=== PATIENT | male | born 1950 | race Hispanic/Latino ===

== ENCOUNTER → 2017-09-06 | Day surgery (SDC) | payer OTHER, MEDICARE ==
[~2017-09-06] VITALS: Ht 165.1 cm; Wt 73.5 kg
--- NOTE | 2017-09-06 09:58 | Operative Report ---
Operative/Inv Procedure Report Surgery Date: 09/06/17 Name of Procedure: Complex cataract extraction with intraocular lens implantation left eye Pre-Operative Diagnosis: Age-related cataract and abnormal pupil left eye Post-Operative Diagnosis: Same Estimated Blood Loss: none Surgeon/Charge Accounts Audit Clerk: Nemesio ISSA,Alfred Gomes Anesthesia: local monitored anesthesi Complications: None Operative/Procedure Note Note: Preoperatively the patient was noted to have hand motion vision in the left eye . The risks, benefits, and alternatives to surgery were discussed at length with the patient. Informed consent was obtained. The patient was brought to the operating room where the left eye was prepped and draped in the normal sterile fashion. A speculum was placed on the left eye with good exposure. A stab incision was made using a paracentesis blade. Intracameral lidocaine was placed. Viscoelastic was used to form the anterior chamber. A Malyugin ring was placed on the iris with good exposure. A clear corneal incision was made using keratome blade. A continuous curvilinear capsulorrhexis was made using a cystotome needle followed by Utrata forceps. There was no extension of the rhexis. Hydrodissection was performed using balanced salt solution. The cataract was removed using a stop and chop technique. Residual cortex was removed using coaxial irrigation and aspiration. The capsule was polished using irrigation and aspiration and the posterior capsule was cleaned using a balanced salt solution jet. There was no residual lens material inside the eye. The capsular bag was reformed using viscoelastic. An intraocular lens PCBOO of power 24.5 was verified and confirmed. It was loaded into an injector and injected into the eye. The lens was placed entirely within the capsular bag. Viscoelastic was evacuated using irrigation and aspiration. The wounds were stromally hydrated and the eye filled to physiologic pressure using balanced salt solution. Intracameral cefuroxime was placed. Speculum was removed and a shield was placed on the eye. The patient was brought to the recovery area without incident. Instructions were given to follow-up the next day for routine postoperative care.
== END ==
LOC: STS 01:54
DX: H25.89 Other age-related cataract (principal); H21.562 Pupillary abnormality, left eye; E11.22 Type 2 diabetes mellitus with diabetic chronic kidney disease; I12.0 Hypertensive chronic kidney disease with stage 5 chronic kidney disease or end stage renal disease; N18.6 End stage renal disease; Z99.2 Dependence on renal dialysis
CPT/HCPCS: 36415; J2250; V2632

== ENCOUNTER 2017-09-28 17:02 | Inpatient (IN) | payer OTHER, MEDICARE ==
[~2017-09-28] VITALS: Ht 165.1 cm; Wt 71.0 kg
[2017-09-28 17:47] LABS: ABSOLUTE BASOPHIL COUNT 0.1 /CUMM (0.0-0.2); ABSOLUTE EOSINOPHIL COUNT 0.1 /CUMM (0.0-0.7); ABSOLUTE GRANULOCYTE CT 7.3 /CUMM (1.4-6.5); ABSOLUTE LYMPH COUNT 1.1 /CUMM (1.2-3.4); ABSOLUTE MONOCYTE COUNT 0.7 /CUMM (0.10-0.60); BASOPHIL % 0.7 % (0.0-2.0); EOSINOPHIL % 0.7 % (0-5); GRANULOCYTE % 79.6 % (42.2-75.2); HEMATOCRIT 29.9 % (42-52); MEAN CORPUSCULAR HGB 30.9 PG (27.0-31.0); MEAN CORPUSCULAR HGB CONC 33.4 G/DL (33.0-37.0); MEAN CORPUSCULAR VOLUME 92.5 FL (80.0-94.0); MEAN PLATELET VOLUME 7.5 FL (7.4-10.4); PLATELET COUNT 269 /CUMM (130-400); RBC DISTRIBUTION WIDTH 14.4 % (11.5-14.5); RED BLOOD CELL CT 3.23 /CUMM (4.70-6.10); WHITE BLOOD CELL COUNT 9.2 /CUMM (4.8-10.8)
--- NOTE | 2017-09-28 18:29 | ED GI/GU/ABDOMINAL COMPLAINT ---
See Addendum History of Present Illness General Chief Complaint: Male Genitourinary Problems Stated Complaint: INFECTION IN URINE, CHILLS Source: patient, family Exam Limitations: language barrier Vital Signs & Intake/Output Vital Signs & Intake/Output Vital Signs Date Time Temp Pulse Resp B/P B/P Pulse O2 O2 Flow FiO2 Mean Ox Delivery Rate 09/29 0027 98.9 72 18 170/60 09/28 2150 98.4 80 18 150/62 95 Nasal 2.0L Cannula 09/28 2140 95 Nasal 2.5L Cannula 09/28 2128 98.8 81 18 187/73 97 Nasal 3.0L Cannula 09/28 2009 98.7 86 20 175/75 95 Nasal 2.0L Cannula 09/28 1812 95 Nasal 2.0L Cannula 09/28 1752 98.9 89 20 178/76 95 Nasal 2.0L Cannula 09/28 1715 99.3 85 20 164/64 89 Room Air Room Air ED Intake and Output 09/29 0000 09/28 1200 Intake Total 20 Output Total Balance 20 Intake, IV 20 Patient 170 lb Weight Weight Bed scale Measurement Method Allergies Coded Allergies: No Known Allergies (09/28/17) Reconcile Medications Acetaminophen 500 MG TABLET 1 TAB PO DAILY PRN PAIN (Reported) Amlodipine Besylate 10 MG TABLET 1 TAB PO DAILY HTN (Reported) Aspirin (Aspirin*) 81 MG TAB.CHEW 1 TAB PO DAILY CAD (Reported) B Complex & C No.20/Folic Acid (Renal Caps Softgel) 1 MG CAPSULE 1 TAB PO DAILY ESRD (Reported) Clonidine HCl 0.2 MG TABLET 1 TAB PO BID HTN (Reported) Darbepoetin Pardeep in Polysorbat (Aranesp) 10 MCG/0.4 ML SYRINGE 1 SYR IM QMON ANEMIA (Reported) Etelcalcetide Hydrochloride (Parsabiv) 5 MG/ML VIAL 5 MG IV Sunday ESRD (Reported) Fluticasone Propionate (Flonase Allergy Relief) 50 MCG/ACTUATION SPRAY.SUSP 1 SPRAY INH BID ALLERGY (Reported) Furosemide 80 MG TABLET 1 TAB PO DAILY CHF (Reported) Hydralazine HCl 50 MG TABLET 1 TAB PO TID HTN (Reported) Insulin Glargine,Hum.rec.anlog (Lantus Solostar) 100 UNIT/ML (3 ML) INSULN.PEN 10 UNIT SC QPM DAILY (Reported) Insulin Regular (Novolin R Inj) 1,000 UNITS/10 ML CAROL 0 UNITS SC SEE ADMIN CRITERIA DIABETES (Reported) Iron Sucrose (Venofer) 100 MG IRON/5 ML VIAL 1 VIAL IV WITH DIALYSI ESRD / ANEMIA (Reported) Lactulose (Kristalose) 20 GRAM PACKET 1 PACKET PO DAILY CONSTIPATION ( Reported) Levothyroxine Sodium 150 MCG TABLET 1 TAB PO DAILY HYPOTHYROIDISM (Reported) Metoprolol Tartrate 25 MG TABLET 0.5 TAB PO BID CAD / HTN (Reported) Minoxidil 10 MG TABLET 2.5 MG PO DAILY ESRD (Reported) Nitroglycerin 0.4 MG TAB.SUBL 1 TAB SL AD CHEST PAIN (Reported) 1st sign of attack; may repeat every 5 minutes until relief; if pain persists after 3 tablets in 15 minutes, prompt medical att Olmesartan Medoxomil (Benicar) 40 MG TABLET 1 TAB PO DAILY HTN (Reported) Ondansetron HCl 4 MG TABLET 1 TAB PO Q4P PRN NAUSEA (Reported) Pravastatin Sodium 40 MG TABLET 1 TAB PO DAILY HLD (Reported) Tamsulosin HCl (Flomax) 0.4 MG CAP.ER.24H 1 CAP PO DAILY BPH (Reported) Triage Note: PT TO ED FOR C/C OF R FLANK PAIN THAT STARTED 5 DAYS AGO. TOLD BY BEAUTY SALES ADVISOR THAT HE HAS UTI BUT TOLD TO COME TO ED FOR ANTIBIOTICS. BILATERAL LOWER LEG SWELLING WITH SOB. PT DIAPHORETIC IN TRIAGE, 99.3 TEMP. DIALYSIS PATIENT. ALSO REPORTS PINK URINE. Triage Nurses Notes Reviewed? yes Onset: Gradual Duration: day(s): Timing: recent history Quality/Severity: moderate HPI: 67yo male with hx of CHF, CKD on dialysis 3x/week presents emergency department complaining of right-sided flank pain beginning 5 days ago. Patient also reporting dysuria, pyuria, hematuria beginning at the same time. 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 Patient also reporting a dry cough and dyspnea for the past 2 days. Patient also with lower extremity swelling for about one week. Patient reports feeling sweats and chills for 2 days. Patient denies chest pain, abdominal pain, vomiting, diarrhea. (Bridget RYAN,Janee Hall) Past History Travel History Traveled to [place] past 21 day No Medical History Any Pertinent Medical History? 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 No (Janee Ramon) Review of Systems Review of Systems Constitutional: Reports: see HPI. EENTM: Reports: no symptoms. Respiratory: Reports: see HPI. Cardiovascular: Reports: see HPI. GI: Reports: see HPI. Genitourinary: Reports: see HPI. Musculoskeletal: Reports: no symptoms. Skin: Reports: no symptoms. Neurological/Psychological: Reports: no symptoms. Hematologic/Endocrine: Reports: no symptoms. Immunologic/Allergic: Reports: no symptoms. All Other Systems: Reviewed and Negative (Janee Ramon) Physical Exam Physical Exam General Appearance: well developed/nourished, alert, awake Head: atraumatic, normal appearance Eyes: Bilateral: normal appearance. Ears, Nose, Throat, Mouth: hearing grossly normal Neck: normal inspection, supple, full range of motion Respiratory: no respiratory distress, mildly diminished breath sounds bilaterally Cardiovascular: regular rate/rhythm Gastrointestinal: normal bowel sounds, soft, non-tender, no organomegaly Back: CVA tenderness bilaterally Extremities: normal range of motion, nonpitting edema bilaterally Neurologic/Psych: awake, alert, oriented x 3 Skin: intact, normal color, warm/dry Core Measures ACS in differential dx? Yes Sepsis Present: No Sepsis Focused Exam Completed? No (Janee Ramon) Progress Differential Diagnosis: AAA, bowel obstruction, cholecystitis, diverticulitis, hernia, PUD/GERD, pyelonephritis, urinary retention, urethritis, UTI/pyelo, ACS, CHF Plan of Care: Orders Procedure Date/time Status Nothing by Mouth 09/29 B Active ECHOCARDIOGRAM 09/29 2102 Active TROPONIN LEVEL 09/29 0800 Active EKG 09/29 0800 Active TROPONIN LEVEL 09/29 0200 Active EKG 09/29 0200 Active Renal Dialysis Diet 09/28 D Complete Weight 09/28 2146 Active Vital Signs 09/28 214 Active Teach/Educate 09/28 2145 Active Pain Treatment and Response 09/28 2145 Active Nutritional Intake, Monitor 09/28 2145 Active Isolation 09/28 2145 Active Intake & Output 09/28 2145 Active Patient Care Conference 09/28 2145 Active Activity/Ambulation 09/28 2145 Active TRC EVALUATION (GEN) 09/28 2101 Active OXYGEN SETUP (GEN) 09/28 2101 Complete Pathway - chart 09/28 2101 Active House Staff 09/28 2101 Active Intake & Output 09/28 1956 Active Patient Data 09/29 1951 Active Admit to inpatient 09/28 1936 Active Vital Signs 09/28 193 Active Code Status 09/28 1936 Active Add-on Test (ER Only) 09/28 192 Active Add-on Test (ER Only) 09/28 1822 Active TROPONIN LEVEL 09/28 1740 Complete B-TYPE NATRIURETIC PEP (BNP) 09/28 1740 Complete BLOOD CULTURE 09/28 1729 Active EKG 09/28 1726 Active LACTIC ACID 09/28 1713 Complete COMPREHENSIVE METABOLIC PANEL 09/28 1713 Complete CBC WITHOUT DIFFERENTIAL 09/28 1713 Complete CULTURE,URINE 09/28 1706 Active URINALYSIS 09/28 1706 Complete Weight 09/28 UNK Active VTE Mechanical Prophylaxis 09/28 UNK Active FingerStick- Glucose 09/28 UNK Active Current Medications Sig/Hernandez Start time Last Medication Dose Stop Time Status Admin Ceftriaxone Sodium 1,000 MG DAILY@09/29 AC (Rocephin) Pravastatin Sodium 10 MG 1700 09/29 1700 AC (Pravachol) Amlodipine Besylate 10 MG DAILY 09/29 09 AC (Norvasc) Aspirin 81 MG DAILY 09/29 09 AC (Aspirin) Clonidine 0.2 MG BID 09/29 899 AC (Catapres) Furosemide 80 MG DAILY 09/29 899 AC (Lasix) Losartan Potassium 50 MG DAILY 09/29 09 AC (Cozaar) Minoxidil 2.5 MG DAILY 09/29 09 AC (Minoxidil 2.5 MG Tab) Tamsulosin HCl 0.4 MG DAILY 09/29 09 AC (Flomax) Levothyroxine Sodium 0.15 MG DAILY AC 09/29 0700 AC (Synthroid) Morphine Sulfate 2 MG Q4P PRN 09/29 0045 AC 09/29 (MORPHINE SULFATE) 0053 Insulin Human Regular 0 Q6 09/28 2359 AC 09/29 (NovoLIN R) 0033 Hydralazine HCl 50 MG TID 09/28 2330 AC 09/29 (Apresoline) 0026 Metoprolol Tartrate 12.5 MG BID 09/28 2330 AC 09/29 (Lopressor) 0027 Lactulose 20 GM DAILY PRN 09/28 2300 AC (Enulose 20GM/30ML) Heparin Sodium 5,000 UNIT Q8 09/28 2200 AC 09/28 (Porcine) 2218 Acetaminophen 650 MG Q6P PRN 09/28 2100 AC (Tylenol) Laboratory Tests 09/28/172012: Lactic Acid Cancelled 09/28/171923: Urine Color ORANG H, Urine Clarity CLDY H, Urine pH 7.5, Ur Specific [place] 1.025, Urine Protein >=300 H, Urine Ketones NEG, Urine Nitrite POS H, Urine Bilirubin NEG@ICTO, Urine Urobilinogen 0.2, Ur Leukocyte Esterase LARGE H, Ur Microscopic SEDIMENT EXAMINED, Urine RBC PACKD H, Urine WBC PACKD H, Ur Epithelial Cells FEW, Urine Bacteria MANY H, Urine Hemoglobin LARGE H, Urine Glucose NEG 09/28/17 1740: Anion Gap 16, Estimated GFR 14 L, BUN/Creatinine Ratio 7.7, Glucose 242 H, Lactic Acid 0.7, Calcium 8.3 L, Total Bilirubin 0.6, AST 26, ALT 30, Alkaline Phosphatase 106, Troponin I 0.02, Kww-X-Gpzrsqybejf Pept 13775 H, Total Protein 7.1, Albumin 4.2, Globulin 2.9, Albumin/Globulin Ratio 1.4, CBC w Diff NO MAN DIFF REQ, RBC 3.23 L, MCV 92.5, MCH 30.9, MCHC 33.4, RDW 14.4, MPV 7.5, Gran % 79.6 H, Lymphocytes % 11.9 L, Monocytes % 7.1, Eosinophils % 0.7, Basophils % 0.7, Absolute Granulocytes 7.3 H, Absolute Lymphocytes 1.1 L, Absolute Monocytes 0.7 H, Absolute Eosinophils 0.1, Absolute Basophils 0.1 Microbiology 09/29 1923 URINE ROUT: Urine Culture - RECD 09/28 1820 BLOOD: Blood Culture - RECD 09/28 1740 BLOOD: Blood Culture - RECD Diagnostic Imaging: Viewed by Me: Radiology Read, CT Scan. Discussed w/RAD: Radiology Read, CT Scan. Radiology Impression: PATIENT: HORTENSIA DIXON I PRESENT AGE: 67 PATIENT ACCOUNT NO: [id number] : 50 LOCATION: [facility] ORDERING PHYSICIAN: Janee RYAN SERVICE DATE: 09/28/17 EXAM TYPE: CAT - CT ABD & PELVIS W/O IV CONTRAS EXAMINATION: CT ABDOMEN AND PELVIS WITHOUT CONTRAST CLINICAL INFORMATION: Back pain. Dysuria.CKD COMPARISON: None TECHNIQUE: Multidetector volumetric imaging was performed from the superior aspect of the liver through the pubic symphysis. Sagittal and coronal reformatted images were obtained on the technologist's workstation. DLP: 349.12 mGy-cm FINDINGS: LUNG BASES: There is large volume dependent bilateral pleural effusions. There is basilar compression atelectasis at both lung bases. LIVER, GALLBLADDER, AND BILIARY TREE: The liver is normal in size, shape, and attenuation. No focal hepatic lesion or biliary ductal dilatation is present. There are couple punctate calcified granuloma in the liver. The gallbladder is not seen. The extra hepatic CBD measures 1 cm. No calcified stone seen in the bile duct. PANCREAS: Unremarkable. SPLEEN: Unremarkable. ADRENAL GLANDS: Unremarkable. KIDNEYS AND URETERS: There is hydronephrosis of right kidney with distention renal pelvis and calyces. There is a linear 5 mm stone in the renal pelvis. There is a second stone at the right ureterovesical junction that is also linear measuring about 4 mm. The right ureter is dilated to the ureterovesical junction but no additional stone in the right ureter or kidney. The left kidney and ureter are normal. BLADDER: The bladder is partially filled. GASTROINTESTINAL TRACT: There is no acute change of the bowel. No bowel obstruction. No bowel wall thickening or edema. The appendix is normal. The small bowel loops are unremarkable. ABDOMINAL WALL: No significant hernia is appreciated. LYMPH NODES: Normal. VASCULAR: Atherosclerotic vascular wall calcification of aorta and iliac vessels without aneurysm. PELVIC VISCERA: Prostate is enlarged measuring 5.3 cm transverse. There are small calcifications within the prostate. OSSEOUS STRUCTURES: There is multilevel small endplate degenerative spurring of the lumbar spine with bridging osteophytes at the lower thoracic spine. Mild facet joint degenerative change at the lower lumbar spine. IMPRESSION: 1. Large bilateral pleural effusions with compressive atelectasis at lung bases. 2. Hydronephrosis of right kidney due to an obstructing stone at the right ureteropelvic junction. This is a linear stone measuring about 4 mm. There is a 5 mm stone in the right renal pelvis. DICTATED BY: Iván Smith MD DATE/ TIME DICTATED:09/28/172021 WAREHOUSE ORDER FILLER:RYAN DATE/TIME TRANSCRIBED: 09/28/172021 CONFIDENTIAL, DO NOT COPY WITHOUT APPROPRIATE AUTHORIZATION. < Electronically signed in Other Vendor System> SIGNED BY: Iván Smith MD 2113 CXR Impression: PATIENT: HORTENSIA DIXON I PRESENT AGE: 67 PATIENT ACCOUNT NO: [id number] : 50 LOCATION: [facility] ORDERING PHYSICIAN: Janee RYAN SERVICE DATE: 09/28/17 EXAM TYPE: RAD - XRY-CHEST XRAY, TWO VIEWS EXAMINATION: XR CHEST CLINICAL INFORMATION: Shortness of breath. Fever. COMPARISON: Chest x-ray 06/02/2016 TECHNIQUE: 2 views of the chest were obtained. FINDINGS: There is moderate central pulmonary vascular congestion with increased interstitial lung markings, interstitial edema, and bilateral pleural effusions. No focal dense consolidation. IMPRESSION: Congestive heart failure. Bilateral pleural effusions. DICTATED BY: Iván Smith MD DATE/TIME DICTATED:09/28/171835 WAREHOUSE ORDER FILLER:RYAN DATE/TIME TRANSCRIBED:09/28/171835 CONFIDENTIAL, DO NOT COPY WITHOUT APPROPRIATE AUTHORIZATION. <Electronically signed in Other Vendor System> SIGNED BY: Iván Smith MD 09/28/17 1841 Initial ED EKG: sinus rhythm @84bpm, first degree AV block, ST segment elevations V1-V3 Prior EKG: changed (01/01/11) (Bridget RYAN,Janee Hall) Departure Departure Disposition: STILL A PATIENT Condition: Stable Clinical Impression Primary Impression: EKG abnormalities Secondary Impressions: CHF (congestive heart failure), Kidney stone Referrals: Kevin Brown MD (PCP/Family) Departure Forms: Customer Survey General Discharge Information Admission Note Documentation of Exam: CHF requiring cardiology consult, possible diuresis, UTI requiring IV antibiotics, repeat labs, urology consult, follow up with blood cultures, premature discharge medically unsafe (Bridget RYAN,Janee Hall) Admission Note Spoke With: Valente Petersen MD Documentation of Exam: Documentation of any treatments & extenuating circumstances including Concerns Regarding Discharge (functional status, medication knowledge or non-compliance, living conditions, etc.) that warrant an admission rather than observation: [The patient needs admission for serial troponins and telemetry monitoring.] (Nikolay Kumar DO)
--- NOTE | 2017-09-28 18:41 | RADIOLOGY REPORT ---
EXAMINATION: XR CHEST CLINICAL INFORMATION: Shortness of breath. Fever. COMPARISON: Chest x-ray 06/02/2016 TECHNIQUE: 2 views of the chest were obtained. FINDINGS: There is moderate central pulmonary vascular congestion with increased interstitial lung markings, interstitial edema, and bilateral pleural effusions. No focal dense consolidation. IMPRESSION: Congestive heart failure. Bilateral pleural effusions.
--- NOTE | 2017-09-28 19:54 | History & Physical ---
Brendon Taylor MD 09/28/171953: General Information and HPI History of Present Illness: 67-year-old man with past medical history of congestive heart failure, hypertension, hyperlipidemia, aortic stenosis, bradycardia, pancreatitis, BPH, insulin-dependent diabetes mellitus, ESRD on hemodialysis, and hypothyroidism sent in from dialysis for treatment of a "urinary tract infection". Patient reports that he attended his hemodialysis session today as scheduled when he reported urinary symptoms for which a urinalysis was obtained that reportedly showed "an infection" for which they were referred to the [place] [facility]. Patient reports fever, chills, back pain, pain with burning on urination, and urinary incontinence over the past 5 days. He also reports development of shortness of breath with lower extremity swelling over the past 3-4 days. Patient was reportedly seen by his balance sheet analyst Dr. Trevino whom made some "medicine changes". Presently patient reports severe mid/right sided back pain with persistence of his fever, chills, shortness of breath, abdominal pain, and urinary symptoms. Review of systems Otherwise he denies any headache, lightheadedness, dizziness, chest pain, palpitations, heartburn, cough, vomiting, diarrhea. Past medical history-as above Allergies-no known drug allergies Medications-reconciled in electronic medical record Allergies/Medications Allergies: Coded Allergies: No Known Allergies (09/28/17) Home Med list Acetaminophen 500 MG TABLET 1 TAB PO DAILY PRN PAIN (Reported) Amlodipine Besylate 10 MG TABLET 1 TAB PO DAILY HTN (Reported) Aspirin (Aspirin*) 81 MG TAB.CHEW 1 TAB PO DAILY CAD (Reported) B Complex & C No.20/Folic Acid (Renal Caps Softgel) 1 MG CAPSULE 1 TAB PO DAILY ESRD (Reported) Clonidine HCl 0.2 MG TABLET 1 TAB PO BID HTN (Reported) Darbepoetin Pardeep in Polysorbat (Aranesp) 10 MCG/0.4 ML SYRINGE 1 SYR IM QMON ANEMIA (Reported) Etelcalcetide Hydrochloride (Parsabiv) 5 MG/ML VIAL 5 MG IV Sunday ESRD (Reported) Fluticasone Propionate (Flonase Allergy Relief) 50 MCG/ACTUATION SPRAY.SUSP 1 SPRAY INH BID ALLERGY (Reported) Furosemide 80 MG TABLET 1 TAB PO DAILY CHF (Reported) Hydralazine HCl 50 MG TABLET 1 TAB PO TID HTN (Reported) Insulin Glargine,Hum.rec.anlog (Lantus Solostar) 100 UNIT/ML (3 ML) INSULN.PEN 10 UNIT SC QPM DAILY (Reported) Insulin Regular (Novolin R Inj) 1,000 UNITS/10 ML CAROL 0 UNITS SC SEE ADMIN CRITERIA DIABETES (Reported) Iron Sucrose (Venofer) 100 MG IRON/5 ML VIAL 1 VIAL IV WITH DIALYSI ESRD / ANEMIA (Reported) Lactulose (Kristalose) 20 GRAM PACKET 1 PACKET PO DAILY CONSTIPATION ( Reported) Levothyroxine Sodium 150 MCG TABLET 1 TAB PO DAILY HYPOTHYROIDISM (Reported) Metoprolol Tartrate 25 MG TABLET 0.5 TAB PO BID CAD / HTN (Reported) Minoxidil 10 MG TABLET 2.5 MG PO DAILY ESRD (Reported) Nitroglycerin 0.4 MG TAB.SUBL 1 TAB SL AD CHEST PAIN (Reported) 1st sign of attack; may repeat every 5 minutes until relief; if pain persists after 3 tablets in 15 minutes, prompt medical att Olmesartan Medoxomil (Benicar) 40 MG TABLET 1 TAB PO DAILY HTN (Reported) Ondansetron HCl 4 MG TABLET 1 TAB PO Q4P PRN NAUSEA (Reported) Pravastatin Sodium 40 MG TABLET 1 TAB PO DAILY HLD (Reported) Tamsulosin HCl (Flomax) 0.4 MG CAP.ER.24H 1 CAP PO DAILY BPH (Reported) Past History Travel History Traveled to [place] past 21 day No Medical History Neurological: NONE EENT: NONE Cardiovascular: CHF, hypertension, hyperlipidemia, AORTIC STENOSIS FLUID OVERLOAD BRADYCARDIA Gastrointestinal: colitis, PANCREATITIS Renal: benign prost hyperplasia, ESRD ON DIALYSIS CYST ON KIDNEY Musculoskeletal: FROZEN SHOULDER Endocrine: TYPE II DM HYPOTHYROIDISM Blood Disorders: NONE Cancer(s): NONE RESEARCH QUALITY ASSURANCE ANALYST/Reproductive: NONE Surgical History Surgical History: unobtainable Past Family/Social History Psychosocial History Where do you live? Home Services at Home: None ETOH Use: denies use Illicit Drug Use: denies illicit drug use Review of Systems Review of Systems Constitutional: Reports: see HPI. Exam & Diagnostic Data Last 24 Hrs of Vital Signs/I&O Vital Signs Date Time Temp Pulse Resp B/P B/P Pulse O2 O2 Flow FiO2 Mean Ox Delivery Rate 09/28 2150 98.4 80 18 150/62 95 Nasal 2.0L Cannula 09/28 2140 95 Nasal 2.5L Cannula 09/28 2128 98.8 81 18 187/73 97 Nasal 3.0L Cannula 09/28 2009 98.7 86 20 175/75 95 Nasal 2.0L Cannula 09/28 1812 95 Nasal 2.0L Cannula 09/28 1753 98.9 89 20 178/76 95 Nasal 2.0L Cannula 09/28 1715 99.3 85 20 164/64 89 Room Air Room Air Assessment/Plan Assessment: 67-year-old man with multiple medical problems significant for congestive heart failure, aortic stenosis, and end-stage renal disease on hemodialysis seen for evaluation of a urinary tract infection. ED course -Vitals: Temp 98.9-99.3, HR 85-89, RR 20, SPEP was 54-178, O2 89-95% on room air -CBC: WBC 9.2, hemoglobin 10.0, hematocrit 29.9, platelet 269 -BMP: sodium 138, potassium 5.0, chloride 93, CO2 29, urea 33, creatinine 4.3, anion gap 16, glucose 242 -LFT: Within normal limits -Miscellaneous: Lactic acid 0.7, troponin I 0.02, BNP 73293 -EKG 01/01// 1502: Normal sinus rhythm with T-wave inversions in V5-6, I, aVL with first-degree heart block and [address] segment elevation in V1-V2 -EKG 09/28/17 1729: Unchanged from previous -CXR: Digestive heart failure with bilateral pleural effusions -CT abdomen/pelvis without IV contrast: 1. Large bilateral pleural effusions with compressive atelectasis at lung bases. 2. Hydronephrosis of right kidney due to an obstructing stone at the right ureteropelvic junction. This is a linear stone measuring about 4 mm. There is a 5 mm stone in the right renal pelvis. Patient's urinalysis was repeated in the ED which did in fact demonstrate an active urinary tract infection for which urine/blood cultures were obtained and patient was given a dose of intravenous Rocephin. Patient remains afebrile without leukocytosis or tachycardia and does not appear septic however on exam has severe right sided CVA tenderness with moderate suprapubic pain. Chest x-ray demonstrates pulmonary vascular congestion with bilateral pleural effusions with an elevated BMP to 36,000 concerning for acute decompensated heart failure exacerbation. Patient is to be monitored on telemetry, transthoracic echocardiogram is to be obtained, and serial troponin/EKG is with a cardiology consult in the morning. CT abdomen/pelvis without IV contrast demonstrated obstructive 4 mm stone at the right UPJ for which he is kept nothing by mouth in anticipation for possible cystoscopy in the morning. Problem list -Urinary tract infection -Nephrolithiasis, 4 mm obstructive right UPJ renal stone -Acute hypoxic respiratory failure -Acute decompenstated heart failure -Bilateral pleural effusions -Reported history of congestive heart failure, no recent echocardiogram -History of aortic stenosis -BPH -End-stage renal disease on hemodialysis -Insulin-dependent diabetes mellitus -Hypothyroidism -Hypertension -Hyperlipidemia Plan -Admit to telemetry -Telemetry monitoring -Monitor in's and outs, daily weights -TRC with nebs when necessary -Supplemental oxygen, goal >92%, taper as tolerated -Hemodialysis per nephrology -Accu-Cheks every 6 hours with Novolin insulin -Hold IV fluids -Lasix 40 mg IV Daily -Ceftriaxone 1 g IV daily -Continue home meds: amlodipine, aspirin, vitamins, clonidine,furosemide, hydralazine -Cardiology consult for heart failure -Nephrology consult for dialysis -Urology consult for obstructive renal stone -Echocardiogram -Trend troponin/EKG until peak or 3 negative sets -Pain control with acetaminophen -Nothing by mouth for possible cystoscopy/stent placement in a.m. -DVT prophylaxis with subcutaneous heparin -Full code As Ranked By This Provider Problem List: 1. CHF (congestive heart failure) Core Measures/Misc (03/04) Acute Coronary Syndrome ACS Diagnosis: No Congestive Heart Failure Congestive Heart Failure Diagnosis Yes Last Known EF % 60 Cerebrovascular Accident CVA/TIA Diagnosis: No VTE (View Protocol) VTE Risk Factors Age>40 No Mechanical VTE Prophylaxis d/t N/A MechProphylax Ordered No VTE Pharm Prophylaxis d/t NA PharmProphylax ordered Sepsis (View protocol) Sepsis Present: No Valente Petersen 09/29/17 0644: Attending MD Review Statement Attending Statement Attending MD Statement: examined this patient, discuss w/resident/PA/CLINICAL DATA ASSISTANT, agreed w/resident/PA/CLINICAL DATA ASSISTANT, reviewed EMR data (avail), reviewed images, amended to note Attending Assessment/Plan: CC: Sent from dialysis center for urine infection PMH: DM, HTN, hypothyroidism, heart failure, aortic stenosis, ESRD on hemodialysis, history of pancreatitis Patient was sent from hemodialysis center for urinary tract infection. History is obtained from patient's daughter as there is a language barrier. According to daughter patient was getting noticeably short of breath and increased leg swelling since last 4 days. They followed up with balance sheet analyst, some medication changes were done. Today he went for the dialysis went urine sample was obtained and it showed signs of UTI, at that time after probing questions patient endorsed burning with urination, painful urination, feverish feeling and chills at home, back pain since last 5 days. Patient usually is not a complainer and prefers not to go to hospital. He has been hospitalized 3 times since May at [facility]. Currently patient denies any chest pain or chest tightness, palpitations but he has dizziness, shortness of breath. No nausea, vomiting, diarrhea, passing out or falls. Vitals T max 99.3, pulse 85, RR 20, blood pressure 164/64, saturating 89% on room air then 95% on 3 L nasal cannula On exam: A O 3, cooperative, mild respiratory distress, neck supple, JVD elevated, no lymphadenopathy, mucosa moist, no focal neurological deficit, bilateral lower extremity +2 edema, no obvious skin rashes or inflammation CVS: S1-S2, RRR. RS: Bibasilar crackles. Abdomen: Soft, NT, ND, bowel sounds present, bilateral CVA tenderness left more than right. CXR: Congestive heart failure. Bilateral pleural effusions. CT abdomen pelvis without contrast: 1. Large bilateral pleural effusions with compressive atelectasis at lung bases. 2. Hydronephrosis of right kidney due to an obstructing stone at the right ureteropelvic junction. This is a linear stone measuring about 4 mm. There is a 5 mm stone in the right renal pelvis. Assessment and plan 67-year-old male with multiple comorbidities presented in ER for shortness of breath, increasing leg swelling over 4 days duration and urinary burning, low back pain, fever and chills of 5 day duration. He has elevated JVD, crackles on auscultation, bilateral lower extremity edema, CVA tenderness bilaterally. He has chronic anemia, no significant leukocytosis but there is left shift, his hyperglycemia. UA positive for nitrites and leukocyte esterase, CT abdomen shows right hydronephrosis with obstructing stone. Chest x-ray confirms the findings of congestive heart failure + Acute congestive heart failure with unknown ejection fraction + UTI with suspected pyelonephritis obstructive stone and hydronephrosis + History of DM, HTN, hypothyroidism, heart failure, aortic stenosis, ESRD on hemodialysis, history of pancreatitis - Admit to telemetry - Continuous telemetry monitoring - Continue O2 by nasal cannula - IV Lasix 40 mg once now - Reevaluate for volume status to address further Lasix dose - Strict I's and O's - Daily weights - Serial troponin and EKGs - 2-D echo in a.m. - Cardiology consult in a.m. - Nephrology consult - IV ceftriaxone - Urine culture - Urology consult - Continue his home medications except Lasix, patient may require IV Lasix - DVT prophylaxis
--- NOTE | 2017-09-28 21:14 | CT SCAN REPORT ---
EXAMINATION: CT ABDOMEN AND PELVIS WITHOUT CONTRAST CLINICAL INFORMATION: Back pain. Dysuria.CKD COMPARISON: None TECHNIQUE: Multidetector volumetric imaging was performed from the superior aspect of the liver through the pubic symphysis. Sagittal and coronal reformatted images were obtained on the technologist's workstation. DLP: 349.12 mGy-cm FINDINGS: LUNG BASES: There is large volume dependent bilateral pleural effusions. There is basilar compression atelectasis at both lung bases. LIVER, GALLBLADDER, AND BILIARY TREE: The liver is normal in size, shape, and attenuation. No focal hepatic lesion or biliary ductal dilatation is present. There are couple punctate calcified granuloma in the liver. The gallbladder is not seen. The extra hepatic CBD measures 1 cm. No calcified stone seen in the bile duct. PANCREAS: Unremarkable. SPLEEN: Unremarkable. ADRENAL GLANDS: Unremarkable. KIDNEYS AND URETERS: There is hydronephrosis of right kidney with distention renal pelvis and calyces. There is a linear 5 mm stone in the renal pelvis. There is a second stone at the right ureterovesical junction that is also linear measuring about 4 mm. The right ureter is dilated to the ureterovesical junction but no additional stone in the right ureter or kidney. The left kidney and ureter are normal. BLADDER: The bladder is partially filled. GASTROINTESTINAL TRACT: There is no acute change of the bowel. No bowel obstruction. No bowel wall thickening or edema. The appendix is normal. The small bowel loops are unremarkable. ABDOMINAL WALL: No significant hernia is appreciated. LYMPH NODES: Normal. VASCULAR: Atherosclerotic vascular wall calcification of aorta and iliac vessels without aneurysm. PELVIC VISCERA: Prostate is enlarged measuring 5.3 cm transverse. There are small calcifications within the prostate. OSSEOUS STRUCTURES: There is multilevel small endplate degenerative spurring of the lumbar spine with bridging osteophytes at the lower thoracic spine. Mild facet joint degenerative change at the lower lumbar spine. IMPRESSION: 1. Large bilateral pleural effusions with compressive atelectasis at lung bases. 2. Hydronephrosis of right kidney due to an obstructing stone at the right ureteropelvic junction. This is a linear stone measuring about 4 mm. There is a 5 mm stone in the right renal pelvis.
[2017-09-28 21:51] VITALS: BP 150/62
[2017-09-28] MEDS ORDERED: FLOMAX0.4 M1 PO (22:30)
[2017-09-28] MEDS ORDERED: VENOFER100 MG/5 M IV (22:30)
[2017-09-28] MEDS ORDERED: ACETAMINOPHEN500 M4 PO (22:31)
[2017-09-28] MEDS ORDERED: AMLODIPINE BESY10 M1 PO (22:31)
[2017-09-28] MEDS ORDERED: ARANESP10 MCG/0.4 IM (22:32)
[2017-09-28] MEDS ORDERED: ASPIRIN81 M4 PO (22:32)
[2017-09-28] MEDS ORDERED: CLONIDINE HCL0.2 M1 PO (22:33)
[2017-09-28] MEDS ORDERED: RENAL CAPS SOFTG1 MG PO (22:33)
[2017-09-28] MEDS ORDERED: FUROSEMIDE80 M1 PO (22:34)
[2017-09-28] MEDS ORDERED: FLONASE ALLERG9.9 ML INH (22:34)
[2017-09-28] MEDS ORDERED: HYDRALAZINE HCL50 M1 PO (22:35)
[2017-09-28] MEDS ORDERED: LANTUS SOL100 UNIT/1 SC (22:36)
[2017-09-28] MEDS ORDERED: LEVOTHYROXINE150 MCG PO (22:36)
[2017-09-28] MEDS ORDERED: NOVOLIN R100 UNIT/1 SC (22:36)
[2017-09-28] MEDS ORDERED: NITROGLYCERIN0.4 M1 SL (22:37)
[2017-09-28] MEDS ORDERED: MINOXIDIL10 M1 PO (22:37)
[2017-09-28] MEDS ORDERED: METOPROLOL TART25 M1 PO (22:37)
[2017-09-28] MEDS ORDERED: [UNRECOGNIZED DRUG - OTHER] IV (22:38)
[2017-09-28] MEDS ORDERED: BENICAR40 M1 PO (22:38)
[2017-09-28] MEDS ORDERED: ONDANSETRON HCL4 MG PO (22:38)
[2017-09-28] MEDS ORDERED: PRAVASTATIN SOD40 M2 PO (22:39)
[2017-09-28] MEDS ORDERED: KRISTALOSE20 GM PO (22:40)
--- NOTE | 2017-09-29 06:46 | Admission Certification ---
Admission Certification Certification Statement - As attending physician, I certify that at the time of - admission, based on clinical presentation, severity of - symptoms, need for further diagnostic testing and - therapeutic interventions, and risk of adverse outcomes - without in-hospital treatment, in my clinical assessment, - this patient requires an acute hospital stay for a minimum - of two nights or longer. I have also considered psychsocial - factors such as support system, advanced age, financial - issues, cognitive issues, and failed out-patient treatments, - past re-admission history, safety of patient, and lack of - compliance as applicable. Specific rationale supporting this admission is: hydronephrosis with obstructing stone and UTI. Heart failure
[2017-09-29 06:55] VITALS: BP 160/70
[2017-09-29 09:00] VITALS: BP 180/64
--- NOTE | 2017-09-29 09:18 | Cons- Urology ---
General Information and HPI Consulting Request Date of Consult: 09/29/17 Requested By: Valente Petersen MD Reason for Consult: R renal stone and UTI Source of Information: family, old records Exam Limitations: no limitations History of Present Illness: This patient has multiple medical problems including ESRD on dialysis. He developed lower urinary sx's and at dialysis a U/A was ordered which was c/w UTI. He was sent to the [place] [facility]. He is also having severe R flank pain. A CTof the abd and pelvis showed a 2 stones in the R kidney. Both are 4 mm in size. One is in the renal pelvis and the other is at the UPJ. No ureteral stones are seen. There is mild hydronephrosis and the ureter is mildly dilated down to the leve of the bladder According to his daughter there is no hx of urinary stones in the past. Allergies/Medications Allergies: Coded Allergies: No Known Allergies (09/28/17) Home Med List: Acetaminophen 500 MG TABLET 1 TAB PO DAILY PRN PAIN (Reported) Amlodipine Besylate 10 MG TABLET 1 TAB PO DAILY HTN (Reported) Aspirin (Aspirin*) 81 MG TAB.CHEW 1 TAB PO DAILY CAD (Reported) B Complex & C No.20/Folic Acid (Renal Caps Softgel) 1 MG CAPSULE 1 TAB PO DAILY ESRD (Reported) Clonidine HCl 0.2 MG TABLET 1 TAB PO BID HTN (Reported) Darbepoetin Pardeep in Polysorbat (Aranesp) 10 MCG/0.4 ML SYRINGE 1 SYR IM QMON ANEMIA (Reported) Etelcalcetide Hydrochloride (Parsabiv) 5 MG/ML VIAL 5 MG IV Sunday ESRD (Reported) Fluticasone Propionate (Flonase Allergy Relief) 50 MCG/ACTUATION SPRAY.SUSP 1 SPRAY INH BID ALLERGY (Reported) Furosemide 80 MG TABLET 1 TAB PO DAILY CHF (Reported) Hydralazine HCl 50 MG TABLET 1 TAB PO TID HTN (Reported) Insulin Glargine,Hum.rec.anlog (Lantus Solostar) 100 UNIT/ML (3 ML) INSULN.PEN 10 UNIT SC QPM DAILY (Reported) Insulin Regular (Novolin R Inj) 1,000 UNITS/10 ML CAROL 0 UNITS SC SEE ADMIN CRITERIA DIABETES (Reported) Iron Sucrose (Venofer) 100 MG IRON/5 ML VIAL 1 VIAL IV WITH DIALYSI ESRD / ANEMIA (Reported) Lactulose (Kristalose) 20 GRAM PACKET 1 PACKET PO DAILY CONSTIPATION ( Reported) Levothyroxine Sodium 150 MCG TABLET 1 TAB PO DAILY HYPOTHYROIDISM (Reported) Metoprolol Tartrate 25 MG TABLET 0.5 TAB PO BID CAD / HTN (Reported) Minoxidil 10 MG TABLET 2.5 MG PO DAILY ESRD (Reported) Nitroglycerin 0.4 MG TAB.SUBL 1 TAB SL AD CHEST PAIN (Reported) 1st sign of attack; may repeat every 5 minutes until relief; if pain persists after 3 tablets in 15 minutes, prompt medical att Olmesartan Medoxomil (Benicar) 40 MG TABLET 1 TAB PO DAILY HTN (Reported) Ondansetron HCl 4 MG TABLET 1 TAB PO Q4P PRN NAUSEA (Reported) Pravastatin Sodium 40 MG TABLET 1 TAB PO DAILY HLD (Reported) Tamsulosin HCl (Flomax) 0.4 MG CAP.ER.24H 1 CAP PO DAILY BPH (Reported) Current Medications: Current Medications Sig/Hernandez Start time Last Medication Dose Route Stop Time Status Admin Acetaminophen 650 MG Q6P PRN 09/28 2100 AC PO Acetaminophen 0 .STK-MED ONE 09/28 2005 DC IV Acetaminophen 1,000 MG ONCE ONE 09/29 1999 DC 09/28 N/A 1 UNIT IV 09/28 Amlodipine Besylate 10 MG DAILY 09/29 0900 AC PO Aspirin 81 MG DAILY 09/29 0900 AC PO Ceftriaxone Sodium 1,000 MG DAILY@09/29 AC IV Ceftriaxone Sodium 0 .STK-MED ONE 09/28 2005 DC .ROUTE Ceftriaxone Sodium 1,000 MG ONCE ONE 09/28 193 DC 09/28 IV 09/28 Clonidine 0.2 MG BID 09/29 0900 AC PO Furosemide 80 MG DAILY 09/29 0900 AC PO Furosemide 40 MG .STK-MED ONE 09/29 0008 DC IV 09/29 0009 Furosemide 40 MG ONCE ONE 09/28 2230 DC 09/29 IV 09/28 223 0016 Heparin Sodium 5,000 UNIT Q8 09/28 2200 AC 09/29 (Porcine) SC 0648 Hydralazine HCl 50 MG TID 09/28 2330 AC 09/29 PO 0026 Insulin Human Regular 0 Q6 09/28 2359 AC 09/29 SC 0651 Lactulose 20 GM DAILY PRN 09/28 2300 AC PO Levothyroxine Sodium 0.15 MG DAILY AC 09/29 0700 AC 09/29 PO 0640 Losartan Potassium 50 MG DAILY 09/29 0900 AC PO Metoprolol Tartrate 12.5 MG BID 09/28 2330 AC 09/29 PO 0027 Minoxidil 2.5 MG DAILY 09/29 0900 AC PO Morphine Sulfate 2 MG ONCE ONE 09/29 0645 DC 09/29 IV 09/29 0646 0639 Morphine Sulfate 2 MG Q4P PRN 09/29 0045 AC 09/29 IV 0911 Morphine Sulfate 2 MG ONCE ONE 09/29 0015 DC 09/29 IV 09/29 0016 0019 Pravastatin Sodium 10 MG 1700 09/29 1700 AC PO Sodium Chloride 1,000 ML ONCE ONE 09/28 1845 DC IV 09/29 0124 Tamsulosin HCl 0.4 MG DAILY 09/29 0900 AC PO Past History Medical History Blood Transfusion Hx: No Neurological: NONE EENT: NONE Cardiovascular: CHF, hypertension, hyperlipidemia, AORTIC STENOSIS FLUID OVERLOAD BRADYCARDIA Respiratory: NONE Gastrointestinal: colitis, PANCREATITIS Hepatic: NONE Renal: benign prost hyperplasia, ESRD ON DIALYSIS CYST ON KIDNEY Musculoskeletal: FROZEN SHOULDER Psychiatric: NONE Endocrine: TYPE II DM HYPOTHYROIDISM Blood Disorders: NONE Cancer(s): NONE STONE OPERATOR/Reproductive: NONE Surgical History Pertinent Surgical History: unobtainable Psychosocial History Where Do You Live? Home Services at Home: None Smoking Status: Former Smoker ETOH Use: denies use Illicit Drug Use: denies illicit drug use Exam & Diagnostic Data Vital Signs and I&O Vital Signs Date Time Temp Pulse Resp B/P B/P Pulse O2 O2 Flow FiO2 Mean Ox Delivery Rate 09/29 0655 98.8 64 20 160/70 91 09/29 0027 98.9 72 18 170/60 09/29 0000 Nasal 2.0L Cannula 09/28 2150 98.4 80 18 150/62 95 Nasal 2.0L Cannula 09/28 2140 95 Nasal 2.5L Cannula 09/28 2128 98.8 81 18 187/73 97 Nasal 3.0L Cannula 09/28 2009 98.7 86 20 175/75 95 Nasal 2.0L Cannula 09/29 1811 95 Nasal 2.0L Cannula 09/28 1752 98.9 89 20 178/76 95 Nasal 2.0L Cannula 09/28 171 99.3 85 20 164/64 89 Room Air Room Air Intake & Output 09/29 0809/29 0000 09/28 0000 Intake Total 0 20 Output Total 10 Balance -10 20 Intake, IV 20 Intake, Oral 0 Number 2 Bowel Movements Output, Urine 10 Patient 170 lb Weight Weight Bed scale Measurement Method Very uncomfortable. Complaining of R flank pain Back: R CVA tenderness Abd: soft. RUQ tenderness. No peritoneal signs Laboratory Tests 09/29 09/29 09/28 09199 Chemistry Lactic Acid Cancelled Troponin I (<0.11 ng/ml) Pending 0.03 09/28 09/28 192 1740 Chemistry Sodium (137 - 145 mmol/L) 138 Potassium (3.5 - 5.1 mmol/L) 5.0 Chloride (98 - 107 mmol/L) 93 L Carbon Dioxide (22 - 30 mmol/L) 29 Anion Gap (5 - 16) 16 BUN (9 - 20 mg/dL) 33 H Creatinine (0.7 - 1.2 mg/dL) 4.3 H Estimated GFR (>60 ml/min) 14 L BUN/Creatinine Ratio (7 - 25 %) 7.7 Glucose (65 - 99 mg/dL) 242 H Lactic Acid (0.7 - 2.1 mmol/L) 0.7 Calcium (8.4 - 10.2 mg/dL) 8.3 L Total Bilirubin (0.2 - 1.3 mg/dL) 0.6 AST (17 - 59 U/L) 26 ALT (21 - 72 U/L) 30 Alkaline Phosphatase (< 127 U/L) 106 Troponin I (<0.11 ng/ml) 0.02 Tux-T-Xjoilxodhbt Pept (<125 pg/mL) 08713 H Total Protein (6.3 - 8.2 g/dL) 7.1 Albumin (3.5 - 5.0 g/dL) 4.2 Globulin (1.9 - 4.2 gm/dL) 2.9 Albumin/Globulin Ratio (1.1 - 2.2 %) 1.4 Hematology CBC w Diff NO MAN DIFF REQ WBC (4.8 - 10.8 /CUMM) 9.2 RBC (4.70 - 6.10 /CUMM) 3.23 L Hgb (14.0 - 18.0 G/DL) 10.0 L Hct (42 - 52 %) 29.9 L MCV (80.0 - 94.0 FL) 92.5 MCH (27.0 - 31.0 PG) 30.9 MCHC (33.0 - 37.0 G/DL) 33.4 RDW (11.5 - 14.5 %) 14.4 Plt Count (130 - 400 /CUMM) 269 MPV (7.4 - 10.4 FL) 7.5 Gran % (42.2 - 75.2 %) 79.6 H Lymphocytes % (20.5 - 51.1 %) 11.9 L Monocytes % (1.7 - 9.3 %) 7.1 Eosinophils % (0 - 5 %) 0.7 Basophils % (0.0 - 2.0 %) 0.7 Absolute Granulocytes (1.4 - 6.5 /CUMM) 7.3 H Absolute Lymphocytes (1.2 - 3.4 /CUMM) 1.1 L Absolute Monocytes (0.10 - 0.60 /CUMM) 0.7 H Absolute Eosinophils (0.0 - 0.7 /CUMM) 0.1 Absolute Basophils (0.0 - 0.2 /CUMM) 0.1 Urines Urine Color (YEL,AMB,STR) ORANG H Urine Clarity (CLEAR) CLDY H Urine pH (5.0 - 8.0) 7.5 Ur Specific Webster (1.001 - 1.035) 1.025 Urine Protein (NEG,<30 MG/DL) >=300 H Urine Ketones (NEG) NEG Urine Nitrite (NEG) POS H Urine Bilirubin (NEG) NEG@ICTO Urine Urobilinogen (0.1 - 1.0 EU/dl) 0.2 Ur Leukocyte Esterase (NEG) LARGE H Ur Microscopic SEDIMENT EXAMINED Urine RBC (0 - 5 /HPF) PACKD H Urine WBC (0 - 2 /HPF) PACKD H Ur Epithelial Cells (NONE,FEW) FEW Urine Bacteria (NEG/NONE) MANY H Urine Hemoglobin (NEG) LARGE H Urine Glucose (N MG/DL) NEG Assessment/Plan Assessment/Plan Imp: 1. R renal calculi with severe R flank pain and UTI 2. Multiple medical problems including ESRD, CHF, DM, hypothyroidism Plan: 1. Patient should have R ureteral stent place mostly for pain control purposes. He has been npo since last night. Will discuss with house staff 2. Keep npo except po meds with sip Consult Acknowledgment - Thank you for your consult request.
--- NOTE | 2017-09-29 10:13 | PN- Housestaff ---
[facility]: Subjective Follow-up For: UTI Right hydronephrosis and ureteric stone Acute on chronic CHF Subjective: Patient remained afebrile overnight. Seen and examined this morning. He denied any chest pain, short of breath, vomiting, lightheadedness and dysuria. Patient reported having right flank pain 10/10 and he was feeling nauseous. Review of Systems Constitutional: Denies: chills, fever. EENTM: Reports: no symptoms. Cardiovascular: Denies: chest pain, palpitations. Respiratory: Denies: cough, short of breath, sputum production. Gastrointestinal: Reports: nausea. Denies: abdominal pain, constipation. Genitourinary: Reports: see HPI. Musculoskeletal: Reports: no symptoms. Neurological/Psychological: Reports: no symptoms. Objective Last 24 Hrs of Vital Signs/I&O Vital Signs Date Time Temp Pulse Resp B/P B/P Pulse O2 O2 Flow FiO2 Mean Ox Delivery Rate 09/29 1008 87 180/64 09/29 0900 87 180/64 94 Nasal 2.0L Cannula 09/29 0655 98.8 64 20 160/70 91 09/29 0027 98.9 72 18 170/60 09/29 0000 Nasal 2.0L Cannula 09/28 2151 98.4 80 18 150/62 95 Nasal 2.0L Cannula 09/28 2141 95 Nasal 2.5L Cannula 09/289 98.8 81 18 187/73 97 Nasal 3.0L Cannula 09/28 2010 98.7 86 20 175/75 95 Nasal 2.0L Cannula 09/28 1812 95 Nasal 2.0L Cannula 09/28 1753 98.9 89 20 178/76 95 Nasal 2.0L Cannula 09/28 1715 99.3 85 20 164/64 89 Room Air Room Air Intake & Output 09/29 1600 09/29 0800 09/29 0000 Intake Total 0 20 Output Total 10 Balance -10 20 Intake, IV 20 Intake, Oral 0 Number 2 Bowel Movements Output, Urine 10 Patient 170 lb Weight Weight Bed scale Measurement Method Physical Exam General Appearance: Alert, Oriented X3, Cooperative Skin: No Rashes Skin Temp/Moisture Exam: Warm/Dry Sepsis Skin Exam (color): Normal for Ethnicity HEENT: Atraumatic, PERRLA, EOMI Neck: Supple Cardiovascular: Normal S1, Normal S2 Lungs: Clear to Auscultation Abdomen: Soft, No Tenderness, right CVA tenderness Neurological: Normal Speech, Strength at 5/5 X4 Ext, Normal Tone Extremities: No Edema Assessment/Plan Assessment: 67 YO M with PMH of DM, HTN, HLD, hypothyroidism, bradycardia, CHF, aortic stenosis, ESRD on hemodialysis, pancreatitis and BPH sent in from dialysis for treatment of a urinary tract infection. We are following the patient on telemetry floor for following problems: Acute on chronic congestive heart failure: -In 2007 his ejection fraction was more than 60%. Not sure if it's systolic or diastolic this time. We will get new echocardiogram. -Oxygen supplementation as needed to keep saturation above 92% -Trop and EKG are negative -IV Lasix -Daily weight -Input and output -Cardiology consult -Echocardiogram UTI: -Continue IV ceftriaxone -Urine cultures positive with gram-negative rods. Ureteric stone with hydronephrosis: -Possible pyelonephritis as patient having right CVA tenderness although his WBC count is normal and he is afebrile. Possibly tenderness is due to hydronephrosis. -Pain medication -IV antiemetic to control nausea -Urology consult -Nothing by mouth for possible stent placement H/O ESRD on dialysis: -Continue dialysis History of hypothyroidism: -Continue levothyroxine History of hypertension and hyperlipidemia: -Continue losartan, hydralazine, amlodipine and clonidine -Continue Lipitor DVT prophylaxis: Mechanical and subcutaneous heparin CODE STATUS: Full code Problem List: 1. CHF (congestive heart failure) 2. Kidney stone 3. EKG abnormalities Pain Ratin Pain Location: right flank Pain Goal: Pain 4 or less Pain Plan: pain pathway Tomorrow's Labs & Rationales: cbc/bep Johanne Alarcon MD 09/29/17 1738: Attending MD Review Statement Attending Statement Attending MD Statement: examined this patient, discuss w/resident/PA/TAX MANAGER, agreed w/resident/PA/TAX MANAGER, reviewed EMR data (avail) Attending Assessment/Plan: 67M PMH ESRD on HD admitted with UTI, nephrolithiasis with obstrutive uropathy, and hypervolemia in the setting of acute on chronic systolic CHF. Pain is controlled today, still has edema, last dialyzed 09/28. Plan - Continue on telemetry - Lasix 40mg IV - I/O, daily weights - Follow urology, cardiology, nephrology recommendations - COntinue Ceftriaxone - Follow cultures - Continue home medications - Echocardiogram - DVTPPx
--- NOTE | 2017-09-29 12:00 | Cons- Nephrology ---
General Information and HPI Consulting Request Date of Consult: 09/29/17 Requested By: Valente Petersen MD History of Present Illness: Mr. Hernandez is a pleasan 67 yo gentleman on dialysis MWF out of the [facility]. He was last dialyzed yesterday and tells me he usually has about 2.5L fluid removed with HD. He has a history of CHF and stones and came in with flank pain and SOB. CT showed hydro and he was seen by Dr. Chinchilla with plans for OR today if cleared by cardiology. He is chronically fluid overloaded. Allergies/Medications Allergies: Coded Allergies: No Known Allergies (09/28/17) Home Med List: Acetaminophen 500 MG TABLET 1 TAB PO DAILY PRN PAIN (Reported) Amlodipine Besylate 10 MG TABLET 1 TAB PO DAILY HTN (Reported) Aspirin (Aspirin*) 81 MG TAB.CHEW 1 TAB PO DAILY CAD (Reported) B Complex & C No.20/Folic Acid (Renal Caps Softgel) 1 MG CAPSULE 1 TAB PO DAILY ESRD (Reported) Clonidine HCl 0.2 MG TABLET 1 TAB PO BID HTN (Reported) Darbepoetin Pardeep in Polysorbat (Aranesp) 10 MCG/0.4 ML SYRINGE 1 SYR IM QMON ANEMIA (Reported) Etelcalcetide Hydrochloride (Parsabiv) 5 MG/ML VIAL 5 MG IV Sunday ESRD (Reported) Fluticasone Propionate (Flonase Allergy Relief) 50 MCG/ACTUATION SPRAY.SUSP 1 SPRAY INH BID ALLERGY (Reported) Furosemide 80 MG TABLET 1 TAB PO DAILY CHF (Reported) Hydralazine HCl 50 MG TABLET 1 TAB PO TID HTN (Reported) Insulin Glargine,Hum.rec.anlog (Lantus Solostar) 100 UNIT/ML (3 ML) INSULN.PEN 10 UNIT SC QPM DAILY (Reported) Insulin Regular (Novolin R Inj) 1,000 UNITS/10 ML CAROL 0 UNITS SC SEE ADMIN CRITERIA DIABETES (Reported) Iron Sucrose (Venofer) 100 MG IRON/5 ML VIAL 1 VIAL IV WITH DIALYSI ESRD / ANEMIA (Reported) Lactulose (Kristalose) 20 GRAM PACKET 1 PACKET PO DAILY CONSTIPATION ( Reported) Levothyroxine Sodium 150 MCG TABLET 1 TAB PO DAILY HYPOTHYROIDISM (Reported) Metoprolol Tartrate 25 MG TABLET 0.5 TAB PO BID CAD / HTN (Reported) Minoxidil 10 MG TABLET 2.5 MG PO DAILY ESRD (Reported) Nitroglycerin 0.4 MG TAB.SUBL 1 TAB SL AD CHEST PAIN (Reported) 1st sign of attack; may repeat every 5 minutes until relief; if pain persists after 3 tablets in 15 minutes, prompt medical att Olmesartan Medoxomil (Benicar) 40 MG TABLET 1 TAB PO DAILY HTN (Reported) Ondansetron HCl 4 MG TABLET 1 TAB PO Q4P PRN NAUSEA (Reported) Pravastatin Sodium 40 MG TABLET 1 TAB PO DAILY HLD (Reported) Tamsulosin HCl (Flomax) 0.4 MG CAP.ER.24H 1 CAP PO DAILY BPH (Reported) Review of Systems Review of Systems: As in HPI Flank Pain SOB otherwise negative. Past History Travel History Traveled to [place] past 21 day No Medical History Blood Transfusion Hx: No Neurological: NONE EENT: NONE Cardiovascular: CHF, hypertension, hyperlipidemia, AORTIC STENOSIS FLUID OVERLOAD BRADYCARDIA Respiratory: NONE Gastrointestinal: colitis, PANCREATITIS Hepatic: NONE Renal: benign prost hyperplasia, ESRD ON DIALYSIS CYST ON KIDNEY Musculoskeletal: FROZEN SHOULDER Psychiatric: NONE Endocrine: TYPE II DM HYPOTHYROIDISM Blood Disorders: NONE Cancer(s): NONE BASKET PERSON/Reproductive: NONE Surgical History Surgical History: unobtainable Psychosocial History Where Do You Live? Home Services at Home: None Smoking Status: Former Smoker ETOH Use: denies use Illicit Drug Use: denies illicit drug use Exam & Diagnostic Data Vital Signs and I&O BP 180/64 87 98.8 Skin neg rash Eyes anicteric ENT moist membranes Lungs Basilar rales Cor RRR Abd soft Ext 2+edema Results Pertinent Lab Results: CXR increased vasc markings Laboratory Tests 09/29 09/29 09/28 0905 0200 2012 Chemistry Lactic Acid Cancelled Troponin I (<0.11 ng/ml) 0.03 0.03 09/28 09/28 1924 1740 Chemistry Sodium (137 - 145 mmol/L) 138 Potassium (3.5 - 5.1 mmol/L) 5.0 Chloride (98 - 107 mmol/L) 93 L Carbon Dioxide (22 - 30 mmol/L) 29 Anion Gap (5 - 16) 16 BUN (9 - 20 mg/dL) 33 H Creatinine (0.7 - 1.2 mg/dL) 4.3 H Estimated GFR (>60 ml/min) 14 L BUN/Creatinine Ratio (7 - 25 %) 7.7 Glucose (65 - 99 mg/dL) 242 H Lactic Acid (0.7 - 2.1 mmol/L) 0.7 Calcium (8.4 - 10.2 mg/dL) 8.3 L Total Bilirubin (0.2 - 1.3 mg/dL) 0.6 AST (17 - 59 U/L) 26 ALT (21 - 72 U/L) 30 Alkaline Phosphatase (< 127 U/L) 106 Troponin I (<0.11 ng/ml) 0.02 Tgs-L-Ajdderqhusl Pept (<125 pg/mL) 67084 H Total Protein (6.3 - 8.2 g/dL) 7.1 Albumin (3.5 - 5.0 g/dL) 4.2 Globulin (1.9 - 4.2 gm/dL) 2.9 Albumin/Globulin Ratio (1.1 - 2.2 %) 1.4 Hematology CBC w Diff NO MAN DIFF REQ WBC (4.8 - 10.8 /CUMM) 9.2 RBC (4.70 - 6.10 /CUMM) 3.23 L Hgb (14.0 - 18.0 G/DL) 10.0 L Hct (42 - 52 %) 29.9 L MCV (80.0 - 94.0 FL) 92.5 MCH (27.0 - 31.0 PG) 30.9 MCHC (33.0 - 37.0 G/DL) 33.4 RDW (11.5 - 14.5 %) 14.4 Plt Count (130 - 400 /CUMM) 269 MPV (7.4 - 10.4 FL) 7.5 Gran % (42.2 - 75.2 %) 79.6 H Lymphocytes % (20.5 - 51.1 %) 11.9 L Monocytes % (1.7 - 9.3 %) 7.1 Eosinophils % (0 - 5 %) 0.7 Basophils % (0.0 - 2.0 %) 0.7 Absolute Granulocytes (1.4 - 6.5 /CUMM) 7.3 H Absolute Lymphocytes (1.2 - 3.4 /CUMM) 1.1 L Absolute Monocytes (0.10 - 0.60 /CUMM) 0.7 H Absolute Eosinophils (0.0 - 0.7 /CUMM) 0.1 Absolute Basophils (0.0 - 0.2 /CUMM) 0.1 Urines Urine Color (YEL,AMB,STR) ORANG H Urine Clarity (CLEAR) CLDY H Urine pH (5.0 - 8.0) 7.5 Ur Specific [place] (1.001 - 1.035) 1.025 Urine Protein (NEG,<30 MG/DL) >=300 H Urine Ketones (NEG) NEG Urine Nitrite (NEG) POS H Urine Bilirubin (NEG) NEG@ICTO Urine Urobilinogen (0.1 - 1.0 EU/dl) 0.2 Ur Leukocyte Esterase (NEG) LARGE H Ur Microscopic SEDIMENT EXAMINED Urine RBC (0 - 5 /HPF) PACKD H Urine WBC (0 - 2 /HPF) PACKD H Ur Epithelial Cells (NONE,FEW) FEW Urine Bacteria (NEG/NONE) MANY H Urine Hemoglobin (NEG) LARGE H Urine Glucose (N MG/DL) NEG Assessment/Plan Assessment/Recommendations Assessment: ESRD last dialyzed yesterday. labs okay but still clinically somewhat volume overloaded. He presents with flank pain and renal stones and I agree that optimally this should be removed today. He has mild fluid overload and if he is not going to the OR today I will arrange a short dialysis for fluid removal as tolerated. (I would prefer he go to the OR for stone stent as that will make him feel much better and I suspect he will tolerate that). Would minimize IVF ( he does not require maintenance IVF perioperatively other than what is needed by anaesthesia). I will arrange his regular dialysis for Sunday. Jacinto Rodríguez MD. Recommendations: .
--- NOTE | 2017-09-29 14:15 | Cons- Cardiology ---
General Information and HPI Consulting Request Date of Consult: 09/29/17 Requested By: Valente Petersen MD Reason for Consult: Preoperative cardiovascular evaluation. Source of Information: patient, family, old records Exam Limitations: language barrier History of Present Illness: Mr. Jagjit Hernandez is a 67-year-old male with a history of former tobacco use, hypothyroidism, hypertension, dyslipidemia, diabetes mellitus, end- stage renal disease on hemodialysis (Mondays, Wednesdays, and Fridays), chronic anemia, bradycardia, aortic stenosis, and previous heart failure who presented from hemodialysis with back discomfort, chills and urinary tract complaints ( dysuria, foul smelling urine, incontinence, etc.) who we are asked to evaluate to help assess his suitability for a urologic procedure (right ureteral stent) for pain control. According to the patient's daughter, who acted as an official court interpreter, her father has had no recent cardiac complaints of chest discomfort or palpitations, but did have some shortness of breath and lower extremity edema vitals reportedly evaluated by his attending sox analyst (Marty Trevino M.D.). She also states that he had a noninvasive evaluation that included a stress test not too long ago that revealed no major abnormal findings. Typically, Mr. Hernandez has no difficulty performing his activities of daily living. Allergies/Medications Allergies: Coded Allergies: No Known Allergies (09/28/17) Home Med List: Acetaminophen 500 MG TABLET 1 TAB PO DAILY PRN PAIN (Reported) Amlodipine Besylate 10 MG TABLET 1 TAB PO DAILY HTN (Reported) Aspirin (Aspirin*) 81 MG TAB.CHEW 1 TAB PO DAILY CAD (Reported) B Complex & C No.20/Folic Acid (Renal Caps Softgel) 1 MG CAPSULE 1 TAB PO DAILY ESRD (Reported) Clonidine HCl 0.2 MG TABLET 1 TAB PO BID HTN (Reported) Darbepoetin Pardeep in Polysorbat (Aranesp) 10 MCG/0.4 ML SYRINGE 1 SYR IM QMON ANEMIA (Reported) Etelcalcetide Hydrochloride (Parsabiv) 5 MG/ML VIAL 5 MG IV Sunday ESRD (Reported) Fluticasone Propionate (Flonase Allergy Relief) 50 MCG/ACTUATION SPRAY.SUSP 1 SPRAY INH BID ALLERGY (Reported) Furosemide 80 MG TABLET 1 TAB PO DAILY CHF (Reported) Hydralazine HCl 50 MG TABLET 1 TAB PO TID HTN (Reported) Insulin Glargine,Hum.rec.anlog (Lantus Solostar) 100 UNIT/ML (3 ML) INSULN.PEN 10 UNIT SC QPM DAILY (Reported) Insulin Regular (Novolin R Inj) 1,000 UNITS/10 ML CAROL 0 UNITS SC SEE ADMIN CRITERIA DIABETES (Reported) Iron Sucrose (Venofer) 100 MG IRON/5 ML VIAL 1 VIAL IV WITH DIALYSI ESRD / ANEMIA (Reported) Lactulose (Kristalose) 20 GRAM PACKET 1 PACKET PO DAILY CONSTIPATION ( Reported) Levothyroxine Sodium 150 MCG TABLET 1 TAB PO DAILY HYPOTHYROIDISM (Reported) Metoprolol Tartrate 25 MG TABLET 0.5 TAB PO BID CAD / HTN (Reported) Minoxidil 10 MG TABLET 2.5 MG PO DAILY ESRD (Reported) Nitroglycerin 0.4 MG TAB.SUBL 1 TAB SL AD CHEST PAIN (Reported) 1st sign of attack; may repeat every 5 minutes until relief; if pain persists after 3 tablets in 15 minutes, prompt medical att Olmesartan Medoxomil (Benicar) 40 MG TABLET 1 TAB PO DAILY HTN (Reported) Ondansetron HCl 4 MG TABLET 1 TAB PO Q4P PRN NAUSEA (Reported) Pravastatin Sodium 40 MG TABLET 1 TAB PO DAILY HLD (Reported) Tamsulosin HCl (Flomax) 0.4 MG CAP.ER.24H 1 CAP PO DAILY BPH (Reported) Review of Systems Review of Systems: A 14 point system review was obtained and was noncontributory, other than as above. Past History Travel History Traveled to [place] past 21 day No Medical History Blood Transfusion Hx: No Neurological: NONE EENT: NONE Cardiovascular: CHF, hypertension, hyperlipidemia, AORTIC STENOSIS FLUID OVERLOAD BRADYCARDIA Respiratory: NONE Gastrointestinal: colitis, PANCREATITIS Hepatic: NONE Renal: benign prost hyperplasia, ESRD ON DIALYSIS CYST ON KIDNEY Musculoskeletal: FROZEN SHOULDER Psychiatric: NONE Endocrine: TYPE II DM HYPOTHYROIDISM Blood Disorders: NONE Cancer(s): NONE OLERICULTURE PROFESSOR/Reproductive: NONE Surgical History Surgical History: unobtainable Psychosocial History Where Do You Live? Home Services at Home: None Smoking Status: Former Smoker ETOH Use: denies use Illicit Drug Use: denies illicit drug use Exam & Diagnostic Data Vital Signs and I&O Vital Signs Date Time Temp Pulse Resp B/P B/P Pulse O2 O2 Flow FiO2 Mean Ox Delivery Rate 09/29 1125 Nasal 3.0L Cannula 09/29 1008 87 180/64 09/29 0900 87 180/64 94 Nasal 2.0L Cannula 09/29 0655 98.8 64 20 160/70 91 09/29 0027 98.9 72 18 170/60 09/29 0000 Nasal 2.0L Cannula 09/28 2151 98.4 80 18 150/62 95 Nasal 2.0L Cannula 09/28 2141 95 Nasal 2.5L Cannula 09/289 98.8 81 18 187/73 97 Nasal 3.0L Cannula 09/28 2009 98.7 86 20 175/75 95 Nasal 2.0L Cannula 09/28 1812 95 Nasal 2.0L Cannula 09/28 175 98.9 89 20 178/76 95 Nasal 2.0L Cannula 09/28 1715 99.3 85 20 164/64 89 Room Air Room Air Intake & Output 09/29 1600 09/29 0800 09/29 0000 09/28 1600 09/28 0800 09/28 0000 Intake Total 0 20 Output Total 10 Balance -10 20 Intake, IV 20 Intake, Oral 0 Number 2 Bowel Movements Output, Urine 10 Patient 170 lb Weight Weight Bed scale Measurement Method Physical Exam: Well-developed, overweight male in mild distress with nasal oxygen in place. Vital signs: See above. HEENT: Normocephalic, atraumatic, EOMI, moist mucous membranes. Neck: No JVD, no bruits. Lungs: Decreased breath sounds and crackles at the bases bilaterally. Heart: S1, S2 with grade 2/6 systolic ejection type murmur. No gallop or rub appreciated. Abdomen: Soft, with tenderness to palpation, positive bowel sounds. Extremities: 1+ bilateral lower extremity edema. Labs/[place] Results: Laboratory Tests 09/29 09/29 09/28 0905 0200 2012 Chemistry Lactic Acid Cancelled Troponin I (<0.11 ng/ml) 0.03 0.03 09/28 09/28 1924 1740 Chemistry Sodium (137 - 145 mmol/L) 138 Potassium (3.5 - 5.1 mmol/L) 5.0 Chloride (98 - 107 mmol/L) 93 L Carbon Dioxide (22 - 30 mmol/L) 29 Anion Gap (5 - 16) 16 BUN (9 - 20 mg/dL) 33 H Creatinine (0.7 - 1.2 mg/dL) 4.3 H Estimated GFR (>60 ml/min) 14 L BUN/Creatinine Ratio (7 - 25 %) 7.7 Glucose (65 - 99 mg/dL) 242 H Lactic Acid (0.7 - 2.1 mmol/L) 0.7 Calcium (8.4 - 10.2 mg/dL) 8.3 L Total Bilirubin (0.2 - 1.3 mg/dL) 0.6 AST (17 - 59 U/L) 26 ALT (21 - 72 U/L) 30 Alkaline Phosphatase (< 127 U/L) 106 Troponin I (<0.11 ng/ml) 0.02 Ccn-D-Ikozqtdbbrn Pept (<125 pg/mL) 60005 H Total Protein (6.3 - 8.2 g/dL) 7.1 Albumin (3.5 - 5.0 g/dL) 4.2 Globulin (1.9 - 4.2 gm/dL) 2.9 Albumin/Globulin Ratio (1.1 - 2.2 %) 1.4 Hematology CBC w Diff NO MAN DIFF REQ WBC (4.8 - 10.8 /CUMM) 9.2 RBC (4.70 - 6.10 /CUMM) 3.23 L Hgb (14.0 - 18.0 G/DL) 10.0 L Hct (42 - 52 %) 29.9 L MCV (80.0 - 94.0 FL) 92.5 MCH (27.0 - 31.0 PG) 30.9 MCHC (33.0 - 37.0 G/DL) 33.4 RDW (11.5 - 14.5 %) 14.4 Plt Count (130 - 400 /CUMM) 269 MPV (7.4 - 10.4 FL) 7.5 Gran % (42.2 - 75.2 %) 79.6 H Lymphocytes % (20.5 - 51.1 %) 11.9 L Monocytes % (1.7 - 9.3 %) 7.1 Eosinophils % (0 - 5 %) 0.7 Basophils % (0.0 - 2.0 %) 0.7 Absolute Granulocytes (1.4 - 6.5 /CUMM) 7.3 H Absolute Lymphocytes (1.2 - 3.4 /CUMM) 1.1 L Absolute Monocytes (0.10 - 0.60 /CUMM) 0.7 H Absolute Eosinophils (0.0 - 0.7 /CUMM) 0.1 Absolute Basophils (0.0 - 0.2 /CUMM) 0.1 Urines Urine Color (YEL,AMB,STR) ORANG H Urine Clarity (CLEAR) CLDY H Urine pH (5.0 - 8.0) 7.5 Ur Specific [place] (1.001 - 1.035) 1.025 Urine Protein (NEG,<30 MG/DL) >=300 H Urine Ketones (NEG) NEG Urine Nitrite (NEG) POS H Urine Bilirubin (NEG) NEG@ICTO Urine Urobilinogen (0.1 - 1.0 EU/dl) 0.2 Ur Leukocyte Esterase (NEG) LARGE H Ur Microscopic SEDIMENT EXAMINED Urine RBC (0 - 5 /HPF) PACKD H Urine WBC (0 - 2 /HPF) PACKD H Ur Epithelial Cells (NONE,FEW) FEW Urine Bacteria (NEG/NONE) MANY H Urine Hemoglobin (NEG) LARGE H Urine Glucose (N MG/DL) NEG Diagnostic Data EKG Results 09/29/2017: Sinus rhythm, first-degree AV block, left ventricular hypertrophy with repolarization abnormalities. CXR Results 09/28/2017: Congestive heart failure. Bilateral pleural effusions. Other Results CT abdomen/pelvis is 09/28/2017: 1. Large bilateral pleural effusions with compressive atelectasis at lung bases. 2. Hydronephrosis of right kidney due to an obstructing stone at the right ureteropelvic junction. This is a linear stone measuring about 4 mm. There is a 5 mm stone in the right renal pelvis. Assessment/Plan Assessment/Plan [id number]-h-m w/ hx of former tobacco use, hypothyroidism, HTN, HLD, DM, ESRD on HD (M-W-F), chronic anemia, bradycardia, , and previous HF who presented HD w/ urologic symptoms and CT evidence of hydronephrosis 2/2 nephrolithiasis who is in need of a right ureteral stent, but who also has evidence of heart failure. His electrocardiogram is essentially unchanged from his previous tracings and there has been no evidence of myocardial necrosis based on his serial troponins. Would diurese and proceed with ureteral stent placement. Recommendations: * Continue on telemetry with strict inputs/outputs, and daily weights. * He is typically on furosemide 80 mg daily and received IV furosemide 40 mg at midnight. Would give IV furosemide 40 mg now. * Perform an echocardiogram to assess his left ventricular function, degree of left ventricular hypertrophy, degree of aortic stenosis, etc. * Continue his other cardiac medications perioperatively. * Check magnesium, free T4, TSH, glycosylated hemoglobin A1c, etc. * DVT prophylaxis. Consult Acknowledgment - Thank you for your consult request.
[2017-09-29 14:43] VITALS: BP 170/70
[2017-09-29 17:01] LABS: ABSOLUTE BASOPHIL COUNT 0 /CUMM (0.0-0.2); ABSOLUTE EOSINOPHIL COUNT 0 /CUMM (0.0-0.7); ABSOLUTE GRANULOCYTE CT 11.5 /CUMM (1.4-6.5); ABSOLUTE LYMPH COUNT 0.9 /CUMM (1.2-3.4); ABSOLUTE MONOCYTE COUNT 0.8 /CUMM (0.10-0.60); BASOPHIL % 0.1 % (0.0-2.0); EOSINOPHIL % 0 % (0-5); GRANULOCYTE % 86.7 % (42.2-75.2); HEMATOCRIT 29.6 % (42-52); MEAN CORPUSCULAR HGB 30.7 PG (27.0-31.0); MEAN CORPUSCULAR HGB CONC 33.3 G/DL (33.0-37.0); MEAN CORPUSCULAR VOLUME 92.3 FL (80.0-94.0); MEAN PLATELET VOLUME 8.7 FL (7.4-10.4); PLATELET COUNT 273 /CUMM (130-400); RED BLOOD CELL CT 3.21 /CUMM (4.70-6.10); WHITE BLOOD CELL COUNT 13.3 /CUMM (4.8-10.8)
--- NOTE | 2017-09-29 17:53 | Operative Report ---
Operative/Inv Procedure Report Surgery Date: 09/29/17 Name of Procedure: Cystoscopy, right retrograde pyelogram, insertion of right double-J ureteral stent Pre-Operative Diagnosis: Right renal colic due to right UPJ stone Post-Operative Diagnosis: Same Estimated Blood Loss: tess Surgeon/Regional [employer]modal Truck Driver: Dangelo Chinchilla MD Anesthesia: local monitored anesthesi Drains: 22 cm 6 B[place] right double-J ureteral stent with short suture and 16 B[place] Frederick catheter Specimens: Right kidney urine for culture Complications: None Condition: Fair Operative Indication: Severe right flank pain secondary to kidney stone at the right UPJ Operative/Procedure Note Note: The patient was taken to the operating room and identified. He is placed in supine position on the operating table. A timeout was executed appropriately with the patient awake. Intravenous sedation was given by anesthesia. The patient was placed in the dorsolithotomy position and prepped and draped in usual fashion for cystoscopy. Surgical pause was executed appropriately. Fluoroscopy images taken with a marker on the right side of the abdomen to confirm the correct side of the surgery as well as a correct orientation of the fluoroscopy image. Lidocaine jelly was placed in the urethra for local anesthesia. The 22 [place]ud[place] cystoscope sheath was placed into the bladder under direct vision using the 30 lens. Anterior urethra was normal. The prostatic urethra showed significant trilobar prostatic hypertrophy. There was especially enlarged middle lobe of the prostate. There was a fair amount of debris in the bladder and this was allowed to drain. The bladder appeared inflamed. The right ureteral orifice was identified. A guidewire was placed through the cystoscope and into the right ureter and advanced up the level of the right kidney. An open-ended catheter was placed over the wire which was removed. A hydronephrotic drip was noted. Urine from the right kidney was collected and sent for culture. Guidewire was placed back through the open-ended stent and the stent removed. The visual and fluoroscopic control a 22 cm 6 B[place] right double-J ureteral stent was placed. Fluoroscopy confirmed the proximal end of the stent coiled in the kidney and the distal end coiled in the bladder. A short suture was left attached the distal end of the stent. The bladder was left full and the cystoscope removed. A 16 [place] Frederick catheter was in place. Patient tolerated the procedure well and at its completion was taken to the recovery room in fair condition. Findings: Inflammation of the bladder mucosa and debris within the bladder consistent with his UTI. Right hydronephrosis Discharge Disposition: PACU
--- NOTE | 2017-09-29 19:56 | RADIOLOGY REPORT ---
EXAMINATION: Ureteroscopy with C-arm imaging abdomen CLINICAL INDICATION: Hydronephrosis due to renal calculi the right kidney COMPARISON: CT abdomen pelvis 09/28/2017 TECHNIQUE: C-arm imaging abdomen. Fluoroscopy time: 16 seconds Images: 12 FINDINGS: Spot images show placement of a guidewire in the right collecting system up to the right renal pelvis. Over the guidewire a double-J stent was successfully placed extending from the right renal pelvis to the bladder. IMPRESSION: Placement of double-J stent in right collecting system.
[2017-09-29 22:33] VITALS: BP 140/60
[2017-09-30 06:00] VITALS: BP 120/62
[2017-09-30 08:13] LABS: ABSOLUTE BASOPHIL COUNT 0.1 /CUMM (0.0-0.2); ABSOLUTE EOSINOPHIL COUNT 0 /CUMM (0.0-0.7); ABSOLUTE GRANULOCYTE CT 7.8 /CUMM (1.4-6.5); ABSOLUTE LYMPH COUNT 1.3 /CUMM (1.2-3.4); ABSOLUTE MONOCYTE COUNT 0.7 /CUMM (0.10-0.60); BASOPHIL % 0.5 % (0.0-2.0); EOSINOPHIL % 0.2 % (0-5); GRANULOCYTE % 78.3 % (42.2-75.2); HEMATOCRIT 27.4 % (42-52); MEAN CORPUSCULAR HGB 31.2 PG (27.0-31.0); MEAN CORPUSCULAR HGB CONC 33.3 G/DL (33.0-37.0); MEAN CORPUSCULAR VOLUME 93.5 FL (80.0-94.0); MEAN PLATELET VOLUME 8.4 FL (7.4-10.4); PLATELET COUNT 244 /CUMM (130-400); RBC DISTRIBUTION WIDTH 14.8 % (11.5-14.5); RED BLOOD CELL CT 2.93 /CUMM (4.70-6.10)
--- NOTE | 2017-09-30 08:29 | PN- Housestaff ---
Santiago ISSA,Cesar 09/30/17 0829: Subjective Follow-up For: UTI Right hydronephrosis and ureteric stone, s/p cystoscopy and stent placement POD #1 Acute on chronic CHF Tele-Events Since Last Visit: Sinus rhythm HR 60s-80s Subjective: Patient was seen and examined at bedside, patient's daughter was also sitting at bedside. He had no acute events overnight. He is resting comfortably. He reports that he is feeling much better today than yesterday. He has had no significant pain. She reportedly gets mildly short of breath with exertion. Review of Systems Constitutional: Denies: chills, fever. EENTM: Reports: no symptoms. Cardiovascular: Reports: no symptoms. Respiratory: Reports: short of breath (on exertion). Gastrointestinal: Reports: no symptoms. Genitourinary: Reports: hematuria. Musculoskeletal: Reports: no symptoms. Skin: Reports: no symptoms. Objective Last 24 Hrs of Vital Signs/I&O Vital Signs Date Time Temp Pulse Resp B/P B/P Pulse O2 O2 Flow FiO2 Mean Ox Delivery Rate 09/30 0600 99.2 73 18 120/62 95 09/30 0000 Nasal 3.0L Cannula 09/29 2233 99.4 83 17 140/60 95 Nasal 3.0L Cannula 09/29 2223 83 140/60 09/29 2223 83 140/60 09/29 1921 98.9 72 20 170/70 09/29 1750 94 Nasal 3.0L Cannula 09/29 1443 98.9 72 20 170/70 93 Nasal 3.0L Cannula 09/29 1125 Nasal 3.0L Cannula 09/29 1008 87 180/64 09/29 0900 87 180/64 94 Nasal 2.0L Cannula Intake & Output 09/30 1600 09/30 0800 09/30 0000 Intake Total 120 340 Output Total 150 Balance -30 340 Intake, Oral 120 340 Output, Urine 150 Patient 170 lb Weight Weight Bed scale Measurement Method Physical Exam General Appearance: Alert, Oriented X3, Cooperative, No Acute Distress Skin Temp/Moisture Exam: Warm/Dry Cardiovascular: Regular Rate, Normal S1, Normal S2 Lungs: diminished breaths sounds at the bases Abdomen: Soft, No Tenderness, No CVA tenderness Neurological: Normal Speech, Normal Tone, Sensation Intact Extremities: No Clubbing, No Cyanosis, No Edema Current Medications: Current Medications Sig/Hernandez Start time Last Medication Dose Route Stop Time Status Admin Acetaminophen 650 MG Q6P PRN 09/28 2100 AC PO Albuterol Sulfate 3 ML Q4P PRN 09/29 1100 AC 09/29 INH 1051 Amlodipine Besylate 10 MG DAILY 09/29 0900 AC 09/29 PO 1009 Aspirin 81 MG DAILY 09/29 0900 AC PO Ceftriaxone Sodium 1,000 MG DAILY@09/29 2000 AC 09/29 IV 1915 Clonidine 0.2 MG BID 09/29 0900 AC 09/29 PO 2223 Fentanyl Citrate 100 MCG .STK-MED ONE 09/29 1546 DC IM 09/29 1547 Furosemide 40 MG DAILY 09/30 0900 CAN IV Furosemide 40 MG ONCE ONE 09/29 1445 DC 09/29 IV 09/29 1446 1441 Furosemide 80 MG DAILY 09/29 0900 AC 09/29 PO 1009 Heparin Sodium 5,000 UNIT Q8 09/28 2200 AC 09/30 (Porcine) SC 0705 Hydralazine HCl 50 MG TID 09/28 2330 AC 09/29 PO 1921 Hydromorphone HCl 2 MG ONCE ONE 09/29 1915 DC 09/29 PO 09/29 1916 1924 Hydromorphone HCl 2 MG ONCE ONE 09/29 1030 DC 09/29 PO 09/29 1031 1125 Insulin Aspart 0 TIDAC 09/30 0800 AC SC Insulin Human Regular 0 Q6 09/28 2359 DC 09/29 SC 1911 Lactulose 20 GM DAILY PRN 09/28 2300 AC PO Levothyroxine Sodium 0.15 MG DAILY AC 09/29 0700 AC 09/30 PO 0706 Losartan Potassium 50 MG DAILY 09/29 0900 AC 09/29 PO 1009 Metoprolol Tartrate 12.5 MG BID 09/28 2330 AC 09/29 PO 2223 Minoxidil 2.5 MG DAILY 09/29 0900 AC 09/29 PO 1009 Morphine Sulfate 2 MG Q4P PRN 09/29 0045 AC 09/30 IV 0151 Ondansetron HCl 4 MG ONCE ONE 09/29 1030 DC 09/29 IV 09/29 1031 1035 Pravastatin Sodium 10 MG 1700 09/29 1700 AC 09/29 PO 1913 Tamsulosin HCl 0.4 MG DAILY 09/29 0900 AC 09/29 PO 1009 Last 24 Hrs of Lab/S[place]rick Results Last 24 Hrs of Labs/Mics: Laboratory Tests 09/30/17 0600: Anion Gap 13, Estimated GFR 9 L, BUN/Creatinine Ratio 6.8 L, Hemoglobin A1c Pending, TSH Pending, Free T4 Pending, CBC w Diff NO MAN DIFF REQ, RBC 2.93 L, MCV 93.5, MCH 31.2 H, MCHC 33.3, RDW 14.8 H, MPV 8.4, Gran % 78.3 H, Lymphocytes % 13.5 L, Monocytes % 7.5, Eosinophils % 0.2, Basophils % 0.5, Absolute Granulocytes 7.8 H, Absolute Lymphocytes 1.3, Absolute Monocytes 0.7 H, Absolute Eosinophils 0, Absolute Basophils 0.1 09/29/17 1520: Anion Gap 18 H, Estimated GFR 9 L, BUN/Creatinine Ratio 7.0, Calcium 8.5, CBC w Diff NO MAN DIFF REQ, RBC 3.21 L, MCV 92.3, MCH 30.7, MCHC 33.3, RDW 14.0, MPV 8.7, Gran % 86.7 H, Lymphocytes % 6.8 L, Monocytes % 6.4, Eosinophils % 0, Basophils % 0.1, Absolute Granulocytes 11.5 H, Absolute Lymphocytes 0.9 L, Absolute Monocytes 0.8 H, Absolute Eosinophils 0, Absolute Basophils 0 09/29/17 0905: Troponin I 0.03 Microbiology 09/29 1712 URINE ROUT: Urine Culture - RECD Assessment/Plan Assessment: 67 YO M with PMH of DM, HTN, HLD, hypothyroidism, bradycardia, CHF, aortic stenosis, ESRD on hemodialysis, pancreatitis and BPH sent in from dialysis for treatment of a urinary tract infection. We are following the patient on telemetry floor for following problems: Acute on chronic congestive heart failure: -In 2007 his ejection fraction was more than 60%. Not sure if it's systolic or diastolic this time. We will get new echocardiogram. -Oxygen supplementation as needed to keep saturation above 92% -Trop and EKG are negative -IV Lasix -Daily weight -Input and output -Cardiology recommendations appreciated -Follow-up Echocardiogram UTI: -Continue IV ceftriaxone -Urine cultures positive with gram-negative rods. Ureteric stone with hydronephrosis: Pain significantly improved with stent placement -Pain medication -IV antiemetic to control nausea -Urology recommendations appreciated -Will require repeat CT in 612 weeks -Continue Flomax H/O ESRD on dialysis: -Dialyzed yesterday, continue on regular dialysis schedule History of hypothyroidism: -Continue levothyroxine History of hypertension and hyperlipidemia: -Continue losartan, hydralazine, amlodipine and clonidine -Continue Lipitor DVT prophylaxis: Mechanical and subcutaneous heparin CODE STATUS: Full code Problem List: 1. Kidney stone 2. CHF (congestive heart failure) Pain Ratin Pain Location: none Pain Goal: Remain pain free Pain Plan: pain pathway Tomorrow's Labs & Rationales: BEP, CBC Johanne Alarcon MD 09/30/17 1430: Attending MD Review Statement Attending Statement Attending MD Statement: examined this patient, discuss w/resident/PA/CATH LAB TECHNOLOGIST, agreed w/resident/PA/CATH LAB TECHNOLOGIST, reviewed EMR data (avail) Attending Assessment/Plan: 67M PMH DM, HTN, hypothyroidism, heart failure, aortic stenosis, ESRD on hemodialysis admitted with UTI, nephrolithiasis with obstrutive uropathy, and hypervolemia in the setting of acute on chronic systolic CHF. Underwent right ureteral stent placement on 09/29 without complication. Still having right flank pain. Has intermittent penile pain. Frederick bag has gross hematuria. Likely passing stones. Tmax 99.2, stable vitals. Urine culture growing Klebsiella. Plan - Continue on telemetry - Lasix 40mg IV daily - Increase Morphine to 4mg q4h PRN - I/O, daily weights - Follow urology, cardiology, nephrology recommendations - Continue Ceftriaxone, will complete 14 day course and switch to PO on discharge - Follow cultures - Continue home medications - Echocardiogram - DVTPPx
--- NOTE | 2017-09-30 09:49 | PN- Urology ---
Subjective Subjective: R flank pain significantly improve after R ureteral stent insertion Objective Vital Signs and I&Os Vital Signs Date Time Temp Pulse Resp B/P B/P Pulse O2 O2 Flow FiO2 Mean Ox Delivery Rate 09/30 0800 Nasal 3.0L Cannula 09/30 0600 99.2 73 18 120/62 95 09/30 0000 Nasal 3.0L Cannula 09/29 2233 99.4 83 17 140/60 95 Nasal 3.0L Cannula 09/29 2223 83 140/60 09/29 2223 83 140/60 09/29 1921 98.9 72 20 170/70 09/29 1750 94 Nasal 3.0L Cannula 09/29 1443 98.9 72 20 170/70 93 Nasal 3.0L Cannula 09/29 1125 Nasal 3.0L Cannula 09/29 1008 87 180/64 Intake & Output 09/30 1600 09/30 0800 09/30 0000 09/29 1600 09/29 0800 09/29 0000 Intake Total 120 340 60 0 20 Output Total 150 75 10 Balance -30 340 -15 -10 20 Intake, IV 20 Intake, Oral 120 340 60 0 Number 1 2 Bowel Movements Output, Urine 150 75 10 Patient 170 lb 152 lb 170 lb Weight Weight Bed scale Bed scale Bed scale Measurement Method Back: No significant R CVA tenderness Abd: soft and non tender. Genitalia: nicholas in place draining bloody urine Laboratory Tests 09/30 09/29 0600 1520 Chemistry Sodium (137 - 145 mmol/L) 138 139 Potassium (3.5 - 5.1 mmol/L) 5.6 H 5.3 H Chloride (98 - 107 mmol/L) 97 L 94 L Carbon Dioxide (22 - 30 mmol/L) 28 26 Anion Gap (5 - 16) 13 18 H BUN (9 - 20 mg/dL) 42 H 45 H Creatinine (0.7 - 1.2 mg/dL) 6.2 *H 6.4 *H Estimated GFR (>60 ml/min) 9 L 9 L BUN/Creatinine Ratio (7 - 25 %) 6.8 L 7.0 Hemoglobin A1c (4.2 - 5.8 %) Pending Calcium (8.4 - 10.2 mg/dL) 8.5 TSH (0.270 - 4.200 uIU/mL) 9.090 H Free T4 (0.78 - 2.44 ng/dL) 1.32 Hematology CBC w Diff NO MAN DIFF REQ NO MAN DIFF REQ WBC (4.8 - 10.8 /CUMM) 10.0 13.3 H RBC (4.70 - 6.10 /CUMM) 2.93 L 3.21 L Hgb (14.0 - 18.0 G/DL) 9.1 L 9.9 L Hct (42 - 52 %) 27.4 L 29.6 L MCV (80.0 - 94.0 FL) 93.5 92.3 MCH (27.0 - 31.0 PG) 31.2 H 30.7 MCHC (33.0 - 37.0 G/DL) 33.3 33.3 RDW (11.5 - 14.5 %) 14.8 H 14.0 Plt Count (130 - 400 /CUMM) 244 273 MPV (7.4 - 10.4 FL) 8.4 8.7 Gran % (42.2 - 75.2 %) 78.3 H 86.7 H Lymphocytes % (20.5 - 51.1 %) 13.5 L 6.8 L Monocytes % (1.7 - 9.3 %) 7.5 6.4 Eosinophils % (0 - 5 %) 0.2 0 Basophils % (0.0 - 2.0 %) 0.5 0.1 Absolute Granulocytes (1.4 - 6.5 /CUMM) 7.8 H 11.5 H Absolute Lymphocytes (1.2 - 3.4 /CUMM) 1.3 0.9 L Absolute Monocytes (0.10 - 0.60 /CUMM) 0.7 H 0.8 H Absolute Eosinophils (0.0 - 0.7 /CUMM) 0 0 Absolute Basophils (0.0 - 0.2 /CUMM) 0.1 0 Assessment/Plan Assessment/Plan Imp: 1. R renal calculi 2. R flank pain significantly improve following R ureteral stent placement 3. Hematuria following R stent placement 4. UTI 5. Significant BPH Plan: 1. Continue abx 2. Would have nurses irrigate nicholas q shift 3. Will leave nicholas until urine clears 4. Continue flomax 5. Since patient is high risk for general anesthesia will not plan any definitive surgery for his R renal stones at this time. Will repeat CT in about 6-12 weeks in the hopes that the R ureteral stent facilitates passage of his R UPJ stone
[2017-09-30 14:00] VITALS: BP 120/68
--- NOTE | 2017-09-30 19:45 | PN- Cardiology ---
Subjective Subjective: Still having right flank discomfort, but this has improved s/p cystoscopy, right retrograde pyelogram, & insertion of right double-J ureteral stent for his right renal colic secondary to a right UPJ stone. Objective Vital Signs and I&Os Vital Signs Date Time Temp Pulse Resp B/P B/P Pulse O2 O2 Flow FiO2 Mean Ox Delivery Rate 09/30 1600 94 Nasal 3.0L Cannula 09/30 1405 94 Nasal 3.0L Cannula 09/30 1400 98.2 68 20 120/68 96 Nasal 3.0L Cannula 09/30 0800 Nasal 3.0L Cannula 09/30 0600 99.2 73 18 120/62 95 09/30 0000 Nasal 3.0L Cannula 09/29 2233 99.4 83 17 140/60 95 Nasal 3.0L Cannula 09/29 2223 83 140/60 09/29 2223 83 140/60 Intake & Output 09/30 1600 09/30 0800 09/30 0000 09/29 1600 09/29 0800 09/29 0000 Intake Total 685 120 340 60 0 20 Output Total 60 150 75 10 Balance 625 -30 340 -15 -10 20 Intake, IV 25 20 Intake, Oral 660 120 340 60 0 Number 0 1 2 Bowel Movements Output, Urine 60 150 75 10 Patient 170 lb 152 lb 170 lb Weight Weight Bed scale Bed scale Bed scale Measurement Method Physical Exam: Well-developed, overweight male in mild distress with nasal oxygen in place. Vital signs: See above. HEENT: Normocephalic, atraumatic, EOMI, moist mucous membranes. Neck: No JVD, no bruits. Lungs: Decreased breath sounds and bibasilar crackles at the bases. Heart: S1, S2 with grade 2/6 systolic ejection type murmur. No gallop or rub appreciated. Abdomen: Soft, with tenderness to palpation, positive bowel sounds. Extremities: 1+ bilateral lower extremity edema. Current Medications: Current Medications Sig/Hernandez Start time Last Medication Dose Route Stop Time Status Admin Acetaminophen 650 MG Q6P PRN 09/28 2100 AC PO Albuterol Sulfate 3 ML Q4P PRN 09/29 1100 AC 09/29 INH 1051 Amlodipine Besylate 10 MG DAILY 09/29 09 AC 09/30 PO 0825 Aspirin 81 MG DAILY 09/29 09 AC 09/30 PO 0832 Ceftriaxone Sodium 1,000 MG DAILY@09/29 AC 09/29 IV 1915 Clonidine 0.2 MG BID 09/29 0900 AC 09/30 PO 0824 Furosemide 80 MG DAILY 09/29 0900 AC 09/30 PO 0825 Heparin Sodium 5,000 UNIT Q8 09/28 2200 AC 09/30 (Porcine) SC 1356 Hydralazine HCl 50 MG TID 09/28 2330 AC 09/30 PO 1356 Insulin Aspart 0 TIDAC 09/30 0800 AC 09/30 SC 1627 Insulin Human Regular 0 Q6 09/28 2359 DC 09/29 SC 1911 Lactulose 20 GM DAILY PRN 09/28 2300 AC PO Levothyroxine Sodium 0.15 MG DAILY AC 09/29 0700 AC 09/30 PO 0706 Losartan Potassium 50 MG DAILY 09/29 0900 AC 09/30 PO 0824 Metoprolol Tartrate 12.5 MG BID 09/28 2330 AC 09/30 PO 0824 Minoxidil 2.5 MG DAILY 09/29 0900 AC 09/30 PO 0826 Morphine Sulfate 4 MG Q4P PRN 09/30 1815 AC IV Morphine Sulfate 2 MG Q4P PRN 09/29 0045 DC 09/30 IV 1628 Pravastatin Sodium 10 MG 1700 09/29 1700 AC 09/30 PO 1628 Tamsulosin HCl 0.4 MG DAILY 09/29 09 AC 09/30 PO 0824 Results Last 48 Hrs of Labs/Mics: Laboratory Tests 09/30/17 0600: Anion Gap 13, Estimated GFR 9 L, BUN/Creatinine Ratio 6.8 L, Hemoglobin A1c Pending, TSH 9.090 H, Free T4 1.32, CBC w Diff NO MAN DIFF REQ, RBC 2.93 L, MCV 93.5, MCH 31.2 H, MCHC 33.3, RDW 14.8 H, MPV 8.4, Gran % 78.3 H, Lymphocytes % 13.5 L, Monocytes % 7.5, Eosinophils % 0.2, Basophils % 0.5, Absolute Granulocytes 7.8 H, Absolute Lymphocytes 1.3, Absolute Monocytes 0.7 H, Absolute Eosinophils 0, Absolute Basophils 0.1 09/29/17 1520: Anion Gap 18 H, Estimated GFR 9 L, BUN/Creatinine Ratio 7.0, Calcium 8.5, CBC w Diff NO MAN DIFF REQ, RBC 3.21 L, MCV 92.3, MCH 30.7, MCHC 33.3, RDW 14.0, MPV 8.7, Gran % 86.7 H, Lymphocytes % 6.8 L, Monocytes % 6.4, Eosinophils % 0, Basophils % 0.1, Absolute Granulocytes 11.5 H, Absolute Lymphocytes 0.9 L, Absolute Monocytes 0.8 H, Absolute Eosinophils 0, Absolute Basophils 0 09/29/17 0905: Troponin I 0.03 09/29/17 0200: Troponin I 0.03 09/28/172012: Lactic Acid Cancelled Recent Imaging Studies: Abdominal x-ray 09/29/2017: Placement of double-J stent in right collecting system. Assessment/Plan Assessment/Plan [id number] w/ hx of former tobacco use, hypothyroidism, HTN, HLD, DM, ESRD on HD (M-W-F), chronic anemia, bradycardia, , and previous HF who presented HD w/ urologic symptoms and CT evidence of hydronephrosis with right flank pain 2/2 nephrolithiasis who is feeling improved s/p right ureteral stent. HD planned for a.m. for his HF. His electrocardiogram is essentially unchanged from his previous tracings and there has been no evidence of myocardial necrosis based on his serial troponins. Recommendations: * HD tomorrow. * Continue present management. * Check magnesium. * Continue DVT prophylaxis. Continue telemetry? Yes
[2017-09-30 23:17] VITALS: BP 122/50
--- NOTE | 2017-10-01 07:34 | PN- Housestaff ---
[facility] Subjective Follow-up For: UTI Right hydronephrosis and UPJ stone s/p cystoscopy and stent placement POD #2 Acute on chronic diastolic CHF Tele-Events Since Last Visit: Sinus rhythm with heart rate 6581 Subjective: No overnight events. Patient remained afebrile but appears seen and examined this morning. He denied any chest pain, short of breath, abdominal pain, lightheadedness and palpitation. Patient reported having nausea and pain at the tip of the penis /. He has hematuria after the procedure and he will call for dialysis today. He is using 3 L of oxygen maintaining saturation 96% Review of Systems Constitutional: Denies: chills, fever. EENTM: Reports: no symptoms. Cardiovascular: Denies: chest pain, palpitations. Respiratory: Denies: cough, short of breath, sputum production. Gastrointestinal: Reports: nausea. Denies: abdominal pain, constipation, diarrhea. Genitourinary: Reports: see HPI. Neurological/Psychological: Reports: no symptoms. Objective Last 24 Hrs of Vital Signs/I&O Vital Signs Date Time Temp Pulse Resp B/P B/P Pulse O2 O2 Flow FiO2 Mean Ox Delivery Rate 10/01 0800 98.1 65 22 124/58 96 Nasal 3.0L Cannula 10/01 0000 Nasal 3.0L Cannula 09/30 2317 98.8 68 22 122/50 93 Nasal 3.0L Cannula 09/30 2041 122/58 09/30 2041 122/58 09/30 2041 122/58 09/30 1600 94 Nasal 3.0L Cannula 09/30 1405 94 Nasal 3.0L Cannula 09/30 1400 98.2 68 20 120/68 96 Nasal 3.0L Cannula Intake & Output 10/01 1600 10/01 0800 10/01 0000 Intake Total 210 170 Output Total 150 200 Balance 60 -30 Intake, IV 10 30 Intake, Oral 200 140 Number 1 Bowel Movements Output, Urine 150 200 Patient 190 lb Weight Physical Exam General Appearance: Alert, Oriented X3, Cooperative Skin: No Rashes Skin Temp/Moisture Exam: Warm/Dry Sepsis Skin Exam (color): Normal for Ethnicity HEENT: Atraumatic, PERRLA, EOMI Neck: Supple Cardiovascular: Normal S1, Normal S2 Lungs: Decreased breath sounds at bases b/l Abdomen: Soft, No Tenderness Neurological: Normal Speech, Strength at 5/5 X4 Ext, Normal Tone Extremities: No Edema Assessment/Plan Assessment: 67 YO M with PMH of DM, HTN, HLD, hypothyroidism, bradycardia, CHF, aortic stenosis, ESRD on hemodialysis, pancreatitis and BPH sent in from dialysis for treatment of a urinary tract infection. We are following the patient on telemetry floor for following problems: Acute on chronic congestive heart failure: -Diastolic CHF -Oxygen supplementation as needed to keep saturation above 92% -Trop and EKG are negative -IV Lasix -Daily weight -Input and output -f/u with cardio recommendations. -Echocardiogram showed >55% EF with stage 2 diastolic heart failure. UTI: -Continue IV ceftriaxone day 3 -Urine cultures growing Klebsiella pneumoniae. Ureteric stone with hydronephrosis s/p cystoscopy and stent placement: -Pain medication -IV antiemetic to control nausea -Urology recommendations appreciated -Will require repeat CT in 612 weeks to look for stone. -Continue Flomax Hematuria: -Gross hematuria. -We'll keep the Frederick's catheter to irrigate the bladder every shift with normal saline until it becomes clear. -We will follow CBCs. H/O ESRD on dialysis: -He is getting dialysis on Sunday. History of hypothyroidism: -Continue levothyroxine History of hypertension and hyperlipidemia: -Continue losartan, hydralazine, amlodipine and clonidine -Continue Lipitor DVT prophylaxis: Mechanical and subcutaneous heparin CODE STATUS: Full code Problem List: 1. Kidney stone 2. CHF (congestive heart failure) 3. EKG abnormalities Pain Ratin Pain Location: Around his foleys Pain Goal: Pain 4 or less Pain Plan: pain pathway Tomorrow's Labs & Rationales: cbc/bep Johanne Alarcon MD 10/01/17 1129: Attending MD Review Statement Attending Statement Attending MD Statement: examined this patient, discuss w/resident/PA/RECYCLABLE MATERIALS SORTER, agreed w/resident/PA/RECYCLABLE MATERIALS SORTER, reviewed EMR data (avail) Attending Assessment/Plan: 67M PMH DM, HTN, hypothyroidism, heart failure, aortic stenosis, ESRD on hemodialysis admitted with UTI, nephrolithiasis with obstrutive uropathy, and hypervolemia in the setting of acute on chronic systolic CHF. Underwent right ureteral stent placement on 09/29 without complication. Still having right flank pain. Has intermittent penile pain. Frederick bag has gross hematuria. Likely passing stones. Tmax 98, stable vitals. Urine culture growing Klebsiella. Going for dialysis today. Plan - Continue on telemetry - Resume home Lasix dose - Increase Morphine to 4mg q3h PRN - I/O, daily weights - Follow urology, cardiology, nephrology recommendations - Continue Ceftriaxone, will complete 14 day course and switch to PO on discharge - Frederick irrigation by nursing - Continue home medications - DVT PPx - Anticipated discharge tomorrow or the next day when urine is clear on Augmentin to complete 14 day course. Continue to monitor CBC and BEP only with dialysis.
[2017-10-01 07:59] LABS: ABSOLUTE BASOPHIL COUNT 0.1 /CUMM (0.0-0.2); ABSOLUTE EOSINOPHIL COUNT 0.2 /CUMM (0.0-0.7); ABSOLUTE GRANULOCYTE CT 7.6 /CUMM (1.4-6.5); ABSOLUTE LYMPH COUNT 1.7 /CUMM (1.2-3.4); ABSOLUTE MONOCYTE COUNT 0.6 /CUMM (0.10-0.60); BASOPHIL % 0.7 % (0.0-2.0); EOSINOPHIL % 1.9 % (0-5); GRANULOCYTE % 74.2 % (42.2-75.2); HEMATOCRIT 27.7 % (42-52); MEAN CORPUSCULAR HGB 31.1 PG (27.0-31.0); MEAN CORPUSCULAR HGB CONC 33.3 G/DL (33.0-37.0); MEAN CORPUSCULAR VOLUME 93.3 FL (80.0-94.0); MEAN PLATELET VOLUME 8.3 FL (7.4-10.4); PLATELET COUNT 263 /CUMM (130-400); RBC DISTRIBUTION WIDTH 14.4 % (11.5-14.5); RED BLOOD CELL CT 2.97 /CUMM (4.70-6.10); WHITE BLOOD CELL COUNT 10.2 /CUMM (4.8-10.8)
[2017-10-01 08:00] VITALS: BP 124/58
--- NOTE | 2017-10-01 09:45 | ECHOCARDIOGRAM REPORT ---
HORTENSIA DIXON Age: 67 : 1950 Gender: M Exam Date: 09/29/2017 12:37 Exam Location: 1 [address] Ht (in): 65 Wt (lb): 171 BSA: 1.91 BP: 160 / 70 Ordering Physician: Brendon Taylor MD Referring Physician: Marty Trevino M.D. Technologist: Hiram Nova [facility] Room Number: 171-1 Indications: HEART FAILURE Rhythm: Technical Quality: Good FINDINGS Left Ventricle Left ventricular cavity size normal. Left ventricular wall thickness mildly increased. No obvious regional wall motion abnormalities. Left ventricular ejection fraction is estimated at > 55 %. "Pseudonormal" filling pattern of the left ventricle for age (stage 2 diastolic dysfunction). Right Ventricle Normal right ventricular size and function. Right Atrium Normal right atrial size. Left Atrium Mild left atrial dilatation. Mitral Valve Mild mitral annular calcification. No mitral stenosis. Mild mitral regurgitation. Aortic Valve Trileaflet aortic valve. Mild aortic stenosis. Trace aortic regurgitation. Tricuspid Valve Structurally normal tricuspid valve. Moderate tricuspid regurgitation. Moderate pulmonary hypertension. Pulmonic Valve Pulmonic valve not well visualized, grossly normal. Pericardium Minimal pericardial effusion. Left pleural effusion. Great Vessels Normal size aortic root. CONCLUSIONS Left ventricular cavity size normal. Left ventricular wall thickness mildly increased. No obvious regional wall motion abnormalities. Left ventricular ejection fraction is estimated at > 55 %. "Pseudonormal" filling pattern of the left ventricle for age (stage 2 diastolic dysfunction). Normal right ventricular size and function. Mild left atrial dilatation. Mild aortic stenosis. Minimal pericardial effusion. Left pleural effusion. Moderate tricuspid regurgitation. Moderate pulmonary hypertension. Marty Trevino M.D. (Electronically Signed) Final Date: 01 October 2017 09:44 MEASUREMENTS (Male / Female) Normal Values 2D ECHO LV Diastolic Diameter PLAX 4.8 cm 4.2 - 5.9 / 3.9 - 5.3 cm LV Systolic Diameter PLAX 3.3 cm 2.1 - 4.0 cm LV Fractional Shortening PLAX 31.3 % 25 - 46 % LV Ejection Fraction 2D Teich 59.0 % IVS Diastolic Thickness 1.1 cm LVPW Diastolic Thickness 1.2 cm LV Relative Wall Thickness 0.5 RV Internal Dim ED PLAX 4.2 cm 1.9 - 3.8 cm LVOT Diameter 2.0 cm Aortic Root Diameter 3.2 cm LA Systolic Diameter LX 5.4 cm 3.0 - 4.0 / 2.7 - 3.8 cm RVOT Diameter 2.7 cm 2.5 - 2.9 cm LA Volume 87.0 cm 18 - 58 / 22 - 52 cm RV Diastolic Area 5.7 cm 11 - 28 cm Ascending Aorta Diameter 3.3 cm DOPPLER AV Peak Velocity 271.0 cm/s AV Peak Gradient 29.4 mmHg AV Mean Velocity 220.0 cm/s AV Mean Gradient 20.0 mmHg AV Velocity Time Integral 68.9 cm LVOT Peak Velocity 122.0 cm/s LVOT Peak Gradient 6.0 mmHg LVOT Mean Velocity 94.8 cm/s LVOT Mean Gradient 4.0 mmHg LVOT Velocity Time Integral 31.1 cm LVOT Stroke Volume 97.7 cm AV Area Cont Eq vti 1.4 cm AV Area Cont Eq pk 1.4 cm MV Peak Velocity 185.0 cm/s MV Peak Gradient 13.7 mmHg MV Mean Velocity 103.0 cm/s MV Mean Gradient 5.0 mmHg Mitral E Point Velocity 175.0 cm/s Mitral A Point Velocity 77.7 cm/s Mitral E to A Ratio 2.3 MV PHT Velocity 182.0 cm/s MV Deceleration [place] 693.0 cm/s MV Pressure Half Time 78.8 ms MV Area PHT 2.8 cm MV Deceleration Time 194.0 ms TV Peak Velocity 378.0 cm/s TV Peak E Velocity 71.2 cm/s TV Peak A Velocity 74.4 cm/s TV E to A Ratio 1.0 Right Atrial Pressure 5.0 mmHg PV Peak Velocity 129.5 cm/s PV Peak Gradient 6.7 mmHg PV Mean Velocity 94.0 cm/s PV Mean Gradient 4.0 mmHg PV Velocity Time Integral 26.2 cm QpQs Shunt Ratio 1.3 PV Area Cont Eq vti 4.9 cm PV Area Cont Eq pk 4.8 cm LV E' Lateral Velocity 8.1 cm/s Mitral E to LV E' Lateral Ratio 21.6 LV E' Septal Velocity 6.1 cm/s Mitral E to LV E' Septal Ratio 28.5
--- NOTE | 2017-10-01 10:13 | PN- Nephrology ---
Assessment/Plan Nephrology Assessment: Stable on dialysis Bed weigth of 73 kg may not be accurate, EDW as outpatient of 75 kg. Suggestion: Will try UF 2.5 liters today, may need EDW re-established. Restart MIRA in form of EPO. Subjective Subjective: Patient undergoing dialysis. Still complaing of penile pain. Not SOB. Objective Vital Signs and I&Os Vital Signs Date Time Temp Pulse Resp B/P B/P Pulse O2 O2 Flow FiO2 Mean Ox Delivery Rate 10/01 0800 98.1 65 22 124/58 96 Nasal 3.0L Cannula 10/01 0000 Nasal 3.0L Cannula 09/30 2317 98.8 68 22 122/50 93 Nasal 3.0L Cannula 09/30 204 122/58 09/30 2041 122/58 09/30 204 122/58 09/30 1600 94 Nasal 3.0L Cannula 09/30 1405 94 Nasal 3.0L Cannula 09/30 1400 98.2 68 20 120/68 96 Nasal 3.0L Cannula Intake & Output 10/01 1600 10/01 0400 09/30 1600 09/30 0400 09/29 1600 09/29 0400 Intake Total 210 170 805 340 60 20 Output Total 150 200 210 85 Balance 60 -30 595 340 -25 20 Intake, IV 10 30 25 20 Intake, Oral 200 140 780 340 60 Number 1 0 3 Bowel Movements Output, Urine 150 200 210 85 Patient 190 lb 170 lb 152 lb 170 lb Weight Weight Bed scale Bed scale Bed scale Measurement Method Physical Exam: NAD VS as above Lungs: clear CV: no rub Abd: nontender Exts: no edema Neuro : no asterixis. Current Medications: Current Medications Sig/Hernandez Start time Last Medication Dose Route Stop Time Status Admin Acetaminophen 650 MG Q6P PRN 09/28 2100 AC PO Albuterol Sulfate 3 ML Q4P PRN 09/29 1100 AC 09/29 INH 1051 Amlodipine Besylate 10 MG DAILY 09/29 899 AC 09/30 PO 0825 Aspirin 81 MG DAILY 09/29 899 AC 09/30 PO 0832 Ceftriaxone Sodium 1,000 MG DAILY@09/29 AC 09/30 IV 2040 Clonidine 0.2 MG BID 09/29 899 AC 09/30 PO 204 Furosemide 80 MG DAILY 09/29 899 AC 09/30 PO 0825 Heparin Sodium 5,000 UNIT Q8 09/28 2199 AC 09/30 (Porcine) SC 2040 Hydralazine HCl 50 MG TID 09/28 2330 AC 09/30 PO 204 Insulin Aspart 0 TIDAC 09/30 0800 AC 10/01 SC 0854 Lactulose 20 GM DAILY PRN 09/28 2300 AC PO Levothyroxine Sodium 0.15 MG DAILY AC 09/29 0700 AC 10/01 PO 0606 Losartan Potassium 50 MG DAILY 09/29 0900 AC 09/30 PO 0824 Metoprolol Tartrate 12.5 MG BID 09/28 2330 AC 09/30 PO 2041 Minoxidil 2.5 MG DAILY 09/29 0900 AC 09/30 PO 0826 Morphine Sulfate 4 MG Q4P PRN 09/30 1815 AC 10/01 IV 0603 Morphine Sulfate 2 MG Q4P PRN 09/29 0045 DC 09/30 IV 1628 Pravastatin Sodium 10 MG 1700 09/29 1700 AC 09/30 PO 1628 Tamsulosin HCl 0.4 MG DAILY 09/29 0900 AC 09/30 PO 0824 Results Pertinent Lab Results: Laboratory Tests 10/01 09/30 0615 0600 Chemistry Sodium (137 - 145 mmol/L) 136 L 138 Potassium (3.5 - 5.1 mmol/L) 5.6 H 5.6 H Chloride (98 - 107 mmol/L) 94 L 97 L Carbon Dioxide (22 - 30 mmol/L) 27 28 Anion Gap (5 - 16) 15 13 BUN (9 - 20 mg/dL) 61 H 42 H Creatinine (0.7 - 1.2 mg/dL) 8.1 *H 6.2 *H Estimated GFR (>60 ml/min) 7 L 9 L BUN/Creatinine Ratio (7 - 25 %) 7.5 6.8 L Hemoglobin A1c (4.2 - 5.8 %) 6.4 H Magnesium (1.6 - 2.3 mg/dL) 2.3 2.1 TSH (0.270 - 4.200 uIU/mL) 9.090 H Free T4 (0.78 - 2.44 ng/dL) 1.32 Hematology CBC w Diff NO MAN DIFF REQ NO MAN DIFF REQ WBC (4.8 - 10.8 /CUMM) 10.2 10.0 RBC (4.70 - 6.10 /CUMM) 2.97 L 2.93 L Hgb (14.0 - 18.0 G/DL) 9.2 L 9.1 L Hct (42 - 52 %) 27.7 L 27.4 L MCV (80.0 - 94.0 FL) 93.3 93.5 MCH (27.0 - 31.0 PG) 31.1 H 31.2 H MCHC (33.0 - 37.0 G/DL) 33.3 33.3 RDW (11.5 - 14.5 %) 14.4 14.8 H Plt Count (130 - 400 /CUMM) 263 244 MPV (7.4 - 10.4 FL) 8.3 8.4 Gran % (42.2 - 75.2 %) 74.2 78.3 H Lymphocytes % (20.5 - 51.1 %) 17.0 L 13.5 L Monocytes % (1.7 - 9.3 %) 6.2 7.5 Eosinophils % (0 - 5 %) 1.9 0.2 Basophils % (0.0 - 2.0 %) 0.7 0.5 Absolute Granulocytes (1.4 - 6.5 /CUMM) 7.6 H 7.8 H Absolute Lymphocytes (1.2 - 3.4 /CUMM) 1.7 1.3 Absolute Monocytes (0.10 - 0.60 /CUMM) 0.6 0.7 H Absolute Eosinophils (0.0 - 0.7 /CUMM) 0.2 0 Absolute Basophils (0.0 - 0.2 /CUMM) 0.1 0.1 09/29 09/29 09/29 1520 0905 0200 Chemistry Sodium (137 - 145 mmol/L) 139 Potassium (3.5 - 5.1 mmol/L) 5.3 H Chloride (98 - 107 mmol/L) 94 L Carbon Dioxide (22 - 30 mmol/L) 26 Anion Gap (5 - 16) 18 H BUN (9 - 20 mg/dL) 45 H Creatinine (0.7 - 1.2 mg/dL) 6.4 *H Estimated GFR (>60 ml/min) 9 L BUN/Creatinine Ratio (7 - 25 %) 7.0 Calcium (8.4 - 10.2 mg/dL) 8.5 Troponin I (<0.11 ng/ml) 0.03 0.03 Hematology CBC w Diff NO MAN DIFF REQ WBC (4.8 - 10.8 /CUMM) 13.3 H RBC (4.70 - 6.10 /CUMM) 3.21 L Hgb (14.0 - 18.0 G/DL) 9.9 L Hct (42 - 52 %) 29.6 L MCV (80.0 - 94.0 FL) 92.3 MCH (27.0 - 31.0 PG) 30.7 MCHC (33.0 - 37.0 G/DL) 33.3 RDW (11.5 - 14.5 %) 14.0 Plt Count (130 - 400 /CUMM) 273 MPV (7.4 - 10.4 FL) 8.7 Gran % (42.2 - 75.2 %) 86.7 H Lymphocytes % (20.5 - 51.1 %) 6.8 L Monocytes % (1.7 - 9.3 %) 6.4 Eosinophils % (0 - 5 %) 0 Basophils % (0.0 - 2.0 %) 0.1 Absolute Granulocytes (1.4 - 6.5 /CUMM) 11.5 H Absolute Lymphocytes (1.2 - 3.4 /CUMM) 0.9 L Absolute Monocytes (0.10 - 0.60 /CUMM) 0.8 H Absolute Eosinophils (0.0 - 0.7 /CUMM) 0 Absolute Basophils (0.0 - 0.2 /CUMM) 0 09/28 Chemistry Lactic Acid Cancelled Urines Urine Color (YEL,AMB,STR) ORANG H Urine Clarity (CLEAR) CLDY H Urine pH (5.0 - 8.0) 7.5 Ur Specific [place] (1.001 - 1.035) 1.025 Urine Protein (NEG,<30 MG/DL) >=300 H Urine Ketones (NEG) NEG Urine Nitrite (NEG) POS H Urine Bilirubin (NEG) NEG@ICTO Urine Urobilinogen (0.1 - 1.0 EU/dl) 0.2 Ur Leukocyte Esterase (NEG) LARGE H Ur Microscopic SEDIMENT EXAMINED Urine RBC (0 - 5 /HPF) PACKD H Urine WBC (0 - 2 /HPF) PACKD H Ur Epithelial Cells (NONE,FEW) FEW Urine Bacteria (NEG/NONE) MANY H Urine Hemoglobin (NEG) LARGE H Urine Glucose (N MG/DL) NEG 09/28 1740 Chemistry Sodium (137 - 145 mmol/L) 138 Potassium (3.5 - 5.1 mmol/L) 5.0 Chloride (98 - 107 mmol/L) 93 L Carbon Dioxide (22 - 30 mmol/L) 29 Anion Gap (5 - 16) 16 BUN (9 - 20 mg/dL) 33 H Creatinine (0.7 - 1.2 mg/dL) 4.3 H Estimated GFR (>60 ml/min) 14 L BUN/Creatinine Ratio (7 - 25 %) 7.7 Glucose (65 - 99 mg/dL) 242 H Lactic Acid (0.7 - 2.1 mmol/L) 0.7 Calcium (8.4 - 10.2 mg/dL) 8.3 L Total Bilirubin (0.2 - 1.3 mg/dL) 0.6 AST (17 - 59 U/L) 26 ALT (21 - 72 U/L) 30 Alkaline Phosphatase (< 127 U/L) 106 Troponin I (<0.11 ng/ml) 0.02 Ebq-[id number] Pept (<125 pg/mL) 47494 H Total Protein (6.3 - 8.2 g/dL) 7.1 Albumin (3.5 - 5.0 g/dL) 4.2 Globulin (1.9 - 4.2 gm/dL) 2.9 Albumin/Globulin Ratio (1.1 - 2.2 %) 1.4 Hematology CBC w Diff NO MAN DIFF REQ WBC (4.8 - 10.8 /CUMM) 9.2 RBC (4.70 - 6.10 /CUMM) 3.23 L Hgb (14.0 - 18.0 G/DL) 10.0 L Hct (42 - 52 %) 29.9 L MCV (80.0 - 94.0 FL) 92.5 MCH (27.0 - 31.0 PG) 30.9 MCHC (33.0 - 37.0 G/DL) 33.4 RDW (11.5 - 14.5 %) 14.4 Plt Count (130 - 400 /CUMM) 269 MPV (7.4 - 10.4 FL) 7.5 Gran % (42.2 - 75.2 %) 79.6 H Lymphocytes % (20.5 - 51.1 %) 11.9 L Monocytes % (1.7 - 9.3 %) 7.1 Eosinophils % (0 - 5 %) 0.7 Basophils % (0.0 - 2.0 %) 0.7 Absolute Granulocytes (1.4 - 6.5 /CUMM) 7.3 H Absolute Lymphocytes (1.2 - 3.4 /CUMM) 1.1 L Absolute Monocytes (0.10 - 0.60 /CUMM) 0.7 H Absolute Eosinophils (0.0 - 0.7 /CUMM) 0.1 Absolute Basophils (0.0 - 0.2 /CUMM) 0.1
--- NOTE | 2017-10-01 10:29 | PN- Urology ---
Subjective Subjective: Patient at dialysis. Resting quietly. Complains of some R flank discomfort Objective Vital Signs and I&Os Vital Signs Date Time Temp Pulse Resp B/P B/P Pulse O2 O2 Flow FiO2 Mean Ox Delivery Rate 10/01 08 98.1 65 22 124/58 96 Nasal 3.0L Cannula 10/01 0000 Nasal 3.0L Cannula 09/30 2317 98.8 68 22 122/50 93 Nasal 3.0L Cannula 09/30 2041 122/58 09/30 204 122/58 09/30 2040 122/58 09/30 1600 94 Nasal 3.0L Cannula 09/30 1405 94 Nasal 3.0L Cannula 09/30 1400 98.2 68 20 120/68 96 Nasal 3.0L Cannula Intake & Output 10/01 0810/01 0000 09/30 0000 Intake Total 210 170 685 120 340 Output Total 150 200 60 150 Balance 60 -30 625 -30 340 Intake, IV 10 30 25 Intake, Oral 200 140 660 120 340 Number 1 0 Bowel Movements Output, Urine 150 200 60 150 Patient 190 lb 170 lb Weight Weight Bed scale Measurement Method Back: Mild R CVA tenderness Genitalia: nicholas in place. Urine still bloody Laboratory Tests 10/01 614 Chemistry Sodium (137 - 145 mmol/L) 136 L Potassium (3.5 - 5.1 mmol/L) 5.6 H Chloride (98 - 107 mmol/L) 94 L Carbon Dioxide (22 - 30 mmol/L) 27 Anion Gap (5 - 16) 15 BUN (9 - 20 mg/dL) 61 H Creatinine (0.7 - 1.2 mg/dL) 8.1 *H Estimated GFR (>60 ml/min) 7 L BUN/Creatinine Ratio (7 - 25 %) 7.5 Magnesium (1.6 - 2.3 mg/dL) 2.3 Hematology CBC w Diff NO MAN DIFF REQ WBC (4.8 - 10.8 /CUMM) 10.2 RBC (4.70 - 6.10 /CUMM) 2.97 L Hgb (14.0 - 18.0 G/DL) 9.2 L Hct (42 - 52 %) 27.7 L MCV (80.0 - 94.0 FL) 93.3 MCH (27.0 - 31.0 PG) 31.1 H MCHC (33.0 - 37.0 G/DL) 33.3 RDW (11.5 - 14.5 %) 14.4 Plt Count (130 - 400 /CUMM) 263 MPV (7.4 - 10.4 FL) 8.3 Gran % (42.2 - 75.2 %) 74.2 Lymphocytes % (20.5 - 51.1 %) 17.0 L Monocytes % (1.7 - 9.3 %) 6.2 Eosinophils % (0 - 5 %) 1.9 Basophils % (0.0 - 2.0 %) 0.7 Absolute Granulocytes (1.4 - 6.5 /CUMM) 7.6 H Absolute Lymphocytes (1.2 - 3.4 /CUMM) 1.7 Absolute Monocytes (0.10 - 0.60 /CUMM) 0.6 Absolute Eosinophils (0.0 - 0.7 /CUMM) 0.2 Absolute Basophils (0.0 - 0.2 /CUMM) 0.1 Assessment/Plan Assessment/Plan Imp: 1. S/p R ureteral stent placement for obstructing stone at R UPJ 2. Post instrumentation gross hematuria 3. Multiple medical issues Plan: 1. Nicholas to remain in place until urine is clear\ 2. Nurse to irrigate nicholas q shift 3. Consider change to po abx 4. Long range plan for stone/stent management is to repeat CT in 6-12 weeks to see if stone passed in hopes of avoiding any further instrumentation which would require general anesthesia
--- NOTE | 2017-10-01 12:38 | PN- Cardiology ---
Subjective Subjective: Patient seen during dialysis. He is resting comfortably but does report some shortness of breath with no associated chest pain or palpitations. Objective Vital Signs and I&Os Vital Signs Date Time Temp Pulse Resp B/P B/P Pulse O2 O2 Flow FiO2 Mean Ox Delivery Rate 10/01 0800 Nasal 3.0L Cannula 10/01 0800 98.1 65 22 124/58 96 Nasal 3.0L Cannula 10/01 0000 Nasal 3.0L Cannula 09/30 2317 98.8 68 22 122/50 93 Nasal 3.0L Cannula 09/30 2041 122/58 09/30 2041 122/58 09/30 2041 122/58 09/30 1600 94 Nasal 3.0L Cannula 09/30 1405 94 Nasal 3.0L Cannula 09/30 1400 98.2 68 20 120/68 96 Nasal 3.0L Cannula Intake & Output 10/01 1600 10/01 0800 10/01 0000 09/30 1600 09/30 0800 09/30 0000 Intake Total 210 170 685 120 340 Output Total 150 200 60 150 Balance 60 -30 625 -30 340 Intake, IV 10 30 25 Intake, Oral 200 140 660 120 340 Number 1 0 Bowel Movements Output, Urine 150 200 60 150 Patient 190 lb 170 lb Weight Weight Bed scale Measurement Method Physical Exam: General: no apparent distress. Alert. Eyes: No obvious scleral icterus. HEENT: No abnormal jugular venous pulsations. Cardiovascular: Normal intensity S1/S2. Regular Respiratory: Decreased air entry bilaterally Abdomen: no guarding or rebound tenderness. Musculoskeletal: No clubbing or cyanosis noted; no edema Skin: Warm Neurologic: No gross focal deficits noted. Current Medications: Current Medications Sig/Hernandez Start time Last Medication Dose Route Stop Time Status Admin Acetaminophen 650 MG Q6P PRN 09/28 2100 AC PO Albuterol Sulfate 3 ML Q4P PRN 09/29 1100 AC 09/29 INH 1051 Amlodipine Besylate 10 MG DAILY 09/29 899 AC 09/30 PO 0825 Aspirin 81 MG DAILY 09/29 899 AC 09/30 PO 0832 Ceftriaxone Sodium 1,000 MG DAILY@09/29 AC 09/30 IV 204 Clonidine 0.2 MG BID 09/29 899 AC 09/30 PO 204 Epoetin Pardeep 4,000 UNIT ONCE ONE 10/01 1030 DC IV 10/01 103 Furosemide 80 MG DAILY 09/29 899 AC 09/30 PO 0825 Heparin Sodium 5,000 UNIT Q8 09/28 2200 AC 09/30 (Porcine) SC 2039 Hydralazine HCl 50 MG TID 09/28 233 AC 09/30 PO 204 Insulin Aspart 0 TIDAC 09/30 0800 AC 10/01 SC 0854 Lactulose 20 GM DAILY PRN 09/28 2300 AC PO Levothyroxine Sodium 0.15 MG DAILY AC 09/29 0700 AC 10/01 PO 0606 Losartan Potassium 50 MG DAILY 09/29 09 AC 09/30 PO 0824 Metoprolol Tartrate 12.5 MG BID 09/28 2330 AC 09/30 PO 204 Minoxidil 2.5 MG DAILY 09/29 09 AC 09/30 PO 0826 Morphine Sulfate 4 MG Q4P PRN 09/30 1815 AC 10/01 IV 1010 Morphine Sulfate 2 MG Q4P PRN 09/29 0045 DC 09/30 IV 1628 Pravastatin Sodium 10 MG 1700 09/29 1700 AC 09/30 PO 1628 Tamsulosin HCl 0.4 MG DAILY 09/29 09 AC 09/30 PO 0824 Results Last 48 Hrs of Labs/Mics: Laboratory Tests 10/01/17 0615: Anion Gap 15, Estimated GFR 7 L, BUN/Creatinine Ratio 7.5, Magnesium 2.3, CBC w Diff NO MAN DIFF REQ, RBC 2.97 L, MCV 93.3, MCH 31.1 H, MCHC 33.3, RDW 14.4, MPV 8.3, Gran % 74.2, Lymphocytes % 17.0 L, Monocytes % 6.2, Eosinophils % 1.9, Basophils % 0.7, Absolute Granulocytes 7.6 H, Absolute Lymphocytes 1.7, Absolute Monocytes 0.6, Absolute Eosinophils 0.2, Absolute Basophils 0.1 09/30/17 0600: Anion Gap 13, Estimated GFR 9 L, BUN/Creatinine Ratio 6.8 L, Hemoglobin A1c 6.4 H, Magnesium 2.1, TSH 9.090 H, Free T4 1.32, CBC w Diff NO MAN DIFF REQ, RBC 2.93 L, MCV 93.5, MCH 31.2 H, MCHC 33.3, RDW 14.8 H, MPV 8.4, Gran % 78.3 H, Lymphocytes % 13.5 L, Monocytes % 7.5, Eosinophils % 0.2, Basophils % 0.5, Absolute Granulocytes 7.8 H, Absolute Lymphocytes 1.3, Absolute Monocytes 0.7 H, Absolute Eosinophils 0, Absolute Basophils 0.1 09/29/17 1520: Anion Gap 18 H, Estimated GFR 9 L, BUN/Creatinine Ratio 7.0, Calcium 8.5, CBC w Diff NO MAN DIFF REQ, RBC 3.21 L, MCV 92.3, MCH 30.7, MCHC 33.3, RDW 14.0, MPV 8.7, Gran % 86.7 H, Lymphocytes % 6.8 L, Monocytes % 6.4, Eosinophils % 0, Basophils % 0.1, Absolute Granulocytes 11.5 H, Absolute Lymphocytes 0.9 L, Absolute Monocytes 0.8 H, Absolute Eosinophils 0, Absolute Basophils 0 Microbiology 09/29 1712 URINE ROUT: Urine Culture - COMP Recent Imaging Studies: Telemetry tracings were personally reviewed and shows sinus rhythm Echo: Left ventricular cavity size normal. Left ventricular wall thickness mildly increased. No obvious regional wall motion abnormalities. Left ventricular ejection fraction is estimated at > 55 %. "Pseudonormal" filling pattern of the left ventricle for age (stage 2 diastolic dysfunction). Normal right ventricular size and function. Mild left atrial dilatation. Mild aortic stenosis. Minimal pericardial effusion. Left pleural effusion. Moderate tricuspid regurgitation. Moderate pulmonary hypertension. Marty Trevino M.D. (Electronically Signed) Final Date: 01 October 2017 09:44 Assessment/Plan Assessment/Plan 1. End-stage renal disease on dialysis 2. Acute on chronic diastolic CHF with pleural effusions 3. history of mild aortic stenosis 4. chronic sleep apnea on CPap 5. moderate pulmonary hypertension 6. history of hypertension 7. obstructive uropathy status post stent placement Echocardiogram as above. The patient does complain of some shortness of breath and has evidence of bilateral pleural effusions; fluid removal with dialysis per Nephrology but may be reasonable to consider therapeutic thoracocentesis as it may be difficult to decrease the size of the pleural effusions with dialysis only. Josué Trevino MD [facility] Continue telemetry? No
[2017-10-01] MEDS ORDERED: AUGMENTIN 500-1 EACH PO (13:22)
--- NOTE | 2017-10-01 13:32 | Patient Discharge Instructions ---
Discharge Instructions General Discharge Information You were seen/treated for: UTI Right PUJ stone with hydronephrosis s/p cystoscopy and stent placement. Acute on chronic diastolic CHF. Watch for these problems: Chest pain, shortness of breath, nausea, vomiting, flank pain, hematuria, dysuria, chills and fever. -If you experiences any of these symptoms please come to ED or call to your primary care physician. Special Instructions: -Follow up with your primary care physician in one week. -Follow-up with your radio sportscaster in 1 week -Follow-up with your urologist in 1 week and discuss about the CT scan abdomen/ pelvis (in 4-6 weeks) to see for right UPJ stone to see if its posterior not provide any further instrumentation. -Follow-up with your car installations supervisor in 1 week Diet Recommended Diet: Renal Dialysis Activity Activity Self Limited: Yes Acute Coronary Syndrome Inclusion Criteria At DC or during hospital stay patient has or had the following: ACS DIAGNOSIS No Discharge Core Measures Meds if any: Prescribed or Continued at Discharge Meds if any: NOT Prescribed or Continued at Discharge Congestive Heart Failure Inclusion Criteria At DC or during hospital stay patient has or had the following: CHF DIAGNOSIS Yes Discharge Core Measures Meds if any: Prescribed or Continued at Discharge Meds if any: NOT Prescribed or Continued at Discharge Cerebrovascular accident Inclusion Criteria At DC or during hospital stay patient has or had the following: CVA/TIA Diagnosis No Discharge Core Measures Meds if any: Prescribed or Continued at Discharge Meds if any: NOT Prescribed or Continued at Discharge Venous thromboembolism Inclusion Criteria VTE Diagnosis No VTE Type NONE VTE Confirmed by (Test) NONE Discharge Core Measures - Per Current guidelines, there needs to be overlap - treatment for the first 5 days of Warfarin therapy. - If discharged on Warfarin prior to 5 days of - overlap therapy, the patient will need to be - assessed for post discharge needs including - *Post discharge parental anticoagulation - *Warfarin and/or parental anticoagulation education - *Follow up date to check INR post discharge At least 5 days overlap therapy as Inpatient No Meds if any: Prescribed or Continued at Discharge Note: Overlap Therapy is Warfarin and Anticoagulant Meds if any: NOT Prescribed or Continued at Discharge
[2017-10-01 14:21] VITALS: BP 128/58
[2017-10-01 21:38] VITALS: BP 122/60
[2017-10-02 06:59] VITALS: BP 128/58
--- NOTE | 2017-10-02 07:18 | PN- Housestaff ---
[facility] Subjective Follow-up For: UTI Right UPJ stone with hydronephrosis s/p cystoscopy and stent placement. Acute on chronic diastolic CHF Hematuria Tele-Events Since Last Visit: Sinus rhythm with heart rate between 6568 Subjective: No overnight events. Patient remained afebrileseen and examined this morning. He is using 3 L of oxygen maintaining saturation 97%. He is [place]-speaking and having language barrier. Patient denied any chest pain, palpitation, short of breath, nausea and abdominal pain. He reported pain at the tip of the penis /10. Review of Systems Constitutional: Denies: chills, fever. EENTM: Reports: no symptoms. Cardiovascular: Denies: chest pain, palpitations. Respiratory: Denies: cough, short of breath, sputum production. Gastrointestinal: Reports: no symptoms. Genitourinary: Reports: see HPI. Neurological/Psychological: Reports: no symptoms. Objective Last 24 Hrs of Vital Signs/I&O Vital Signs Date Time Temp Pulse Resp B/P B/P Pulse O2 O2 Flow FiO2 Mean Ox Delivery Rate 10/02 0659 98.0 67 20 128/58 97 Nasal 2.0L Cannula 10/017 68 122/60 10/01 2227 68 122/60 10/01 2138 99.0 68 20 122/60 95 Nasal 2.0L Cannula 10/01 2034 74 128/58 10/01 1943 99 Nasal 3.0L Cannula 10/01 1421 98.1 74 20 128/58 96 Nasal 3.0L Cannula 10/01 1351 65 124/58 10/01 1350 65 124/58 10/01 1350 65 124/58 10/01 1350 65 124/58 10/01 1350 65 124/58 10/01 1349 65 124/58 10/01 0900 65 124/58 10/01 0800 Nasal 3.0L Cannula 10/01 0800 98.1 65 22 124/58 96 Nasal 3.0L Cannula Intake & Output 10/02 0800 10/02 0000 10/01 1600 Intake Total 500 Output Total 100 2650 Balance -100 -2150 Intake, Oral 500 Output, 2500 Dialysate Output, Urine 100 150 Patient 164 lb Weight Physical Exam General Appearance: Alert, Oriented X3, Cooperative Skin: No Rashes Skin Temp/Moisture Exam: Warm/Dry Sepsis Skin Exam (color): Normal for Ethnicity HEENT: Atraumatic, PERRLA, EOMI Neck: Supple Cardiovascular: Normal S1, Normal S2 Lungs: Clear to Auscultation Abdomen: Soft, No Tenderness Neurological: Normal Speech, Strength at 5/5 X4 Ext, Normal Tone Extremities: No Edema Assessment/Plan Assessment: 67 YO M with PMH of DM, HTN, HLD, hypothyroidism, bradycardia, CHF, aortic stenosis, ESRD on hemodialysis, pancreatitis and BPH sent in from dialysis for treatment of a urinary tract infection. We are following the patient on telemetry floor for following problems: Acute on chronic congestive diastolic heart failure: -Oxygen supplementation as needed to keep saturation above 92% -Trop and EKG are negative -PO lasix 80mg -Daily weight -Input and output -f/u with cardio recommendations. -Echocardiogram showed >55% EF with stage 2 diastolic heart failure. UTI: -IV ceftriaxone day 4, changed to keflex 250mg bid. -Urine cultures growing Klebsiella pneumoniae. Ureteric stone with hydronephrosis s/p cystoscopy and stent placement: -s/p day 2 -Pain medication -IV antiemetic to control nausea -Urology recommendations appreciated -Will require repeat CT in 612 weeks to look for stone. -Continue Flomax Hematuria: -Gross hematuria. -We'll keep the Nicholas's catheter to irrigate the bladder every shift with normal saline until it becomes clear. -We will follow CBCs. H/O ESRD on dialysis: -He is getting dialysis on Sunday. -Pleural effusion has been decreased. History of hypothyroidism: -Continue levothyroxine History of hypertension and hyperlipidemia: -Continue losartan, hydralazine, amlodipine and clonidine -Continue Lipitor DVT prophylaxis: Mechanical and subcutaneous heparin CODE STATUS: Full code Problem List: 1. Kidney stone 2. CHF (congestive heart failure) 3. CHF exacerbation Pain Ratin Pain Location: Around the nicholas's Pain Goal: Remain pain free Pain Plan: pain pathway Tomorrow's Labs & Rationales: bep/cbc Lo Valdovinos MD 10/02/17 1351: Attending MD Review Statement Attending Statement Attending MD Statement: examined this patient, discuss w/resident/PA/[employer], agreed w/resident/PA/[employer], reviewed EMR data (avail), discussed with nursing, discussed with case mgmt Attending Assessment/Plan: Patient still has a fair amount of pain. The nurse feels that the Dilaudid works better than the morphine so we are going to try oral Dilaudid for the pain. We can switch him to by mouth Keflex as his Klebsiella pneumoniae is sensitive to that and will confirm renal dosing for that given his ESRD. He gets dialyzed on Sunday, Sunday and Sunday. He had the right ureteral stent placed for the right UPJ stone and obstructive uropathy. He is on by mouth Lasix for diastolic heart failure and moderate pulmonary hypertension and he is getting out of bed. We'll continue the Nicholas until the urine clears.
[2017-10-02 08:03] LABS: ABSOLUTE BASOPHIL COUNT 0.1 /CUMM (0.0-0.2); ABSOLUTE EOSINOPHIL COUNT 0.2 /CUMM (0.0-0.7); ABSOLUTE LYMPH COUNT 1.1 /CUMM (1.2-3.4); ABSOLUTE MONOCYTE COUNT 0.5 /CUMM (0.10-0.60); BASOPHIL % 0.8 % (0.0-2.0); EOSINOPHIL % 2.8 % (0-5); GRANULOCYTE % 75.2 % (42.2-75.2); HEMATOCRIT 26.3 % (42-52); MEAN CORPUSCULAR HGB 30.9 PG (27.0-31.0); MEAN CORPUSCULAR HGB CONC 33.2 G/DL (33.0-37.0); MEAN CORPUSCULAR VOLUME 93.1 FL (80.0-94.0); MEAN PLATELET VOLUME 8.1 FL (7.4-10.4); PLATELET COUNT 257 /CUMM (130-400); RBC DISTRIBUTION WIDTH 14.2 % (11.5-14.5); RED BLOOD CELL CT 2.82 /CUMM (4.70-6.10); WHITE BLOOD CELL COUNT 7.9 /CUMM (4.8-10.8)
--- NOTE | 2017-10-02 08:33 | RADIOLOGY REPORT ---
EXAMINATION: XR PORTABLE CHEST CLINICAL INFORMATION: 67-year-old male patient with shortness of breath. End-stage renal disease on dialysis. Previous history of pleural effusions. COMPARISON: Chest x-ray on 09/28/2017. Echocardiogram on the same day. TECHNIQUE: Portable AP semierect view of the chest was obtained. The time of examination was 7:59 AM FINDINGS: Cardiac silhouette is prominent but unchanged. There are trace bilateral pleural effusions. No overt pulmonary edema is seen at this time. The echocardiogram excluded a pericardial effusion in this patient with renal failure. IMPRESSION: Trace bilateral pleural effusions.
--- NOTE | 2017-10-02 09:29 | PN- Cardiology ---
Subjective Subjective: Patient still complains of shortness of breath but denies chest discomfort. Review of Systems: Eyes no blurred or double vision Ears no deafness or ringing Nose and throat no recurrent sinusitis Lungs per history of present illness Heart per history of present illness Abdomen no nausea vomiting Musculoskeletal occasional muscle and joint pains Psych no anxiety or depression Neuro without recurrent headache or seizures Endocrine no heat or cold intolerance Objective Vital Signs and I&Os Vital Signs Date Time Temp Pulse Resp B/P B/P Pulse O2 O2 Flow FiO2 Mean Ox Delivery Rate 10/02 0803 64 150/60 10/02 0659 98.0 67 20 128/58 97 Nasal 2.0L Cannula 10/01 2226 68 122/60 10/01 2227 68 122/60 10/01 2138 99.0 68 20 122/60 95 Nasal 2.0L Cannula 10/01 2034 74 128/58 10/01 1943 99 Nasal 3.0L Cannula 10/01 1421 98.1 74 20 128/58 96 Nasal 3.0L Cannula 10/01 1351 65 124/58 10/01 1350 65 124/58 10/01 1350 65 124/58 10/01 1350 65 124/58 10/01 1350 65 124/58 10/01 1349 65 124/58 Intake & Output 10/02 1600 10/02 0800 10/02 0000 10/01 1600 10/01 0800 10/01 0000 Intake Total 500 210 170 Output Total 354 683 3710 150 200 Balance -200 -100 -2150 60 -30 Intake, IV 10 30 Intake, Oral 500 200 140 Number 1 Bowel Movements Output, 2500 Dialysate Output, Urine 200 100 150 150 200 Patient 164 lb 190 lb Weight Physical Exam: Patient is a well-developed well-nourished male appearing in no acute distress HEENT is unremarkable Neck is supple there is no JVD Lungs decreased air entry bilaterally Heart regular rhythm S1 and S2 are normal no gallops or rubs 2/6 systolic ejection murmur at the right upper sternal border Abdomen bowel sounds positive Extremities without edema Current Medications: Current Medications Sig/Hernandez Start time Last Medication Dose Route Stop Time Status Admin Acetaminophen 650 MG Q6P PRN 09/28 2100 AC PO Albuterol Sulfate 3 ML Q4P PRN 09/29 1100 AC 09/29 INH 1051 Amlodipine Besylate 10 MG DAILY 09/29 0900 AC 10/02 PO 0803 Aspirin 81 MG DAILY 09/29 0900 AC 10/02 PO 0803 Bisacodyl 5 MG DAILY 10/02 0911 DC PO Ceftriaxone Sodium 1,000 MG DAILY@09/29 DC 10/01 IV 2034 Cephalexin 250 MG Q12 10/02 0914 AC PO Clonidine 0.2 MG BID 09/29 0900 AC 10/02 PO 0803 Docusate Sodium 100 MG BID 10/02 916 PO Epoetin Pardeep 4,000 UNIT ONCE ONE 10/01 1030 DC 10/01 IV 10/01 1031 1030 Furosemide 80 MG DAILY 09/29 09 AC 10/02 PO 0803 Heparin Sodium 5,000 UNIT Q8 09/28 2200 DC 10/01 (Porcine) SC 203 Hydralazine HCl 50 MG TID 09/28 2330 AC 10/02 PO 0803 Hydromorphone HCl 2 MG Q4P PRN 10/02 0915 AC PO Insulin Aspart 0 TIDAC 09/30 08 10/02 SC 0758 Lactulose 20 GM DAILY PRN 09/28 2300 AC PO Levothyroxine Sodium 0.15 MG DAILY AC 09/29 0700 AC 10/02 PO 0625 Losartan Potassium 50 MG DAILY 09/29 0900 AC 10/02 PO 0803 Metoprolol Tartrate 12.5 MG BID 09/28 2330 DC 10/02 PO 0803 Minoxidil 2.5 MG DAILY 09/29 0900 AC 10/02 PO 0803 Morphine Sulfate 4 MG Q3P PRN 10/01 1530 DC 10/02 IV 0624 Morphine Sulfate 4 MG Q4P PRN 09/30 1815 DC 10/01 IV 1406 Polyethylene Glycol 17 GM DAILY 10/02 0910 AC PO Pravastatin Sodium 10 MG 1700 09/29 1700 AC 10/01 PO 1745 Senna 187 MG AT BEDTIME 10/02 2100 AC PO Tamsulosin HCl 0.4 MG DAILY 09/29 0900 AC 10/02 PO 0803 Results Last 48 Hrs of Labs/Mics: Laboratory Tests 10/02/17 0616: Anion Gap 14, Estimated GFR 11 L, BUN/Creatinine Ratio 7.0, CBC w Diff NO MAN DIFF REQ, RBC 2.82 L, MCV 93.1, MCH 30.9, MCHC 33.2, RDW 14.2, MPV 8.1, Gran % 75.2, Lymphocytes % 14.3 L, Monocytes % 6.9, Eosinophils % 2.8, Basophils % 0.8 , Absolute Granulocytes 6.0, Absolute Lymphocytes 1.1 L, Absolute Monocytes 0.5 , Absolute Eosinophils 0.2, Absolute Basophils 0.1 10/01/17 0615: Anion Gap 15, Estimated GFR 7 L, BUN/Creatinine Ratio 7.5, Magnesium 2.3, CBC w Diff NO MAN DIFF REQ, RBC 2.97 L, MCV 93.3, MCH 31.1 H, MCHC 33.3, RDW 14.4, MPV 8.3, Gran % 74.2, Lymphocytes % 17.0 L, Monocytes % 6.2, Eosinophils % 1.9, Basophils % 0.7, Absolute Granulocytes 7.6 H, Absolute Lymphocytes 1.7, Absolute Monocytes 0.6, Absolute Eosinophils 0.2, Absolute Basophils 0.1 Recent Imaging Studies: Chest x-ray FINDINGS: Cardiac silhouette is prominent but unchanged. There are trace bilateral pleural effusions. No overt pulmonary edema is seen at this time. The echocardiogram excluded a pericardial effusion in this patient with renal failure. Assessment/Plan Assessment/Plan 1. End-stage renal disease on dialysis 2. Acute on chronic diastolic CHF with pleural effusions EF 55% 3. History of mild aortic stenosis 4. Chronic sleep apnea on CPap 5. Moderate pulmonary hypertension 6. History of hypertension 7. Obstructive uropathy status post stent placement Recommendations 1. Continue current medications 2. Continue hemodialysis 3. Chest x-ray now demonstrates trace pleural effusions therefore no current indication for thoracentesis Continue telemetry? No
--- NOTE | 2017-10-02 09:44 | PN- Nephrology ---
Assessment/Plan Nephrology Assessment: Stable from renal standpoint. He is not on a phosphate binder and no phosphorous checked here. Suggestion: Would try and add phosphorous to AM labs. He was on Revella 1600 mg as outpatient so will add it here. Subjective Subjective: No new complaints today but still complaing of some right flank and penile pain. Objective Vital Signs and I&Os Vital Signs Date Time Temp Pulse Resp B/P B/P Pulse O2 O2 Flow FiO2 Mean Ox Delivery Rate 10/02 0803 64 150/60 10/02 0659 98.0 67 20 128/58 97 Nasal 2.0L Cannula 10/01 2227 68 122/60 10/01 2227 68 122/60 10/01 2138 99.0 68 20 122/60 95 Nasal 2.0L Cannula 10/01 2034 74 128/58 10/01 1943 99 Nasal 3.0L Cannula 10/01 1421 98.1 74 20 128/58 96 Nasal 3.0L Cannula 10/01 1351 65 124/58 10/01 1350 65 124/58 10/01 1350 65 124/58 10/01 1350 65 124/58 10/01 1350 65 124/58 10/01 1349 65 124/58 Intake & Output 10/02 1600 10/02 0400 10/01 1600 10/01 0400 09/30 1600 09/30 0400 Intake Total 710 170 805 340 Output Total 298 971 8298 200 210 Balance -200 -100 -2089 -30 595 340 Intake, IV 10 30 25 Intake, Oral 700 140 780 340 Number 1 0 Bowel Movements Output, 2500 Dialysate Output, Urine 200 100 300 200 210 Patient 164 lb 190 lb 170 lb Weight Weight Bed scale Measurement Method Physical Exam: NAD VS as above Lung: clear CV:no rub Abd: nontender Exts: no edema Neuro: no asterixis Current Medications: Current Medications Sig/Hernandez Start time Last Medication Dose Route Stop Time Status Admin Acetaminophen 650 MG Q6P PRN 09/28 2100 AC PO Albuterol Sulfate 3 ML Q4P PRN 09/29 1100 AC 09/29 INH 1051 Amlodipine Besylate 10 MG DAILY 09/29 0900 AC 10/02 PO 0803 Aspirin 81 MG DAILY 09/29 0900 AC 10/02 PO 0803 Bisacodyl 5 MG DAILY 10/02 0911 DC PO Ceftriaxone Sodium 1,000 MG DAILY@09/29 DC 10/01 IV 2034 Cephalexin 250 MG Q12 10/02 0914 AC PO Clonidine 0.2 MG BID 09/29 0900 AC 10/02 PO 0803 Docusate Sodium 100 MG BID 10/02 09 AC PO Epoetin Pardeep 4,000 UNIT ONCE ONE 10/01 1030 DC 10/01 IV 10/01 1031 1030 Furosemide 80 MG DAILY 09/29 09 AC 10/02 PO 0803 Heparin Sodium 5,000 UNIT Q8 09/28 2200 DC 10/01 (Porcine) SC 2035 Hydralazine HCl 50 MG TID 09/28 2330 AC 10/02 PO 0803 Hydromorphone HCl 2 MG Q4P PRN 10/02 0915 AC PO Insulin Aspart 0 TIDAC 09/30 0800 AC 10/02 SC 0758 Lactulose 20 GM DAILY PRN 09/28 2300 AC PO Levothyroxine Sodium 0.15 MG DAILY AC 09/29 0700 AC 10/02 PO 0625 Losartan Potassium 50 MG DAILY 09/29 0900 AC 10/02 PO 0803 Metoprolol Tartrate 12.5 MG BID 09/28 2330 DC 10/02 PO 0803 Minoxidil 2.5 MG DAILY 09/29 0900 AC 10/02 PO 0803 Morphine Sulfate 4 MG Q3P PRN 10/01 1530 DC 10/02 IV 0624 Morphine Sulfate 4 MG Q4P PRN 09/30 1815 DC 10/01 IV 1406 Polyethylene Glycol 17 GM DAILY 10/02 0910 AC PO Pravastatin Sodium 10 MG 1700 09/29 1700 AC 10/01 PO 1745 Senna 187 MG AT BEDTIME 10/02 2100 AC PO Tamsulosin HCl 0.4 MG DAILY 09/29 0900 AC 10/02 PO 0803 Results Pertinent Lab Results: Laboratory Tests 10/02 10/01 0616 0615 Chemistry Sodium (137 - 145 mmol/L) 137 136 L Potassium (3.5 - 5.1 mmol/L) 4.8 5.6 H Chloride (98 - 107 mmol/L) 97 L 94 L Carbon Dioxide (22 - 30 mmol/L) 26 27 Anion Gap (5 - 16) 14 15 BUN (9 - 20 mg/dL) 38 H 61 H Creatinine (0.7 - 1.2 mg/dL) 5.4 *H 8.1 *H Estimated GFR (>60 ml/min) 11 L 7 L BUN/Creatinine Ratio (7 - 25 %) 7.0 7.5 Magnesium (1.6 - 2.3 mg/dL) 2.3 Hematology CBC w Diff NO MAN DIFF REQ NO MAN DIFF REQ WBC (4.8 - 10.8 /CUMM) 7.9 10.2 RBC (4.70 - 6.10 /CUMM) 2.82 L 2.97 L Hgb (14.0 - 18.0 G/DL) 8.7 L 9.2 L Hct (42 - 52 %) 26.3 L 27.7 L MCV (80.0 - 94.0 FL) 93.1 93.3 MCH (27.0 - 31.0 PG) 30.9 31.1 H MCHC (33.0 - 37.0 G/DL) 33.2 33.3 RDW (11.5 - 14.5 %) 14.2 14.4 Plt Count (130 - 400 /CUMM) 257 263 MPV (7.4 - 10.4 FL) 8.1 8.3 Gran % (42.2 - 75.2 %) 75.2 74.2 Lymphocytes % (20.5 - 51.1 %) 14.3 L 17.0 L Monocytes % (1.7 - 9.3 %) 6.9 6.2 Eosinophils % (0 - 5 %) 2.8 1.9 Basophils % (0.0 - 2.0 %) 0.8 0.7 Absolute Granulocytes (1.4 - 6.5 /CUMM) 6.0 7.6 H Absolute Lymphocytes (1.2 - 3.4 /CUMM) 1.1 L 1.7 Absolute Monocytes (0.10 - 0.60 /CUMM) 0.5 0.6 Absolute Eosinophils (0.0 - 0.7 /CUMM) 0.2 0.2 Absolute Basophils (0.0 - 0.2 /CUMM) 0.1 0.1 10/01 03/14 0600 1520 Chemistry Sodium (137 - 145 mmol/L) 138 139 Potassium (3.5 - 5.1 mmol/L) 5.6 H 5.3 H Chloride (98 - 107 mmol/L) 97 L 94 L Carbon Dioxide (22 - 30 mmol/L) 28 26 Anion Gap (5 - 16) 13 18 H BUN (9 - 20 mg/dL) 42 H 45 H Creatinine (0.7 - 1.2 mg/dL) 6.2 *H 6.4 *H Estimated GFR (>60 ml/min) 9 L 9 L BUN/Creatinine Ratio (7 - 25 %) 6.8 L 7.0 Hemoglobin A1c (4.2 - 5.8 %) 6.4 H Calcium (8.4 - 10.2 mg/dL) 8.5 Magnesium (1.6 - 2.3 mg/dL) 2.1 TSH (0.270 - 4.200 uIU/mL) 9.090 H Free T4 (0.78 - 2.44 ng/dL) 1.32 Hematology CBC w Diff NO MAN DIFF REQ NO MAN DIFF REQ WBC (4.8 - 10.8 /CUMM) 10.0 13.3 H RBC (4.70 - 6.10 /CUMM) 2.93 L 3.21 L Hgb (14.0 - 18.0 G/DL) 9.1 L 9.9 L Hct (42 - 52 %) 27.4 L 29.6 L MCV (80.0 - 94.0 FL) 93.5 92.3 MCH (27.0 - 31.0 PG) 31.2 H 30.7 MCHC (33.0 - 37.0 G/DL) 33.3 33.3 RDW (11.5 - 14.5 %) 14.8 H 14.0 Plt Count (130 - 400 /CUMM) 244 273 MPV (7.4 - 10.4 FL) 8.4 8.7 Gran % (42.2 - 75.2 %) 78.3 H 86.7 H Lymphocytes % (20.5 - 51.1 %) 13.5 L 6.8 L Monocytes % (1.7 - 9.3 %) 7.5 6.4 Eosinophils % (0 - 5 %) 0.2 0 Basophils % (0.0 - 2.0 %) 0.5 0.1 Absolute Granulocytes (1.4 - 6.5 /CUMM) 7.8 H 11.5 H Absolute Lymphocytes (1.2 - 3.4 /CUMM) 1.3 0.9 L Absolute Monocytes (0.10 - 0.60 /CUMM) 0.7 H 0.8 H Absolute Eosinophils (0.0 - 0.7 /CUMM) 0 0 Absolute Basophils (0.0 - 0.2 /CUMM) 0.1 0
--- NOTE | 2017-10-02 12:02 | PN- Urology ---
Subjective Subjective: Complains of mild pain in R flank, L flank and penis Objective Vital Signs and I&Os Vital Signs Date Time Temp Pulse Resp B/P B/P Pulse O2 O2 Flow FiO2 Mean Ox Delivery Rate 10/02 1122 94 Nasal 3.0L Cannula 10/02 1101 94 Nasal 1.0L Cannula 10/02 0803 64 150/60 10/02 0659 98.0 67 20 128/58 97 Nasal 2.0L Cannula 10/01 2227 68 122/60 10/01 2227 68 122/60 10/01 2138 99.0 68 20 122/60 95 Nasal 2.0L Cannula 10/01 2034 74 128/58 10/01 1943 99 Nasal 3.0L Cannula 10/01 1421 98.1 74 20 128/58 96 Nasal 3.0L Cannula 10/01 1351 65 124/58 10/01 1350 65 124/58 10/01 1350 65 124/58 10/01 1350 65 124/58 10/01 1350 65 124/58 10/01 1349 65 124/58 Intake & Output 10/02 1600 10/02 0800 10/02 0000 10/01 1600 10/01 0800 10/01 0000 Intake Total 500 210 170 Output Total 874 269 2576 150 200 Balance -200 -100 -2150 60 -30 Intake, IV 10 30 Intake, Oral 500 200 140 Number 1 Bowel Movements Output, 2500 Dialysate Output, Urine 200 100 150 150 200 Patient 164 lb 190 lb Weight Abd: soft and non tenderne Genitalia: nicholas in place. Urine still bloody Laboratory Tests 10/02 0616 Chemistry Sodium (137 - 145 mmol/L) 137 Potassium (3.5 - 5.1 mmol/L) 4.8 Chloride (98 - 107 mmol/L) 97 L Carbon Dioxide (22 - 30 mmol/L) 26 Anion Gap (5 - 16) 14 BUN (9 - 20 mg/dL) 38 H Creatinine (0.7 - 1.2 mg/dL) 5.4 *H Estimated GFR (>60 ml/min) 11 L BUN/Creatinine Ratio (7 - 25 %) 7.0 Hematology CBC w Diff NO MAN DIFF REQ WBC (4.8 - 10.8 /CUMM) 7.9 RBC (4.70 - 6.10 /CUMM) 2.82 L Hgb (14.0 - 18.0 G/DL) 8.7 L Hct (42 - 52 %) 26.3 L MCV (80.0 - 94.0 FL) 93.1 MCH (27.0 - 31.0 PG) 30.9 MCHC (33.0 - 37.0 G/DL) 33.2 RDW (11.5 - 14.5 %) 14.2 Plt Count (130 - 400 /CUMM) 257 MPV (7.4 - 10.4 FL) 8.1 Gran % (42.2 - 75.2 %) 75.2 Lymphocytes % (20.5 - 51.1 %) 14.3 L Monocytes % (1.7 - 9.3 %) 6.9 Eosinophils % (0 - 5 %) 2.8 Basophils % (0.0 - 2.0 %) 0.8 Absolute Granulocytes (1.4 - 6.5 /CUMM) 6.0 Absolute Lymphocytes (1.2 - 3.4 /CUMM) 1.1 L Absolute Monocytes (0.10 - 0.60 /CUMM) 0.5 Absolute Eosinophils (0.0 - 0.7 /CUMM) 0.2 Absolute Basophils (0.0 - 0.2 /CUMM) 0.1 Assessment/Plan Assessment/Plan Imp: 1. S/p R ureteral stent for small obstructing R UPJ stone 2. Post instrumentation hematuria Plan: 1. Keep nicholas in place until urine clears some 2. Nurses to irrigate nicholas once per shift 3. Long range plan is repeat CT in 6-12 weeks to see if stones passed as he is high risk for genteral anesthesia which would be required for R ureteroscopy and laser lithotripsy
[2017-10-02 14:00] VITALS: BP 120/58
[2017-10-02] MEDS ORDERED: OXYCODONE HCL5 M1 PO (14:34)
[2017-10-02 21:00] VITALS: BP 158/64
[2017-10-03 06:20] VITALS: BP 142/68
--- NOTE | 2017-10-03 07:27 | PN- Housestaff ---
Mali Trevino MD,[facility] 10/03/17 0727: Subjective Follow-up For: UTI actue on chronic CHF Renal stone s/p cystoscopy Subjective: Patient transfered to floor from [facility] overnight. Patient visited today, was lying in bed comfortably in no acute distress, communications is somewhat limited as patient is german speaking. No fever or chills, no shortness of breathing, no chest pain, no other events. Planned to undergo dialysis today. patient was again later visited during the day, patient was complaining of penile pain, with some pain in the right CVA, administered MS will continue to monitor Review of Systems Constitutional: Reports: see HPI. Objective Last 24 Hrs of Vital Signs/I&O Vital Signs Date Time Temp Pulse Resp B/P B/P Pulse O2 O2 Flow FiO2 Mean Ox Delivery Rate 10/03 1222 82 148/80 10/03 1222 82 148/80 10/03 1222 82 148/80 10/03 1221 82 148/80 10/03 1221 82 148/80 10/03 1221 98.2 82 20 148/80 94 Nasal 1.0L Cannula 10/03 0800 92 Nasal 1.0L Cannula 10/03 0620 98.0 86 22 142/68 92 Nasal 1.0L Cannula 10/03 0000 Nasal 1.0L Cannula 10/02 2116 77 158/64 10/02 2116 77 158/64 10/02 2100 98.4 77 18 158/64 92 10/02 1600 Nasal 1.0L Cannula 10/02 1422 64 120/54 Intake & Output 10/03 1600 10/03 0800 10/03 0000 Intake Total Output Total 150 75 Balance -150 -75 Number 1 Bowel Movements Output, Urine 150 75 Patient 161 lb 171 lb Weight Weight Standing Scale Bed scale Measurement Method Physical Exam General Appearance: Alert, Oriented X3, Cooperative, No Acute Distress, comunication limited HEENT: Atraumatic, EOMI, Mucous Membr. moist/pink Cardiovascular: Normal S1, Normal S2 Lungs: Normal Air Movement Abdomen: No Tenderness Neurological: Normal Speech, Strength at 5/5 X4 Ext Current Medications: Current Medications Sig/Hernandez Start time Last Medication Dose Route Stop Time Status Admin Acetaminophen 650 MG .STK-MED ONE 10/03 0002 DC PO 10/03 0003 Acetaminophen 650 MG Q6P PRN 09/28 2100 AC 10/03 PO 0007 Albuterol Sulfate 3 ML Q4P PRN 09/29 1100 AC 09/29 INH 1051 Amlodipine Besylate 10 MG DAILY 09/29 0900 AC 10/03 PO 1222 Aspirin 81 MG DAILY 09/29 0900 AC 10/03 PO 1216 Cephalexin 250 MG Q12 10/02 0914 AC 10/03 PO 1215 Clonidine 0.2 MG BID 09/29 0900 AC 10/03 PO 1221 Docusate Sodium 100 MG BID 10/02 0917 AC 10/03 PO 1216 Epoetin Pardeep 4,000 UNIT MoWeFr PRN 10/03 0745 AC IV Furosemide 80 MG DAILY 09/29 0900 AC 10/03 PO 1215 Hydralazine HCl 50 MG TID 09/28 2330 AC 10/03 PO 1222 Hydromorphone HCl 2 MG Q4P PRN 10/02 0915 AC 10/03 PO 0953 Insulin Aspart 0 TIDAC 09/30 0800 AC 10/03 SC 1228 Lactulose 20 GM DAILY PRN 09/28 2300 AC PO Levothyroxine Sodium 0.15 MG DAILY AC 09/29 0700 AC 10/03 PO 0537 Losartan Potassium 50 MG DAILY 09/29 0900 AC 10/03 PO 1221 Minoxidil 2.5 MG DAILY 09/29 0900 AC 10/03 PO 1222 Oxycodone HCl 5 MG ONCE ONE 10/02 1445 DC 10/02 PO 10/02 1446 1442 Patient Medication 1 ED ONE ONE 10/02 1645 DC Teaching ED 10/02 1646 Phenazopyridine HCl 100 MG ONCE ONE 10/02 1945 DC 10/02 PO 10/02 1941999 Polyethylene Glycol 17 GM DAILY 10/02 0910 10/03 PO 1215 Pravastatin Sodium 10 MG 1700 09/29 1700 AC 10/02 PO 1743 Senna 187 MG AT BEDTIME 10/02 2100 AC 10/02 PO 2116 Sevelamer Carbonate 1,600 MG TIDAC 10/02 1200 AC 10/03 PO 1216 Tamsulosin HCl 0.4 MG DAILY 09/29 0900 AC 10/03 PO 1222 Last 24 Hrs of Lab/Sedrick Results Last 24 Hrs of Labs/Mics: Laboratory Tests 10/03/17 0830: Anion Gap 15, Estimated GFR 7 L, BUN/Creatinine Ratio 6.9 L, Glucose 291 H, Calcium 8.2 L, Phosphorus 6.0 H, Magnesium 2.0, Albumin 3.6, CBC w Diff NO MAN DIFF REQ, RBC 2.85 L, MCV 92.1, MCH 30.5, MCHC 33.1, RDW 13.9, MPV 8.0, Gran % 80.0 H, Lymphocytes % 10.8 L, Monocytes % 6.6, Eosinophils % 2.0, Basophils % 0.6, Absolute Granulocytes 7.3 H, Absolute Lymphocytes 1.0 L, Absolute Monocytes 0.6, Absolute Eosinophils 0.2, Absolute Basophils 0.1 10/03/17 0600: Sodium Cancelled, Potassium Cancelled, Chloride Cancelled, Carbon Dioxide Cancelled, Anion Gap Cancelled, BUN Cancelled, Creatinine Cancelled, BUN/ Creatinine Ratio Cancelled, CBC w Diff Cancelled, WBC Cancelled, RBC Cancelled, Hgb Cancelled, Hct Cancelled, MCV Cancelled, MCH Cancelled, MCHC Cancelled, RDW Cancelled, Plt Count Cancelled, MPV Cancelled Assessment/Plan Assessment: 67 YO M was reffered for evaluation and treatment of UTI PMH: DM, HTN, HLD, hypothyroidism, bradycardia, CHF, aortic stenosis, ESRD on hemodialysis, pancreatitis and BPH sent in from dialysis for treatment of a urinary tract infection. Patient was admitted to tele floor initially and with stablization was then transfered to floor. management for following conditions were done: Acute on chronic congestive diastolic heart failure: -Oxygen supplementation as needed to keep saturation above 92% -Trop and EKG are negative -PO lasix 80mg -Daily weight -Input and output -f/u with cardio recommendations. -Echocardiogram showed >55% EF with stage 2 diastolic heart failure. UTI: -IV ceftriaxone day recieved 4, changed to keflex 250mg bid. -Urine cultures growing Klebsiella pneumoniae. Ureteric stone with hydronephrosis s/p cystoscopy and stent placement: -s/p day 3 -Pain medication -IV antiemetic to control nausea -Urology recommendations appreciated -Will require repeat CT in 612 weeks to look for stone. -Continue Flomax Hematuria: -Gross hematuria. -We'll keep the Frederick's catheter to irrigate the bladder every shift with normal saline until it becomes clear. -We will follow CBCs. H/O ESRD on dialysis: -He is getting dialysis on Sunday. -Pleural effusion has been decreased. Chronic medical conditions: hypothyroidism, HTN, Hlp: -Continue levothyroxine -Continue losartan, hydralazine, amlodipine and clonidine -Continue Lipitor Mechanical and subcutaneous heparin Full code Renal dialysis diet Problem List: 1. Kidney stone 2. CHF (congestive heart failure) 3. UTI (urinary tract infection) Pain Ratin Pain Location: Continue current medication Pain Goal: Pain 4 or less Pain Plan: Continue current plan Tomorrow's Labs & Rationales: CBC BEP Calvin ISSA,[facility] 10/03/17 1546: Attending MD Review Statement Attending Statement Attending MD Statement: examined this patient, discuss w/resident/PA/[employer]EMENT [employer] PA[employer] MAKER HELPER, agreed w/resident/PA/[employer]OO[employer] CEMENT [employer] PAINT MAKER HELPER, reviewed EMR data (avail), discussed with nursing, discussed with case mgmt, amended to note Attending Assessment/Plan: Patient seen and examined. Transferred from the telemetry unit overnight. Completed hemodialysis earlier on today. Had 2 L of ultrafiltration done. Chest x-ray done yesterday shows significant improvement of the bilateral pleural effusions. Patient currently is requiring only 1 L of oxygen to maintain saturation above 90%. Patient however continues to complain of shortness of breath. Denies any chest pain. Denies any cough. He also continues to complain of right flank pain. On examination he has diminished breath sounds bilaterally particularly in the left base. Abdomen is soft and nontender. He does have right flank tenderness. He has no peripheral edema. Frederick catheter remains in place draining bloody urine. Problems: 1. Acute hypoxic respiratory failure 2. Acute on chronic diastolic heart failure 3. End-stage renal disease on hemodialysis. 4. Urinary tract infection secondary to Klebsiella 5. Hydronephrosis secondary to ureteral stone. 6. Gross hematuria Plan: -Fluid management via hemodialysis. -Continue current pain regimen. If pain persists may consider adding long- acting opioid regimen. -Continue antibiotic therapy. -If symptoms or shortness of breath persists may consider obtaining CT chest. Currently chest x-ray showing improvement of effusions and his oxygen requirement is also improving.
--- NOTE | 2017-10-03 08:24 | PN- Urology ---
Subjective Subjective: Complains of L back pain and some penile pain Objective Vital Signs and I&Os Vital Signs Date Time Temp Pulse Resp B/P B/P Pulse O2 O2 Flow FiO2 Mean Ox Delivery Rate 10/03 0620 98.0 86 22 142/68 92 Nasal 1.0L Cannula 10/03 0000 Nasal 1.0L Cannula 10/02 2116 77 158/64 10/02 2116 77 158/64 10/02 2100 98.4 77 18 158/64 92 10/02 1600 Nasal 1.0L Cannula 10/02 1422 64 120/54 10/02 1400 98.1 66 20 120/58 92 Nasal 2.0L Cannula 10/02 1122 94 Nasal 3.0L Cannula 10/02 1101 94 Nasal 1.0L Cannula Intake & Output 10/03 1600 10/03 0800 10/03 0000 10/02 1600 10/02 0800 10/02 0000 Intake Total 560 Output Total 150 75 150 200 100 Balance -150 -75 410 -200 -100 Intake, Oral 560 Number 1 Bowel Movements Output, Urine 150 75 150 200 100 Patient 161 lb 171 lb 164 lb Weight Weight Standing Scale Bed scale Measurement Method Physical Exam: Back: no CVA tenderness Abd: Soft and non tender Genitalia: Nicholas in place. Draining bloody urine. Appears a little clearer than yesterday Assessment/Plan Assessment/Plan Imp: 1. R renal stones with hydronephrosis 2. S/p R ureteral stent 3. Post instrumentation hematuria Plan: 1. Continue nicholas until urine clears 2. Nurses to irrigate nicholas q shift 3. Long range plan to repeat CT in 6-12 weeks 4. Would check PT, PTT with next blood draw
[2017-10-03 09:25] LABS: ABSOLUTE BASOPHIL COUNT 0.1 /CUMM (0.0-0.2); ABSOLUTE EOSINOPHIL COUNT 0.2 /CUMM (0.0-0.7); ABSOLUTE GRANULOCYTE CT 7.3 /CUMM (1.4-6.5); ABSOLUTE MONOCYTE COUNT 0.6 /CUMM (0.10-0.60); BASOPHIL % 0.6 % (0.0-2.0); HEMATOCRIT 26.3 % (42-52); MEAN CORPUSCULAR HGB 30.5 PG (27.0-31.0); MEAN CORPUSCULAR HGB CONC 33.1 G/DL (33.0-37.0); MEAN CORPUSCULAR VOLUME 92.1 FL (80.0-94.0); PLATELET COUNT 299 /CUMM (130-400); RBC DISTRIBUTION WIDTH 13.9 % (11.5-14.5); RED BLOOD CELL CT 2.85 /CUMM (4.70-6.10); WHITE BLOOD CELL COUNT 9.1 /CUMM (4.8-10.8)
--- NOTE | 2017-10-03 09:34 | PN- Nephrology ---
Assessment/Plan Nephrology Assessment: Stable on dialysis. Suggestion: Will UF 2 ltiers today with treatment. Subjective Subjective: Patient with no new issues, still complaining of some flank pain. Objective Vital Signs and I&Os Vital Signs Date Time Temp Pulse Resp B/P B/P Pulse O2 O2 Flow FiO2 Mean Ox Delivery Rate 10/03 06 98.0 86 22 142/68 92 Nasal 1.0L Cannula 10/03 0000 Nasal 1.0L Cannula 10/02 2116 77 158/64 10/02 2116 77 158/64 10/02 2100 98.4 77 18 158/64 92 10/02 1600 Nasal 1.0L Cannula 10/02 1422 64 120/54 10/02 1400 98.1 66 20 120/58 92 Nasal 2.0L Cannula 10/02 1122 94 Nasal 3.0L Cannula 10/02 1101 94 Nasal 1.0L Cannula Intake & Output 10/03 1600 10/03 0400 10/02 1600 10/02 0400 10/01 1600 10/01 0400 Intake Total 560 710 170 Output Total 150 75 546 943 0177 200 Balance -150 -75 210 -100 -2090 -30 Intake, IV 10 30 Intake, Oral 560 700 140 Number 1 1 Bowel Movements Output, 2500 Dialysate Output, Urine 150 75 350 100 300 200 Patient 161 lb 164 lb 190 lb Weight Weight Standing Scale Measurement Method Physical Exam: NAD VS as above Lung: clear CV:no rub Abd: nontender Exts: no edema Neuro: no asterixis Results Pertinent Lab Results: Laboratory Tests 10/03 10/02 0830 0616 Chemistry Sodium (137 - 145 mmol/L) Pending 137 Potassium (3.5 - 5.1 mmol/L) Pending 4.8 Chloride (98 - 107 mmol/L) Pending 97 L Carbon Dioxide (22 - 30 mmol/L) Pending 26 Anion Gap (5 - 16) Pending 14 BUN (9 - 20 mg/dL) Pending 38 H Creatinine (0.7 - 1.2 mg/dL) Pending 5.4 *H Estimated GFR (>60 ml/min) 11 L BUN/Creatinine Ratio (7 - 25 %) Pending 7.0 Glucose Pending Calcium Pending Phosphorus Pending Magnesium Pending Albumin Pending Hematology CBC w Diff NO MAN DIFF REQ NO MAN DIFF REQ WBC (4.8 - 10.8 /CUMM) 9.1 7.9 RBC (4.70 - 6.10 /CUMM) 2.85 L 2.82 L Hgb (14.0 - 18.0 G/DL) 8.7 L 8.7 L Hct (42 - 52 %) 26.3 L 26.3 L MCV (80.0 - 94.0 FL) 92.1 93.1 MCH (27.0 - 31.0 PG) 30.5 30.9 MCHC (33.0 - 37.0 G/DL) 33.1 33.2 RDW (11.5 - 14.5 %) 13.9 14.2 Plt Count (130 - 400 /CUMM) 299 257 MPV (7.4 - 10.4 FL) 8.0 8.1 Gran % (42.2 - 75.2 %) 80.0 H 75.2 Lymphocytes % (20.5 - 51.1 %) 10.8 L 14.3 L Monocytes % (1.7 - 9.3 %) 6.6 6.9 Eosinophils % (0 - 5 %) 2.0 2.8 Basophils % (0.0 - 2.0 %) 0.6 0.8 Absolute Granulocytes (1.4 - 6.5 /CUMM) 7.3 H 6.0 Absolute Lymphocytes (1.2 - 3.4 /CUMM) 1.0 L 1.1 L Absolute Monocytes (0.10 - 0.60 /CUMM) 0.6 0.5 Absolute Eosinophils (0.0 - 0.7 /CUMM) 0.2 0.2 Absolute Basophils (0.0 - 0.2 /CUMM) 0.1 0.1 /16 0615 Chemistry Sodium (137 - 145 mmol/L) 136 L Potassium (3.5 - 5.1 mmol/L) 5.6 H Chloride (98 - 107 mmol/L) 94 L Carbon Dioxide (22 - 30 mmol/L) 27 Anion Gap (5 - 16) 15 BUN (9 - 20 mg/dL) 61 H Creatinine (0.7 - 1.2 mg/dL) 8.1 *H Estimated GFR (>60 ml/min) 7 L BUN/Creatinine Ratio (7 - 25 %) 7.5 Magnesium (1.6 - 2.3 mg/dL) 2.3 Hematology CBC w Diff NO MAN DIFF REQ WBC (4.8 - 10.8 /CUMM) 10.2 RBC (4.70 - 6.10 /CUMM) 2.97 L Hgb (14.0 - 18.0 G/DL) 9.2 L Hct (42 - 52 %) 27.7 L MCV (80.0 - 94.0 FL) 93.3 MCH (27.0 - 31.0 PG) 31.1 H MCHC (33.0 - 37.0 G/DL) 33.3 RDW (11.5 - 14.5 %) 14.4 Plt Count (130 - 400 /CUMM) 263 MPV (7.4 - 10.4 FL) 8.3 Gran % (42.2 - 75.2 %) 74.2 Lymphocytes % (20.5 - 51.1 %) 17.0 L Monocytes % (1.7 - 9.3 %) 6.2 Eosinophils % (0 - 5 %) 1.9 Basophils % (0.0 - 2.0 %) 0.7 Absolute Granulocytes (1.4 - 6.5 /CUMM) 7.6 H Absolute Lymphocytes (1.2 - 3.4 /CUMM) 1.7 Absolute Monocytes (0.10 - 0.60 /CUMM) 0.6 Absolute Eosinophils (0.0 - 0.7 /CUMM) 0.2 Absolute Basophils (0.0 - 0.2 /CUMM) 0.1
--- NOTE | 2017-10-03 11:01 | PN- Cardiology ---
Subjective Subjective: Patient seen during dialysis. Denies chest pain but still complains of some shortness of breath. Objective Vital Signs and I&Os Vital Signs Date Time Temp Pulse Resp B/P B/P Pulse O2 O2 Flow FiO2 Mean Ox Delivery Rate 10/03 0620 98.0 86 22 142/68 92 Nasal 1.0L Cannula 10/03 0000 Nasal 1.0L Cannula 10/02 2116 77 158/64 10/02 2116 77 158/64 10/02 2100 98.4 77 18 158/64 92 10/02 1600 Nasal 1.0L Cannula 10/02 1422 64 120/54 10/02 1400 98.1 66 20 120/58 92 Nasal 2.0L Cannula 10/02 1122 94 Nasal 3.0L Cannula 10/02 1101 94 Nasal 1.0L Cannula Intake & Output 10/03 1600 10/03 0800 10/03 0000 10/02 1600 10/02 0800 10/02 0000 Intake Total 560 Output Total 150 75 150 200 100 Balance -150 -75 410 -200 -100 Intake, Oral 560 Number 1 Bowel Movements Output, Urine 150 75 150 200 100 Patient 161 lb 171 lb 164 lb Weight Weight Standing Scale Bed scale Measurement Method Physical Exam: General: no apparent distress. Alert. Eyes: No obvious scleral icterus. HEENT: No abnormal jugular venous pulsations. Cardiovascular: Normal intensity S1/S2. Regular Respiratory: Decreased air entry bilaterally Abdomen: no guarding or rebound tenderness. Musculoskeletal: No clubbing or cyanosis noted; no edema Skin: Warm Neurologic: No gross focal deficits noted. Current Medications: Current Medications Sig/Hernandez Start time Last Medication Dose Route Stop Time Status Admin Acetaminophen 650 MG .STK-MED ONE 10/03 0002 DC PO 10/03 0003 Acetaminophen 650 MG Q6P PRN 09/28 2100 AC 10/03 PO 0007 Albuterol Sulfate 3 ML Q4P PRN 09/29 1100 AC 09/29 INH 1051 Amlodipine Besylate 10 MG DAILY 09/29 09 AC 10/02 PO 0803 Aspirin 81 MG DAILY 09/29 09 AC 10/02 PO 0803 Cephalexin 250 MG Q12 10/02 913 AC 10/02 PO 2115 Clonidine 0.2 MG BID 09/29 09 AC 10/02 PO 2115 Docusate Sodium 100 MG BID 10/02 916 AC 10/02 PO 2115 Epoetin Pardeep 4,000 UNIT MoWeFr PRN 10/03 0745 AC IV Furosemide 80 MG DAILY 09/29 0900 AC 10/02 PO 0803 Hydralazine HCl 50 MG TID 09/28 2330 AC 10/02 PO 2116 Hydromorphone HCl 2 MG Q4P PRN 10/02 0915 AC 10/03 PO 0953 Insulin Aspart 0 TIDAC 09/30 0800 AC 10/03 SC 0806 Lactulose 20 GM DAILY PRN 09/28 2300 AC PO Levothyroxine Sodium 0.15 MG DAILY AC 09/29 0700 AC 10/03 PO 0537 Losartan Potassium 50 MG DAILY 09/29 0900 AC 10/02 PO 0803 Minoxidil 2.5 MG DAILY 09/29 0900 AC 10/02 PO 0803 Oxycodone HCl 5 MG ONCE ONE 10/02 1445 DC 10/02 PO 10/02 1446 1442 Patient Medication 1 ED ONE ONE 10/02 1645 DC Teaching ED 10/02 1646 Phenazopyridine HCl 100 MG ONCE ONE 10/02 1945 DC 10/02 PO 10/02 1941999 Polyethylene Glycol 17 GM DAILY 10/02 0910 AC 10/02 PO 1422 Pravastatin Sodium 10 MG 1700 09/29 1700 AC 10/02 PO 1743 Senna 187 MG AT BEDTIME 10/02 2100 AC 10/02 PO 2116 Sevelamer Carbonate 1,600 MG TIDAC 10/02 1200 AC 10/02 PO 1743 Tamsulosin HCl 0.4 MG DAILY 09/29 0900 AC 10/02 PO 0803 Results Last 48 Hrs of Labs/Mics: Laboratory Tests 10/03/17 0830: Anion Gap 15, Estimated GFR 7 L, BUN/Creatinine Ratio 6.9 L, Glucose 291 H, Calcium 8.2 L, Phosphorus 6.0 H, Magnesium 2.0, Albumin 3.6, CBC w Diff NO MAN DIFF REQ, RBC 2.85 L, MCV 92.1, MCH 30.5, MCHC 33.1, RDW 13.9, MPV 8.0, Gran % 80.0 H, Lymphocytes % 10.8 L, Monocytes % 6.6, Eosinophils % 2.0, Basophils % 0.6, Absolute Granulocytes 7.3 H, Absolute Lymphocytes 1.0 L, Absolute Monocytes 0.6, Absolute Eosinophils 0.2, Absolute Basophils 0.1 10/02/17 0616: Anion Gap 14, Estimated GFR 11 L, BUN/Creatinine Ratio 7.0, CBC w Diff NO MAN DIFF REQ, RBC 2.82 L, MCV 93.1, MCH 30.9, MCHC 33.2, RDW 14.2, MPV 8.1, Gran % 75.2, Lymphocytes % 14.3 L, Monocytes % 6.9, Eosinophils % 2.8, Basophils % 0.8 , Absolute Granulocytes 6.0, Absolute Lymphocytes 1.1 L, Absolute Monocytes 0.5 , Absolute Eosinophils 0.2, Absolute Basophils 0.1 Recent Imaging Studies: Echo: Left ventricular cavity size normal. Left ventricular wall thickness mildly increased. No obvious regional wall motion abnormalities. Left ventricular ejection fraction is estimated at > 55 %. "Pseudonormal" filling pattern of the left ventricle for age (stage 2 diastolic dysfunction). Normal right ventricular size and function. Mild left atrial dilatation. Mild aortic stenosis. Minimal pericardial effusion. Left pleural effusion. Moderate tricuspid regurgitation. Moderate pulmonary hypertension. Marty Trevino M.D. (Electronically Signed) Final Date: 01 October 2017 09:44 CXR: Trace bilateral pleural effusions. Assessment/Plan Assessment/Plan 1. End-stage renal disease on dialysis 2. Acute on chronic diastolic CHF with pleural effusions EF 55% 3. History of mild aortic stenosis 4. Chronic sleep apnea on CPAP 5. Moderate pulmonary hypertension 6. History of hypertension 7. Obstructive uropathy status post stent placement Patient still with some shortness of breath today. Repeat chest x-ray reported only trace pleural effusions but this seems to be an unexpectedly rapid resolution from the large effusions noted on 09/[address] and Echo. Given the symptoms would consider further evaluation either with repeat CT or perhaps ultrasound evaluation of the pleural effusions. Volume management per nephrology. Josué Trevino MD [facility] Continue telemetry? Not applicable
[2017-10-03 12:21] VITALS: BP 148/80
[2017-10-03 14:34] VITALS: BP 182/52
--- NOTE | 2017-10-03 15:39 | Transfer of Care Summary ---
Hospital Course Course Hospital Course: 67 YO M with PMH of DM, HTN, HLD, hypothyroidism, bradycardia, CHF, aortic stenosis, ESRD on hemodialysis, pancreatitis and BPH sent in from dialysis for treatment of a urinary tract infection. Patient was initially admitted on telemetry floor as he was found to have acute on chronic diastolic heart failure. Cardiology consult was obtained and recommendations were followed patient was treated with IV Lasix initially and later on that was changed to by mouth Lasix that was his home dose. Echocardiogram was done that showed ejection fraction more than 55% with stage II diastolic failure. Patient's UTI was treated with IV ceftriaxone and later on that was changed to by mouth Keflex 250 mg twice a day considering his end-stage renal disease. Keflex dose was discussed with inpatient pharmacy considering patient's end- stage renal disease. Urine culture was positive with Klebsiella pneumonia. Patient was complaining of right flank pain, on imaging study he was found to have right UPJ stone that was causing right hydronephrosis. Urology consult was obtained and recommendations were followed. Considering his extensive cardiac history preop cardiac clearance was obtained for cystoscopy and stent placement. Cardiology cleared the patient for cystoscopy and stent placement. Right cystoscopy and stent placement was done. Urology recommended to keep the Frederick in until the patient's urine becomes clear that's why will continue to irrigate bladder with normal saline every Shift. Considering patient's hematuria after the procedure possibly due to instrumentation, then discontinued his subcutaneous heparin after discussing with my attending. Patient was on mechanical DVT prophylaxis only. Patient has end-stage renal disease on maintain dialysis on Sunday, Sunday and Sunday. Urology is following the patient. Pertinent Lab Results: WBC count 7.9, hemoglobin 8.7, hematocrit 26.3, platelet count 257, sodium 137, potassium 4.8, BUN 38, creatinine 5.4 Assessment/Plan: Acute on chronic congestive diastolic heart failure: -Oxygen supplementation as needed to keep saturation above 92% -Trop and EKG are negative -PO lasix 80mg -Daily weight -Input and output -f/u with cardio recommendations. -Echocardiogram showed >55% EF with stage 2 diastolic heart failure. UTI: -IV ceftriaxone day 4, changed to keflex 250mg bid. -Urine cultures growing Klebsiella pneumoniae. Ureteric stone with hydronephrosis s/p cystoscopy and stent placement: -s/p day 2 -Pain medication -IV antiemetic to control nausea -Urology recommendations appreciated -Will require repeat CT in 612 weeks to look for stone. -Continue Flomax Hematuria: -Gross hematuria. -We'll keep the Frederick's catheter to irrigate the bladder every shift with normal saline until it becomes clear. -We will follow CBCs. H/O ESRD on dialysis: -He is getting dialysis on Sunday. -Pleural effusion has been decreased. History of hypothyroidism: -Continue levothyroxine History of hypertension and hyperlipidemia: -Continue losartan, hydralazine, amlodipine and clonidine -Continue Lipitor DVT prophylaxis: Mechanical only considering hematuria. CODE STATUS: Full code
[2017-10-03 16:21] VITALS: BP 150/62
[2017-10-03 16:39] LABS: PTT 34 SEC (25-37)
[2017-10-03 20:54] VITALS: BP 180/62
[2017-10-04 06:43] VITALS: BP 152/62
--- NOTE | 2017-10-04 06:49 | PN- Housestaff ---
Mali Trevino MD,[facility] 10/04/17 0649: Subjective Follow-up For: UTI actue on chronic CHF Renal stone s/p cystoscopy Subjective: Patient visited today, maori speaking chago, was lying in bed in no mild distress, was alert and oriented. communicated with blue phone. No fever or chills, improved shortness of breathing, no chest pain, no other events. Changed pain medications to MS [address] scan of chest was requested for further evaluation of the reason for shortness of breathing. Improved hematuria, or flank pain. Review of Systems Constitutional: Reports: see HPI. Objective Last 24 Hrs of Vital Signs/I&O Vital Signs Date Time Temp Pulse Resp B/P B/P Pulse O2 O2 Flow FiO2 Mean Ox Delivery Rate 10/04 0801 74 152/62 10/04 0800 74 152/62 10/04 0800 74 152/62 10/04 0800 74 152/62 10/04 0800 74 152/62 10/04 0800 94 Nasal 1.0L Cannula 10/04 0643 98.6 74 20 152/62 95 10/04 0000 Nasal 1.0L Cannula 10/03 2054 98.5 85 22 180/62 95 Room Air 10/03 2043 85 180/62 10/03 2042 180/62 10/03 1621 150/62 10/03 1600 94 Nasal 1.0L Cannula 10/03 1434 97.9 88 20 182/52 94 Room Air 10/03 1428 182/52 10/03 1222 82 148/80 10/03 1222 82 148/80 10/03 1222 82 148/80 10/03 1221 82 148/80 10/03 1221 82 148/80 10/03 1221 98.2 82 20 148/80 94 Nasal 1.0L Cannula Intake & Output 10/04 1600 10/04 0800 10/04 0000 Intake Total 260 200 Output Total 30 45 Balance 230 155 Intake, IV 260 Intake, Oral 200 Output, 10 Emesis Output, Urine 30 35 Patient 162 lb Weight Weight Bed scale Measurement Method Physical Exam General Appearance: Alert, Oriented X3, Cooperative, Mild Distress HEENT: Atraumatic, EOMI Cardiovascular: Normal S1, Normal S2 Lungs: Normal Air Movement, Mild decreased breathing sounds in right base Abdomen: Soft, Mild tenderness in R CVA Neurological: Normal Speech Extremities: No Edema Current Medications: Current Medications Sig/Hernandez Start time Last Medication Dose Route Stop Time Status Admin Acetaminophen 1,000 MG .STK-MED ONE 10/04 0009 DC IV 10/04 0010 Acetaminophen 1,000 MG Q6P PRN 10/03 2114 AC 10/04 N/A 1 UNIT IV 0021 Acetaminophen 1,000 MG ONCE ONE 10/03 2044 CAN N/A 1 UNIT IV 10/03 2058 Acetaminophen 650 MG .STK-MED ONE 10/03 2044 DC PO 10/03 204 Acetaminophen 650 MG Q6P PRN 09/28 2100 AC 10/03 PO 204 Albuterol Sulfate 3 ML Q4P PRN 09/29 1100 AC 09/29 INH 1051 Amlodipine Besylate 10 MG DAILY 09/29 0900 AC 10/04 PO 0801 Aspirin 81 MG DAILY 09/29 0900 AC 10/04 PO 0800 Cephalexin 250 MG Q12 10/02 0914 AC 10/04 PO 0801 Clonidine 0.2 MG BID 09/29 0900 AC 10/04 PO 0800 Docusate Sodium 100 MG BID 10/02 0917 AC 10/04 PO 0800 Epoetin Pardeep 4,000 UNIT MoWeFr PRN 10/03 0745 AC IV Furosemide 80 MG DAILY 09/29 0900 AC 10/04 PO 0801 Hydralazine HCl 50 MG TID 09/28 2330 AC 10/04 PO 0800 Hydromorphone HCl 2 MG Q4P PRN 10/02 0915 DC 10/03 PO 1957 Insulin Aspart 0 TIDAC 09/30 0800 AC 10/04 SC 0758 Lactulose 20 GM DAILY PRN 09/28 2300 AC PO Levothyroxine Sodium 0.15 MG DAILY AC 09/29 0700 AC 10/04 PO 0531 Losartan Potassium 50 MG DAILY 09/29 0900 AC 10/04 PO 0800 Minoxidil 2.5 MG DAILY 09/29 0900 AC 10/04 PO 0801 Morphine Sulfate 1 MG Q8P PRN 10/04 0945 AC IV Morphine Sulfate 2 MG ONCE ONE 10/03 1545 DC 10/03 IV 10/03 1546 1557 Ondansetron HCl 4 MG ONCE ONE 10/04 0015 DC IV 10/04 0016 Polyethylene Glycol 17 GM DAILY 10/02 0910 AC 10/04 PO 0800 Pravastatin Sodium 10 MG 1700 09/29 1700 AC 10/03 PO 1557 Senna 187 MG AT BEDTIME 10/02 2100 AC 10/03 PO 2042 Sevelamer Carbonate 1,600 MG TIDAC 10/02 1200 AC 10/04 PO 0758 Tamsulosin HCl 0.4 MG DAILY 09/29 0900 AC 10/04 PO 0800 Last 24 Hrs of Lab/Sedrick Results Last 24 Hrs of Labs/Mics: Laboratory Tests 10/04/17 0722: Anion Gap 14, Estimated GFR 10 L, BUN/Creatinine Ratio 5.8 L, CBC w Diff NO MAN DIFF REQ, RBC 2.74 L, MCV 92.2, MCH 31.4 H, MCHC 34.1, RDW 14.1, MPV 7.6, Gran % 76.3 H, Lymphocytes % 11.3 L, Monocytes % 9.2, Eosinophils % 2.6, Basophils % 0.6, Absolute Granulocytes 6.6 H, Absolute Lymphocytes 1.0 L, Absolute Monocytes 0.8 H, Absolute Eosinophils 0.2, Absolute Basophils 0.1 10/03/17 1540: APTT 34 Assessment/Plan Assessment: 67 YO M was reffered for evaluation and treatment of UTI PMH: DM, HTN, HLD, hypothyroidism, bradycardia, CHF, aortic stenosis, ESRD on hemodialysis, pancreatitis and BPH sent in from dialysis for treatment of a urinary tract infection. Patient was admitted to tele floor initially and with stablization was then transfered to floor. management for following conditions were done: Acute on chronic congestive diastolic heart failure: -Oxygen supplementation as needed to keep saturation above 92% -Trop and EKG are negative -PO lasix 80mg -Daily weight -Input and output -f/u with cardio recommendations. -Echocardiogram showed >55% EF with stage 2 diastolic heart failure. UTI: -IV ceftriaxone day recieved 4, changed to keflex 250mg bid today day 3 -Urine cultures growing Klebsiella pneumoniae. Ureteric stone with hydronephrosis s/p cystoscopy and stent placement: -s/p day 4 -Pain medication -IV antiemetic to control nausea -Urology recommendations appreciated -Will require repeat CT in 612 weeks to look for stone. -Continue Flomax - MS 1 q8 for severe pain Hematuria: -Gross hematuria. -We'll keep the Frederick's catheter to irrigate the bladder every shift with normal saline until it becomes clear. -We will follow CBCs. H/O ESRD on dialysis: -He is getting dialysis on Sunday. -Pleural effusion has been decreased. Chronic medical conditions: hypothyroidism, HTN, Hlp: -Continue levothyroxine -Continue losartan, hydralazine, amlodipine and clonidine -Continue Lipitor Mechanical and subcutaneous heparin Full code Renal dialysis diet Problem List: 1. UTI (urinary tract infection) 2. CHF exacerbation 3. Kidney stone Pain Ratin Pain Location: Flank, penile Pain Goal: Pain 4 or less Pain Plan: added MS Tomorrow's Labs & Rationales: SBS Binh Landers MD 10/04/17 1400: Attending MD Review Statement Attending Statement Attending MD Statement: examined this patient, discuss w/resident/PA/CNS, agreed w/resident/PA/CNS, reviewed EMR data (avail), discussed with nursing Attending Assessment/Plan: Patient seen and examined. Patient acknowledges that shortness of breath has slightly worsened. Patient underwent dialysis yesterday. Chest x-ray done yesterday shows significant improvement of the bilateral pleural effusions. Patient currently is requiring only 1 L of oxygen to maintain saturation above 90%. However, patient feels that he is not yet back to baseline. Denies any chest pain or cough. His right flank pain is better. On examination he has diminished breath sounds bilaterally. Abdomen is soft and nontender. He has no peripheral edema. Frederick catheter remains in place draining bloody urine. Problems: 1. Acute hypoxic respiratory failure 2. Acute on chronic diastolic heart failure 3. End-stage renal disease on hemodialysis. 4. Urinary tract infection secondary to Klebsiella 5. Hydronephrosis secondary to ureteral stone - s/p Right sided ureteral stent 6. Post instrumentation hematuria Plan: -Hemodialysis tomorrow -Continue current pain regimen. If pain persists may consider adding long- acting opioid regimen. -Continuing with oral antibiotic Cephalexein - Day 2 (recieved IV Ceftriaxone for Day 4) - Appreciate Cardiology recommendations - will follow up on results of CT Chest today
[2017-10-04 08:25] LABS: ABSOLUTE BASOPHIL COUNT 0.1 /CUMM (0.0-0.2); ABSOLUTE EOSINOPHIL COUNT 0.2 /CUMM (0.0-0.7); ABSOLUTE GRANULOCYTE CT 6.6 /CUMM (1.4-6.5); ABSOLUTE MONOCYTE COUNT 0.8 /CUMM (0.10-0.60); BASOPHIL % 0.6 % (0.0-2.0); EOSINOPHIL % 2.6 % (0-5); GRANULOCYTE % 76.3 % (42.2-75.2); HEMATOCRIT 25.3 % (42-52); MEAN CORPUSCULAR HGB 31.4 PG (27.0-31.0); MEAN CORPUSCULAR HGB CONC 34.1 G/DL (33.0-37.0); MEAN CORPUSCULAR VOLUME 92.2 FL (80.0-94.0); MEAN PLATELET VOLUME 7.6 FL (7.4-10.4); PLATELET COUNT 266 /CUMM (130-400); RBC DISTRIBUTION WIDTH 14.1 % (11.5-14.5); RED BLOOD CELL CT 2.74 /CUMM (4.70-6.10); WHITE BLOOD CELL COUNT 8.6 /CUMM (4.8-10.8)
--- NOTE | 2017-10-04 09:10 | PN- Cardiology ---
Subjective Subjective: Patient claims he is feeling well. He is ambulating. Denies shortness of breath. Discussion with the nursing staff confirms that he is comfortable. No new issues overnight Objective Vital Signs and I&Os Vital Signs Date Time Temp Pulse Resp B/P B/P Pulse O2 O2 Flow FiO2 Mean Ox Delivery Rate 10/04 0801 74 152/62 10/04 0800 74 152/62 10/04 0800 74 152/62 10/04 0800 74 152/62 10/04 0800 74 152/62 10/04 0643 98.6 74 20 152/62 95 10/04 0000 Nasal 1.0L Cannula 10/03 2054 98.5 85 22 180/62 95 Room Air 10/03 2043 85 180/62 10/03 2042 180/62 10/03 1621 150/62 10/03 1600 94 Nasal 1.0L Cannula 10/03 1434 97.9 88 20 182/52 94 Room Air 10/03 1428 182/52 10/03 1222 82 148/80 10/03 1222 82 148/80 10/03 1222 82 148/80 10/03 1221 82 148/80 10/03 1221 82 148/80 10/03 1221 98.2 82 20 148/80 94 Nasal 1.0L Cannula Intake & Output 10/04 1600 10/04 0800 10/04 0000 10/03 1600 10/03 0800 10/03 0000 Intake Total 260 200 620 Output Total 30 45 2075 150 75 Balance 230 155 -1455 -150 -75 Intake, IV 260 20 Intake, Oral 200 600 Number 1 Bowel Movements Output, 2000 Dialysate Output, 10 Emesis Output, Urine 30 35 75 150 75 Patient 162 lb 161 lb 171 lb Weight Weight Bed scale Standing Scale Bed scale Measurement Method Physical Exam: Physical exam patient appeared comfortable laying in bed Head normocephalic atraumatic Eyes sclera anicteric conjunctiva showed no pallor extraocular muscles were normal Neck minimal jugular venous distention no thyroid masses no palpable nodes no bruits Chest lungs were clear bilaterally Heart regular rhythm with a 1/6 systolic murmur Abdomen soft no organomegaly bowel sounds normal Extremities no clubbing cyanosis or edema Neurological no gross motor or sensory deficits Current Medications: Current Medications Sig/Hernandez Start time Last Medication Dose Route Stop Time Status Admin Acetaminophen 1,000 MG .STK-MED ONE 10/04 0009 DC IV 10/04 0010 Acetaminophen 1,000 MG Q6P PRN 10/03 2114 AC 10/04 N/A 1 UNIT IV 002 Acetaminophen 1,000 MG ONCE ONE 10/03 2044 CAN N/A 1 UNIT IV 10/03 2058 Acetaminophen 650 MG .STK-MED ONE 10/03 2044 DC PO 10/03 2045 Acetaminophen 650 MG Q6P PRN 09/28 2100 AC 10/03 PO 204 Albuterol Sulfate 3 ML Q4P PRN 09/29 1100 AC 09/29 INH 1051 Amlodipine Besylate 10 MG DAILY 09/29 0900 AC 10/04 PO 0801 Aspirin 81 MG DAILY 09/29 0900 AC 10/04 PO 0800 Cephalexin 250 MG Q12 10/02 0914 AC 10/04 PO 0801 Clonidine 0.2 MG BID 09/29 0900 AC 10/04 PO 0800 Docusate Sodium 100 MG BID 10/02 0917 AC 10/04 PO 0800 Epoetin Pardeep 4,000 UNIT MoWeFr PRN 10/03 0745 AC IV Furosemide 80 MG DAILY 09/29 0900 AC 10/04 PO 0801 Hydralazine HCl 50 MG TID 09/28 2330 AC 10/04 PO 0800 Hydromorphone HCl 2 MG Q4P PRN 10/02 0915 DC 10/03 PO 1957 Insulin Aspart 0 TIDAC 09/30 0800 AC 10/04 SC 0758 Lactulose 20 GM DAILY PRN 09/28 2300 AC PO Levothyroxine Sodium 0.15 MG DAILY AC 09/29 0700 AC 10/04 PO 0531 Losartan Potassium 50 MG DAILY 09/29 0900 AC 10/04 PO 0800 Minoxidil 2.5 MG DAILY 09/29 0900 AC 10/04 PO 0801 Morphine Sulfate 2 MG ONCE ONE 10/03 1545 DC 10/03 IV 10/03 1546 1557 Ondansetron HCl 4 MG ONCE ONE 10/04 0015 DC IV 10/04 0016 Polyethylene Glycol 17 GM DAILY 10/02 0910 AC 10/04 PO 0800 Pravastatin Sodium 10 MG 1700 09/29 1700 AC 10/03 PO 1557 Senna 187 MG AT BEDTIME 10/02 2100 AC 10/03 PO 2042 Sevelamer Carbonate 1,600 MG TIDAC 10/02 1200 AC 10/04 PO 0758 Tamsulosin HCl 0.4 MG DAILY 09/29 0900 AC 10/04 PO 0800 Results Last 48 Hrs of Labs/Mics: Laboratory Tests 10/04/17 0722: Anion Gap 14, Estimated GFR 10 L, BUN/Creatinine Ratio 5.8 L, CBC w Diff NO MAN DIFF REQ, RBC 2.74 L, MCV 92.2, MCH 31.4 H, MCHC 34.1, RDW 14.1, MPV 7.6, Gran % 76.3 H, Lymphocytes % 11.3 L, Monocytes % 9.2, Eosinophils % 2.6, Basophils % 0.6, Absolute Granulocytes 6.6 H, Absolute Lymphocytes 1.0 L, Absolute Monocytes 0.8 H, Absolute Eosinophils 0.2, Absolute Basophils 0.1 10/03/17 1540: APTT 34 10/03/17 0918: PT Cancelled, INR Cancelled 10/03/17 0830: Anion Gap 15, Estimated GFR 7 L, BUN/Creatinine Ratio 6.9 L, Glucose 291 H, Calcium 8.2 L, Phosphorus 6.0 H, Magnesium 2.0, Albumin 3.6, CBC w Diff NO MAN DIFF REQ, RBC 2.85 L, MCV 92.1, MCH 30.5, MCHC 33.1, RDW 13.9, MPV 8.0, Gran % 80.0 H, Lymphocytes % 10.8 L, Monocytes % 6.6, Eosinophils % 2.0, Basophils % 0.6, Absolute Granulocytes 7.3 H, Absolute Lymphocytes 1.0 L, Absolute Monocytes 0.6, Absolute Eosinophils 0.2, Absolute Basophils 0.1 10/03/17 0600: Sodium Cancelled, Potassium Cancelled, Chloride Cancelled, Carbon Dioxide Cancelled, Anion Gap Cancelled, BUN Cancelled, Creatinine Cancelled, BUN/ Creatinine Ratio Cancelled, CBC w Diff Cancelled, WBC Cancelled, RBC Cancelled, Hgb Cancelled, Hct Cancelled, MCV Cancelled, MCH Cancelled, MCHC Cancelled, RDW Cancelled, Plt Count Cancelled, MPV Cancelled Assessment/Plan Assessment/Plan In summary this 67-year-old gentleman has the following problems 1. End-stage renal disease on dialysis 2. Acute on chronic diastolic CHF with pleural effusions EF 55% 3. History of mild aortic stenosis 4. Chronic sleep apnea on CPAP 5. Moderate pulmonary hypertension 6. History of hypertension 7. Obstructive uropathy status post stent placement On his chest x-ray 413 he had large effusions and CT scan at that time showed a large effusion with compressive atelectasis. Chest x-ray 417 shows trace effusions with unusually rapid resolution. Although he is comfortable I believe he should have a CT scan noncontrast of the chest to exclude significant pleural effusions before his discharge. Continue telemetry? Not applicable
--- NOTE | 2017-10-04 10:57 | PN- Nephrology ---
Assessment/Plan Nephrology Assessment: Pain improved, stable from renal standpoint. Suggestion: No dialysis need today, next treatment tomorrow. Subjective Subjective: Much less pain today, no other complaints. Objective Vital Signs and I&Os Vital Signs Date Time Temp Pulse Resp B/P B/P Pulse O2 O2 Flow FiO2 Mean Ox Delivery Rate 10/04 0801 74 152/62 10/04 0800 74 152/62 10/04 0800 74 152/62 10/04 0800 74 152/62 10/04 0800 74 152/62 10/04 0800 94 Nasal 1.0L Cannula 10/04 0643 98.6 74 20 152/62 95 10/04 0000 Nasal 1.0L Cannula 10/03 2054 98.5 85 22 180/62 95 Room Air 10/03 2043 85 180/62 10/03 2042 180/62 10/03 1621 150/62 10/03 1600 94 Nasal 1.0L Cannula 10/03 1434 97.9 88 20 182/52 94 Room Air 10/03 1428 182/52 10/03 1222 82 148/80 10/03 1222 82 148/80 10/03 1222 82 148/80 10/03 1221 82 148/80 10/03 1221 82 148/80 10/03 1221 98.2 82 20 148/80 94 Nasal 1.0L Cannula Intake & Output 10/04 1600 10/04 0400 10/03 1600 10/03 0400 10/02 1600 10/02 0400 Intake Total 260 200 620 560 Output Total 30 45 2225 75 350 100 Balance 230 155 -1605 -75 210 -100 Intake, IV 260 20 Intake, Oral 200 600 560 Number 1 Bowel Movements Output, 2000 Dialysate Output, 10 Emesis Output, Urine 30 35 225 75 350 100 Patient 162 lb 161 lb 164 lb Weight Weight Bed scale Standing Scale Measurement Method Physical Exam: NAD VS as above Lung: clear CV:no rub Abd: nontender Exts: no edema Neuro: no asterixis Current Medications: Current Medications Sig/Hernandez Start time Last Medication Dose Route Stop Time Status Admin Acetaminophen 1,000 MG .STK-MED ONE 10/04 0009 DC IV 10/04 0010 Acetaminophen 1,000 MG Q6P PRN 10/03 2114 AC 10/04 N/A 1 UNIT IV 0021 Acetaminophen 1,000 MG ONCE ONE 10/03 2044 CAN N/A 1 UNIT IV 10/03 2058 Acetaminophen 650 MG .STK-MED ONE 10/03 2044 DC PO 10/03 2045 Acetaminophen 650 MG Q6P PRN 09/28 2100 AC 10/03 PO 204 Albuterol Sulfate 3 ML Q4P PRN 09/29 1100 AC 09/29 INH 1051 Amlodipine Besylate 10 MG DAILY 09/29 0900 AC 10/04 PO 0801 Aspirin 81 MG DAILY 09/29 0900 AC 10/04 PO 0800 Cephalexin 250 MG Q12 10/02 0914 AC 10/04 PO 0801 Clonidine 0.2 MG BID 09/29 0900 AC 10/04 PO 0800 Docusate Sodium 100 MG BID 10/02 0917 AC 10/04 PO 0800 Epoetin Pardeep 4,000 UNIT MoWeFr PRN 10/03 0745 AC IV Furosemide 80 MG DAILY 09/29 0900 AC 10/04 PO 0801 Hydralazine HCl 50 MG TID 09/28 2330 AC 10/04 PO 0800 Hydromorphone HCl 2 MG Q4P PRN 10/02 0915 DC 10/03 PO 1957 Insulin Aspart 0 TIDAC 09/30 0800 AC 10/04 SC 0758 Lactulose 20 GM DAILY PRN 09/28 2300 AC PO Levothyroxine Sodium 0.15 MG DAILY AC 09/29 0700 AC 10/04 PO 0531 Losartan Potassium 50 MG DAILY 09/29 0900 AC 10/04 PO 0800 Minoxidil 2.5 MG DAILY 09/29 0900 AC 10/04 PO 0801 Morphine Sulfate 1 MG Q8P PRN 10/04 0945 AC IV Morphine Sulfate 2 MG ONCE ONE 10/03 1545 DC 10/03 IV 10/03 1546 1557 Ondansetron HCl 4 MG ONCE ONE 10/04 0015 DC IV 10/04 0016 Polyethylene Glycol 17 GM DAILY 10/02 0910 AC 10/04 PO 0800 Pravastatin Sodium 10 MG 1700 09/29 1700 AC 10/03 PO 1557 Senna 187 MG AT BEDTIME 10/02 2100 AC 10/03 PO 204 Sevelamer Carbonate 1,600 MG TIDAC 10/02 1200 AC 10/04 PO 0758 Tamsulosin HCl 0.4 MG DAILY 09/29 0900 AC 10/04 PO 0800 Results Pertinent Lab Results: Laboratory Tests 10/04 10/03 10/03 0722 1540 0918 Chemistry Sodium (137 - 145 mmol/L) 137 Potassium (3.5 - 5.1 mmol/L) 4.8 Chloride (98 - 107 mmol/L) 95 L Carbon Dioxide (22 - 30 mmol/L) 27 Anion Gap (5 - 16) 14 BUN (9 - 20 mg/dL) 32 H Creatinine (0.7 - 1.2 mg/dL) 5.5 *H Estimated GFR (>60 ml/min) 10 L BUN/Creatinine Ratio (7 - 25 %) 5.8 L Coagulation PT Cancelled INR Cancelled APTT (25 - 37 SEC) 34 Hematology CBC w Diff NO MAN DIFF REQ WBC (4.8 - 10.8 /CUMM) 8.6 RBC (4.70 - 6.10 /CUMM) 2.74 L Hgb (14.0 - 18.0 G/DL) 8.6 L Hct (42 - 52 %) 25.3 L MCV (80.0 - 94.0 FL) 92.2 MCH (27.0 - 31.0 PG) 31.4 H MCHC (33.0 - 37.0 G/DL) 34.1 RDW (11.5 - 14.5 %) 14.1 Plt Count (130 - 400 /CUMM) 266 MPV (7.4 - 10.4 FL) 7.6 Gran % (42.2 - 75.2 %) 76.3 H Lymphocytes % (20.5 - 51.1 %) 11.3 L Monocytes % (1.7 - 9.3 %) 9.2 Eosinophils % (0 - 5 %) 2.6 Basophils % (0.0 - 2.0 %) 0.6 Absolute Granulocytes (1.4 - 6.5 /CUMM) 6.6 H Absolute Lymphocytes (1.2 - 3.4 /CUMM) 1.0 L Absolute Monocytes (0.10 - 0.60 /CUMM) 0.8 H Absolute Eosinophils (0.0 - 0.7 /CUMM) 0.2 Absolute Basophils (0.0 - 0.2 /CUMM) 0.1 10/03 10/03 0830 0600 Chemistry Sodium (137 - 145 mmol/L) 136 L Cancelled Potassium (3.5 - 5.1 mmol/L) 5.2 H Cancelled Chloride (98 - 107 mmol/L) 93 L Cancelled Carbon Dioxide (22 - 30 mmol/L) 27 Cancelled Anion Gap (5 - 16) 15 Cancelled BUN (9 - 20 mg/dL) 54 H Cancelled Creatinine (0.7 - 1.2 mg/dL) 7.8 *H Cancelled Estimated GFR (>60 ml/min) 7 L BUN/Creatinine Ratio (7 - 25 %) 6.9 L Cancelled Glucose (65 - 99 mg/dL) 291 H Calcium (8.4 - 10.2 mg/dL) 8.2 L Phosphorus (2.5 - 4.5 mg/dL) 6.0 H Magnesium (1.6 - 2.3 mg/dL) 2.0 Albumin (3.5 - 5.0 g/dL) 3.6 Hematology CBC w Diff NO MAN DIFF REQ Cancelled WBC (4.8 - 10.8 /CUMM) 9.1 Cancelled RBC (4.70 - 6.10 /CUMM) 2.85 L Cancelled Hgb (14.0 - 18.0 G/DL) 8.7 L Cancelled Hct (42 - 52 %) 26.3 L Cancelled MCV (80.0 - 94.0 FL) 92.1 Cancelled MCH (27.0 - 31.0 PG) 30.5 Cancelled MCHC (33.0 - 37.0 G/DL) 33.1 Cancelled RDW (11.5 - 14.5 %) 13.9 Cancelled Plt Count (130 - 400 /CUMM) 299 Cancelled MPV (7.4 - 10.4 FL) 8.0 Cancelled Gran % (42.2 - 75.2 %) 80.0 H Lymphocytes % (20.5 - 51.1 %) 10.8 L Monocytes % (1.7 - 9.3 %) 6.6 Eosinophils % (0 - 5 %) 2.0 Basophils % (0.0 - 2.0 %) 0.6 Absolute Granulocytes (1.4 - 6.5 /CUMM) 7.3 H Absolute Lymphocytes (1.2 - 3.4 /CUMM) 1.0 L Absolute Monocytes (0.10 - 0.60 /CUMM) 0.6 Absolute Eosinophils (0.0 - 0.7 /CUMM) 0.2 Absolute Basophils (0.0 - 0.2 /CUMM) 0.1 10/02 0616 Chemistry Sodium (137 - 145 mmol/L) 137 Potassium (3.5 - 5.1 mmol/L) 4.8 Chloride (98 - 107 mmol/L) 97 L Carbon Dioxide (22 - 30 mmol/L) 26 Anion Gap (5 - 16) 14 BUN (9 - 20 mg/dL) 38 H Creatinine (0.7 - 1.2 mg/dL) 5.4 *H Estimated GFR (>60 ml/min) 11 L BUN/Creatinine Ratio (7 - 25 %) 7.0 Hematology CBC w Diff NO MAN DIFF REQ WBC (4.8 - 10.8 /CUMM) 7.9 RBC (4.70 - 6.10 /CUMM) 2.82 L Hgb (14.0 - 18.0 G/DL) 8.7 L Hct (42 - 52 %) 26.3 L MCV (80.0 - 94.0 FL) 93.1 MCH (27.0 - 31.0 PG) 30.9 MCHC (33.0 - 37.0 G/DL) 33.2 RDW (11.5 - 14.5 %) 14.2 Plt Count (130 - 400 /CUMM) 257 MPV (7.4 - 10.4 FL) 8.1 Gran % (42.2 - 75.2 %) 75.2 Lymphocytes % (20.5 - 51.1 %) 14.3 L Monocytes % (1.7 - 9.3 %) 6.9 Eosinophils % (0 - 5 %) 2.8 Basophils % (0.0 - 2.0 %) 0.8 Absolute Granulocytes (1.4 - 6.5 /CUMM) 6.0 Absolute Lymphocytes (1.2 - 3.4 /CUMM) 1.1 L Absolute Monocytes (0.10 - 0.60 /CUMM) 0.5 Absolute Eosinophils (0.0 - 0.7 /CUMM) 0.2 Absolute Basophils (0.0 - 0.2 /CUMM) 0.1
--- NOTE | 2017-10-04 14:15 | CT SCAN REPORT ---
EXAMINATION: CT CHEST WITHOUT CONTRAST CLINICAL INFORMATION: End-stage renal disease on dialysis. Acute CHF. Had effusion on chest x-ray which resolved. Still complains of shortness of breath. Evaluate for effusion. COMPARISON: Chest x-ray dated 10/02/2017. TECHNIQUE: Multidetector volumetric CT imaging of the chest was obtained noncontrast. Sagittal and coronal reformations were obtained. DLP: 329.67 mGy-cm. FINDINGS: LUNGS: There are moderate-sized bilateral simple appearing pleural effusion seen layering posteriorly all the way up to the lung apex. No definite pleural thickening or nodularity seen on noncontrast imaging. Evaluation of the lungs is limited due to motion artifact as well as volume loss and significant consolidation in both lower lobes with associated air bronchograms. There are patchy groundglass opacities in the upper lobes and right middle lobe. There is a solid noncalcified 4 mm nodule in the right middle lobe (series 4, image 281). Small calcified granuloma seen in the right lower lobe (series 4, image 225). No suspicious focal lung nodule or mass. No pneumothorax. Central airways are diffusely narrowed, but remain patent. This may at least in part be related to expiratory imaging. LYMPHOVASCULAR STRUCTURES: Aortic size normal. There is moderate atherosclerotic calcification of the aorta and mild atherosclerotic calcifications of the great vessels and coronary arteries. Aortic valvular calcifications are suspected and mitral annular calcifications is seen. No pericardial effusion. No mediastinal, hilar or axillary adenopathy. THYROID GLAND: Unremarkable to the extent included. UPPER ABDOMEN: Included portions of the solid organs in the upper abdomen within normal limits. BONES: There is moderate vertebral spondylosis in the mid and lower thoracic spine. No suspicious focal findings. IMPRESSION: 1. Moderate size bilateral pleural effusions. Associated bibasilar volume loss and consolidation noted. 2. Patchy groundglass opacities seen in both lungs. Findings are nonspecific and may in part be related to motion artifact or possibly due to subtle pulmonary edema or diffuse pneumonitis. Clinical correlation is requested. 3. Moderate atherosclerotic vascular disease and aortic valvular calcifications.
[2017-10-04 14:16] VITALS: BP 140/62
--- NOTE | 2017-10-04 14:25 | Discharge Summary ---
Visit Information Visit Dates Admission Date: 09/28/17 Hospital Course Course Attending Physician: Tao Simpson MD Primary Care Physician: Kevin Brown MD Consulting Request: 1 Consulting Specialty: Cardiology Consulting Request: 2 Consulting Specialty: Nephrology Consulting Request: 3 Consulting Specialty: Urology Hospital Course: 67-year-old man with past medical history of congestive heart failure, hypertension, hyperlipidemia, aortic stenosis, bradycardia, pancreatitis, BPH, insulin-dependent diabetes mellitus, ESRD on hemodialysis, and hypothyroidism sent in from dialysis for treatment of a "urinary tract infection". Patient reported that he attended his hemodialysis session on day of admission as scheduled when he reported urinary symptoms for which a urinalysis was obtained that reportedly showed "an infection" for which he was referred to the [facility]. Patient reports fever, chills, back pain, pain with burning on urination, and urinary incontinence over the past 5 days. He also reports development of shortness of breath with lower extremity swelling over the past 3 -4 days. Patient was reportedly seen by his day care attendant Dr. Trevino whom made some "medicine changes". Presently patient reports severe mid/right sided back pain with persistence of his fever, chills, shortness of breath, abdominal pain, and urinary symptoms. ED Course -Vitals: Temp 98.9-99.3, HR 85-89, RR 20, SPEP was 54-178, O2 89-95% on room air -CBC: WBC 9.2, hemoglobin 10.0, hematocrit 29.9, platelet 269 -BMP: sodium 138, potassium 5.0, chloride 93, CO2 29, urea 33, creatinine 4.3, anion gap 16, glucose 242 -LFT: Within normal limits -Miscellaneous: Lactic acid 0.7, troponin I 0.02, BNP 30286 -EKG 01/01/11/ 1502: Normal sinus rhythm with T-wave inversions in V5-6, I, aVL with first-degree heart block and [address] segment elevation in V1-V2 -EKG 09/28/17 1729: Unchanged from previous -CXR: Digestive heart failure with bilateral pleural effusions -CT abdomen/pelvis without IV contrast: 1. Large bilateral pleural effusions with compressive atelectasis at lung bases. 2. Hydronephrosis of right kidney due to an obstructing stone at the right ureteropelvic junction. This is a linear stone measuring about 4 mm. There is a 5 mm stone in the right renal pelvis. Problem list on admission -Urinary tract infection -Nephrolithiasis, 4 mm obstructive right UPJ renal stone -Acute hypoxic respiratory failure -Acute decompenstated heart failure -Bilateral pleural effusions -Reported history of congestive heart failure, no recent echocardiogram -History of aortic stenosis -BPH -End-stage renal disease on hemodialysis -Insulin-dependent diabetes mellitus -Hypothyroidism -Hypertension -Hyperlipidemia Hospital course Patient was admitted to the telemetry floor for further evaluation. He was kept on supplemental oxygen with total respiratory care for his hypoxia and shortness of breath. Nephrology consult was placed for hemodialysis. Patient was continued on intravenous Lasix and kept euvolemic hemodialysis with quick resolution of his hypervolemia and heart failure. Cultures were drawn and he was continued on ceftriaxone for his urinary tract infection. CT abdomen/pelvis demonstrated an occlusive 4 mm renal stone at the right UPJ for which a urology consult was placed. Patient was kept nothing by mouth in anticipation for a cystoscopy in the morning after admission. He was seen and evaluated by urologist Dr. Chinchilla whom performed a cystoscopy with stent placement. Patient developed gross hematuria after the procedure without any significant drop in his hemoglobin. Patient remained stable from a cardiac perspective and was now euvolemic and was downgraded from telemetry and transferred to the general medicine floor. Outpatient follow-up -Repeat CT abdomen/pelvis 6-12 weeks after admission -Outpatient follow-up with cardiology, urology, and nephrology Allergies: Coded Allergies: No Known Allergies (09/28/17) Significant Procedures: SERVICE DATE: 09/28/17-1726 EXAM TYPE: RAD - XRY-CHEST XRAY, TWO VIEWS IMPRESSION: Congestive heart failure. Bilateral pleural effusions. SERVICE DATE: 09/28/17-1909 EXAM TYPE: CAT - CT ABD & PELVIS W/O IV CONTRAS IMPRESSION: 1. Large bilateral pleural effusions with compressive atelectasis at lung bases. 2. Hydronephrosis of right kidney due to an obstructing stone at the right ureteropelvic junction. This is a linear stone measuring about 4 mm. There is a 5 mm stone in the right renal pelvis. SERVICE DATE: 09/29/17- EXAM TYPE: RAD - [id number] VIEW IMPRESSION: Placement of double-J stent in right collecting system. SERVICE DATE: 09/29/17 EXAM TYPE: CARD - ECHOCARDIOGRAM Left ventricular cavity size normal. Left ventricular wall thickness mildly increased. No obvious regional wall motion abnormalities. Left ventricular ejection fraction is estimated at > 55 %. "Pseudonormal" filling pattern of the left ventricle for age (stage 2 diastolic dysfunction). Normal right ventricular size and function. Mild left atrial dilatation. Mild aortic stenosis. Minimal pericardial effusion. Left pleural effusion. Moderate tricuspid regurgitation. Moderate pulmonary hypertension. SERVICE DATE: 10/02/17 EXAM TYPE: RAD - XRY-PORTABLE CHEST XRAY IMPRESSION: Trace bilateral pleural effusions. SERVICE DATE: 10/04/17- EXAM TYPE: CAT - CT CHEST WO IV CONTRAST 1. Moderate size bilateral pleural effusions. Associated bibasilar volume loss and consolidation noted. 2. Patchy groundglass opacities seen in both lungs. Findings are nonspecific and may in part be related to motion artifact or possibly due to subtle pulmonary edema or diffuse pneumonitis. Clinical correlation is requested. 3. Moderate atherosclerotic vascular disease and aortic valvular calcifications. Disposition Summary Disposition Principal Diagnosis: Acute decompensated heart failure Acute hypoxic respiratory failure Obstructive right UPJ nephrolithiasis Urinary tract infection Additional Diagnosis: As above Discharge Instructions General Discharge Information Code Status: Full Code Patient's Diet: Renal dialysis diet Patient's Activity: Per physical therapy assessment Medications at Discharge Discharge Medications: Continue taking these medications: Iron Sucrose (Venofer) 100 MG IRON/5 ML VIAL 1 VIAL INTRAVEN WITH DIALYSI Comments: NOT GIVEN IN HOSPITAL Tamsulosin HCl (Flomax) 0.4 MG CAP.ER.24H 1 Capsule ORAL DAILY Comments: Last Taken: 10/09/17 Time: 8:00 AM Acetaminophen (Acetaminophen) 500 MG TABLET 1 Tablet ORAL DAILY as needed for PAIN Comments: NOT GIVEN IN HOSPITAL Amlodipine Besylate (Amlodipine Besylate) 10 MG TABLET 1 Tablet ORAL DAILY Comments: Last Taken: 10/09/17 Time: 8:00 AM Darbepoetin Pardeep in Polysorbat (Aranesp) 10 MCG/0.4 ML SYRINGE 1 Syringe INTRAMUSC EVERY SUNDAY Comments: NOT GIVEN IN HOSPITAL Aspirin (Aspirin*) 81 MG TAB.CHEW 1 Tablet ORAL DAILY Comments: Last Taken: 10/09/17 Time: 8:00 AM B Complex & C No.20/Folic Acid (Renal Caps Softgel) 1 MG CAPSULE 1 Tablet ORAL DAILY Comments: NOT GIVEN IN HOSPITAL Clonidine HCl (Clonidine HCl) 0.2 MG TABLET 1 Tablet ORAL TWICE DAILY Comments: Last Taken: 10/09/17 Time: 8:00 AM Fluticasone Propionate (Flonase Allergy Relief) 50 MCG/ACTUATION SPRAY.SUSP 1 [place] Inhale through mouth TWICE DAILY Comments: NOT GIVEN IN HOSPITAL Furosemide (Furosemide) 80 MG TABLET 1 Tablet ORAL DAILY Comments: Last Taken: 10/09/17 Time: 8:00 AM Hydralazine HCl (Hydralazine HCl) 50 MG TABLET 1 Tablet ORAL THREE TIMES DAILY Comments: Last Taken: 10/09/17 Time: 1:00 PM Insulin Glargine,Hum.rec.anlog (Lantus Solostar) 100 UNIT/ML (3 ML) INSULN.PEN 10 Unit Inject into fatty tissue Every night Comments: NOT GIVEN IN HOSPITAL Levothyroxine Sodium (Levothyroxine Sodium) 150 MCG TABLET 1 Tablet ORAL DAILY Comments: Last Taken: 10/09/17 Time: 5:30 AM Metoprolol Tartrate (Metoprolol Tartrate) 25 MG TABLET 0.5 Tablet ORAL TWICE DAILY Comments: Last Taken: 10/09/17 Time: 8:00 AM Minoxidil (Minoxidil) 10 MG TABLET 2.5 Milligram ORAL DAILY Comments: Last Taken: 10/09/17 Time: 8:00 AM Nitroglycerin (Nitroglycerin) 0.4 MG TAB.SUBL 1 Tablet SUBLINGUAL As Directed Instructions: 1st sign of attack; may repeat every 5 minutes until relief; if pain persists after 3 tablets in 15 minutes, prompt medical att Comments: Last Taken: 10/07/17 Time: 3:15 AM Olmesartan Medoxomil (Benicar) 40 MG TABLET 1 Tablet ORAL DAILY Comments: NOT GIVEN IN HOSPITAL Ondansetron HCl (Ondansetron HCl) 4 MG TABLET 1 Tablet ORAL EVERY 4 HOURS NEEDED as needed for NAUSEA Comments: NOT GIVEN IN HOSPITAL Etelcalcetide Hydrochloride (Parsabiv) 5 MG/ML VIAL 5 Milligram INTRAVEN SUNDAY, SUNDAY AND SUNDAY Comments: NOT GIVEN IN HOSPITAL Pravastatin Sodium (Pravastatin Sodium) 40 MG TABLET 1 Tablet ORAL DAILY Comments: Last Taken: 10/08/17 Time: 5:45 PM Lactulose (Kristalose) 20 GRAM PACKET 1 PACKET ORAL DAILY Comments: NOT GIVEN IN HOSPITAL Oxycodone HCl (Oxycodone HCl) 5 MG TABLET 1 Tablet ORAL EVERY 4-6 HOURS NEEDED Qty = 60 Comments: Last Taken: 10/09/17 Time: 12:00 PM (PERCOCET GIVEN) Insulin Aspart, Recombinant (Novolog Flexpen) 100 UNIT/ML INSULN.PEN 0 Inject into fatty tissue THREE TIMES DAILY Qty = 30 Instructions: Please use 5 - 8 - 11 Units based on carb count Comments: Last Taken: 10/09/17 Time: 12:00 PM Start taking the following new medications: Sevelamer Carbonate (Renvela) 800 MG TABLET 1,600 Milligram ORAL 3 TIMES DAILY BEFORE MEALS Qty = 30 No Refills Comments: Last Taken: 10/09/17 Time: 12:00 PM
--- NOTE | 2017-10-04 17:03 | PN- Urology ---
Subjective Subjective: Complains of penile pain Objective Vital Signs and I&Os Vital Signs Date Time Temp Pulse Resp B/P B/P Pulse O2 O2 Flow FiO2 Mean Ox Delivery Rate 10/04 1416 98.2 84 18 140/62 93 Nasal 1.0L Cannula 10/04 1401 140/62 10/04 0801 74 152/62 10/04 0800 74 152/62 10/04 0800 74 152/62 10/04 0800 74 152/62 10/04 0800 74 152/62 10/04 0800 94 Nasal 1.0L Cannula 10/04 0643 98.6 74 20 152/62 95 10/04 0000 Nasal 1.0L Cannula 10/03 205 98.5 85 22 180/62 95 Room Air 10/03 2043 85 180/62 10/03 2042 180/62 Intake & Output 10/04 1600 10/04 0800 10/04 0000 10/03 1600 10/03 0800 10/03 0000 Intake Total 700 260 200 620 Output Total 375 30 45 2075 150 75 Balance 325 230 155 -1455 -150 -75 Intake, IV 100 260 20 Intake, Oral 600 200 600 Number 1 Bowel Movements Output, 2000 Dialysate Output, 10 Emesis Output, Urine 375 30 35 75 150 75 Patient 162 lb 161 lb 171 lb Weight Weight Bed scale Standing Scale Bed scale Measurement Method Genitalia: nicholas in place. Urine looks clearer. Still blood-tinged Assessment/Plan Assessment/Plan Imp: 1. s/p R ureteral stent for small obstructing stone at R UPJ 2. Post procedure hematuria, improved Plan: 1. Would remove nicholas when urine is grossly clear 2. Will plan non contrast CT of abd and pelvis in 6-12 week to see if R ureteral stent facilitated passage of R UPJ stone. He is at high risk to have general anesthesia for ureteroscopy and laser litho of the R renal stone
[2017-10-04 22:04] VITALS: BP 140/50
[2017-10-05 07:00] VITALS: BP 146/54
--- NOTE | 2017-10-05 07:14 | PN- Housestaff ---
Mali Trevino MD,[facility] 10/05/17 0714: Subjective Follow-up For: UTI actue on chronic CHF Renal stone s/p cystoscopy Subjective: Patient visited today, vietnamese speaking chago, was lying in bed in no mild distress, was alert and oriented. No fever or chills, improved shortness of breathing, no chest pain, no other events. Reported improved shortness of breathing, penile pain. CT scan of the chest was done yesterday with showed moderate amount of effusion. Frederick to be removed after urine is clear. Patient complained of pain, percocet was added to the pain regimen. Review of Systems Constitutional: Reports: see HPI. Objective Last 24 Hrs of Vital Signs/I&O Vital Signs Date Time Temp Pulse Resp B/P B/P Pulse O2 O2 Flow FiO2 Mean Ox Delivery Rate 10/05 0800 92 Nasal 2.0L Cannula 10/05 0700 98.5 86 18 146/54 91 10/05 0000 94 Nasal 1.0L Cannula 10/04 2204 98.5 85 18 140/50 93 Nasal 1.0L Cannula 10/04 211 85 140/50 10/04 2119 85 140/50 10/04 1600 94 Nasal 1.0L Cannula 10/04 1416 98.2 84 18 140/62 93 Nasal 1.0L Cannula 10/04 1401 140/62 Intake & Output 10/05 1600 10/05 0800 10/05 0000 Intake Total 240 640 Output Total 100 45 Balance 140 595 Intake, IV 110 Intake, Oral 240 500 Intake, Other 30 Number 0 Bowel Movements Output, Urine 100 45 Patient 164 lb Weight Weight Bed scale Measurement Method Physical Exam General Appearance: Alert, Oriented X3, Cooperative, No Acute Distress Skin Temp/Moisture Exam: Warm/Dry Sepsis Skin Exam (color): Normal for Ethnicity HEENT: Atraumatic, EOMI Cardiovascular: Normal S1, Normal S2 Lungs: decreased breathing sounds bilaterally in bases Abdomen: Soft, No Tenderness, Improved CVA tenderness Neurological: Normal Speech Extremities: No Edema Current Medications: Current Medications Sig/Hernandez Start time Last Medication Dose Route Stop Time Status Admin Acetaminophen 1,000 MG .STK-MED ONE 10/04 1946 DC IV 10/05 1947 Acetaminophen 1,000 MG Q6P PRN 10/03 2114 AC 10/04 N/A 1 UNIT IV 1948 Acetaminophen 650 MG Q6P PRN 09/28 2100 AC 10/03 PO 2047 Albuterol Sulfate 3 ML Q4P PRN 09/29 1100 AC 09/29 INH 1051 Amlodipine Besylate 10 MG DAILY 09/29 0900 AC 10/04 PO 0801 Aspirin 81 MG DAILY 09/29 0900 AC 10/04 PO 0800 Cephalexin 250 MG Q12 10/02 0914 AC 10/04 PO 211 Clonidine 0.2 MG BID 09/29 0900 AC 10/04 PO 211 Docusate Sodium 100 MG BID 10/02 0917 AC 10/04 PO 211 Epoetin Pardeep 4,000 UNIT MoWeFr PRN 10/03 0745 AC IV Furosemide 80 MG DAILY 09/29 0900 AC 10/04 PO 0801 Hydralazine HCl 50 MG TID 09/28 2330 AC 10/04 PO 211 Insulin Aspart 2 UNITS ONCE ONE 10/04 2114 DC 10/04 SC 10/04 211 2141 Insulin Aspart 0 TIDAC 09/30 0800 AC 10/05 SC 0828 Lactulose 20 GM DAILY PRN 09/28 2300 AC PO Levothyroxine Sodium 0.15 MG DAILY AC 09/29 0700 AC 10/05 PO 0511 Losartan Potassium 50 MG DAILY 09/29 0900 AC 10/04 PO 0800 Minoxidil 2.5 MG DAILY 09/29 0900 AC 10/04 PO 0801 Morphine Sulfate 1 MG ONCE ONE 10/05 0345 DC 10/05 IV 10/05 0346 0346 Morphine Sulfate 1 MG Q8P PRN 10/04 0945 AC 10/05 IV 0515 Polyethylene Glycol 17 GM DAILY 10/02 0910 AC 10/04 PO 0800 Pravastatin Sodium 10 MG 1700 09/29 1700 AC 10/04 PO 1737 Senna 187 MG AT BEDTIME 10/02 2100 AC 10/04 PO 2120 Sevelamer Carbonate 1,600 MG TIDAC 10/02 1200 AC 10/05 PO 0829 Tamsulosin HCl 0.4 MG DAILY 09/29 0900 AC 10/04 PO 0800 Last 24 Hrs of Lab/Sedrick Results Last 24 Hrs of Labs/Mics: Laboratory Tests 10/05/17 0748: Anion Gap 13, Estimated GFR 7 L, BUN/Creatinine Ratio 6.1 L, Glucose 215 H, Calcium 8.2 L, Phosphorus 4.7 H, CBC w Diff NO MAN DIFF REQ, RBC 2.57 L, MCV 92.1, MCH 31.2 H, MCHC 33.9, RDW 13.7, MPV 7.7, Gran % 73.1, Lymphocytes % 14.0 L, Monocytes % 8.4, Eosinophils % 3.8, Basophils % 0.7, Absolute Granulocytes 6.4, Absolute Lymphocytes 1.2, Absolute Monocytes 0.7 H, Absolute Eosinophils 0.3, Absolute Basophils 0.1 10/05/17 0700: Anion Gap 19 H, Estimated GFR 8 L, BUN/Creatinine Ratio 6.2 L, CBC w Diff NO MAN DIFF REQ, RBC 2.98 L, MCV 93.4, MCH 30.9, MCHC 33.1, RDW 14.2, MPV 7.7, Gran % 73.3, Lymphocytes % 15.2 L, Monocytes % 6.8, Eosinophils % 4.1, Basophils % 0.6, Absolute Granulocytes 8.3 H, Absolute Lymphocytes 1.7, Absolute Monocytes 0.8 H, Absolute Eosinophils 0.5, Absolute Basophils 0.1 Assessment/Plan Assessment: 67 YO M was reffered for evaluation and treatment of UTI PMH: DM, HTN, HLD, hypothyroidism, bradycardia, CHF, aortic stenosis, ESRD on hemodialysis, pancreatitis and BPH sent in from dialysis for treatment of a urinary tract infection. Patient was admitted to tele floor initially and with stablization was then transfered to floor. management for following conditions were done: Acute on chronic congestive diastolic heart failure: -Oxygen supplementation as needed to keep saturation above 92% -Trop and EKG are negative -PO lasix 80mg -Daily weight -Input and output -f/u with cardio recommendations. -Echocardiogram showed >55% EF with stage 2 diastolic heart failure. UTI: -IV ceftriaxone day recieved 4, changed to keflex 250mg bid today day 4 -Urine cultures growing Klebsiella pneumoniae. Ureteric stone with hydronephrosis s/p cystoscopy and stent placement: -s/p day 4 -Pain medication -IV antiemetic to control nausea -Urology recommendations appreciated -Will require repeat CT in 612 weeks to look for stone. -Continue Flomax - MS 1 q8 for severe pain - added percocet q12 Hematuria: -Gross hematuria. -We'll keep the Frederick's catheter to irrigate the bladder every shift with normal saline until it becomes clear. -We will follow CBCs. H/O ESRD on dialysis: -He is getting dialysis on Sunday. -Pleural effusion has been decreased. Chronic medical conditions: hypothyroidism, HTN, Hlp: -Continue levothyroxine -Continue losartan, hydralazine, amlodipine and clonidine -Continue Lipitor Mechanical and subcutaneous heparin Full code Renal dialysis diet Problem List: 1. UTI (urinary tract infection) 2. CHF exacerbation Pain Ratin Pain Location: Penile Pain Goal: Pain 4 or less Pain Plan: Continue current plan Tomorrow's Labs & Rationales: CBC BEP Consulting Request: Consulting Specialty: Urology Binh Spaulding MD 10/05/17 1218: Attending MD Review Statement Attending Statement Attending MD Statement: examined this patient, discuss w/resident/PA/PRESSURE STEAMER TENDER, agreed w/resident/PA/PRESSURE STEAMER TENDER, reviewed EMR data (avail), discussed with nursing, discussed with case mgmt Attending Assessment/Plan: Patient seen and examined. Patient feels better after the dialysis. However, still has the back pain. CT Chest showed persistent effusions. Denies any chest pain or cough. On examination he has diminished breath sounds bilaterally. Abdomen is soft and nontender. He has no peripheral edema. Frederick catheter remains in place draining bloody urine. Problems: 1. Acute hypoxic respiratory failure 2. Acute on chronic diastolic heart failure 3. End-stage renal disease on hemodialysis. 4. Urinary tract infection secondary to Klebsiella 5. Hydronephrosis secondary to ureteral stone - s/p Right sided ureteral stent 6. Post instrumentation hematuria Plan: -Continue current pain regimen. If pain persists may consider adding long- acting opioid regimen. -Continuing with oral antibiotic Cephalexein - Day 3 (recieved IV Ceftriaxone for Day 4) - Appreciate Cardiology recommendations - continuing with the current management today
[2017-10-05 08:18] LABS: ABSOLUTE BASOPHIL COUNT 0.1 /CUMM (0.0-0.2); ABSOLUTE EOSINOPHIL COUNT 0.5 /CUMM (0.0-0.7); ABSOLUTE GRANULOCYTE CT 8.3 /CUMM (1.4-6.5); ABSOLUTE LYMPH COUNT 1.7 /CUMM (1.2-3.4); ABSOLUTE MONOCYTE COUNT 0.8 /CUMM (0.10-0.60); BASOPHIL % 0.6 % (0.0-2.0); EOSINOPHIL % 4.1 % (0-5); GRANULOCYTE % 73.3 % (42.2-75.2); HEMATOCRIT 27.8 % (42-52); MEAN CORPUSCULAR HGB 30.9 PG (27.0-31.0); MEAN CORPUSCULAR HGB CONC 33.1 G/DL (33.0-37.0); MEAN CORPUSCULAR VOLUME 93.4 FL (80.0-94.0); MEAN PLATELET VOLUME 7.7 FL (7.4-10.4); PLATELET COUNT 355 /CUMM (130-400); RBC DISTRIBUTION WIDTH 14.2 % (11.5-14.5); RED BLOOD CELL CT 2.98 /CUMM (4.70-6.10); WHITE BLOOD CELL COUNT 11.3 /CUMM (4.8-10.8)
[2017-10-05 08:39] LABS: ABSOLUTE BASOPHIL COUNT 0.1 /CUMM (0.0-0.2); ABSOLUTE EOSINOPHIL COUNT 0.3 /CUMM (0.0-0.7); ABSOLUTE GRANULOCYTE CT 6.4 /CUMM (1.4-6.5); ABSOLUTE LYMPH COUNT 1.2 /CUMM (1.2-3.4); ABSOLUTE MONOCYTE COUNT 0.7 /CUMM (0.10-0.60); BASOPHIL % 0.7 % (0.0-2.0); EOSINOPHIL % 3.8 % (0-5); GRANULOCYTE % 73.1 % (42.2-75.2); HEMATOCRIT 23.6 % (42-52); MEAN CORPUSCULAR HGB 31.2 PG (27.0-31.0); MEAN CORPUSCULAR HGB CONC 33.9 G/DL (33.0-37.0); MEAN CORPUSCULAR VOLUME 92.1 FL (80.0-94.0); MEAN PLATELET VOLUME 7.7 FL (7.4-10.4); PLATELET COUNT 302 /CUMM (130-400); RBC DISTRIBUTION WIDTH 13.7 % (11.5-14.5); RED BLOOD CELL CT 2.57 /CUMM (4.70-6.10); WHITE BLOOD CELL COUNT 8.8 /CUMM (4.8-10.8)
--- NOTE | 2017-10-05 09:10 | PN- Nephrology ---
Assessment/Plan Nephrology Assessment: Stable on dialysis. Flank pain resolved since stent planced but still with pain possibly from Frederick. Suggestion: UF 2 liters on dialysis today. Subjective Subjective: Patient feeling well except for continued penile pain. Objective Vital Signs and I&Os Vital Signs Date Time Temp Pulse Resp B/P B/P Pulse O2 O2 Flow FiO2 Mean Ox Delivery Rate 10/05 0800 92 Nasal 2.0L Cannula 10/05 0700 98.5 86 18 146/54 91 10/05 0000 94 Nasal 1.0L Cannula 10/04 2204 98.5 85 18 140/50 93 Nasal 1.0L Cannula 10/04 2119 85 140/50 10/04 2119 85 140/50 10/04 1600 94 Nasal 1.0L Cannula 10/04 1416 98.2 84 18 140/62 93 Nasal 1.0L Cannula 10/04 1401 140/62 Intake & Output 10/05 1600 10/05 0400 10/04 1600 10/04 0400 10/03 1600 10/03 0400 Intake Total 240 640 960 200 620 Output Total 100 45 782 36 5477 75 Balance 140 595 555 155 -1605 -75 Intake, IV 110 360 20 Intake, Oral 240 500 600 200 600 Intake, Other 30 Number 0 1 Bowel Movements Output, 2000 Dialysate Output, 10 Emesis Output, Urine 100 45 405 35 225 75 Patient 164 lb 162 lb 161 lb Weight Weight Bed scale Bed scale Standing Scale Measurement Method Physical Exam: NAD VS as above Lung: clear CV:no rub Abd: nontender Exts: no edema Neuro: no asterixis Current Medications: Current Medications Sig/Hernandez Start time Last Medication Dose Route Stop Time Status Admin Acetaminophen 1,000 MG .STK-MED ONE 10/04 1946 DC IV 10/05 1947 Acetaminophen 1,000 MG Q6P PRN 10/03 2114 AC 10/04 N/A 1 UNIT IV 1948 Acetaminophen 650 MG Q6P PRN 09/28 2100 AC 10/03 PO 2046 Albuterol Sulfate 3 ML Q4P PRN 09/29 1100 AC 09/29 INH 1051 Amlodipine Besylate 10 MG DAILY 09/29 0900 AC 10/04 PO 0801 Aspirin 81 MG DAILY 09/29 0900 AC 10/04 PO 0800 Cephalexin 250 MG Q12 10/02 913 AC 10/04 PO 211 Clonidine 0.2 MG BID 09/29 0900 AC 10/04 PO 2118 Docusate Sodium 100 MG BID 10/02 0917 AC 10/04 PO 2118 Epoetin Pardeep 4,000 UNIT MoWeFr PRN 10/03 0745 AC IV Furosemide 80 MG DAILY 09/29 0900 AC 10/04 PO 0801 Hydralazine HCl 50 MG TID 09/28 2330 AC 10/04 PO 2118 Insulin Aspart 2 UNITS ONCE ONE 10/04 2114 DC 10/04 SC 10/05 2115 214 Insulin Aspart 0 TIDAC 09/30 0800 AC 10/05 SC 0828 Lactulose 20 GM DAILY PRN 09/28 2300 AC PO Levothyroxine Sodium 0.15 MG DAILY AC 09/29 0700 AC 10/05 PO 0511 Losartan Potassium 50 MG DAILY 09/29 0900 AC 10/04 PO 0800 Minoxidil 2.5 MG DAILY 09/29 0900 AC 10/04 PO 0801 Morphine Sulfate 1 MG ONCE ONE 10/05 0345 DC 10/05 IV 10/05 0346 0346 Morphine Sulfate 1 MG Q8P PRN 10/04 0945 AC 10/05 IV 0515 Polyethylene Glycol 17 GM DAILY 10/02 0910 AC 10/04 PO 0800 Pravastatin Sodium 10 MG 1700 09/29 1700 AC 10/04 PO 1737 Senna 187 MG AT BEDTIME 10/02 2100 AC 10/04 PO 2120 Sevelamer Carbonate 1,600 MG TIDAC 10/02 1200 AC 10/05 PO 0829 Tamsulosin HCl 0.4 MG DAILY 09/29 0900 AC 10/04 PO 0800 Results Pertinent Lab Results: Laboratory Tests 10/05 10/05 0748 0700 Chemistry Sodium (137 - 145 mmol/L) 135 L Pending Potassium (3.5 - 5.1 mmol/L) 4.7 Pending Chloride (98 - 107 mmol/L) 96 L Pending Carbon Dioxide (22 - 30 mmol/L) 26 Pending Anion Gap (5 - 16) 13 Pending BUN (9 - 20 mg/dL) 45 H Pending Creatinine (0.7 - 1.2 mg/dL) 7.4 *H Pending Estimated GFR (>60 ml/min) 7 L BUN/Creatinine Ratio (7 - 25 %) 6.1 L Pending Glucose (65 - 99 mg/dL) 215 H Calcium (8.4 - 10.2 mg/dL) 8.2 L Phosphorus (2.5 - 4.5 mg/dL) 4.7 H Hematology CBC w Diff NO MAN DIFF REQ NO MAN DIFF REQ WBC (4.8 - 10.8 /CUMM) 8.8 11.3 H RBC (4.70 - 6.10 /CUMM) 2.57 L 2.98 L Hgb (14.0 - 18.0 G/DL) 8.0 L 9.2 L Hct (42 - 52 %) 23.6 L 27.8 L MCV (80.0 - 94.0 FL) 92.1 93.4 MCH (27.0 - 31.0 PG) 31.2 H 30.9 MCHC (33.0 - 37.0 G/DL) 33.9 33.1 RDW (11.5 - 14.5 %) 13.7 14.2 Plt Count (130 - 400 /CUMM) 302 355 MPV (7.4 - 10.4 FL) 7.7 7.7 Gran % (42.2 - 75.2 %) 73.1 73.3 Lymphocytes % (20.5 - 51.1 %) 14.0 L 15.2 L Monocytes % (1.7 - 9.3 %) 8.4 6.8 Eosinophils % (0 - 5 %) 3.8 4.1 Basophils % (0.0 - 2.0 %) 0.7 0.6 Absolute Granulocytes (1.4 - 6.5 /CUMM) 6.4 8.3 H Absolute Lymphocytes (1.2 - 3.4 /CUMM) 1.2 1.7 Absolute Monocytes (0.10 - 0.60 /CUMM) 0.7 H 0.8 H Absolute Eosinophils (0.0 - 0.7 /CUMM) 0.3 0.5 Absolute Basophils (0.0 - 0.2 /CUMM) 0.1 0.1 10/04 10/03 10/03 0722 1540 0918 Chemistry Sodium (137 - 145 mmol/L) 137 Potassium (3.5 - 5.1 mmol/L) 4.8 Chloride (98 - 107 mmol/L) 95 L Carbon Dioxide (22 - 30 mmol/L) 27 Anion Gap (5 - 16) 14 BUN (9 - 20 mg/dL) 32 H Creatinine (0.7 - 1.2 mg/dL) 5.5 *H Estimated GFR (>60 ml/min) 10 L BUN/Creatinine Ratio (7 - 25 %) 5.8 L Coagulation PT Cancelled INR Cancelled APTT (25 - 37 SEC) 34 Hematology CBC w Diff NO MAN DIFF REQ WBC (4.8 - 10.8 /CUMM) 8.6 RBC (4.70 - 6.10 /CUMM) 2.74 L Hgb (14.0 - 18.0 G/DL) 8.6 L Hct (42 - 52 %) 25.3 L MCV (80.0 - 94.0 FL) 92.2 MCH (27.0 - 31.0 PG) 31.4 H MCHC (33.0 - 37.0 G/DL) 34.1 RDW (11.5 - 14.5 %) 14.1 Plt Count (130 - 400 /CUMM) 266 MPV (7.4 - 10.4 FL) 7.6 Gran % (42.2 - 75.2 %) 76.3 H Lymphocytes % (20.5 - 51.1 %) 11.3 L Monocytes % (1.7 - 9.3 %) 9.2 Eosinophils % (0 - 5 %) 2.6 Basophils % (0.0 - 2.0 %) 0.6 Absolute Granulocytes (1.4 - 6.5 /CUMM) 6.6 H Absolute Lymphocytes (1.2 - 3.4 /CUMM) 1.0 L Absolute Monocytes (0.10 - 0.60 /CUMM) 0.8 H Absolute Eosinophils (0.0 - 0.7 /CUMM) 0.2 Absolute Basophils (0.0 - 0.2 /CUMM) 0.1 10/03 10/03 0830 0600 Chemistry Sodium (137 - 145 mmol/L) 136 L Cancelled Potassium (3.5 - 5.1 mmol/L) 5.2 H Cancelled Chloride (98 - 107 mmol/L) 93 L Cancelled Carbon Dioxide (22 - 30 mmol/L) 27 Cancelled Anion Gap (5 - 16) 15 Cancelled BUN (9 - 20 mg/dL) 54 H Cancelled Creatinine (0.7 - 1.2 mg/dL) 7.8 *H Cancelled Estimated GFR (>60 ml/min) 7 L BUN/Creatinine Ratio (7 - 25 %) 6.9 L Cancelled Glucose (65 - 99 mg/dL) 291 H Calcium (8.4 - 10.2 mg/dL) 8.2 L Phosphorus (2.5 - 4.5 mg/dL) 6.0 H Magnesium (1.6 - 2.3 mg/dL) 2.0 Albumin (3.5 - 5.0 g/dL) 3.6 Hematology CBC w Diff NO MAN DIFF REQ Cancelled WBC (4.8 - 10.8 /CUMM) 9.1 Cancelled RBC (4.70 - 6.10 /CUMM) 2.85 L Cancelled Hgb (14.0 - 18.0 G/DL) 8.7 L Cancelled Hct (42 - 52 %) 26.3 L Cancelled MCV (80.0 - 94.0 FL) 92.1 Cancelled MCH (27.0 - 31.0 PG) 30.5 Cancelled MCHC (33.0 - 37.0 G/DL) 33.1 Cancelled RDW (11.5 - 14.5 %) 13.9 Cancelled Plt Count (130 - 400 /CUMM) 299 Cancelled MPV (7.4 - 10.4 FL) 8.0 Cancelled Gran % (42.2 - 75.2 %) 80.0 H Lymphocytes % (20.5 - 51.1 %) 10.8 L Monocytes % (1.7 - 9.3 %) 6.6 Eosinophils % (0 - 5 %) 2.0 Basophils % (0.0 - 2.0 %) 0.6 Absolute Granulocytes (1.4 - 6.5 /CUMM) 7.3 H Absolute Lymphocytes (1.2 - 3.4 /CUMM) 1.0 L Absolute Monocytes (0.10 - 0.60 /CUMM) 0.6 Absolute Eosinophils (0.0 - 0.7 /CUMM) 0.2 Absolute Basophils (0.0 - 0.2 /CUMM) 0.1
--- NOTE | 2017-10-05 12:10 | PN- Cardiology ---
Subjective Subjective: Patient seen during dialysis. Still complaining of penile pain. Denies shortness of breath today. Objective Vital Signs and I&Os Vital Signs Date Time Temp Pulse Resp B/P B/P Pulse O2 O2 Flow FiO2 Mean Ox Delivery Rate 10/05 0800 92 Nasal 2.0L Cannula 10/05 0700 98.5 86 18 146/54 91 10/05 0000 94 Nasal 1.0L Cannula 10/04 2204 98.5 85 18 140/50 93 Nasal 1.0L Cannula 10/04 2119 85 140/50 10/04 2119 85 140/50 10/04 1600 94 Nasal 1.0L Cannula 10/04 1416 98.2 84 18 140/62 93 Nasal 1.0L Cannula 10/04 1401 140/62 Intake & Output 10/05 1600 10/05 0800 10/05 0000 10/04 1600 10/04 0800 10/04 0000 Intake Total 240 640 700 260 200 Output Total 100 45 375 30 45 Balance 140 595 325 230 155 Intake, IV 110 100 260 Intake, Oral 240 500 600 200 Intake, Other 30 Number 0 Bowel Movements Output, 10 Emesis Output, Urine 100 45 375 30 35 Patient 164 lb 162 lb Weight Weight Bed scale Bed scale Measurement Method Physical Exam: General: no apparent distress. Alert. Eyes: No obvious scleral icterus. HEENT: No abnormal jugular venous pulsations. Cardiovascular: Normal intensity S1/S2. Regular Respiratory: Decreased air entry bilaterally Abdomen: no guarding or rebound tenderness. Musculoskeletal: No clubbing or cyanosis noted; no edema Skin: Warm Neurologic: No gross focal deficits noted. Current Medications: Current Medications Sig/Hernandez Start time Last Medication Dose Route Stop Time Status Admin Acetaminophen 1,000 MG .STK-MED ONE 10/04 1946 DC IV 10/05 1947 Acetaminophen 1,000 MG Q6P PRN 10/03 2114 DC 10/05 N/A 1 UNIT IV 07 Acetaminophen 650 MG Q6P PRN 09/28 2100 AC 10/03 PO 204 Albuterol Sulfate 3 ML Q4P PRN 09/29 1100 AC 09/29 INH 1051 Amlodipine Besylate 10 MG DAILY 09/29 0900 AC 10/04 PO 0801 Aspirin 81 MG DAILY 09/29 0900 AC 10/04 PO 0800 Cephalexin 250 MG Q12 10/02 913 AC 10/04 PO 211 Clonidine 0.2 MG BID 09/29 0900 AC 10/04 PO 2118 Docusate Sodium 100 MG BID 10/02 0917 AC 10/04 PO 2118 Epoetin Pardeep 4,000 UNIT MoWeFr PRN 10/03 0745 AC IV Furosemide 80 MG DAILY 09/29 0900 AC 10/04 PO 0801 Hydralazine HCl 50 MG TID 09/28 2330 AC 10/04 PO 2118 Insulin Aspart 2 UNITS ONCE ONE 10/04 2114 DC 10/04 SC 10/05 2115 214 Insulin Aspart 0 TIDAC 09/30 0800 AC 10/05 SC 0828 Lactulose 20 GM DAILY PRN 09/28 2300 AC PO Levothyroxine Sodium 0.15 MG DAILY AC 09/29 0700 AC 10/05 PO 0511 Losartan Potassium 50 MG DAILY 09/29 0900 AC 10/04 PO 0800 Minoxidil 2.5 MG DAILY 09/29 0900 AC 10/04 PO 0801 Morphine Sulfate 1 MG ONCE ONE 10/05 0345 DC 10/05 IV 10/05 0346 0346 Morphine Sulfate 1 MG Q8P PRN 10/04 0945 AC 10/05 IV 1105 Polyethylene Glycol 17 GM DAILY 10/02 0910 AC 10/04 PO 0800 Pravastatin Sodium 10 MG 1700 09/29 1700 AC 10/04 PO 1737 Senna 187 MG AT BEDTIME 10/02 2100 AC 10/04 PO 2120 Sevelamer Carbonate 1,600 MG TIDAC 10/02 1200 AC 10/05 PO 0829 Tamsulosin HCl 0.4 MG DAILY 09/29 0900 AC 10/04 PO 0800 Results Last 48 Hrs of Labs/Mics: Laboratory Tests 10/05/17 0748: Anion Gap 13, Estimated GFR 7 L, BUN/Creatinine Ratio 6.1 L, Glucose 215 H, Calcium 8.2 L, Phosphorus 4.7 H, CBC w Diff NO MAN DIFF REQ, RBC 2.57 L, MCV 92.1, MCH 31.2 H, MCHC 33.9, RDW 13.7, MPV 7.7, Gran % 73.1, Lymphocytes % 14.0 L, Monocytes % 8.4, Eosinophils % 3.8, Basophils % 0.7, Absolute Granulocytes 6.4, Absolute Lymphocytes 1.2, Absolute Monocytes 0.7 H, Absolute Eosinophils 0.3, Absolute Basophils 0.1 10/05/17 0700: Anion Gap 19 H, Estimated GFR 8 L, BUN/Creatinine Ratio 6.2 L, CBC w Diff NO MAN DIFF REQ, RBC 2.98 L, MCV 93.4, MCH 30.9, MCHC 33.1, RDW 14.2, MPV 7.7, Gran % 73.3, Lymphocytes % 15.2 L, Monocytes % 6.8, Eosinophils % 4.1, Basophils % 0.6, Absolute Granulocytes 8.3 H, Absolute Lymphocytes 1.7, Absolute Monocytes 0.8 H, Absolute Eosinophils 0.5, Absolute Basophils 0.1 10/04/17 0722: Anion Gap 14, Estimated GFR 10 L, BUN/Creatinine Ratio 5.8 L, CBC w Diff NO MAN DIFF REQ, RBC 2.74 L, MCV 92.2, MCH 31.4 H, MCHC 34.1, RDW 14.1, MPV 7.6, Gran % 76.3 H, Lymphocytes % 11.3 L, Monocytes % 9.2, Eosinophils % 2.6, Basophils % 0.6, Absolute Granulocytes 6.6 H, Absolute Lymphocytes 1.0 L, Absolute Monocytes 0.8 H, Absolute Eosinophils 0.2, Absolute Basophils 0.1 10/03/17 1540: APTT 34 Recent Imaging Studies: CT: 1. Moderate size bilateral pleural effusions. Associated bibasilar volume loss and consolidation noted. 2. Patchy groundglass opacities seen in both lungs. Findings are nonspecific and may in part be related to motion artifact or possibly due to subtle pulmonary edema or diffuse pneumonitis. Clinical correlation is requested. 3. Moderate atherosclerotic vascular disease and aortic valvular calcifications. Assessment/Plan Assessment/Plan 1. End-stage renal disease on dialysis 2. Acute on chronic diastolic CHF with pleural effusions EF 55% 3. History of mild aortic stenosis 4. Chronic sleep apnea on CPAP 5. Moderate pulmonary hypertension 6. History of hypertension 7. Obstructive uropathy status post stent placement CT scan confirmed my suspicion that the patient still has significant bilateral pleural effusions but unless he has significant shortness of breath I think it is reasonable to continue fluid removal with dialysis and hold off on therapeutic thoracocentesis. Josué Trevino MD [facility] Continue telemetry? Not applicable
[2017-10-05 12:23] VITALS: BP 146/56
[2017-10-05 14:44] VITALS: BP 138/60
[2017-10-05 22:04] VITALS: BP 130/60
[2017-10-06 07:04] VITALS: BP 126/57
[2017-10-06 08:14] LABS: ABSOLUTE BASOPHIL COUNT 0.1 /CUMM (0.0-0.2); ABSOLUTE EOSINOPHIL COUNT 0.6 /CUMM (0.0-0.7); ABSOLUTE GRANULOCYTE CT 8.3 /CUMM (1.4-6.5); ABSOLUTE LYMPH COUNT 1.6 /CUMM (1.2-3.4); ABSOLUTE MONOCYTE COUNT 0.8 /CUMM (0.10-0.60); BASOPHIL % 0.6 % (0.0-2.0); EOSINOPHIL % 4.9 % (0-5); GRANULOCYTE % 73.6 % (42.2-75.2); MEAN CORPUSCULAR HGB 30.9 PG (27.0-31.0); MEAN CORPUSCULAR HGB CONC 33.6 G/DL (33.0-37.0); MEAN CORPUSCULAR VOLUME 91.9 FL (80.0-94.0); MEAN PLATELET VOLUME 7.6 FL (7.4-10.4); PLATELET COUNT 395 /CUMM (130-400); RBC DISTRIBUTION WIDTH 14.2 % (11.5-14.5); RED BLOOD CELL CT 3.05 /CUMM (4.70-6.10); WHITE BLOOD CELL COUNT 11.3 /CUMM (4.8-10.8)
--- NOTE | 2017-10-06 08:57 | PN- Housestaff ---
Mali Trevino MD,[facility] 10/06/17 0857: Subjective Follow-up For: UTI actue on chronic CHF Renal stone s/p cystoscopy Subjective: Patient visited today, was lying in bed comfortably in no acute distress, was alert and oriented. No fever or chills, no chest pain, no other events. Walked in the hallway, saturation dropped to 84%. Most likely related to effusion. Pain relatively. Controlled. Patient not stable to be discharged Review of Systems Constitutional: Reports: see HPI. Objective Last 24 Hrs of Vital Signs/I&O Vital Signs Date Time Temp Pulse Resp B/P B/P Pulse O2 O2 Flow FiO2 Mean Ox Delivery Rate 10/06 08 84 124/58 10/06 0819 84 124/58 10/06 0819 84 124/58 10/06 0818 84 124/58 10/06 0818 84 124/58 10/06 0800 94 Nasal 1.0L Cannula 10/06 0704 98.6 80 20 126/57 93 Nasal 2.0L Cannula 10/05 2204 100.5 81 20 130/60 94 Nasal 2.0L Cannula 10/05 2049 81 130/60 10/05 2050 81 130/60 10/05 1600 93 Nasal 2.0L Cannula 10/05 1444 98.4 84 20 138/60 96 Room Air Intake & Output 10/06 1600 10/06 0800 10/06 0000 Intake Total 300 Output Total 100 Balance 200 Intake, Oral 300 Output, Urine 100 Patient 161 lb Weight Weight Bed scale Measurement Method Physical Exam General Appearance: Alert, Oriented X3, Cooperative, No Acute Distress HEENT: Atraumatic, EOMI Cardiovascular: Normal S1, Normal S2 Lungs: Decreased breathing sonuds bilaterally Abdomen: Soft, improved pain Neurological: Normal Speech, Strength at 5/5 X4 Ext Extremities: No Edema Current Medications: Current Medications Sig/Hernandez Start time Last Medication Dose Route Stop Time Status Admin Acetaminophen 650 MG Q6P PRN 09/28 2100 AC 10/03 PO 2047 Albuterol Sulfate 3 ML Q4P PRN 09/29 1100 AC 09/29 INH 1051 Amlodipine Besylate 10 MG DAILY 09/29 0900 AC 10/06 PO 0819 Aspirin 81 MG DAILY 09/29 0900 AC 10/06 PO 0818 Cephalexin 250 MG Q12 10/02 0914 DC 10/05 PO 1235 Clonidine 0.2 MG BID 09/29 0900 AC 10/06 PO 0819 Docusate Sodium 100 MG BID 10/02 0917 AC 10/06 PO 0819 Epoetin Pardeep 4,000 UNIT MoWeFr PRN 10/03 0745 AC IV Furosemide 80 MG DAILY 09/29 0900 AC 10/06 PO 0819 Hydralazine HCl 50 MG TID 09/28 2330 AC 10/06 PO 0818 Insulin Aspart 0 TIDAC 09/30 0800 AC 10/06 SC 1135 Lactobacillus 1 CAP DAILY 10/05 1600 AC 10/06 Acidophilus PO 0819 Lactulose 20 GM DAILY PRN 09/28 2300 AC PO Levothyroxine Sodium 0.15 MG DAILY AC 09/29 0700 AC 10/06 PO 0640 Losartan Potassium 50 MG DAILY 09/29 0900 AC 10/06 PO 0818 Minoxidil 2.5 MG DAILY 09/29 0900 AC 10/06 PO 0819 Morphine Sulfate 1 MG Q8P PRN 10/05 2315 AC 10/06 IV 1315 Morphine Sulfate 1 MG ONCE ONE 10/05 1430 DC 10/05 IV 10/05 1431 1439 Morphine Sulfate 1 MG Q8P PRN 10/04 0945 DC 10/05 IV 1105 Oxycodone/ 1 TAB Q12P PRN 10/05 1430 AC 10/06 Acetaminophen PO 0822 Patient Medication 1 ED ONE ONE 10/05 1715 DC Teaching ED 10/05 1716 Polyethylene Glycol 17 GM DAILY 10/02 0910 AC 10/06 PO 0819 Pravastatin Sodium 10 MG 1700 09/29 1700 AC 10/05 PO 1700 Senna 187 MG AT BEDTIME 10/02 2100 AC 10/05 PO 2049 Sevelamer Carbonate 1,600 MG TIDAC 10/02 1200 AC 10/06 PO 1135 Tamsulosin HCl 0.4 MG DAILY 09/29 0900 AC 10/06 PO 0819 Last 24 Hrs of Lab/Sedrick Results Last 24 Hrs of Labs/Mics: Laboratory Tests 10/06/17 0710: Anion Gap 15, Estimated GFR 11 L, BUN/Creatinine Ratio 4.7 L, CBC w Diff NO MAN DIFF REQ, RBC 3.05 L, MCV 91.9, MCH 30.9, MCHC 33.6, RDW 14.2, MPV 7.6, Gran % 73.6, Lymphocytes % 14.1 L, Monocytes % 6.8, Eosinophils % 4.9, Basophils % 0.6, Absolute Granulocytes 8.3 H, Absolute Lymphocytes 1.6, Absolute Monocytes 0.8 H, Absolute Eosinophils 0.6, Absolute Basophils 0.1 Assessment/Plan Assessment: 67 YO M was reffered for evaluation and treatment of UTI PMH: DM, HTN, HLD, hypothyroidism, bradycardia, CHF, aortic stenosis, ESRD on hemodialysis, pancreatitis and BPH sent in from dialysis for treatment of a urinary tract infection. Patient was admitted to tele floor initially and with stablization was then transfered to floor. management for following conditions were done: Acute on chronic congestive diastolic heart failure: -Oxygen supplementation as needed to keep saturation above 92% -Trop and EKG are negative -PO lasix 80mg -Daily weight -Input and output -f/u with cardio recommendations. -Echocardiogram showed >55% EF with stage 2 diastolic heart failure. - still pleural effusion in CT scan UTI: -IV ceftriaxone day recieved 4, changed to keflex 250mg bid today day 4 -Urine cultures growing Klebsiella pneumoniae. Ureteric stone with hydronephrosis s/p cystoscopy and stent placement: -s/p day 5 -Pain medication -IV antiemetic to control nausea -Urology recommendations appreciated -Will require repeat CT in 612 weeks to look for stone. -Continue Flomax - MS 1 q8 for severe pain - added percocet q12 - hematuria clearing Hematuria: -We'll keep the Frederick's catheter to irrigate the bladder every shift with normal saline until it becomes clear - currently getting clear -We will follow CBCs. H/O ESRD on dialysis: -He is getting dialysis on Sunday. -Pleural effusion has been decreased. Chronic medical conditions: hypothyroidism, HTN, Hlp: -Continue levothyroxine -Continue losartan, hydralazine, amlodipine and clonidine -Continue Lipitor Mechanical and subcutaneous heparin Full code Problem List: 1. UTI (urinary tract infection) 2. CHF exacerbation 3. Kidney stone Pain Ratin Pain Location: Flank, penile Pain Goal: Pain 4 or less Pain Plan: Continue pRN medication Tomorrow's Labs & Rationales: CBC BEP Consulting Request: Consulting Specialty: Urology Doug ISSA,[facility] 10/06/17 1631: Attending MD Review Statement Attending Statement Attending MD Statement: examined this patient, discuss w/resident/PA/LABORATORY SUPERVISOR, agreed w/resident/PA/LABORATORY SUPERVISOR, reviewed EMR data (avail), discussed with nursing, reviewed images, amended to note Attending Assessment/Plan: Patient seen and examined, complained off some pain in the penis patient he has a Frederick. History liquid oxygen but feels comfortable on oxygen. He desatted to 80s on room air upon ambulation. Vital Signs Date Time Temp Pulse Resp B/P B/P Pulse O2 O2 Flow FiO2 Mean Ox Delivery Rate 10/06 1600 94 Nasal 1.0L Cannula 10/06 1504 98.5 77 18 124/58 94 Nasal 1.0L Cannula 10/06 1450 77 124/58 10/06 0819 84 124/58 10/06 0819 84 124/58 10/06 0819 84 124/58 10/06 0818 84 124/58 10/06 0818 84 124/58 10/06 0800 94 Nasal 1.0L Cannula 10/06 0704 98.6 80 20 126/57 93 Nasal 2.0L Cannula 10/05 2204 100.5 81 20 130/60 94 Nasal 2.0L Cannula 10/05 2049 81 130/60 10/05 2049 81 130/60 on exam; aox3, nad. cv; s1,s2, rrr resp; decreased bs at b/l bases. abd; soft, nt, bs+ ext; no edema Laboratory Tests 10/06 0710 Chemistry Sodium (137 - 145 mmol/L) 137 Potassium (3.5 - 5.1 mmol/L) 4.3 Chloride (98 - 107 mmol/L) 97 L Carbon Dioxide (22 - 30 mmol/L) 26 Anion Gap (5 - 16) 15 BUN (9 - 20 mg/dL) 25 H Creatinine (0.7 - 1.2 mg/dL) 5.3 *H Estimated GFR (>60 ml/min) 11 L BUN/Creatinine Ratio (7 - 25 %) 4.7 L Hematology CBC w Diff NO MAN DIFF REQ WBC (4.8 - 10.8 /CUMM) 11.3 H RBC (4.70 - 6.10 /CUMM) 3.05 L Hgb (14.0 - 18.0 G/DL) 9.4 L Hct (42 - 52 %) 28.0 L MCV (80.0 - 94.0 FL) 91.9 MCH (27.0 - 31.0 PG) 30.9 MCHC (33.0 - 37.0 G/DL) 33.6 RDW (11.5 - 14.5 %) 14.2 Plt Count (130 - 400 /CUMM) 395 MPV (7.4 - 10.4 FL) 7.6 Gran % (42.2 - 75.2 %) 73.6 Lymphocytes % (20.5 - 51.1 %) 14.1 L Monocytes % (1.7 - 9.3 %) 6.8 Eosinophils % (0 - 5 %) 4.9 Basophils % (0.0 - 2.0 %) 0.6 Absolute Granulocytes (1.4 - 6.5 /CUMM) 8.3 H Absolute Lymphocytes (1.2 - 3.4 /CUMM) 1.6 Absolute Monocytes (0.10 - 0.60 /CUMM) 0.8 H Absolute Eosinophils (0.0 - 0.7 /CUMM) 0.6 Absolute Basophils (0.0 - 0.2 /CUMM) 0.1 A/P; 67 y/o m with pmh sig for DM, HTN, HLD, hypothyroidism, bradycardia, CHF, aortic stenosis, ESRD on hemodialysis, pancreatitis and BPH originally admitted with acute CHF, acute respiratory failure and UTI. Status post 7 day treatment with antibiotics. Also status post cystoscopy and stent placement for nephrolithiasis. Urologist had recommended to discontinue the Frederick once urine is clear. Today patient's urine was clear therefore we will discontinue his Frederick catheter. Patient to remain on Lasix. Cardiology recommending continued diuresis with Lasix as well as hemodialysis. We'll try to taper his oxygen. Patient was encouraged to ambulate. Continue the rest of his medications. If he continues to do well he will be able to get discharged possibly tomorrow.
[2017-10-06 15:04] VITALS: BP 124/58
[2017-10-06 23:43] VITALS: BP 137/60
[2017-10-07 03:24] LABS: ABSOLUTE BASOPHIL COUNT 0.1 /CUMM (0.0-0.2); ABSOLUTE EOSINOPHIL COUNT 0.5 /CUMM (0.0-0.7); ABSOLUTE GRANULOCYTE CT 7.3 /CUMM (1.4-6.5); ABSOLUTE LYMPH COUNT 1.9 /CUMM (1.2-3.4); ABSOLUTE MONOCYTE COUNT 0.7 /CUMM (0.10-0.60); BASOPHIL % 0.6 % (0.0-2.0); EOSINOPHIL % 4.8 % (0-5); GRANULOCYTE % 69.7 % (42.2-75.2); HEMATOCRIT 24.4 % (42-52); MEAN CORPUSCULAR HGB 30.9 PG (27.0-31.0); MEAN CORPUSCULAR HGB CONC 33.8 G/DL (33.0-37.0); MEAN CORPUSCULAR VOLUME 91.6 FL (80.0-94.0); MEAN PLATELET VOLUME 7.3 FL (7.4-10.4); PLATELET COUNT 341 /CUMM (130-400); RBC DISTRIBUTION WIDTH 13.7 % (11.5-14.5); RED BLOOD CELL CT 2.66 /CUMM (4.70-6.10); WHITE BLOOD CELL COUNT 10.4 /CUMM (4.8-10.8)
--- NOTE | 2017-10-07 03:59 | RADIOLOGY REPORT ---
EXAMINATION: XR PORTABLE CHEST CLINICAL INFORMATION: Angina, rule out fluid overload COMPARISON: 10/04/2017 TECHNIQUE: Portable frontal view of the chest was obtained. FINDINGS: Lung volumes are symmetric. There are bilateral perihilar and bibasilar opacities in association with small pleural effusions and interstitial prominence, favoring mild to moderate pulmonary edema. No evidence of pneumothorax. The cardiac silhouette remains prominent. No acute osseous findings are seen. IMPRESSION: Findings compatible with mild to moderate pulmonary edema and small pleural effusions.
[2017-10-07 07:29] VITALS: BP 131/60
--- NOTE | 2017-10-07 07:32 | PN- Housestaff ---
Mali Trevino MD,[facility] 10/07/17 0732: Subjective Follow-up For: UTI actue on chronic CHF Renal stone s/p cystoscopy Subjective: Patient visited today, was lying in bed comfortably in no acute distress, was alert and oriented. No fever or chills, no chest pain, had chest pain last night, acs rule out Walked in the hallway,again saturation dropped to 85%. Most likely related to effusion. Pain relatively. Controlled. Patient not stable to be discharged Review of Systems Constitutional: Reports: see HPI. Objective Last 24 Hrs of Vital Signs/I&O Vital Signs Date Time Temp Pulse Resp B/P B/P Pulse O2 O2 Flow FiO2 Mean Ox Delivery Rate 10/07 0856 73 131/60 10/07 0856 73 131/60 10/07 0856 73 131/60 10/07 0856 73 131/60 10/07 0800 94 Nasal 1.0L Cannula 10/07 0729 98.6 73 20 131/60 96 Nasal 1.0L Cannula 10/07 0000 96 Nasal 1.0L Cannula 10/06 2343 99.7 83 20 137/60 95 Room Air 10/06 2038 83 130/58 10/06 1600 94 Nasal 1.0L Cannula 10/06 1504 98.5 77 18 124/58 94 Nasal 1.0L Cannula 10/06 1450 77 124/58 Intake & Output 10/07 1600 10/07 0800 10/07 0000 Intake Total 240 240 Output Total 50 100 Balance 190 140 Intake, Oral 240 240 Output, Urine 50 100 Patient 134 lb Weight Weight Bed scale Measurement Method Physical Exam General Appearance: Alert, Oriented X3, Cooperative, No Acute Distress Skin Temp/Moisture Exam: Warm/Dry Sepsis Skin Exam (color): Normal for Ethnicity HEENT: Atraumatic, EOMI Cardiovascular: Normal S1, Normal S2 Lungs: decreased breathing sounds bilaterally Abdomen: Soft, No Tenderness, improved pain and tenderness Neurological: Normal Speech Current Medications: Current Medications Sig/Hernandez Start time Last Medication Dose Route Stop Time Status Admin Acetaminophen 650 MG Q6P PRN 09/28 2100 AC 10/03 PO 204 Albuterol Sulfate 3 ML Q4P PRN 09/29 1100 AC 09/29 INH 1051 Amlodipine Besylate 10 MG DAILY 09/29 0900 AC 10/07 PO 0856 Aspirin 81 MG ONCE ONE 10/07 0315 DC 10/07 PO 10/07 0316 0312 Aspirin 81 MG DAILY 09/29 09 AC 10/07 PO 0856 Clonidine 0.2 MG BID 09/29 09 AC 10/07 PO 0856 Docusate Sodium 100 MG BID 10/02 0917 AC 10/07 PO 0856 Epoetin Pardeep 4,000 UNIT MoWeFr PRN 10/03 0745 AC IV Furosemide 80 MG DAILY 09/29 09 AC 10/07 PO 0856 Hydralazine HCl 50 MG TID 09/28 2330 AC 10/07 PO 0856 Insulin Aspart 0 TIDAC 09/30 0800 AC 10/07 SC 1211 Lactobacillus 1 CAP DAILY 10/05 1600 AC 10/07 Acidophilus PO 0856 Lactulose 20 GM DAILY PRN 09/28 2300 AC PO Levothyroxine Sodium 0.15 MG DAILY AC 09/29 0700 AC 10/07 PO 0539 Losartan Potassium 50 MG DAILY 09/29 09 AC 10/07 PO 0856 Minoxidil 2.5 MG DAILY 09/29 09 AC 10/07 PO 0856 Morphine Sulfate 1 MG Q8P PRN 10/05 2315 DC 10/07 IV 0240 Nitroglycerin 0.4 MG Q 5 MINUTES X 3 DO.. 10/07 0315 AC 10/07 SL 0318 Oxycodone/ 1 TAB Q6-PRN PRN 10/07 1000 AC Acetaminophen PO Oxycodone/ 1 TAB Q12P PRN 10/05 1430 DC 10/07 Acetaminophen PO 0751 Polyethylene Glycol 17 GM DAILY 10/02 0910 10/07 PO 0856 Pravastatin Sodium 10 MG 1700 09/29 1700 AC 10/06 PO 1647 Senna 187 MG AT BEDTIME 10/02 2100 AC 10/06 PO 2039 Sevelamer Carbonate 1,600 MG TIDAC 10/02 1200 AC 10/07 PO 1211 Tamsulosin HCl 0.4 MG DAILY 09/29 0900 AC 10/07 PO 0856 Last 24 Hrs of Lab/Sedrick Results Last 24 Hrs of Labs/Mics: Laboratory Tests 10/07/17 030: Troponin I 0.03 10/07/17307: Anion Gap 15, Estimated GFR 8 L, BUN/Creatinine Ratio 5.4 L, CBC w Diff NO MAN DIFF REQ, RBC 2.66 L, MCV 91.6, MCH 30.9, MCHC 33.8, RDW 13.7, MPV 7.3 L, Gran % 69.7, Lymphocytes % 17.9 L, Monocytes % 7.0, Eosinophils % 4.8, Basophils % 0.6, Absolute Granulocytes 7.3 H, Absolute Lymphocytes 1.9, Absolute Monocytes 0.7 H, Absolute Eosinophils 0.5, Absolute Basophils 0.1 Assessment/Plan Assessment: 67 YO M was reffered for evaluation and treatment of UTI PMH: DM, HTN, HLD, hypothyroidism, bradycardia, CHF, aortic stenosis, ESRD on hemodialysis, pancreatitis and BPH sent in from dialysis for treatment of a urinary tract infection. Patient was admitted to tele floor initially and with stablization was then transfered to floor. management for following conditions were done: Acute on chronic congestive diastolic heart failure: -Oxygen supplementation as needed to keep saturation above 92% -Trop and EKG are negative -PO lasix 80mg -Daily weight -Input and output -f/u with cardio recommendations. -Echocardiogram showed >55% EF with stage 2 diastolic heart failure. - still pleural effusion in CT scan UTI: -IV ceftriaxone day recieved 4, changed to keflex 250mg bid today day 4 -Urine cultures growing Klebsiella pneumoniae. Ureteric stone with hydronephrosis s/p cystoscopy and stent placement: -s/p day 5 -Pain medication -IV antiemetic to control nausea -Urology recommendations appreciated -Will require repeat CT in 612 weeks to look for stone. -Continue Flomax - MS 1 q8 for severe pain - added percocet q12 - nicholas removed Hematuria: -We'll keep the Nicholas's catheter to irrigate the bladder every shift with normal saline until it becomes clear - currently getting clear -We will follow CBCs. H/O ESRD on dialysis: -He is getting dialysis on Sunday. -Pleural effusion has been decreased. Chronic medical conditions: hypothyroidism, HTN, Hlp: -Continue levothyroxine -Continue losartan, hydralazine, amlodipine and clonidine -Continue Lipitor Mechanical and subcutaneous heparin Full code Problem List: 1. UTI (urinary tract infection) 2. CHF exacerbation 3. Kidney stone Pain Ratin Pain Location: None Pain Goal: Pain 4 or less Pain Plan: Continue current plan Tomorrow's Labs & Rationales: CBC BEP Consulting Request: Consulting Specialty: Urology Doug ISSA,[facility] 10/07/17 1336: Attending MD Review Statement Attending Statement Attending MD Statement: examined this patient, discuss w/resident/PA/PUBLIC HEALTH TRAINING ASSISTANT, agreed w/resident/PA/PUBLIC HEALTH TRAINING ASSISTANT, reviewed EMR data (avail), discussed with nursing, discussed with case mgmt, reviewed images, amended to note Attending Assessment/Plan: Patient seen and examined, did complain of feeling some shortness of breath. He still drops his O2 sats. Chest x-ray this morning continues to show pulmonary edema as well as pleural effusions.\ Vital Signs Date Time Temp Pulse Resp B/P B/P Pulse O2 O2 Flow FiO2 Mean Ox Delivery Rate 10/07 0856 73 131/60 10/07 0856 73 131/60 10/07 0856 73 131/60 10/07 0856 73 131/60 10/07 0800 94 Nasal 1.0L Cannula 10/07 0729 98.6 73 20 131/60 96 Nasal 1.0L Cannula 10/07 0000 96 Nasal 1.0L Cannula 10/06 2343 99.7 83 20 137/60 95 Room Air 10/06 2038 83 130/58 10/06 1600 94 Nasal 1.0L Cannula 10/06 1504 98.5 77 18 124/58 94 Nasal 1.0L Cannula 10/06 1450 77 124/58 on exam; aox3, nad. cv; s1,s2, rrr resp; decreased bs at b/l bases. abd; soft, nt, bs+ ext; no edema. Laboratory Tests 10/07 10/07 0308 0308 Chemistry Sodium (137 - 145 mmol/L) 137 Potassium (3.5 - 5.1 mmol/L) 4.6 Chloride (98 - 107 mmol/L) 96 L Carbon Dioxide (22 - 30 mmol/L) 26 Anion Gap (5 - 16) 15 BUN (9 - 20 mg/dL) 37 H Creatinine (0.7 - 1.2 mg/dL) 6.8 *H Estimated GFR (>60 ml/min) 8 L BUN/Creatinine Ratio (7 - 25 %) 5.4 L Troponin I (<0.11 ng/ml) 0.03 Hematology CBC w Diff NO MAN DIFF REQ WBC (4.8 - 10.8 /CUMM) 10.4 RBC (4.70 - 6.10 /CUMM) 2.66 L Hgb (14.0 - 18.0 G/DL) 8.2 L Hct (42 - 52 %) 24.4 L MCV (80.0 - 94.0 FL) 91.6 MCH (27.0 - 31.0 PG) 30.9 MCHC (33.0 - 37.0 G/DL) 33.8 RDW (11.5 - 14.5 %) 13.7 Plt Count (130 - 400 /CUMM) 341 MPV (7.4 - 10.4 FL) 7.3 L Gran % (42.2 - 75.2 %) 69.7 Lymphocytes % (20.5 - 51.1 %) 17.9 L Monocytes % (1.7 - 9.3 %) 7.0 Eosinophils % (0 - 5 %) 4.8 Basophils % (0.0 - 2.0 %) 0.6 Absolute Granulocytes (1.4 - 6.5 /CUMM) 7.3 H Absolute Lymphocytes (1.2 - 3.4 /CUMM) 1.9 Absolute Monocytes (0.10 - 0.60 /CUMM) 0.7 H Absolute Eosinophils (0.0 - 0.7 /CUMM) 0.5 Absolute Basophils (0.0 - 0.2 /CUMM) 0.1 A/P; 67 y/o m with pmh sig for DM, HTN, HLD, hypothyroidism, bradycardia, CHF, aortic stenosis, ESRD on hemodialysis, pancreatitis and BPH originally admitted with acute CHF, acute respiratory failure and UTI. Status post 7 day treatment with antibiotics. Also status post cystoscopy and stent placement for nephrolithiasis. Nicholas was discontinued yesterday. Patient urinating. Urine is mostly clear. Chest x-ray continued to show pulmonary edema and pleural effusions. Discussed with nephrology, be given next her dose of IV Lasix today. I ordered Lasix as recommended by nephrology. Continue all other current medications. We'll continue to taper his oxygen. Patient due for hemodialysis tomorrow. DVT px; ALPS.
[2017-10-07 14:50] VITALS: BP 122/52
[2017-10-07 22:08] VITALS: BP 130/60
[2017-10-08 05:58] VITALS: BP 154/60
[2017-10-08 07:57] LABS: ABSOLUTE BASOPHIL COUNT 0.1 /CUMM (0.0-0.2); ABSOLUTE EOSINOPHIL COUNT 0.5 /CUMM (0.0-0.7); ABSOLUTE GRANULOCYTE CT 6.3 /CUMM (1.4-6.5); ABSOLUTE LYMPH COUNT 1.4 /CUMM (1.2-3.4); ABSOLUTE MONOCYTE COUNT 0.6 /CUMM (0.10-0.60); BASOPHIL % 0.6 % (0.0-2.0); EOSINOPHIL % 5.4 % (0-5); GRANULOCYTE % 71.2 % (42.2-75.2); HEMATOCRIT 25.1 % (42-52); MEAN CORPUSCULAR HGB 30.6 PG (27.0-31.0); MEAN CORPUSCULAR HGB CONC 33.6 G/DL (33.0-37.0); PLATELET COUNT 342 /CUMM (130-400); RBC DISTRIBUTION WIDTH 13.7 % (11.5-14.5); RED BLOOD CELL CT 2.76 /CUMM (4.70-6.10); WHITE BLOOD CELL COUNT 8.9 /CUMM (4.8-10.8)
--- NOTE | 2017-10-08 08:14 | PN- Housestaff ---
Subjective Follow-up For: UTI actue on chronic CHF Renal stone s/p cystoscopy Subjective: Patient visited today, uzbek speaking chago, was lying in bed comfortably in no acute distress, was alert and oriented. Had hemodialysis today. saturating well on 1 L. No fever or chills, no chest pain, no other events. Planned to discharge today. Review of Systems Constitutional: Reports: see HPI. Objective Last 24 Hrs of Vital Signs/I&O Vital Signs Date Time Temp Pulse Resp B/P B/P Pulse O2 O2 Flow FiO2 Mean Ox Delivery Rate 10/08 1214 94 18 174/58 96 Nasal 1.0L Cannula 10/08 1208 94 174/58 10/08 1206 94 174/58 10/08 1206 94 174/58 10/08 1205 94 174/58 10/08 1205 94 174/58 10/08 0800 94 Nasal 1.0L Cannula 10/08 0558 98.3 81 20 154/60 94 10/08 0000 93 Nasal 1.0L Cannula 10/07 2208 98.0 80 20 130/60 93 Nasal 1.0L Cannula 10/07 2102 80 130/60 10/07 2102 80 130/60 10/07 1600 Nasal 1.0L Cannula 10/07 1450 98.2 69 20 122/52 95 Nasal 1.0L Cannula Intake & Output 10/08 1600 10/08 0800 10/08 0000 Intake Total 240 Output Total 75 Balance 240 -75 Intake, Oral 240 Output, Urine 75 Patient 155 lb 155 lb Weight Weight Bed scale Bed scale Measurement Method Physical Exam General Appearance: Alert, Oriented X3, Cooperative, No Acute Distress HEENT: Atraumatic, EOMI Cardiovascular: Normal S1, Normal S2 Lungs: Clear to Auscultation, Normal Air Movement, improved breathing sounds Abdomen: Soft, No Tenderness Neurological: Normal Speech Extremities: No Edema Current Medications: Current Medications Sig/Hernandez Start time Last Medication Dose Route Stop Time Status Admin Acetaminophen 650 MG Q6P PRN 09/28 2100 AC 10/03 PO 2046 Albuterol Sulfate 3 ML Q4P PRN 09/29 1100 AC 09/29 INH 1051 Amlodipine Besylate 10 MG DAILY 09/29 09 AC 10/08 PO 1208 Aspirin 81 MG DAILY 09/29 09 AC 10/08 PO 1205 Clonidine 0.2 MG BID 09/29 899 AC 10/08 PO 1205 Docusate Sodium 100 MG BID 10/02 0917 AC 10/08 PO 1205 Epoetin Pardeep 4,000 UNIT MoWeFr PRN 10/03 0745 AC IV Furosemide 80 MG DAILY 09/29 0900 AC 10/08 PO 1206 Hydralazine HCl 50 MG TID 09/28 2330 AC 10/08 PO 1205 Insulin Aspart 0 TIDAC 09/30 0800 AC 10/08 SC 1208 Lactobacillus 1 CAP DAILY 10/05 1600 AC 10/08 Acidophilus PO 1207 Lactulose 20 GM DAILY PRN 09/28 2300 AC PO Levothyroxine Sodium 0.15 MG DAILY AC 09/29 0700 AC 10/08 PO 0534 Losartan Potassium 50 MG DAILY 09/29 0900 AC 10/08 PO 1206 Minoxidil 2.5 MG DAILY 09/29 0900 AC 10/08 PO 1207 Nitroglycerin 0.4 MG Q 5 MINUTES X 3 DO.. 10/07 0315 AC 10/07 SL 0318 Oxycodone/ 1 TAB Q6-PRN PRN 10/07 1000 AC 10/08 Acetaminophen PO 1201 Polyethylene Glycol 17 GM DAILY 10/02 0910 AC 10/08 PO 1208 Pravastatin Sodium 10 MG 1700 09/29 1700 AC 10/07 PO 1653 Senna 187 MG AT BEDTIME 10/02 2100 AC 10/07 PO 2102 Sevelamer Carbonate 1,600 MG TIDAC 10/02 1200 AC 10/08 PO 1208 Tamsulosin HCl 0.4 MG DAILY 09/29 0900 AC 10/08 PO 1206 Last 24 Hrs of Lab/Sedrick Results Last 24 Hrs of Labs/Mics: Laboratory Tests 10/08/17721: Anion Gap 17 H, Estimated GFR 6 L, BUN/Creatinine Ratio 5.5 L, CBC w Diff NO MAN DIFF REQ, RBC 2.79 L, MCV 92.2, MCH 31.0, MCHC 33.6, RDW 13.9, MPV 7.6, Gran % 71.1, Lymphocytes % 16.0 L, Monocytes % 6.8, Eosinophils % 5.4 H, Basophils % 0.7, Absolute Granulocytes 6.6 H, Absolute Lymphocytes 1.5, Absolute Monocytes 0.6, Absolute Eosinophils 0.5, Absolute Basophils 0.1 10/08/17 0645: Anion Gap 14, Estimated GFR 6 L, BUN/Creatinine Ratio 5.9 L, Calcium 8.3 L, CBC w Diff NO MAN DIFF REQ, RBC 2.76 L, MCV 91.0, MCH 30.6, MCHC 33.6, RDW 13.7 , MPV 7.0 L, Gran % 71.2, Lymphocytes % 15.8 L, Monocytes % 7.0, Eosinophils % 5.4 H, Basophils % 0.6, Absolute Granulocytes 6.3, Absolute Lymphocytes 1.4, Absolute Monocytes 0.6, Absolute Eosinophils 0.5, Absolute Basophils 0.1, Hep Bs Antigen NONREACTIVE, Hep Bs Antibody REACTIVE Assessment/Plan Assessment: 67 YO M was reffered for evaluation and treatment of UTI PMH: DM, HTN, HLD, hypothyroidism, bradycardia, CHF, aortic stenosis, ESRD on hemodialysis, pancreatitis and BPH sent in from dialysis for treatment of a urinary tract infection. At the time of admission patient was found to have UTI, uretral stone and acute on chronic CHF. Patient was initially admitted to [facility] floor and with stablization was then transfered to floor. management for following conditions were done: Respiratory failure due to Acute on chronic congestive diastolic heart failure: patient was found to have acute on chronic CHF, resulting in increased pleural effusion leading to respiratory failure. Oxygen supplementation was administered as needed to keep saturation above 92%. Echocardiography was done: Left ventricular cavity size normal. Left ventricular wall thickness mildly increased. No obvious regional wall motion abnormalities. Left ventricular ejection fraction is estimated at > 55 %. "Pseudonormal" filling pattern of the left ventricle for age (stage 2 diastolic dysfunction). Normal right ventricular size and function. Mild left atrial dilatation. Mild aortic stenosis. Minimal pericardial effusion. Left pleural effusion. Moderate tricuspid regurgitation. Moderate pulmonary hypertension. Lasix was administered and negative balance of fluid was applied during hemodialysis. Patient's condition improved however he still needed O2 supplement. Patient continued to need 02 supplements due to hypoxia with ambulation necessitating to provide O2 supplement while at home. UTI: Urine culture revealed Klebsiella. Patient received 4 days of IV ceftriaxone and was changed to by mouth Keflex to complete 7 day course of antibiotic. Ureteric stone with hydronephrosis s/p cystoscopy and stent placement/ Hematuria : Pain management was performed. Patient underwent urologic procedure for drainage on 09/29/17: 22 cm 6 Angolan right double-J ureteral stent with short suture and 16 Angolan Frederick catheter Frederick was remained in place until urine become clear. patient will require repeat CT in 612 weeks to look for stone. H/O ESRD on dialysis: We continued dialysis on Sunday. Chronic medical conditions: hypothyroidism, HTN, Hlp, DM We continued home medications With stablization of condition patient was discharged with instructions to follow in outpatient. Problem List: 1. UTI (urinary tract infection) 2. CHF exacerbation 3. Kidney stone Pain Ratin (Controlled) Pain Location: None Pain Goal: Pain 4 or less Pain Plan: On home medication of oxycodone Tomorrow's Labs & Rationales: None Consulting Request: Consulting Specialty: Urology Discharge Plan Discharge Disposition: home
[2017-10-08 08:49] LABS: ABSOLUTE BASOPHIL COUNT 0.1 /CUMM (0.0-0.2); ABSOLUTE EOSINOPHIL COUNT 0.5 /CUMM (0.0-0.7); ABSOLUTE GRANULOCYTE CT 6.6 /CUMM (1.4-6.5); ABSOLUTE LYMPH COUNT 1.5 /CUMM (1.2-3.4); ABSOLUTE MONOCYTE COUNT 0.6 /CUMM (0.10-0.60); BASOPHIL % 0.7 % (0.0-2.0); EOSINOPHIL % 5.4 % (0-5); GRANULOCYTE % 71.1 % (42.2-75.2); HEMATOCRIT 25.7 % (42-52); MEAN CORPUSCULAR HGB CONC 33.6 G/DL (33.0-37.0); MEAN CORPUSCULAR VOLUME 92.2 FL (80.0-94.0); MEAN PLATELET VOLUME 7.6 FL (7.4-10.4); PLATELET COUNT 373 /CUMM (130-400); RBC DISTRIBUTION WIDTH 13.9 % (11.5-14.5); RED BLOOD CELL CT 2.79 /CUMM (4.70-6.10); WHITE BLOOD CELL COUNT 9.2 /CUMM (4.8-10.8)
--- NOTE | 2017-10-08 09:26 | PN- Urology ---
Subjective Subjective: Patient at dialysis. Comfortable. Denies pain Objective Vital Signs and I&Os Vital Signs Date Time Temp Pulse Resp B/P B/P Pulse O2 O2 Flow FiO2 Mean Ox Delivery Rate 10/08 0800 94 Nasal 1.0L Cannula 10/08 0558 98.3 81 20 154/60 94 10/08 0000 93 Nasal 1.0L Cannula 10/07 2208 98.0 80 20 130/60 93 Nasal 1.0L Cannula 10/07 210 80 130/60 10/07 210 80 130/60 10/07 1600 Nasal 1.0L Cannula 10/07 1450 98.2 69 20 122/52 95 Nasal 1.0L Cannula Intake & Output 10/08 1600 10/08 0800 10/08 0000 10/07 1600 10/07 0800 10/07 0000 Intake Total 240 600 240 240 Output Total 75 150 50 100 Balance 240 -75 450 190 140 Intake, Oral 240 600 240 240 Output, Urine 75 150 50 100 Patient 155 lb 134 lb Weight Weight Bed scale Bed scale Measurement Method Abd: soft and non tender. Bladder not palpable. Frederick is out Laboratory Tests 10/08 10/08 0722 0645 Chemistry Sodium (137 - 145 mmol/L) 135 L 135 L Potassium (3.5 - 5.1 mmol/L) 4.9 4.8 Chloride (98 - 107 mmol/L) 96 L 96 L Carbon Dioxide (22 - 30 mmol/L) 22 24 Anion Gap (5 - 16) 17 H 14 BUN (9 - 20 mg/dL) 48 H 51 H Creatinine (0.7 - 1.2 mg/dL) 8.8 *H 8.6 *H Estimated GFR (>60 ml/min) 6 L 6 L BUN/Creatinine Ratio (7 - 25 %) 5.5 L 5.9 L Calcium (8.4 - 10.2 mg/dL) 8.3 L Hematology CBC w Diff NO MAN DIFF REQ NO MAN DIFF REQ WBC (4.8 - 10.8 /CUMM) 9.2 8.9 RBC (4.70 - 6.10 /CUMM) 2.79 L 2.76 L Hgb (14.0 - 18.0 G/DL) 8.6 L 8.4 L Hct (42 - 52 %) 25.7 L 25.1 L MCV (80.0 - 94.0 FL) 92.2 91.0 MCH (27.0 - 31.0 PG) 31.0 30.6 MCHC (33.0 - 37.0 G/DL) 33.6 33.6 RDW (11.5 - 14.5 %) 13.9 13.7 Plt Count (130 - 400 /CUMM) 373 342 MPV (7.4 - 10.4 FL) 7.6 7.0 L Gran % (42.2 - 75.2 %) 71.1 71.2 Lymphocytes % (20.5 - 51.1 %) 16.0 L 15.8 L Monocytes % (1.7 - 9.3 %) 6.8 7.0 Eosinophils % (0 - 5 %) 5.4 H 5.4 H Basophils % (0.0 - 2.0 %) 0.7 0.6 Absolute Granulocytes (1.4 - 6.5 /CUMM) 6.6 H 6.3 Absolute Lymphocytes (1.2 - 3.4 /CUMM) 1.5 1.4 Absolute Monocytes (0.10 - 0.60 /CUMM) 0.6 0.6 Absolute Eosinophils (0.0 - 0.7 /CUMM) 0.5 0.5 Absolute Basophils (0.0 - 0.2 /CUMM) 0.1 0.1 Serology Hep Bs Antigen (NONREACTIVE) Pending Hep Bs Antibody (NONREACTIVE) Pending Assessment/Plan Assessment/Plan Imp: 1. S/P R ureteral stent placement for 5 mm obstructing stone at R UPJ Plan: 2. Patient should f/u in my office in about 6 weeks and will likely repeat CT scan in hopes that stone has passed. He is very high risk for R ureteroscopy and laser litho with would require general anesthesia
--- NOTE | 2017-10-08 09:51 | PN- Nephrology ---
Assessment/Plan Nephrology Assessment: 1. ESRD 2. Volume overload - mild 3. Status post right ureteral stent for an obstructing stone - patient currently asymptomatic 4. UTI Suggestion: 1. Hemodialysis today in progress with 3 L ultrafiltration goal as tolerated over 3.5 hours 2. Further urologic management per Urology Subjective Subjective: Patient seen with dialysis this morning. He denies any pain, dysuria or shortness of breath. He remains afebrile with stable vital signs. Chest x-ray yesterday suggests CHF. Objective Vital Signs and I&Os Vital Signs Date Time Temp Pulse Resp B/P B/P Pulse O2 O2 Flow FiO2 Mean Ox Delivery Rate 10/08 0800 94 Nasal 1.0L Cannula 10/08 0558 98.3 81 20 154/60 94 10/08 0000 93 Nasal 1.0L Cannula 10/07 2208 98.0 80 20 130/60 93 Nasal 1.0L Cannula 10/07 2102 80 130/60 10/07 2102 80 130/60 10/07 1600 Nasal 1.0L Cannula 10/07 1450 98.2 69 20 122/52 95 Nasal 1.0L Cannula Intake & Output 10/08 1600 10/08 0400 10/07 1600 10/07 0400 10/06 1600 10/06 0400 Intake Total 240 840 240 800 300 Output Total 75 200 100 150 100 Balance 240 -75 640 140 650 200 Intake, Oral 240 840 240 800 300 Output, Urine 75 200 100 150 100 Patient 155 lb 134 lb 161 lb Weight Weight Bed scale Bed scale Bed scale Measurement Method Physical Exam: General: Well-developed white male in NAD Skin: No rash or jaundice HEENT: Conjunctivae pink, sclerae anicteric, mucous membranes moist Neck: Without masses or thyromegaly, no supraclavicular or cervical adenopathy Chest: Clear to P&A Heart: Regular rate and rhythm without S3 or rub Abdomen: Soft and nontender without palpable masses or organomegaly Extremities: Trace to 1+ dependent edema without cyanosis Neuro: Awake and alert, no focal findings, no asterixis or myoclonus Current Medications: Current Medications Sig/Hernandez Start time Last Medication Dose Route Stop Time Status Admin Acetaminophen 650 MG Q6P PRN 09/28 2100 AC 10/03 PO 7 Albuterol Sulfate 3 ML Q4P PRN 09/29 1100 AC 04/14 INH 1051 Amlodipine Besylate 10 MG DAILY 09/29 0900 AC 10/07 PO 0856 Aspirin 81 MG DAILY 09/29 0900 AC 10/07 PO 0856 Clonidine 0.2 MG BID 09/29 0900 AC 10/07 PO 2102 Docusate Sodium 100 MG BID 10/02 0917 AC 10/07 PO 2102 Epoetin Pardeep 4,000 UNIT MoWeFr PRN 10/03 0745 AC IV Furosemide 80 MG ONCE ONE 10/07 1330 DC 10/07 IV 10/07 1331 1338 Furosemide 80 MG DAILY 09/29 0900 AC 10/07 PO 0856 Hydralazine HCl 50 MG TID 09/28 2330 AC 10/07 PO 2102 Insulin Aspart 0 TIDAC 09/30 0800 AC 10/08 SC 0729 Lactobacillus 1 CAP DAILY 10/05 1600 AC 10/07 Acidophilus PO 0856 Lactulose 20 GM DAILY PRN 09/28 2300 AC PO Levothyroxine Sodium 0.15 MG DAILY AC 09/29 0700 AC 10/08 PO 0534 Losartan Potassium 50 MG DAILY 09/29 0900 AC 10/07 PO 0856 Minoxidil 2.5 MG DAILY 09/29 0900 AC 10/07 PO 0856 Nitroglycerin 0.4 MG Q 5 MINUTES X 3 DO.. 10/07 0315 AC 10/07 SL 0318 Oxycodone/ 1 TAB Q6-PRN PRN 10/07 1000 AC 10/08 Acetaminophen PO 0429 Oxycodone/ 1 TAB Q12P PRN 10/05 1430 DC 10/07 Acetaminophen PO 0751 Polyethylene Glycol 17 GM DAILY 10/02 0910 AC 10/07 PO 0856 Pravastatin Sodium 10 MG 1700 09/29 1700 AC 10/07 PO 1653 Senna 187 MG AT BEDTIME 10/02 2100 AC 10/07 PO 2102 Sevelamer Carbonate 1,600 MG TIDAC 10/02 1200 AC 10/08 PO 0730 Tamsulosin HCl 0.4 MG DAILY 09/29 0900 AC 10/07 PO 0856 Results Pertinent Lab Results: Laboratory Tests 10/08 10/08 0722 0645 Chemistry Sodium (137 - 145 mmol/L) 135 L 135 L Potassium (3.5 - 5.1 mmol/L) 4.9 4.8 Chloride (98 - 107 mmol/L) 96 L 96 L Carbon Dioxide (22 - 30 mmol/L) 22 24 Anion Gap (5 - 16) 17 H 14 BUN (9 - 20 mg/dL) 48 H 51 H Creatinine (0.7 - 1.2 mg/dL) 8.8 *H 8.6 *H Estimated GFR (>60 ml/min) 6 L 6 L BUN/Creatinine Ratio (7 - 25 %) 5.5 L 5.9 L Calcium (8.4 - 10.2 mg/dL) 8.3 L Hematology CBC w Diff NO MAN DIFF REQ NO MAN DIFF REQ WBC (4.8 - 10.8 /CUMM) 9.2 8.9 RBC (4.70 - 6.10 /CUMM) 2.79 L 2.76 L Hgb (14.0 - 18.0 G/DL) 8.6 L 8.4 L Hct (42 - 52 %) 25.7 L 25.1 L MCV (80.0 - 94.0 FL) 92.2 91.0 MCH (27.0 - 31.0 PG) 31.0 30.6 MCHC (33.0 - 37.0 G/DL) 33.6 33.6 RDW (11.5 - 14.5 %) 13.9 13.7 Plt Count (130 - 400 /CUMM) 373 342 MPV (7.4 - 10.4 FL) 7.6 7.0 L Gran % (42.2 - 75.2 %) 71.1 71.2 Lymphocytes % (20.5 - 51.1 %) 16.0 L 15.8 L Monocytes % (1.7 - 9.3 %) 6.8 7.0 Eosinophils % (0 - 5 %) 5.4 H 5.4 H Basophils % (0.0 - 2.0 %) 0.7 0.6 Absolute Granulocytes (1.4 - 6.5 /CUMM) 6.6 H 6.3 Absolute Lymphocytes (1.2 - 3.4 /CUMM) 1.5 1.4 Absolute Monocytes (0.10 - 0.60 /CUMM) 0.6 0.6 Absolute Eosinophils (0.0 - 0.7 /CUMM) 0.5 0.5 Absolute Basophils (0.0 - 0.2 /CUMM) 0.1 0.1 Serology Hep Bs Antigen (NONREACTIVE) Pending Hep Bs Antibody (NONREACTIVE) Pending 10/07 10/07 0308 0308 Chemistry Sodium (137 - 145 mmol/L) 137 Potassium (3.5 - 5.1 mmol/L) 4.6 Chloride (98 - 107 mmol/L) 96 L Carbon Dioxide (22 - 30 mmol/L) 26 Anion Gap (5 - 16) 15 BUN (9 - 20 mg/dL) 37 H Creatinine (0.7 - 1.2 mg/dL) 6.8 *H Estimated GFR (>60 ml/min) 8 L BUN/Creatinine Ratio (7 - 25 %) 5.4 L Troponin I (<0.11 ng/ml) 0.03 Hematology CBC w Diff NO MAN DIFF REQ WBC (4.8 - 10.8 /CUMM) 10.4 RBC (4.70 - 6.10 /CUMM) 2.66 L Hgb (14.0 - 18.0 G/DL) 8.2 L Hct (42 - 52 %) 24.4 L MCV (80.0 - 94.0 FL) 91.6 MCH (27.0 - 31.0 PG) 30.9 MCHC (33.0 - 37.0 G/DL) 33.8 RDW (11.5 - 14.5 %) 13.7 Plt Count (130 - 400 /CUMM) 341 MPV (7.4 - 10.4 FL) 7.3 L Gran % (42.2 - 75.2 %) 69.7 Lymphocytes % (20.5 - 51.1 %) 17.9 L Monocytes % (1.7 - 9.3 %) 7.0 Eosinophils % (0 - 5 %) 4.8 Basophils % (0.0 - 2.0 %) 0.6 Absolute Granulocytes (1.4 - 6.5 /CUMM) 7.3 H Absolute Lymphocytes (1.2 - 3.4 /CUMM) 1.9 Absolute Monocytes (0.10 - 0.60 /CUMM) 0.7 H Absolute Eosinophils (0.0 - 0.7 /CUMM) 0.5 Absolute Basophils (0.0 - 0.2 /CUMM) 0.1 10/06 0710 Chemistry Sodium (137 - 145 mmol/L) 137 Potassium (3.5 - 5.1 mmol/L) 4.3 Chloride (98 - 107 mmol/L) 97 L Carbon Dioxide (22 - 30 mmol/L) 26 Anion Gap (5 - 16) 15 BUN (9 - 20 mg/dL) 25 H Creatinine (0.7 - 1.2 mg/dL) 5.3 *H Estimated GFR (>60 ml/min) 11 L BUN/Creatinine Ratio (7 - 25 %) 4.7 L Hematology CBC w Diff NO MAN DIFF REQ WBC (4.8 - 10.8 /CUMM) 11.3 H RBC (4.70 - 6.10 /CUMM) 3.05 L Hgb (14.0 - 18.0 G/DL) 9.4 L Hct (42 - 52 %) 28.0 L MCV (80.0 - 94.0 FL) 91.9 MCH (27.0 - 31.0 PG) 30.9 MCHC (33.0 - 37.0 G/DL) 33.6 RDW (11.5 - 14.5 %) 14.2 Plt Count (130 - 400 /CUMM) 395 MPV (7.4 - 10.4 FL) 7.6 Gran % (42.2 - 75.2 %) 73.6 Lymphocytes % (20.5 - 51.1 %) 14.1 L Monocytes % (1.7 - 9.3 %) 6.8 Eosinophils % (0 - 5 %) 4.9 Basophils % (0.0 - 2.0 %) 0.6 Absolute Granulocytes (1.4 - 6.5 /CUMM) 8.3 H Absolute Lymphocytes (1.2 - 3.4 /CUMM) 1.6 Absolute Monocytes (0.10 - 0.60 /CUMM) 0.8 H Absolute Eosinophils (0.0 - 0.7 /CUMM) 0.6 Absolute Basophils (0.0 - 0.2 /CUMM) 0.1
--- NOTE | 2017-10-08 11:45 | PN- Cardiology ---
Subjective Subjective: Patient seen during dialysis and is resting comfortably without complaint. Objective Vital Signs and I&Os Vital Signs Date Time Temp Pulse Resp B/P B/P Pulse O2 O2 Flow FiO2 Mean Ox Delivery Rate 10/08 0800 94 Nasal 1.0L Cannula 10/08 0558 98.3 81 20 154/60 94 10/08 0000 93 Nasal 1.0L Cannula 10/07 2208 98.0 80 20 130/60 93 Nasal 1.0L Cannula 10/07 2102 80 130/60 10/07 2102 80 130/60 10/07 1600 Nasal 1.0L Cannula 10/07 1450 98.2 69 20 122/52 95 Nasal 1.0L Cannula Intake & Output 10/08 1600 10/08 0800 10/08 0000 10/07 1600 10/07 0800 10/07 0000 Intake Total 240 600 240 240 Output Total 75 150 50 100 Balance 240 -75 450 190 140 Intake, Oral 240 600 240 240 Output, Urine 75 150 50 100 Patient 155 lb 134 lb Weight Weight Bed scale Bed scale Measurement Method Physical Exam: General: no apparent distress. Alert. Eyes: No obvious scleral icterus. HEENT: No abnormal jugular venous pulsations. Cardiovascular: Normal intensity S1/S2. Regular Respiratory: Decreased air entry bilaterally Abdomen: no guarding or rebound tenderness. Musculoskeletal: No clubbing or cyanosis noted; no edema Skin: Warm Neurologic: No gross focal deficits noted. Current Medications: Current Medications Sig/Hernandez Start time Last Medication Dose Route Stop Time Status Admin Acetaminophen 650 MG Q6P PRN 09/28 2100 AC 10/03 PO 2046 Albuterol Sulfate 3 ML Q4P PRN 09/29 1100 AC 09/29 INH 1051 Amlodipine Besylate 10 MG DAILY 09/29 09 AC 10/07 PO 0856 Aspirin 81 MG DAILY 09/29 09 AC 10/07 PO 0856 Clonidine 0.2 MG BID 09/29 09 AC 10/07 PO 2101 Docusate Sodium 100 MG BID 10/02 09 AC 10/07 PO 2101 Epoetin Pardeep 4,000 UNIT MoWeFr PRN 10/03 0745 AC IV Furosemide 80 MG ONCE ONE 10/07 1330 DC 10/07 IV 10/07 1331 1338 Furosemide 80 MG DAILY 09/29 09 AC 10/07 PO 0856 Hydralazine HCl 50 MG TID 04/13 2330 AC 10/07 PO 210 Insulin Aspart 0 TIDAC 09/30 0800 AC 10/08 SC 0729 Lactobacillus 1 CAP DAILY 10/05 1600 AC 10/07 Acidophilus PO 0856 Lactulose 20 GM DAILY PRN 09/28 2300 AC PO Levothyroxine Sodium 0.15 MG DAILY AC 09/29 0700 AC 10/08 PO 0534 Losartan Potassium 50 MG DAILY 09/29 0900 AC 10/07 PO 0856 Minoxidil 2.5 MG DAILY 09/29 0900 AC 10/07 PO 0856 Nitroglycerin 0.4 MG Q 5 MINUTES X 3 DO.. 10/07 0315 AC 10/07 SL 0318 Oxycodone/ 1 TAB Q6-PRN PRN 10/07 1000 AC 10/08 Acetaminophen PO 0429 Polyethylene Glycol 17 GM DAILY 10/02 0910 AC 10/07 PO 0856 Pravastatin Sodium 10 MG 1700 09/29 1700 AC 10/07 PO 1653 Senna 187 MG AT BEDTIME 10/02 2100 AC 10/07 PO 2102 Sevelamer Carbonate 1,600 MG TIDAC 10/02 1200 AC 10/08 PO 0730 Tamsulosin HCl 0.4 MG DAILY 09/29 0900 AC 10/07 PO 0856 Results Last 48 Hrs of Labs/Mics: Laboratory Tests 10/08/17 0722: Anion Gap 17 H, Estimated GFR 6 L, BUN/Creatinine Ratio 5.5 L, CBC w Diff NO MAN DIFF REQ, RBC 2.79 L, MCV 92.2, MCH 31.0, MCHC 33.6, RDW 13.9, MPV 7.6, Gran % 71.1, Lymphocytes % 16.0 L, Monocytes % 6.8, Eosinophils % 5.4 H, Basophils % 0.7, Absolute Granulocytes 6.6 H, Absolute Lymphocytes 1.5, Absolute Monocytes 0.6, Absolute Eosinophils 0.5, Absolute Basophils 0.1 10/08/17 0645: Anion Gap 14, Estimated GFR 6 L, BUN/Creatinine Ratio 5.9 L, Calcium 8.3 L, CBC w Diff NO MAN DIFF REQ, RBC 2.76 L, MCV 91.0, MCH 30.6, MCHC 33.6, RDW 13.7 , MPV 7.0 L, Gran % 71.2, Lymphocytes % 15.8 L, Monocytes % 7.0, Eosinophils % 5.4 H, Basophils % 0.6, Absolute Granulocytes 6.3, Absolute Lymphocytes 1.4, Absolute Monocytes 0.6, Absolute Eosinophils 0.5, Absolute Basophils 0.1, Hep Bs Antigen NONREACTIVE, Hep Bs Antibody REACTIVE 10/07/17307: Troponin I 0.03 10/07/17307: Anion Gap 15, Estimated GFR 8 L, BUN/Creatinine Ratio 5.4 L, CBC w Diff NO MAN DIFF REQ, RBC 2.66 L, MCV 91.6, MCH 30.9, MCHC 33.8, RDW 13.7, MPV 7.3 L, Gran % 69.7, Lymphocytes % 17.9 L, Monocytes % 7.0, Eosinophils % 4.8, Basophils % 0.6, Absolute Granulocytes 7.3 H, Absolute Lymphocytes 1.9, Absolute Monocytes 0.7 H, Absolute Eosinophils 0.5, Absolute Basophils 0.1 Recent Imaging Studies: CXR 10/07 Findings compatible with mild to moderate pulmonary edema and small pleural effusions. Assessment/Plan Assessment/Plan 1. End-stage renal disease on dialysis 2. Acute on chronic diastolic CHF with pleural effusions EF 55% 3. History of mild aortic stenosis 4. Chronic sleep apnea on CPAP 5. Moderate pulmonary hypertension 6. History of hypertension 7. Obstructive uropathy status post stent placement Patient seen during dialysis and resting comfortably. Despite the chest x-ray report from yesterday he currently denies active shortness of breath. Fluid management with regular dialysis per nephrology. Josué Trevino MD [facility] Continue telemetry? Not applicable
[2017-10-08 12:14] VITALS: BP 174/58
[2017-10-08] MEDS ORDERED: NOVOLOG FL100 UNIT/1 SC (13:15)
--- NOTE | 2017-10-08 14:12 | Discharge Summary ---
Visit Information Visit Dates Admission Date: 09/28/17 Discharge Date: 10/09/17 Hospital Course Course Attending Physician: Tao Simpson MD Primary Care Physician: Kevin Brown MD Consulting Request: Consulting Specialty: Urology Hospital Course: 67 YO M was reffered for evaluation and treatment of UTI PMH: DM, HTN, HLD, hypothyroidism, bradycardia, CHF, aortic stenosis, ESRD on hemodialysis, pancreatitis and BPH sent in from dialysis for treatment of a urinary tract infection. At the time of admission patient was found to have UTI, uretral stone and acute on chronic CHF. Patient was initially admitted to tele floor and with stablization was then transfered to floor. management for following conditions were done: Respiratory failure due to Acute on chronic congestive diastolic heart failure: patient was found to have acute on chronic CHF, resulting in increased pleural effusion leading to respiratory failure. Oxygen supplementation was administered as needed to keep saturation above 92%. Echocardiography was done: Left ventricular cavity size normal. Left ventricular wall thickness mildly increased. No obvious regional wall motion abnormalities. Left ventricular ejection fraction is estimated at > 55 %. "Pseudonormal" filling pattern of the left ventricle for age (stage 2 diastolic dysfunction). Normal right ventricular size and function. Mild left atrial dilatation. Mild aortic stenosis. Minimal pericardial effusion. Left pleural effusion. Moderate tricuspid regurgitation. Moderate pulmonary hypertension. Lasix was administered and negative balance of fluid was applied during hemodialysis. Patient's condition improved however he still needed O2 supplement. Patient continued to need 02 supplements due to hypoxia with ambulation necessitating to provide O2 supplement while at home. UTI: Urine culture revealed Klebsiella. Patient received 4 days of IV ceftriaxone and was changed to by mouth Keflex to complete 7 day course of antibiotic. Ureteric stone with hydronephrosis s/p cystoscopy and stent placement/ Hematuria : Pain management was performed. Patient underwent urologic procedure for drainage on 09/29/17: 22 cm 6 Mongolian right double-J ureteral stent with short suture and 16 Mongolian Frederick catheter Frederick was remained in place until urine become clear. patient will require repeat CT in 612 weeks to look for stone. H/O ESRD on dialysis: We continued dialysis on Sunday. Chronic medical conditions: hypothyroidism, HTN, Hlp, DM We continued home medications O2 supplement was planned to deliver to home Patient was discharged with recommendations below. Allergies: Coded Allergies: No Known Allergies (09/28/17) Disposition Summary Disposition Principal Diagnosis: Respiratory failure due to Acute on chronic congestive diastolic heart failure Additional Diagnosis: UTI Ureteric stone with hydronephrosis s/p cystoscopy and stent placement/ Hematuria Discharge Disposition: home health services Discharge Instructions General Discharge Information Code Status: Full Code Patient's Diet: Renal dialysis diet Patient's Activity: with assistance Follow-Up Instructions/Appts: -Follow up with your primary care physician in one week. -Follow-up with your hearing aid technician in 1 week -Follow-up with your urologist in 1 week and discuss about the CT scan abdomen/ pelvis (in 4-6 weeks) to see for right UPJ stone to see if its posterior not provide any further instrumentation. -Follow-up with your watch train inspector in 1 week Medications at Discharge Discharge Medications: Continue taking these medications: Iron Sucrose (Venofer) 100 MG IRON/5 ML VIAL 1 VIAL INTRAVEN WITH DIALYSI Comments: NOT GIVEN IN HOSPITAL Tamsulosin HCl (Flomax) 0.4 MG CAP.ER.24H 1 Capsule ORAL DAILY Comments: Last Taken: 10/09/17 Time: 8:00 AM Acetaminophen (Acetaminophen) 500 MG TABLET 1 Tablet ORAL DAILY as needed for PAIN Comments: NOT GIVEN IN HOSPITAL Amlodipine Besylate (Amlodipine Besylate) 10 MG TABLET 1 Tablet ORAL DAILY Comments: Last Taken: 10/09/17 Time: 8:00 AM Darbepoetin Pardeep in Polysorbat (Aranesp) 10 MCG/0.4 ML SYRINGE 1 Syringe INTRAMUSC EVERY SUNDAY Comments: NOT GIVEN IN HOSPITAL Aspirin (Aspirin*) 81 MG TAB.CHEW 1 Tablet ORAL DAILY Comments: Last Taken: 10/09/17 Time: 8:00 AM B Complex & C No.20/Folic Acid (Renal Caps Softgel) 1 MG CAPSULE 1 Tablet ORAL DAILY Comments: NOT GIVEN IN HOSPITAL Clonidine HCl (Clonidine HCl) 0.2 MG TABLET 1 Tablet ORAL TWICE DAILY Comments: Last Taken: 10/09/17 Time: 8:00 AM Fluticasone Propionate (Flonase Allergy Relief) 50 MCG/ACTUATION SPRAY.SUSP 1 [place] Inhale through mouth TWICE DAILY Comments: NOT GIVEN IN HOSPITAL Furosemide (Furosemide) 80 MG TABLET 1 Tablet ORAL DAILY Comments: Last Taken: 10/09/17 Time: 8:00 AM Hydralazine HCl (Hydralazine HCl) 50 MG TABLET 1 Tablet ORAL THREE TIMES DAILY Comments: Last Taken: 10/09/17 Time: 1:00 PM Insulin Glargine,Hum.rec.anlog (Lantus Solostar) 100 UNIT/ML (3 ML) INSULN.PEN 10 Unit Inject into fatty tissue Every night Comments: NOT GIVEN IN HOSPITAL Levothyroxine Sodium (Levothyroxine Sodium) 150 MCG TABLET 1 Tablet ORAL DAILY Comments: Last Taken: 10/09/17 Time: 5:30 AM Metoprolol Tartrate (Metoprolol Tartrate) 25 MG TABLET 0.5 Tablet ORAL TWICE DAILY Comments: Last Taken: 10/09/17 Time: 8:00 AM Minoxidil (Minoxidil) 10 MG TABLET 2.5 Milligram ORAL DAILY Comments: Last Taken: 10/09/17 Time: 8:00 AM Nitroglycerin (Nitroglycerin) 0.4 MG TAB.SUBL 1 Tablet SUBLINGUAL As Directed Instructions: 1st sign of attack; may repeat every 5 minutes until relief; if pain persists after 3 tablets in 15 minutes, prompt medical att Comments: Last Taken: 10/07/17 Time: 3:15 AM Olmesartan Medoxomil (Benicar) 40 MG TABLET 1 Tablet ORAL DAILY Comments: NOT GIVEN IN HOSPITAL Ondansetron HCl (Ondansetron HCl) 4 MG TABLET 1 Tablet ORAL EVERY 4 HOURS NEEDED as needed for NAUSEA Comments: NOT GIVEN IN HOSPITAL Etelcalcetide Hydrochloride (Parsabiv) 5 MG/ML VIAL 5 Milligram INTRAVEN SUNDAY, SUNDAY AND SUNDAY Comments: NOT GIVEN IN HOSPITAL Pravastatin Sodium (Pravastatin Sodium) 40 MG TABLET 1 Tablet ORAL DAILY Comments: Last Taken: 10/08/17 Time: 5:45 PM Lactulose (Kristalose) 20 GRAM PACKET 1 PACKET ORAL DAILY Comments: NOT GIVEN IN HOSPITAL Oxycodone HCl (Oxycodone HCl) 5 MG TABLET 1 Tablet ORAL EVERY 4-6 HOURS NEEDED Qty = 60 Comments: Last Taken: 10/09/17 Time: 12:00 PM (PERCOCET GIVEN) Insulin Aspart, Recombinant (Novolog Flexpen) 100 UNIT/ML INSULN.PEN 0 Inject into fatty tissue THREE TIMES DAILY Qty = 30 Instructions: Please use 5 - 8 - 11 Units based on carb count Comments: Last Taken: 10/09/17 Time: 12:00 PM Start taking the following new medications: Sevelamer Carbonate (Renvela) 800 MG TABLET 1,600 Milligram ORAL 3 TIMES DAILY BEFORE MEALS Qty = 30 No Refills Comments: Last Taken: 10/09/17 Time: 12:00 PM Copies To: Kevin ISSA,Kevin; Amor ISSA,Dangelo Craven Attending MD Review Statement Documenting Attending: Tao Simpson MD Other Findings: Patient is medically stable to be discharged today.
[2017-10-08 14:31] VITALS: BP 138/50
[2017-10-08 20:30] VITALS: BP 140/60
[2017-10-08 22:36] VITALS: BP 117/50
[2017-10-09 07:22] VITALS: BP 126/50
--- NOTE | 2017-10-09 07:48 | PN- Housestaff ---
Mali Trevino MD,[facility] 10/09/17 0748: Subjective Follow-up For: UTI actue on chronic CHF Renal stone s/p cystoscopy Subjective: Patient visited today, Czech-speaking was lying in bed comfortably in no acute distress, was alert and oriented. Reported improved shortness of breathing, discharge was canceled yesterday due to oxygen not being delivered to patient. No fever or chills, no shortness of breathing, no chest pain, no other events. Plan to be discharged today Review of Systems Constitutional: Reports: see HPI. Objective Last 24 Hrs of Vital Signs/I&O Vital Signs Date Time Temp Pulse Resp B/P B/P Pulse O2 O2 Flow FiO2 Mean Ox Delivery Rate 10/09 1305 74 112/50 10/09 0812 75 126/50 10/09 0811 75 126/50 10/09 0811 75 126/50 10/09 0811 75 126/50 10/09 0811 75 126/50 10/09 0722 98.7 75 20 126/50 96 Nasal 1.0L Cannula 10/09 0000 Nasal 1.0L Cannula 10/09 2235 98.5 75 20 117/50 93 Nasal Cannula 10/08 2032 81 140/60 10/09 2031 81 140/60 10/08 2030 98.2 81 16 140/60 95 Nasal 1.0L Cannula 10/08 1600 94 Nasal 1.0L Cannula Intake & Output 10/09 1600 10/09 0800 10/09 0000 Intake Total 874 010 5098 Output Total 175 150 Balance 625 -30 1010 Intake, IV 10 Intake, Oral 612 248 5957 Number 0 Bowel Movements Output, Urine 175 150 Patient 157 lb Weight Weight Bed scale Measurement Method Physical Exam General Appearance: Alert, Oriented X3, Cooperative, No Acute Distress Skin Temp/Moisture Exam: Warm/Dry HEENT: Atraumatic Cardiovascular: Normal S1, Normal S2 Lungs: Normal Air Movement, improved breathing sounds Abdomen: Soft, No Tenderness Extremities: No Edema Current Medications: Current Medications Sig/Hernandez Start time Last Medication Dose Route Stop Time Status Admin Acetaminophen 650 MG Q6P PRN 09/28 2100 DCD 10/03 PO 204 Albuterol Sulfate 3 ML Q4P PRN 09/29 1100 DCD 09/29 INH 1051 Amlodipine Besylate 10 MG DAILY 09/29 09 DCD 10/09 PO 0812 Aspirin 81 MG DAILY 09/29 0900 DCD 10/09 PO 0811 Clonidine 0.2 MG BID 09/29 0900 DCD 10/09 PO 0811 Docusate Sodium 100 MG BID 10/02 0917 DCD 10/09 PO 0811 Epoetin Pardeep 4,000 UNIT MoWeFr PRN 10/03 0745 DCD IV Furosemide 80 MG DAILY 09/29 0900 DCD 10/09 PO 0811 Hydralazine HCl 50 MG TID 09/28 2330 DCD 10/09 PO 1305 Insulin Aspart 4 UNITS ONCE ONE 10/08 1745 DC 10/08 SC 10/08 1746 1740 Insulin Aspart 0 TIDAC 09/30 0800 DCD 10/09 SC 1156 Lactobacillus 1 CAP DAILY 10/05 1600 DCD 10/09 Acidophilus PO 0812 Lactulose 20 GM DAILY PRN 09/28 2300 DCD PO Levothyroxine Sodium 0.15 MG DAILY AC 09/29 0700 DCD 10/09 PO 0629 Losartan Potassium 50 MG DAILY 09/29 0900 DCD 10/09 PO 0811 Minoxidil 2.5 MG DAILY 09/29 0900 DCD 10/09 PO 0811 Nitroglycerin 0.4 MG Q 5 MINUTES X 3 DO.. 10/07 0315 DCD 10/07 SL 0318 Oxycodone/ 1 TAB Q6-PRN PRN 10/07 1000 DCD 10/09 Acetaminophen PO 1159 Patient Medication 1 ED ONE ONE 10/08 1700 [facility] 10/08 1701 Polyethylene Glycol 17 GM DAILY 10/02 0910 DCD 10/09 PO 0811 Pravastatin Sodium 10 MG 1700 09/29 1700 DCD 10/08 PO 1741 Senna 187 MG AT BEDTIME 10/02 2100 DCD 10/08 PO 2033 Sevelamer Carbonate 1,600 MG TIDAC 10/02 1200 DCD 10/09 PO 1155 Tamsulosin HCl 0.4 MG DAILY 09/29 0900 DCD 10/09 PO 0811 Assessment/Plan Assessment: 67 YO M was reffered for evaluation and treatment of UTI PMH: DM, HTN, HLD, hypothyroidism, bradycardia, CHF, aortic stenosis, ESRD on hemodialysis, pancreatitis and BPH sent in from dialysis for treatment of a urinary tract infection. At the time of admission patient was found to have UTI, uretral stone and acute on chronic CHF. Patient was initially admitted to [facility] floor and with stablization was then transfered to floor. management for following conditions were done: Respiratory failure due to Acute on chronic congestive diastolic heart failure: patient was found to have acute on chronic CHF, resulting in increased pleural effusion leading to respiratory failure. Oxygen supplementation was administered as needed to keep saturation above 92%. Echocardiography was done: Left ventricular cavity size normal. Left ventricular wall thickness mildly increased. No obvious regional wall motion abnormalities. Left ventricular ejection fraction is estimated at > 55 %. "Pseudonormal" filling pattern of the left ventricle for age (stage 2 diastolic dysfunction). Normal right ventricular size and function. Mild left atrial dilatation. Mild aortic stenosis. Minimal pericardial effusion. Left pleural effusion. Moderate tricuspid regurgitation. Moderate pulmonary hypertension. Lasix was administered and negative balance of fluid was applied during hemodialysis. Patient's condition improved however he still needed O2 supplement. Patient continued to need 02 supplements due to hypoxia with ambulation necessitating to provide O2 supplement while at home. UTI: Urine culture revealed Klebsiella. Patient received 4 days of IV ceftriaxone and was changed to by mouth Keflex to complete 7 day course of antibiotic. Ureteric stone with hydronephrosis s/p cystoscopy and stent placement/ Hematuria : Pain management was performed. Patient underwent urologic procedure for drainage on 09/29/17: 22 cm 6 [place] right double-J ureteral stent with short suture and 16 [place] Frederick catheter Frederick was remained in place until urine become clear. patient will require repeat CT in 612 weeks to look for stone. H/O ESRD on dialysis: We continued dialysis on Sunday. Chronic medical conditions: hypothyroidism, HTN, Hlp, DM We continued home medications O2 supplement was planned to deliver to home Patient discharged today. Problem List: 1. CHF exacerbation 2. UTI (urinary tract infection) 3. Kidney stone Pain Ratin Pain Location: Flank Pain Goal: Pain 4 or less Pain Plan: Continue currewnt plan Tomorrow's Labs & Rationales: None Consulting Request: Consulting Specialty: Urology Tao Simpson MD 10/09/17 1124: Attending Review Statement Attending Statement Attending MD Statement: examined this patient, discuss w/resident/PA/WHAT JOB TITLES MEAN, agreed w/resident/PA/WHAT JOB TITLES MEAN, reviewed EMR data (avail), discussed with nursing, discussed with case mgmt, amended to note Attending Assessment/Plan: Patient seen and examined. Resting comfortably not in any acute distress. Will schedule for discharge yesterday however there were problems setting up his home oxygen therapy. He continues to require for supplementation although only 1 L. Reports mild shortness of breath with exertion. Reports mild flank pain controlled on current regimen. Remains hemodynamically stable. Once appropriate arrangements can be made for home oxygen patient will be discharged hopefully later on today.
--- NOTE | 2017-10-09 11:11 | PN- Cardiology ---
Subjective Subjective: Patient without specific complaints Review of Systems: Eyes no blurred or double vision Ears no deafness or ringing Nose and throat no recurrent sinusitis Lungs per history of present illness Heart per history of present illness Abdomen no nausea vomiting Musculoskeletal occasional muscle and joint pains Psych no anxiety or depression Neuro without recurrent headache or seizures Endocrine no heat or cold intolerance Objective Vital Signs and I&Os Vital Signs Date Time Temp Pulse Resp B/P B/P Pulse O2 O2 Flow FiO2 Mean Ox Delivery Rate 10/09 0812 75 126/50 10/09 0811 75 126/50 10/09 0811 75 126/50 10/09 0811 75 126/50 10/09 0811 75 126/50 10/09 0722 98.7 75 20 126/50 96 Nasal 1.0L Cannula 10/09 0000 Nasal 1.0L Cannula 10/09 2235 98.5 75 20 117/50 93 Nasal Cannula 10/08 2032 81 140/60 10/09 2031 81 140/60 10/08 2029 98.2 81 16 140/60 95 Nasal 1.0L Cannula 10/08 1600 94 Nasal 1.0L Cannula 10/08 1431 98.5 85 20 138/50 94 Nasal Cannula 10/08 1214 94 18 174/58 96 Nasal 1.0L Cannula 10/08 1208 94 174/58 10/08 1206 94 174/58 10/08 1206 94 174/58 10/08 1205 94 174/58 10/08 1205 94 174/58 Intake & Output 10/09 1600 10/09 0800 10/09 0000 10/08 1600 10/08 0800 10/08 0000 Intake Total 120 1010 800 240 Output Total 150 175 75 Balance -30 1010 625 240 -75 Intake, IV 10 Intake, Oral 120 1000 800 240 Number 0 Bowel Movements Output, Urine 150 175 75 Patient 157 lb 155 lb 155 lb Weight Weight Bed scale Bed scale Bed scale Measurement Method Physical Exam: Patient is a well-developed well-nourished male appearing in no acute distress HEENT is unremarkable Neck is supple there is no JVD Lungs decreased breath sounds in the bases bilaterally Heart regular rhythm S1 and S2 are normal no gallops or rubs 1/6 systolic ejection murmur right upper sternal border Abdomen bowel sounds positive Extremities without edema Current Medications: Current Medications Sig/Hernandez Start time Last Medication Dose Route Stop Time Status Admin Acetaminophen 650 MG Q6P PRN 09/28 2100 AC 10/03 PO 2047 Albuterol Sulfate 3 ML Q4P PRN 09/29 1100 AC 09/29 INH 1051 Amlodipine Besylate 10 MG DAILY 09/29 0900 AC 10/09 PO 0812 Aspirin 81 MG DAILY 09/29 0900 AC 10/09 PO 0811 Clonidine 0.2 MG BID 09/29 0900 AC 10/09 PO 0811 Docusate Sodium 100 MG BID 10/02 0917 AC 10/09 PO 0811 Epoetin Pardeep 4,000 UNIT MoWeFr PRN 10/03 0745 AC IV Furosemide 80 MG DAILY 09/29 0900 AC 10/09 PO 0811 Hydralazine HCl 50 MG TID 09/28 2330 AC 10/09 PO 0811 Insulin Aspart 4 UNITS ONCE ONE 10/08 1745 DC 10/08 SC 10/08 1746 1740 Insulin Aspart 0 TIDAC 09/30 0800 AC 10/09 SC 0848 Lactobacillus 1 CAP DAILY 10/05 1600 AC 10/09 Acidophilus PO 0812 Lactulose 20 GM DAILY PRN 09/28 2300 AC PO Levothyroxine Sodium 0.15 MG DAILY AC 09/29 0700 AC 10/09 PO 0629 Losartan Potassium 50 MG DAILY 09/29 0900 AC 10/09 PO 0811 Minoxidil 2.5 MG DAILY 09/29 0900 AC 10/09 PO 0811 Nitroglycerin 0.4 MG Q 5 MINUTES X 3 DO.. 10/07 0315 AC 10/07 SL 0318 Oxycodone/ 1 TAB Q6-PRN PRN 10/07 1000 AC 10/09 Acetaminophen PO 0629 Patient Medication 1 ED ONE ONE 10/08 1700 [facility] Teaching ED 10/08 1701 Polyethylene Glycol 17 GM DAILY 10/02 0910 AC 10/09 PO 0811 Pravastatin Sodium 10 MG 1700 09/29 1700 AC 10/08 PO 1741 Senna 187 MG AT BEDTIME 10/02 2100 AC 10/08 PO 2033 Sevelamer Carbonate 1,600 MG TIDAC 10/02 1200 AC 10/09 PO 0847 Tamsulosin HCl 0.4 MG DAILY 09/29 0900 AC 10/09 PO 0811 Results Last 48 Hrs of Labs/Mics: Laboratory Tests 10/08/17 0722: Anion Gap 17 H, Estimated GFR 6 L, BUN/Creatinine Ratio 5.5 L, CBC w Diff NO MAN DIFF REQ, RBC 2.79 L, MCV 92.2, MCH 31.0, MCHC 33.6, RDW 13.9, MPV 7.6, Gran % 71.1, Lymphocytes % 16.0 L, Monocytes % 6.8, Eosinophils % 5.4 H, Basophils % 0.7, Absolute Granulocytes 6.6 H, Absolute Lymphocytes 1.5, Absolute Monocytes 0.6, Absolute Eosinophils 0.5, Absolute Basophils 0.1 10/08/17 0645: Anion Gap 14, Estimated GFR 6 L, BUN/Creatinine Ratio 5.9 L, Calcium 8.3 L, CBC w Diff NO MAN DIFF REQ, RBC 2.76 L, MCV 91.0, MCH 30.6, MCHC 33.6, RDW 13.7 , MPV 7.0 L, Gran % 71.2, Lymphocytes % 15.8 L, Monocytes % 7.0, Eosinophils % 5.4 H, Basophils % 0.6, Absolute Granulocytes 6.3, Absolute Lymphocytes 1.4, Absolute Monocytes 0.6, Absolute Eosinophils 0.5, Absolute Basophils 0.1, Hep Bs Antigen NONREACTIVE, Hep Bs Antibody REACTIVE Assessment/Plan Assessment/Plan 1. End-stage renal disease on dialysis 2. Acute on chronic diastolic CHF with pleural effusions EF 55% 3. History of mild aortic stenosis 4. Chronic sleep apnea on CPAP 5. Moderate pulmonary hypertension 6. History of hypertension 7. Obstructive uropathy status post stent placement Recommendations 1. Continue dialysis 2. Continue current antihypertensive medications Continue telemetry? No
[2017-10-09] MEDS ORDERED: RENVELA800 M1 PO (11:27)
[2017-10-09 13:05] VITALS: BP 112/50
== END 2017-10-09 14:13 | disposition home health service (06) | DRG 291 ==
LOC: ERH 17:02 → 2NB 19:36 → 1NO 19:36 → ERHI 19:36 → 1NO 21:34 → ENTRNSPT 09-29 18:30 → CMPTRNSPT 09-29 18:46 → 1NO 10-01 07:33 → 2NB 10-02 20:22 → ENPENDDIS 10-08 12:07 → ENTRNSPT 10-09 14:03 → EDTRNSPT 10-09 14:05 → EDTRNSPTSTS 10-09 14:05 → 2NB 10-09 14:13 → CMPTRNSPT 10-09 14:20
PROVIDERS: Dermatology; Internal Medicine Nephrology; Physician Assistant Medical; Radiology Vascular & Interventional Radiology; Student in an Organized Health Care Education/Training Program
PROC: 0T768DZ Dilation of Right Ureter with Intraluminal Device, Via Natural or Artificial Opening Endoscopic (ICD-10-PCS; principal; 2017-09-29)
PROC: 5A1D70Z Performance of Urinary Filtration, Intermittent, Less than 6 Hours Per Day (ICD-10-PCS; 2017-09-29)
DX: I13.2 Hypertensive heart and chronic kidney disease with heart failure and with stage 5 chronic kidney disease, or end stage renal disease (principal); N18.6 End stage renal disease; J96.01 Acute respiratory failure with hypoxia; E11.21 Type 2 diabetes mellitus with diabetic nephropathy; J90 Pleural effusion, not elsewhere classified; I27.20 Pulmonary hypertension, unspecified; N13.6 Pyonephrosis; I50.33 Acute on chronic diastolic (congestive) heart failure; R31.9 Hematuria, unspecified; Z79.4 Long term (current) use of insulin; N20.0 Calculus of kidney; G47.33 Obstructive sleep apnea (adult) (pediatric); B96.1 Klebsiella pneumoniae [K. pneumoniae] as the cause of diseases classified elsewhere; E78.5 Hyperlipidemia, unspecified; I35.0 Nonrheumatic aortic (valve) stenosis; N40.1 Benign prostatic hyperplasia with lower urinary tract symptoms; N39.498 Other specified urinary incontinence; Z79.82 Long term (current) use of aspirin; D64.9 Anemia, unspecified; R00.1 Bradycardia, unspecified; R30.0 Dysuria; Z87.891 Personal history of nicotine dependence; E03.9 Hypothyroidism, unspecified
CPT/HCPCS: 1NP; 2NBP; 36415; 36592; 71045; 71046; 74018; 74176; 81001; 82436; 87040; 87086; 93005; 93010; 93306; 97116-GO; 97161-GP; 97530-GO; C2617; J0131; J0696; J0885; J1644; J1940; J2405; J3490

== ENCOUNTER 2017-10-25 09:27 | Inpatient (IN) | payer OTHER, MEDICARE ==
[~2017-10-25] VITALS: Ht 165.1 cm; Wt 76.9 kg
[~2017-10-25 09:27] MED LIST: AMLODIPINE BESY10 M1 PO; ARANESP10 MCG/0.4 IM; ASPIRIN81 M4 PO; AUGMENTIN 500-1 EACH PO; BENICAR40 M1 PO; CLONIDINE HCL0.2 M1 PO; FLOMAX0.4 M1 PO; FLONASE ALLERG9.9 ML INH; FUROSEMIDE80 M1 PO; HYDRALAZINE HCL50 M1 PO; KRISTALOSE20 GM PO; LANTUS SOL100 UNIT/1 SC; LEVOTHYROXINE150 MCG PO; METOPROLOL TART25 M1 PO; MINOXIDIL10 M1 PO; NITROGLYCERIN0.4 M1 SL; NOVOLIN R100 UNIT/1 SC; NOVOLOG FL100 UNIT/1 SC; ONDANSETRON HCL4 MG PO; OXYCODONE HCL5 M1 PO; PRAVASTATIN SOD40 M2 PO; RENAL CAPS SOFTG1 MG PO; RENVELA800 M1 PO; TYLENOL325 M1 PO; VENOFER100 MG/5 M IV; [UNRECOGNIZED DRUG - OTHER] IV
[2017-10-25] MEDS ORDERED: VITAMIN B COMP1 EAC1 PO (11:30)
--- NOTE | 2017-10-25 11:31 | ED GENERAL ADULT ---
History of Present Illness General Chief Complaint: General Adult Stated Complaint: HIGH BP AND SWOLLEN LEGS PER DAUGHTER Source: patient, old records Exam Limitations: no limitations Vital Signs & Intake/Output Vital Signs & Intake/Output Vital Signs Date Time Temp Pulse Resp B/P B/P Pulse O2 O2 Flow FiO2 Mean Ox Delivery Rate 10/25 1247 98.3 83 20 188/84 97 Nasal 2.0L Cannula 10/25 1153 Nasal 2.0L Cannula 10/25 0934 98.6 80 18 186/75 90 Room Air Allergies Coded Allergies: No Known Allergies (09/28/17) Reconcile Medications Acetaminophen (Tylenol) 325 MG TABLET 2 TAB PO DAILY NEEDED PRN PAIN ( Reported) Amlodipine Besylate 10 MG TABLET 1 TAB PO DAILY HTN (Reported) Aspirin (Aspirin*) 81 MG TAB.CHEW 1 TAB PO DAILY CAD (Reported) Clonidine HCl 0.2 MG TABLET 1 TAB PO BID HTN (Reported) Darbepoetin Pardeep in Polysorbat (Aranesp) 10 MCG/0.4 ML SYRINGE 1 SYR IM QMON ANEMIA (Reported) Etelcalcetide Hydrochloride (Parsabiv) 5 MG/ML VIAL 5 MG IV Sunday ESRD (Reported) Fluticasone Propionate (Flonase Allergy Relief) 50 MCG/ACTUATION SPRAY.SUSP 1 SPRAY INH BID ALLERGY (Reported) Furosemide 80 MG TABLET 1 TAB PO DAILY CHF (Reported) Hydralazine HCl 50 MG TABLET 1 TAB PO TID HTN (Reported) Insulin Aspart, Recombinant (Novolog Flexpen) 100 UNIT/ML INSULN.PEN 0 SC TID Blood sugar (Reported) Please use 5 - 8 - 11 Units based on carb count Insulin Glargine,Hum.rec.anlog (Lantus Solostar) 100 UNIT/ML (3 ML) INSULN.PEN 10 UNIT SC QPM DAILY (Reported) Lactulose (Kristalose) 20 GRAM PACKET 1 PACKET PO DAILY CONSTIPATION ( Reported) Levothyroxine Sodium 150 MCG TABLET 1 TAB PO DAILY AC THYROID (Reported) Metoprolol Tartrate 25 MG TABLET 0.5 TAB PO BID CAD / HTN (Reported) Minoxidil 10 MG TABLET 2.5 MG PO DAILY ESRD (Reported) Nitroglycerin 0.4 MG TAB.SUBL 1 TAB SL AD CHEST PAIN (Reported) 1st sign of attack; may repeat every 5 minutes until relief; if pain persists after 3 tablets in 15 minutes, prompt medical att Olmesartan Medoxomil (Benicar) 40 MG TABLET 1 TAB PO DAILY HTN (Reported) Oxycodone HCl 5 MG TABLET 1 TAB PO Q4-6 PRN PAIN CONTROL (Reported) Pravastatin Sodium 40 MG TABLET 1 TAB PO QPM HLD (Reported) Sevelamer Carbonate (Renvela) 800 MG TABLET 1,600 MG PO TIDAC bone health Tamsulosin HCl (Flomax) 0.4 MG CAP.ER.24H 1 CAP PO DAILY BPH (Reported) Valsartan (Diovan) 80 MG TABLET 1 TAB PO DAILY HEART (Reported) Vitamin B Complex 1 EACH TABLET 1 TAB PO DAILY VITAMIN SUPPORT (Reported) Triage Note: 67 YO MALE TO TRIAGE WITH DAUGHTER FOR EVAL OF PAIN TO L SHOULDER/ARM AND FREQUENT URIANTION. DAUGHTER REPORTS PT HAD A STENT PUT IN HIS KIDNEY APPROX 1 MONTH AGO. C/O LOWER BACK PAIN. +VOMTING THIS AM. ALSO C/O SWOLLEN LEGS, PT IS ON DIALYSIS, LAST WENT YESTERDAY Triage Nurses Notes Reviewed? yes Onset: Gradual Duration: day(s): Timing: recent history Injury Environment: home Severity: moderate HPI: 67YO MALE with hx of ESRD on dialysis (M-W-F) presents to ED complaining of bilateral low back pain, abdominal pain, bilateral shoulder pain. HPI obtained via KELLY Espinosa for translation as patient is yoruba speaking only. Patient states back pain has been increasing recently, feels similar to previous kidney related pains. Patient has a hx of recent kidney stones requiring stent removal here at [place]. Patient also reports periumbilical abdominal pain which has been present x 8 days. He notes bilateral shoulder pain presents for weeks, no hx of recent trauma. Patient also reports worsening shortness of breath, he is on 2 L oxygen at home. Patient notes increasing swelling to lower legs. Patient also reports 3 pound weight gain since yesterday. Patient still urinates however small amounts, he reports increasing pain with urination and hematuria. Patient also reports chills and nausea. He denies vomiting, fevers, chest pain. (Bridget RYAN,Janee Hall) Past History Travel History Traveled to [place] past 21 day No Medical History Any Pertinent Medical History? 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 No (Janee Ramon) Review of Systems Review of Systems Constitutional: Reports: no symptoms. EENTM: Reports: no symptoms. Respiratory: Reports: see HPI. Cardiovascular: Reports: see HPI. GI: Reports: see HPI. Genitourinary: Reports: see HPI. Musculoskeletal: Reports: see HPI. Skin: Reports: no symptoms. Neurological/Psychological: Reports: no symptoms. Hematologic/Endocrine: Reports: no symptoms. Immunologic/Allergic: Reports: no symptoms. All Other Systems: Reviewed and Negative (Janee Ramon) Physical Exam Physical Exam General Appearance: well developed/nourished, no apparent distress, alert, awake Head: atraumatic, normal appearance Eyes: Bilateral: normal appearance. Ears, Nose, Throat: normal pharynx, hearing grossly normal Neck: normal inspection, supple, full range of motion Respiratory: no respiratory distress, diminished breath sounds bilateral posterior lung bases Cardiovascular: regular rate/rhythm Gastrointestinal: normal bowel sounds, soft, no organomegaly, RUQ, RLQ tenderness Back: bilateral low back tenderness Extremities: normal range of motion, 3+ pitting edema bilaterally Neurologic/Psych: awake, alert, oriented x 3 Skin: intact, normal color, warm/dry Core Measures ACS in differential dx? Yes CVA/TIA Diagnosis: No Sepsis Present: No Sepsis Focused Exam Completed? No (Janee Ramon) Progress Differential Diagnoses I considered the following diagnoses in my evaluation of the patient: [CHF exacerbation, pneumonia, pleural effusion, kidney stone, pyelonephritis, UTI, sepsis] Diagnostic Imaging: Viewed by Me: Radiology Read, CT Scan. Discussed w/RAD: Radiology Read, CT Scan. Radiology Impression: PATIENT: HORTENSIA DIXON I PRESENT AGE: 67 PATIENT ACCOUNT NO: [id number] : 50 LOCATION: [facility] ORDERING PHYSICIAN: Janee RYAN SERVICE DATE: 10/25/17 EXAM TYPE: CAT - CT ABD & PELVIS W/O IV CONTRAS EXAMINATION: CT ABDOMEN AND PELVIS WITHOUT CONTRAST CLINICAL INFORMATION: 67-year-old male patient with bilateral back pain. Dysuria. History of kidney stone. COMPARISON: CT of the abdomen done on 09/28/2017. (Right hydronephrosis due to a 4 mm stone at the right UPJ). TECHNIQUE: Multidetector volumetric imaging was performed from the superior aspect of the liver through the pubic symphysis. Sagittal and coronal reformatted images were obtained on the technologist's workstation. DLP: 378 mGy -cm FINDINGS: FACE CLEANER: The heart remains enlarged and there bilateral moderate size pleural effusions. Increased burden of formed stool is seen throughout the entire colon from cecum to sigmoid. A right ureteral catheter is in place the proximal end of which is in the vicinity of the right renal pelvis and the distal in the bladder. There is a increased burden of formed stool throughout the colon but no overt impaction. LUNG BASES: The moderately large bilateral pleural effusions have increased. There is concomitant compression atelectasis of portions of both lower lobes. LIVER, GALLBLADDER, AND BILIARY TREE: The liver is normal in size, shape, and attenuation. No focal hepatic lesion or biliary ductal dilatation is present. Gallbladder is not readily apparent. PANCREAS: Unremarkable. SPLEEN: Unremarkable. ADRENAL GLANDS: A 1.5 cm hypodense nodular prominence involves the right adrenal area. The left adrenal gland is normal. Series 2, image 36. KIDNEYS AND URETERS: The kidneys are normal in size, shape, and attenuation. No hydronephrosis, hydroureter, or calculi seen. No perinephric stranding. The proximal end of the right ureteral stent is in the upper pole collecting system of the right kidney. BLADDER: Mild circumferential wall thickening. Distal end of right ureteral stent in the bladder. GASTROINTESTINAL TRACT: The small and large bowel are unremarkable. The appendix is unremarkable. ABDOMINAL WALL: Small fat-containing left inguinal hernia is seen. LYMPH NODES: Normal. VASCULAR: Unremarkable. PELVIC VISCERA: Unremarkable. OSSEOUS STRUCTURES : Unremarkable. IMPRESSION: Persistent bilateral moderate pleural effusions. The right ureteral stent is in the normally expected position. DICTATED BY: Dudley Ferrer MD DATE/TIME DICTATED:10/25/171228 EMERGENCY DEPARTMENT CLINICIAN:RYAN DATE /TIME TRANSCRIBED:10/25/171228 CONFIDENTIAL, DO NOT COPY WITHOUT APPROPRIATE AUTHORIZATION. <Electronically signed in Other Vendor System> SIGNED BY: Dudley Ferrer MD 10/25/17 1254 CXR Impression: PATIENT: HORTENSIA DIXON I PRESENT AGE: 67 PATIENT ACCOUNT NO: [id number] : 50 LOCATION: [facility] ORDERING PHYSICIAN: Janee RYAN SERVICE DATE: 10/25/17 EXAM TYPE: RAD - XRY-CHEST XRAY, TWO VIEWS EXAMINATION: XR CHEST CLINICAL INFORMATION: 67-year- old male patient with dyspnea and pedal edema. Presumptive diagnosis: CHF. COMPARISON: CT of the chest on 10/04/2017 and portable chest x-ray on 2017. TECHNIQUE: PA and lateral erect views of the chest. FINDINGS: There are bilateral moderate pleural effusions larger on the left than right that have increased significantly since 10/02/2017. The heart remains enlarged. Central pulmonary vasculature is engorged. No airspace edema is seen in the aerated portions of the upper lobes. IMPRESSION: CHF with moderate-sized pleural effusions which have increased in volume since 10/02/2017. Cardiomegaly. DICTATED BY: Dudley Ferrer MD DATE/TIME DICTATED:10/25/171210 EMERGENCY DEPARTMENT CLINICIAN:RYAN DATE/TIME TRANSCRIBED:10/25/171210 CONFIDENTIAL, DO NOT COPY WITHOUT APPROPRIATE AUTHORIZATION. <Electronically signed in Other Vendor System> SIGNED BY: Dudley Ferrer MD 10/25/17 1218 Initial ED EKG: sinus rhythm @75bpm, PAC, nonspecific ST changes Prior EKG: unchanged (10/07/17) (Bridget RYAN,Janee Hall) Plan of Care: Orders Procedure Date/time Status Renal Dialysis Diet 10/25 D Active Pathway - chart 10/25 1455 Active House Staff 10/25 1455 Active Code Status 10/25 1455 Active LACTIC ACID 10/25 1426 Active Patient Data 10/25 1340 Active Misc Message 10/25 1339 Active ED Holding Orders 10/25 1339 Active Admit to inpatient 10/25 1339 Active Vital Signs 10/25 1339 Active Code Status 10/25 1339 Complete BLOOD CULTURE 10/25 1304 Active Add-on Test (ER Only) 10/25 1259 Active B-TYPE NATRIURETIC PEP (BNP) 10/25 1215 Complete Intake & Output 10/25 1152 Active FingerStick- Glucose 10/25 1141 Active CULTURE,URINE 10/25 1126 Active URINALYSIS 10/25 1126 Complete TROPONIN LEVEL 10/25 1126 Complete LACTIC ACID 10/25 1126 Complete COMPREHENSIVE METABOLIC PANEL 10/25 1126 Complete CBC WITHOUT DIFFERENTIAL 10/25 1126 Complete EKG 10/25 0935 Active VTE Mechanical Prophylaxis 10/25 UNK Active Current Medications Sig/Hernandez Start time Last Medication Dose Stop Time Status Admin Fluticasone 1 SPRAY DAILY 10/26 0900 AC Propionate (Flonase) Tamsulosin HCl 0.4 MG DAILY 10/26 0900 AC (Flomax) Levothyroxine Sodium 0.15 MG DAILY AC 10/26 0700 AC (Synthroid) Clonidine 0.2 MG BID 10/25 2100 AC (Catapres) Metoprolol Tartrate 12.5 MG BID 10/25 2100 AC (Lopressor) Atorvastatin Calcium 40 MG 1700 10/25 1700 AC (Lipitor) Sevelamer Carbonate 1,600 MG TIDAC 10/25 1700 AC (Renvela) Aspirin 81 MG DAILY 10/25 1458 AC (Aspirin) Hydralazine HCl 50 MG TID 10/25 1400 AC 10/25 (Apresoline) 1341 Losartan Potassium 25 MG DAILY 10/25 1326 AC 10/25 (Cozaar) 1341 Amlodipine Besylate 10 MG DAILY 10/25 1256 AC 10/25 (Norvasc) 1333 Laboratory Tests 10/25/17 1235: Urinalysis LIGHT H, Urine Color YEL, Urine Clarity HAZY H, Urine pH 7.0, Ur Specific Howe 1.020, Urine Protein 100 H, Urine Ketones NEG, Urine Nitrite NEG, Urine Bilirubin NEG, Urine Urobilinogen 0.2, Ur Leukocyte Esterase SMALL H , Ur Microscopic SEDIMENT EXAMINED, Urine RBC 10-15 H, Urine WBC 25-50 H, Ur Epithelial Cells FEW, Urine Bacteria FEW H, Urine Hemoglobin SMALL H, Urine Glucose NEG 10/25/17 1215: Anion Gap 17 H, Estimated GFR 8 L, BUN/Creatinine Ratio 6.3 L, Glucose 83, Lactic Acid 0.9, Calcium 8.5, Total Bilirubin 0.4, AST 33, ALT 28, Alkaline Phosphatase 124, Troponin I 0.03, Xrb-F-Ssolnuzitgb Pept 87074 H, Total Protein 7.8, Albumin 4.3, Globulin 3.5, Albumin/Globulin Ratio 1.2, CBC w Diff NO MAN DIFF REQ, RBC 3.57 L, MCV 91.5, MCH 30.3, MCHC 33.1, RDW 14.3, MPV 6.6 L, Gran % 66.6, Lymphocytes % 21.3, Monocytes % 6.2, Eosinophils % 5.3 H, Basophils % 0.6, Absolute Granulocytes 7.5 H, Absolute Lymphocytes 2.4, Absolute Monocytes 0.7 H, Absolute Eosinophils 0.6, Absolute Basophils 0.1 Microbiology 10/25 1304 BLOOD: Blood Culture - ORD 10/25 1304 BLOOD: Blood Culture - ORD 10/25 1235 URINE ROUT: Urine Culture - RECD Patient initially hypertensive in the ED, he did not take his home meds today. Home meds given in addition to Nitro paste given patient's CHF seen on CXR. UA also shows evidence of UTI. Will initiate abx for coverage given patient's urinary symptoms. Patient with mild hyperkalemia. No ekg changes. Discussed these findings with Dr. Lees. Dr. Lees present to see and evaluate the patient. Awaiting cardiology page. Spoke with the case management, they recommend full admission. Dr. Lees spoke with hospitalist regarding this patient's telemetry admission. (Bridget RYAN,Janee Hall) Comments: 10/25/2017 1:22:40 PM I have discussed this patient's case with the hospitalist. (Yoana ISSA,Nikolay Lyn) Departure Departure Disposition: STILL A PATIENT Condition: Stable Clinical Impression Primary Impression: CHF (congestive heart failure) Qualifiers: Heart failure type: unspecified Heart failure chronicity: unspecified Qualified Code: I50.9 - Heart failure, unspecified Secondary Impressions: Hyperkalemia, Pleural effusion, UTI (urinary tract infection) Referrals: Kevin Brown MD (PCP/Family) Departure Forms: Customer Survey General Discharge Information Admission Note Spoke With: Doug ISSA,Maryan Documentation of Exam: Documentation of any treatments & extenuating circumstances including Concerns Regarding Discharge (functional status, medication knowledge or non-compliance, living conditions, etc.) that warrant an admission rather than observation: [CHF exacerbation requiring telemetry monitoring, repeat EKGs, troponins, cardiology consult, possible medication adjustment, UTI requiring IV antibiotics, hyperkalemia requiring monitoring of electrolytes, ESRD requiring dialysis, premature discharge medically unsafe] (Janee Ramon) PA/GROUNDS AND NURSERY SPECIALIST Co-Sign Statement Statement: ED Attending supervision documentation- [X] I saw and evaluated the patient. I have also reviewed all the pertinent lab results and diagnostic results. I agree with the findings and the plan of care as documented in the PA's/GROUNDS AND NURSERY SPECIALIST's documentation. Patient presents for evaluation of worsening shortness of breath, history of dialysis. Physical examination reveals mild respiratory distress with crackles bilaterally. [] I have reviewed the ED Record and agree with the PA's/GROUNDS AND NURSERY SPECIALIST's documentation. [] Additions or exceptions (if any) to the PAs/GROUNDS AND NURSERY SPECIALIST's note and plan are summarized below: [] (Yoana ISSA,Nikolay Lyn) Critical Care Note Critical Care Note Critical Care Time: 30-74 min (Janee Ramon)
[2017-10-25] MEDS ORDERED: DIOVAN80 M1 PO (11:37)
--- NOTE | 2017-10-25 12:18 | RADIOLOGY REPORT ---
EXAMINATION: XR CHEST CLINICAL INFORMATION: 67-year-old male patient with dyspnea and pedal edema. Presumptive diagnosis: CHF. COMPARISON: CT of the chest on 10/04/2017 and portable chest x-ray on 10/02/2017. TECHNIQUE: PA and lateral erect views of the chest. FINDINGS: There are bilateral moderate pleural effusions larger on the left than right that have increased significantly since 10/02/2017. The heart remains enlarged. Central pulmonary vasculature is engorged. No airspace edema is seen in the aerated portions of the upper lobes. IMPRESSION: CHF with moderate-sized pleural effusions which have increased in volume since 10/02/2017. Cardiomegaly.
[2017-10-25 12:29] LABS: ABSOLUTE BASOPHIL COUNT 0.1 /CUMM (0.0-0.2); ABSOLUTE EOSINOPHIL COUNT 0.6 /CUMM (0.0-0.7); ABSOLUTE GRANULOCYTE CT 7.5 /CUMM (1.4-6.5); ABSOLUTE LYMPH COUNT 2.4 /CUMM (1.2-3.4); ABSOLUTE MONOCYTE COUNT 0.7 /CUMM (0.10-0.60); BASOPHIL % 0.6 % (0.0-2.0); EOSINOPHIL % 5.3 % (0-5); GRANULOCYTE % 66.6 % (42.2-75.2); HEMATOCRIT 32.7 % (42-52); MEAN CORPUSCULAR HGB 30.3 PG (27.0-31.0); MEAN CORPUSCULAR HGB CONC 33.1 G/DL (33.0-37.0); MEAN CORPUSCULAR VOLUME 91.5 FL (80.0-94.0); MEAN PLATELET VOLUME 6.6 FL (7.4-10.4); PLATELET COUNT 575 /CUMM (130-400); RBC DISTRIBUTION WIDTH 14.3 % (11.5-14.5); RED BLOOD CELL CT 3.57 /CUMM (4.70-6.10); WHITE BLOOD CELL COUNT 11.2 /CUMM (4.8-10.8)
--- NOTE | 2017-10-25 12:54 | CT SCAN REPORT ---
EXAMINATION: CT ABDOMEN AND PELVIS WITHOUT CONTRAST CLINICAL INFORMATION: 67-year-old male patient with bilateral back pain. Dysuria. History of kidney stone. COMPARISON: CT of the abdomen done on 09/28/2017. (Right hydronephrosis due to a 4 mm stone at the right UPJ). TECHNIQUE: Multidetector volumetric imaging was performed from the superior aspect of the liver through the pubic symphysis. Sagittal and coronal reformatted images were obtained on the technologist's workstation. DLP: 378 mGy-cm FINDINGS: VOCATIONAL TRAINING INSTRUCTOR: The heart remains enlarged and there bilateral moderate size pleural effusions. Increased burden of formed stool is seen throughout the entire colon from cecum to sigmoid. A right ureteral catheter is in place the proximal end of which is in the vicinity of the right renal pelvis and the distal in the bladder. There is a increased burden of formed stool throughout the colon but no overt impaction. LUNG BASES: The moderately large bilateral pleural effusions have increased. There is concomitant compression atelectasis of portions of both lower lobes. LIVER, GALLBLADDER, AND BILIARY TREE: The liver is normal in size, shape, and attenuation. No focal hepatic lesion or biliary ductal dilatation is present. Gallbladder is not readily apparent. PANCREAS: Unremarkable. SPLEEN: Unremarkable. ADRENAL GLANDS: A 1.5 cm hypodense nodular prominence involves the right adrenal area. The left adrenal gland is normal. Series 2, image 36. KIDNEYS AND URETERS: The kidneys are normal in size, shape, and attenuation. No hydronephrosis, hydroureter, or calculi seen. No perinephric stranding. The proximal end of the right ureteral stent is in the upper pole collecting system of the right kidney. BLADDER: Mild circumferential wall thickening. Distal end of right ureteral stent in the bladder. GASTROINTESTINAL TRACT: The small and large bowel are unremarkable. The appendix is unremarkable. ABDOMINAL WALL: Small fat-containing left inguinal hernia is seen. LYMPH NODES: Normal. VASCULAR: Unremarkable. PELVIC VISCERA: Unremarkable. OSSEOUS STRUCTURES: Unremarkable. IMPRESSION: Persistent bilateral moderate pleural effusions. The right ureteral stent is in the normally expected position.
--- NOTE | 2017-10-25 13:54 | History & Physical ---
Fidencio ISSA,[facility] 10/25/17 1352: General Information and HPI MD Statement: I have seen and personally examined HORTENSIA DIXON I and documented this H& P. The patient is a 67 year old M who presented with a patient stated chief complaint of [worsening shortness of breath]. Source of Information: patient Exam Limitations: language barrier History of Present Illness: 67 yo M with PMH of hypertension, hyperlipidemia, diabetes, ESRD on dialysis M/W /F, BPH and pancreatitis presented to the ED with complaints of worsening abdominal pain/low back pain and shortness of breath for the past couple of days. He states that for the past week he has been having a persistent cough with whitish/creamy sputum production. The past 3 days he has been experiencing worsening shortness of breath at rest and exertion. He normally uses 2L of O2 at home. He uses 3 pillows at night to sleep and often wakes up in the middle of the night for air. He does state that his lower extremities tend to swell up. He reports gaining 3lb weight gain since yesterday. He also has been experiencing lower back pain which has been getting worse. He had an episode of vomiting this morning (no blood). He is still able to urinate a little which is accompanied with dysuria. Of note, the patient had a stent placed almost a month ago by Dr Chinchilla. 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 Denies: fever. EENTM: Reports: no symptoms. Cardiovascular: Reports: peripheral edema. Denies: chest pain. Respiratory: Reports: cough, short of breath. GI: Reports: abdominal pain. Genitourinary: Reports: dysuria. Musculoskeletal: Reports: joint pain, muscle pain. Skin: Reports: no symptoms. Neurological/Psychological: Reports: no symptoms. Exam & Diagnostic Data Last 24 Hrs of Vital Signs/I&O Vital Signs Date Time Temp Pulse Resp B/P B/P Pulse O2 O2 Flow FiO2 Mean Ox Delivery Rate 10/25 1247 98.3 83 20 188/84 97 Nasal 2.0L Cannula 10/25 1153 Nasal 2.0L Cannula 10/25 0934 98.6 80 18 186/75 90 Room Air Intake & Output 10/25 1600 10/25 0800 10/25 0000 Intake Total 120 Output Total Balance 120 Intake, Oral 120 Patient 167 lb Weight Weight Reported by Patient Measurement Method Physical Exam General Appearance Alert, Oriented X3, Cooperative, Mild Distress Skin No Rashes, No Breakdown Skin Temp/Moisture Exam: Warm/Dry Sepsis Skin Exam (color): Normal for Ethnicity HEENT Atraumatic Cardiovascular Normal S1, Normal S2, No Murmurs Lungs Normal Air Movement, diminished air entry at bilateral bases Abdomen Soft, No Tenderness, CVA tenderness Neurological Normal Speech Extremities bilateral lower extremity 3+ pitting edema Assessment/Plan Assessment: 67 yo M with PMH of hypertension, hyperlipidemia, diabetes, ESRD on dialysis M/W /F, BPH and pancreatitis presented to the ED with complaints of worsening abdominal pain/low back pain and shortness of breath for the past couple of days. Assessment: 1. Possible CHF Exacerbation 2. UTI 3. Hypertensive Urgency 4. Bilateral Pleural Effusions 5. History of ESRD and currently fluid overload. 6. History of hypertension and diabetes Plan: * Admit patient to telemetry * Continue IV Ceftriaxone 1g daily for treatment of his UTI * He reports not taking any of his home blood pressure medications this morning. Will start him on his home blood pressure medications. * IV Lasix 40mg BID * Cardio consult * Nephro consult * Urology consult * Continue home medications: aspirin, metoprolol, levothyroxine, tamsulosin, amlodipine, clonidine, atorvastatin, losartan * Insulin SS with Accucheks. Levemir 5 units at bedtime. * Diet: Renal Dialysis * DVT Prophylaxis: SC Heparin * Code Status: Full Code As Ranked By This Provider Problem List: 1. CHF exacerbation Core Measures/Misc (03/04) Acute Coronary Syndrome ACS Diagnosis: No Congestive Heart Failure Congestive Heart Failure Diagnosis No Cerebrovascular Accident CVA/TIA Diagnosis: No VTE (View Protocol) VTE Risk Factors Age>40 No Mechanical VTE Prophylaxis d/t N/A MechProphylax Ordered No VTE Pharm Prophylaxis d/t NA PharmProphylax ordered Sepsis (View protocol) Sepsis Present: No Rogers Meraz 10/25/17 1534: Attending MD Review Statement Attending Statement Attending MD Statement: examined this patient, discuss w/resident/PA/FAX MACHINE OPERATOR, agreed w/resident/PA/FAX MACHINE OPERATOR, discussed with family, reviewed EMR data (avail), discussed with nursing, discussed with case mgmt, reviewed images, amended to note Kalia ISSA,[facility] 10/25/17 1700: General Information and HPI Allergies/Medications Home Med list Acetaminophen (Tylenol) 325 MG TABLET 2 TAB PO DAILY NEEDED PRN PAIN ( Reported) Amlodipine Besylate 10 MG TABLET 1 TAB PO DAILY HTN (Reported) Aspirin (Aspirin*) 81 MG TAB.CHEW 1 TAB PO DAILY CAD (Reported) Carvedilol 12.5 MG TABLET 1 TAB PO BID Blood Pressure Clonidine HCl 0.2 MG TABLET 1 TAB PO BID HTN (Reported) Darbepoetin Pardeep in Polysorbat (Aranesp) 10 MCG/0.4 ML SYRINGE 1 SYR IM QMON ANEMIA (Reported) Etelcalcetide Hydrochloride (Parsabiv) 5 MG/ML VIAL 5 MG IV Sunday ESRD (Reported) Fluticasone Propionate (Flonase Allergy Relief) 50 MCG/ACTUATION SPRAY.SUSP 1 SPRAY INH BID ALLERGY (Reported) Furosemide 80 MG TABLET 1 TAB PO DAILY CHF (Reported) Hydralazine HCl 50 MG TABLET 1 TAB PO TID HTN (Reported) Insulin Aspart, Recombinant (Novolog Flexpen) 100 UNIT/ML INSULN.PEN 0 SC TID Blood sugar (Reported) Please use 5 - 8 - 11 Units based on carb count Insulin Glargine,Hum.rec.anlog (Lantus Solostar) 100 UNIT/ML (3 ML) INSULN.PEN 10 UNIT SC QPM DAILY (Reported) Lactulose (Kristalose) 20 GRAM PACKET 1 PACKET PO DAILY CONSTIPATION ( Reported) Levothyroxine Sodium 150 MCG TABLET 1 TAB PO DAILY AC THYROID (Reported) Metoprolol Tartrate 25 MG TABLET 0.5 TAB PO BID CAD / HTN (Reported) Minoxidil 10 MG TABLET 2.5 MG PO DAILY ESRD (Reported) Nitroglycerin 0.4 MG TAB.SUBL 1 TAB SL AD CHEST PAIN (Reported) 1st sign of attack; may repeat every 5 minutes until relief; if pain persists after 3 tablets in 15 minutes, prompt medical att Olmesartan Medoxomil (Benicar) 40 MG TABLET 1 TAB PO DAILY HTN (Reported) Oxycodone HCl 5 MG TABLET 1 TAB PO Q4-6 PRN PAIN CONTROL (Reported) Pravastatin Sodium 40 MG TABLET 1 TAB PO QPM HLD (Reported) Sevelamer Carbonate (Renvela) 800 MG TABLET 1,600 MG PO TIDAC bone health Tamsulosin HCl (Flomax) 0.4 MG CAP.ER.24H 1 CAP PO DAILY BPH (Reported) Valsartan (Diovan) 80 MG TABLET 1 TAB PO DAILY HEART (Reported) Vitamin B Complex 1 EACH TABLET 1 TAB PO DAILY VITAMIN SUPPORT (Reported) Resident Review Statement Resident Statement: examined this patient, discussed with analysis internship, agreed with analysis internship, discussed with family Other Findings: Assessment and plan: 67-year-old male with extensive PMH including hypertension, hyperlipidemia, DM on insulin, ESRD on dialysis Sunday, Sunday, Sunday, BPH, recent ureteral stent, chronic back pain, who presented for back pain, shoulder pain, and shortness breath for the past 2 days. The patient reports for the past 2 days he's been having cough productive of white sputum, he also reported dysuria, chills, and subjective fever and was found to have flank tenderness bilaterally, however CT abdomen showed normal kidneys without hydronephrosis. He is currently complaining of diffuse abdominal pain, but denies nausea, vomiting, or diarrhea. The patient has orthopnea which most likely secondary to fluid overload. He reports gaining 3 pounds since yesterday, CXR showed CHF with moderate-sized pleural effusions which have increased in volume since 10/02/2017. Cardiomegaly. Problem list * End-stage renal disease with signs of volume overload, dialysis dialysis M/W/F * UTI, has a recent ureteral stent placed * CHF possibly on exacerbation * Hypertensive Urgency * DM on insulin * Hyperlipidemia * Hypothyroidism * BPH * Bilateral Pleural Effusions Plan: * Admit patient to telemetry * Continue IV Ceftriaxone 1g daily for UTI * Continue all home antihypertensive medication * Start Lasix IV 40 mg twice a day(equivalent to what he's taken a home) * Diabetic&dialysis diet, fingerstick, NovoLog ss and 5 units of Levemir at bedtime * Continue aspirin, metoprolol, levothyroxine, tamsulosin, amlodipine, clonidine , atorvastatin, losartan * Cardio consult, Nephro consult, Urology consult * Diet: Renal Dialysis * DVT Prophylaxis: SC Heparin * Code Status: Full Code
[2017-10-25 17:38] VITALS: BP 178/80
--- NOTE | 2017-10-26 06:01 | Cons- Urology ---
General Information and HPI Consulting Request Date of Consult: 10/26/17 Requested By: Rogers Meraz MD Reason for Consult: Suprapubic pain and dysuria Source of Information: patient, family Exam Limitations: no limitations History of Present Illness: 67 year old with hx of CHF, DM, and ESRD on dialysis. In 09/2017 he was admitted with severe R flank pain. CT scan shows 2 small stones in the R kidney with one being at the UPJ causing mild R hydronephrosis. A R ureteral stent was placed and his R flank pain improved. He was at dialysis yesterday and was noted to have increased lower extremity edema. He was also complaining of suprapubic discomfort, dysuria and back pain. He was sent to the ER and admitted with exacerbation of CHF. U/A showed some pyuria and few bacteria. He denies fever, chills or gross hematuria. He was started on ceftriaxone empirically. Allergies/Medications Allergies: Coded Allergies: No Known Allergies (09/28/17) Home Med List: Acetaminophen (Tylenol) 325 MG TABLET 2 TAB PO DAILY NEEDED PRN PAIN ( Reported) Amlodipine Besylate 10 MG TABLET 1 TAB PO DAILY HTN (Reported) Aspirin (Aspirin*) 81 MG TAB.CHEW 1 TAB PO DAILY CAD (Reported) Clonidine HCl 0.2 MG TABLET 1 TAB PO BID HTN (Reported) Darbepoetin Pardeep in Polysorbat (Aranesp) 10 MCG/0.4 ML SYRINGE 1 SYR IM QMON ANEMIA (Reported) Etelcalcetide Hydrochloride (Parsabiv) 5 MG/ML VIAL 5 MG IV Sunday ESRD (Reported) Fluticasone Propionate (Flonase Allergy Relief) 50 MCG/ACTUATION SPRAY.SUSP 1 SPRAY INH BID ALLERGY (Reported) Furosemide 80 MG TABLET 1 TAB PO DAILY CHF (Reported) Hydralazine HCl 50 MG TABLET 1 TAB PO TID HTN (Reported) Insulin Aspart, Recombinant (Novolog Flexpen) 100 UNIT/ML INSULN.PEN 0 SC TID Blood sugar (Reported) Please use 5 - 8 - 11 Units based on carb count Insulin Glargine,Hum.rec.anlog (Lantus Solostar) 100 UNIT/ML (3 ML) INSULN.PEN 10 UNIT SC QPM DAILY (Reported) Lactulose (Kristalose) 20 GRAM PACKET 1 PACKET PO DAILY CONSTIPATION ( Reported) Levothyroxine Sodium 150 MCG TABLET 1 TAB PO DAILY AC THYROID (Reported) Metoprolol Tartrate 25 MG TABLET 0.5 TAB PO BID CAD / HTN (Reported) Minoxidil 10 MG TABLET 2.5 MG PO DAILY ESRD (Reported) Nitroglycerin 0.4 MG TAB.SUBL 1 TAB SL AD CHEST PAIN (Reported) 1st sign of attack; may repeat every 5 minutes until relief; if pain persists after 3 tablets in 15 minutes, prompt medical att Olmesartan Medoxomil (Benicar) 40 MG TABLET 1 TAB PO DAILY HTN (Reported) Oxycodone HCl 5 MG TABLET 1 TAB PO Q4-6 PRN PAIN CONTROL (Reported) Pravastatin Sodium 40 MG TABLET 1 TAB PO QPM HLD (Reported) Sevelamer Carbonate (Renvela) 800 MG TABLET 1,600 MG PO TIDAC bone health Tamsulosin HCl (Flomax) 0.4 MG CAP.ER.24H 1 CAP PO DAILY BPH (Reported) Valsartan (Diovan) 80 MG TABLET 1 TAB PO DAILY HEART (Reported) Vitamin B Complex 1 EACH TABLET 1 TAB PO DAILY VITAMIN SUPPORT (Reported) Current Medications: Current Medications Sig/Hernandez Start time Last Medication Dose Route Stop Time Status Admin Amlodipine Besylate 0 .STK-MED ONE 10/25 1327 DC PO Amlodipine Besylate 10 MG DAILY 10/25 1256 AC 10/25 PO 1333 Aspirin 0 .STK-MED ONE 10/25 1618 DC PO Aspirin 81 MG DAILY 10/25 1458 AC 10/25 PO 1615 Atorvastatin Calcium 40 MG 1700 10/25 1700 AC 10/25 PO 1826 Ceftriaxone Sodium 1,000 MG DAILY 10/26 09 AC IV Ceftriaxone Sodium 0 .STK-MED ONE 10/25 1327 DC .ROUTE Ceftriaxone Sodium 1,000 MG ONCE ONE 10/25 1315 DC 10/25 IV 10/25 1316 1333 Clonidine 0.2 MG BID 10/25 2100 AC 10/25 PO 2152 Fluticasone 1 SPRAY DAILY 10/26 09 AC Propionate NADYA Furosemide 40 MG 7:30 AM, & 4:30 PM 10/25 1630 AC 10/25 IV 1826 Hydralazine HCl 50 MG TID 10/25 1400 AC 10/25 PO 2153 Insulin Aspart 0 TIDAC 10/25 1700 AC SC Insulin Detemir 5 UNITS AT BEDTIME 10/25 2100 AC 10/25 SC 2156 Levothyroxine Sodium 0.15 MG DAILY AC 10/26 0700 AC PO Losartan Potassium 0 .STK-MED ONE 10/25 1346 DC PO Losartan Potassium 25 MG DAILY 10/25 1326 AC 10/25 PO 1341 Losartan Potassium 80 MG DAILY 10/25 1258 DC PO Metoprolol Tartrate 12.5 MG BID 10/25 2100 AC 10/25 PO 2152 Metoprolol Tartrate 12.5 MG BID 10/25 1257 DC 10/25 PO 1341 Morphine Sulfate 1 MG ONCE ONE 10/26 0245 DC 10/26 IV 10/26 0246 0400 Morphine Sulfate 0 .STK-MED ONE 10/25 1707 DC .ROUTE Morphine Sulfate 2 MG ONCE ONE 10/25 1700 DC 10/25 IV 10/25 1701 1717 Morphine Sulfate 2 MG ONCE ONE 10/25 1245 DC 10/25 IV 10/25 1246 1239 Morphine Sulfate 0 .STK-MED ONE 10/25 1243 DC .ROUTE Nitroglycerin 0 .STK-MED ONE 10/25 1327 DC TOP Nitroglycerin 1 GM ONCE ONE 10/25 1300 DC 10/25 TOP 10/25 1301 1333 Oxycodone HCl 5 MG Q6P PRN 10/25 1630 AC 10/26 PO 0236 Sevelamer Carbonate 1,600 MG TIDAC 10/25 1700 AC PO Tamsulosin HCl 0.4 MG DAILY 10/26 0900 AC PO Past History Medical History Blood Transfusion Hx: No Neurological: NONE EENT: NONE Cardiovascular: CHF, hypertension, hyperlipidemia, AORTIC STENOSIS FLUID OVERLOAD BRADYCARDIA Respiratory: NONE Gastrointestinal: colitis, PANCREATITIS Hepatic: NONE Renal: benign prost hyperplasia, ESRD ON DIALYSIS CYST ON KIDNEY RIGHT URETER STENT Musculoskeletal: FROZEN SHOULDER Psychiatric: NONE Endocrine: TYPE II DM HYPOTHYROIDISM Blood Disorders: NONE Cancer(s): NONE CLINICAL ASST/Reproductive: NONE Surgical History Pertinent Surgical History: unobtainable Psychosocial History Where Do You Live? Home Services at Home: Nursing Smoking Status: Former Smoker Exam & Diagnostic Data Vital Signs and I&O Vital Signs Date Time Temp Pulse Resp B/P B/P Pulse O2 O2 Flow FiO2 Mean Ox Delivery Rate 10/25 2152 92 158/100 10/25 215 92 158/100 10/25 215 92 158/100 10/25 1808 Nasal 3.0L Cannula 10/25 1738 98.3 78 18 178/80 95 Nasal 3.0L Cannula 10/25 1617 98.5 87 20 166/88 96 Nasal 2.0L Cannula 10/25 1247 98.3 83 20 188/84 97 Nasal 2.0L Cannula 10/25 1153 Nasal 2.0L Cannula 10/25 0934 98.6 80 18 186/75 90 Room Air Intake & Output 10/26 0810/26 0000 10/25 1600 10/25 0810/25 0000 10/24 1600 Intake Total 200 120 Output Total Balance 200 120 Intake, Oral 200 120 Patient 174 lb 167 lb Weight Weight Bed scale Reported by Patient Measurement Method No acute distress Back: ? mild R CVA tenderness Abd: soft Genitalia: normal male Laboratory Tests 10/25 10/25 1426 1235 Chemistry Lactic Acid Cancelled Urines Urinalysis LIGHT H Urine Color (YEL,AMB,STR) YEL Urine Clarity (CLEAR) HAZY H Urine pH (5.0 - 8.0) 7.0 Ur Specific [place] (1.001 - 1.035) 1.020 Urine Protein (NEG,<30 MG/DL) 100 H Urine Ketones (NEG) NEG Urine Nitrite (NEG) NEG Urine Bilirubin (NEG) NEG Urine Urobilinogen (0.1 - 1.0 EU/dl) 0.2 Ur Leukocyte Esterase (NEG) SMALL H Ur Microscopic SEDIMENT EXAMINED Urine RBC (0 - 5 /HPF) 10-15 H Urine WBC (0 - 2 /HPF) 25-50 H Ur Epithelial Cells (NONE,FEW) FEW Urine Bacteria (NEG/NONE) FEW H Urine Hemoglobin (NEG) SMALL H Urine Glucose (N MG/DL) NEG 10/25 1215 Chemistry Sodium (137 - 145 mmol/L) 142 Potassium (3.5 - 5.1 mmol/L) 5.6 H Chloride (98 - 107 mmol/L) 94 L Carbon Dioxide (22 - 30 mmol/L) 31 H Anion Gap (5 - 16) 17 H BUN (9 - 20 mg/dL) 42 H Creatinine (0.7 - 1.2 mg/dL) 6.7 *H Estimated GFR (>60 ml/min) 8 L BUN/Creatinine Ratio (7 - 25 %) 6.3 L Glucose (65 - 99 mg/dL) 83 Lactic Acid (0.7 - 2.1 mmol/L) 0.9 Calcium (8.4 - 10.2 mg/dL) 8.5 Total Bilirubin (0.2 - 1.3 mg/dL) 0.4 AST (17 - 59 U/L) 33 ALT (21 - 72 U/L) 28 Alkaline Phosphatase (< 127 U/L) 124 Troponin I (<0.11 ng/ml) 0.03 Rta-P-Mhzvnhvypsq Pept (<125 pg/mL) 86389 H Total Protein (6.3 - 8.2 g/dL) 7.8 Albumin (3.5 - 5.0 g/dL) 4.3 Globulin (1.9 - 4.2 gm/dL) 3.5 Albumin/Globulin Ratio (1.1 - 2.2 %) 1.2 Hematology CBC w Diff NO MAN DIFF REQ WBC (4.8 - 10.8 /CUMM) 11.2 H RBC (4.70 - 6.10 /CUMM) 3.57 L Hgb (14.0 - 18.0 G/DL) 10.8 L Hct (42 - 52 %) 32.7 L MCV (80.0 - 94.0 FL) 91.5 MCH (27.0 - 31.0 PG) 30.3 MCHC (33.0 - 37.0 G/DL) 33.1 RDW (11.5 - 14.5 %) 14.3 Plt Count (130 - 400 /CUMM) 575 H MPV (7.4 - 10.4 FL) 6.6 L Gran % (42.2 - 75.2 %) 66.6 Lymphocytes % (20.5 - 51.1 %) 21.3 Monocytes % (1.7 - 9.3 %) 6.2 Eosinophils % (0 - 5 %) 5.3 H Basophils % (0.0 - 2.0 %) 0.6 Absolute Granulocytes (1.4 - 6.5 /CUMM) 7.5 H Absolute Lymphocytes (1.2 - 3.4 /CUMM) 2.4 Absolute Monocytes (0.10 - 0.60 /CUMM) 0.7 H Absolute Eosinophils (0.0 - 0.7 /CUMM) 0.6 Absolute Basophils (0.0 - 0.2 /CUMM) 0.1 CT scan images reviewed. R ureteral stent in good position. No hydronephrosis. Stones not seen Assessment/Plan Assessment/Plan Imp: 1. Suprapubic discomfort and dysuria. Difficult to tell if just ureteral stent sx's vs UTI 2. hx of R renal stones 3. Multiple medical issues including ESRD, CHF and DM Plan: 1. Would f/u urine culture. If negative would d/c abx 2. Long range plan is to leave stent in for about 2 more months and then remove in the hopes the R ureter has dilated enough to allow for spontaneous stone passage and he is very high risk for R ureteroscopy and laser litho which would require general anesthesia Consult Acknowledgment - Thank you for your consult request.
[2017-10-26 06:55] VITALS: BP 198/84
[2017-10-26 08:02] LABS: ABSOLUTE BASOPHIL COUNT 0.1 /CUMM (0.0-0.2); ABSOLUTE EOSINOPHIL COUNT 0.7 /CUMM (0.0-0.7); ABSOLUTE GRANULOCYTE CT 6.5 /CUMM (1.4-6.5); ABSOLUTE MONOCYTE COUNT 0.6 /CUMM (0.10-0.60); BASOPHIL % 1.1 % (0.0-2.0); EOSINOPHIL % 6.8 % (0-5); GRANULOCYTE % 65.2 % (42.2-75.2); MEAN CORPUSCULAR HGB CONC 33.1 G/DL (33.0-37.0); MEAN CORPUSCULAR VOLUME 90.7 FL (80.0-94.0); MEAN PLATELET VOLUME 6.7 FL (7.4-10.4); PLATELET COUNT 526 /CUMM (130-400); RBC DISTRIBUTION WIDTH 14.4 % (11.5-14.5); RED BLOOD CELL CT 3.31 /CUMM (4.70-6.10); WHITE BLOOD CELL COUNT 9.9 /CUMM (4.8-10.8)
--- NOTE | 2017-10-26 08:43 | PN- Housestaff ---
Fidencio ISSA,[facility] 10/26/17 0843: Subjective Follow-up For: Fluid Overload Hypertensive Urgency UTI Tele-Events Since Last Visit: NSR/1st degree AV block with HR 69-84. No overnight events. Subjective: Patient was seen and examined at bedside. States his breathing has improved since he came in yesterday. He still has discomfort with urination and in his back. He feels the morphine helps with the back pain. Review of Systems Constitutional: Reports: no symptoms. Objective Last 24 Hrs of Vital Signs/I&O Vital Signs Date Time Temp Pulse Resp B/P B/P Pulse O2 O2 Flow FiO2 Mean Ox Delivery Rate 10/26 1408 98.1 67 20 158/80 98 Nasal Cannula 10/26 1237 84 200/80 10/26 0655 98.4 88 20 198/84 96 Nasal Cannula 10/26 0000 94 Nasal 3.0L Cannula 10/25 2153 92 158/100 10/25 2152 92 158/100 10/25 2152 92 158/100 10/25 1808 Nasal 3.0L Cannula 10/25 1738 98.3 78 18 178/80 95 Nasal 3.0L Cannula 10/25 1617 98.5 87 20 166/88 96 Nasal 2.0L Cannula Intake & Output 10/26 1600 10/26 0800 10/26 0000 Intake Total 200 200 Output Total 0 Balance 200 200 Intake, Oral 200 200 Output, Urine 0 Patient 174 lb Weight Weight Bed scale Measurement Method Physical Exam General Appearance: Alert, Oriented X3, Cooperative, Mild Distress Skin: No Rashes, No Breakdown Skin Temp/Moisture Exam: Warm/Dry Sepsis Skin Exam (color): Normal for Ethnicity HEENT: Atraumatic Cardiovascular: Normal S1, Normal S2, No Murmurs Lungs: diminished air entry bilateral lower lobes Abdomen: Soft, No Tenderness Neurological: Normal Speech Extremities: bilateral lower extremity 2+ edema up to mid tibial region Last 24 Hrs of Lab/Sedrick Results Last 24 Hrs of Labs/Mics: Laboratory Tests 10/26/17 0625: Anion Gap 16, Estimated GFR 7 L, BUN/Creatinine Ratio 6.3 L, CBC w Diff NO MAN DIFF REQ, RBC 3.31 L, MCV 90.7, MCH 30.0, MCHC 33.1, RDW 14.4, MPV 6.7 L, Gran % 65.2, Lymphocytes % 20.4 L, Monocytes % 6.5, Eosinophils % 6.8 H, Basophils % 1.1, Absolute Granulocytes 6.5, Absolute Lymphocytes 2.0, Absolute Monocytes 0.6, Absolute Eosinophils 0.7, Absolute Basophils 0.1 Microbiology 10/25 2124 BLOOD: Blood Culture - RES 10/25 2109 BLOOD: Blood Culture - RES Assessment/Plan Assessment: 67 yo M with PMH of hypertension, hyperlipidemia, diabetes, ESRD on dialysis M/W /F, BPH and pancreatitis presented to the ED with complaints of worsening abdominal pain/low back pain and shortness of breath for the past couple of days. Assessment: 1. ESRD with fluid overload. 2. UTI 3. Hypertensive Urgency 4. Bilateral Pleural Effusions 5. History of hypertension and diabetes Plan: * He is significantly fluid overloaded. He is undergoing dialysis today but will require another session tomorrow. He is likely several lbs above his target dry weight. * If his breathing is improved and fluid status improves after second dialysis tomorrow, he can likely be discharged and follow his usual dialysis sessions from Sunday. * His blood pressure is improved this evening and within acceptable limits. * Continue IV Ceftriaxone 1g daily for treatment of his UTI. If his urine culture is negative, his abx can be discontinued. * His metoprolol has been discontinued and switched to carvedilol 12.5mg BID. * Cardiology, nephrology recs appreciated. * Continue home medications: aspirin, levothyroxine, tamsulosin, amlodipine, clonidine, atorvastatin, losartan * Insulin SS with Accucheks. Levemir 5 units at bedtime. * Diet: Renal Dialysis * DVT Prophylaxis: SC Heparin * Code Status: Full Code Problem List: 1. Pleural effusion Pain Ratin Pain Location: none Pain Goal: Remain pain free Pain Plan: none Tomorrow's Labs & Rationales: CBC, BEP Rogers Meraz 10/26/17 1129: Attending MD Review Statement Attending Statement Attending MD Statement: examined this patient, discuss w/resident/PA/NEGATIVE NOTCHER, agreed w/resident/PA/NEGATIVE NOTCHER, discussed with family, reviewed EMR data (avail), discussed with nursing, discussed with case mgmt, reviewed images, amended to note Attending Assessment/Plan: 67 o/m with pmh of ESRD on HD M/W/F admitted here with fluid overlaod and interstitial edema and uncontrolled hypertension requiring hemodialysis today. Patient is on iv lasix and change metoprolol to carvedilol 12.5 mg bid. His BP is getting better after dialysis. Follow nephrology recs and dialysis plan as per neprhology. Monitor i/o , daily weights. He also had chills and possible UTI however needs to follow culture, if culture negative consider discontinue antibiotic. Urology appreciated. gi/dvt prophyalxis full code.
--- NOTE | 2017-10-26 09:43 | Cons- Cardiology ---
General Information and HPI Consulting Request Date of Consult: 10/26/17 Requested By: Rogers Meraz MD Reason for Consult: Dyspnea Source of Information: patient, old records Exam Limitations: no limitations History of Present Illness: The patient is a 67-year-old gentleman with a past medical history of end-stage renal disease (on dialysis), hypertension, pulmonary hypertension, hyperlipidemia and pancreatitis. He presented to our emergency room with symptoms of dyspnea. The patient states he has been progressively short of breath over the past several days. He has well has had cough productive of a whitish sputum. There has been no concurrent chest pain nor palpitations; however, he does state having continued lower back pain which has been chronic. On arrival, he was noted to have increasing pleural effusions in comparison to a prior study. Of note, the patient was admitted approximately 1 month ago due to renal obstruction. At that time, he underwent an echocardiogram which demonstrated overall preserved LV systolic function, noted diastolic dysfunction as well as pulmonary hypertension. By dialysis records, he is approximately 4-1/2 kg above his baseline dry weight (dialyzed 2 days ago). Allergies/Medications Allergies: Coded Allergies: No Known Allergies (09/28/17) Home Med List: Acetaminophen (Tylenol) 325 MG TABLET 2 TAB PO DAILY NEEDED PRN PAIN ( Reported) Amlodipine Besylate 10 MG TABLET 1 TAB PO DAILY HTN (Reported) Aspirin (Aspirin*) 81 MG TAB.CHEW 1 TAB PO DAILY CAD (Reported) Clonidine HCl 0.2 MG TABLET 1 TAB PO BID HTN (Reported) Darbepoetin Pardeep in Polysorbat (Aranesp) 10 MCG/0.4 ML SYRINGE 1 SYR IM QMON ANEMIA (Reported) Etelcalcetide Hydrochloride (Parsabiv) 5 MG/ML VIAL 5 MG IV Sunday ESRD (Reported) Fluticasone Propionate (Flonase Allergy Relief) 50 MCG/ACTUATION SPRAY.SUSP 1 SPRAY INH BID ALLERGY (Reported) Furosemide 80 MG TABLET 1 TAB PO DAILY CHF (Reported) Hydralazine HCl 50 MG TABLET 1 TAB PO TID HTN (Reported) Insulin Aspart, Recombinant (Novolog Flexpen) 100 UNIT/ML INSULN.PEN 0 SC TID Blood sugar (Reported) Please use 5 - 8 - 11 Units based on carb count Insulin Glargine,Hum.rec.anlog (Lantus Solostar) 100 UNIT/ML (3 ML) INSULN.PEN 10 UNIT SC QPM DAILY (Reported) Lactulose (Kristalose) 20 GRAM PACKET 1 PACKET PO DAILY CONSTIPATION ( Reported) Levothyroxine Sodium 150 MCG TABLET 1 TAB PO DAILY AC THYROID (Reported) Metoprolol Tartrate 25 MG TABLET 0.5 TAB PO BID CAD / HTN (Reported) Minoxidil 10 MG TABLET 2.5 MG PO DAILY ESRD (Reported) Nitroglycerin 0.4 MG TAB.SUBL 1 TAB SL AD CHEST PAIN (Reported) 1st sign of attack; may repeat every 5 minutes until relief; if pain persists after 3 tablets in 15 minutes, prompt medical att Olmesartan Medoxomil (Benicar) 40 MG TABLET 1 TAB PO DAILY HTN (Reported) Oxycodone HCl 5 MG TABLET 1 TAB PO Q4-6 PRN PAIN CONTROL (Reported) Pravastatin Sodium 40 MG TABLET 1 TAB PO QPM HLD (Reported) Sevelamer Carbonate (Renvela) 800 MG TABLET 1,600 MG PO TIDAC bone health Tamsulosin HCl (Flomax) 0.4 MG CAP.ER.24H 1 CAP PO DAILY BPH (Reported) Valsartan (Diovan) 80 MG TABLET 1 TAB PO DAILY HEART (Reported) Vitamin B Complex 1 EACH TABLET 1 TAB PO DAILY VITAMIN SUPPORT (Reported) Current Medications: Current Medications Sig/Hernandez Start time Last Medication Dose Route Stop Time Status Admin Amlodipine Besylate 0 .STK-MED ONE 10/25 1327 DC PO Amlodipine Besylate 10 MG DAILY 10/25 1256 AC 10/25 PO 1333 Aspirin 0 .STK-MED ONE 10/25 1618 DC PO Aspirin 81 MG DAILY 10/25 1458 AC 10/25 PO 1615 Atorvastatin Calcium 40 MG 1700 10/25 1700 AC 10/25 PO 1826 Ceftriaxone Sodium 1,000 MG 1300 10/26 1300 AC IV Ceftriaxone Sodium 1,000 MG DAILY 10/26 0900 DC IV Ceftriaxone Sodium 0 .STK-MED ONE 10/25 1327 DC .ROUTE Ceftriaxone Sodium 1,000 MG ONCE ONE 10/25 1315 DC 10/25 IV 10/25 1316 1333 Clonidine 0.2 MG BID 10/25 2100 AC 10/25 PO 2152 Fluticasone 1 SPRAY DAILY 10/26 0900 AC 10/26 Propionate NADYA 0819 Furosemide 40 MG 7:30 AM, & 4:30 PM 10/25 1630 AC 10/26 IV 0817 Hydralazine HCl 50 MG TID 10/25 1400 AC 10/25 PO 2153 Insulin Aspart 0 TIDAC 10/25 1700 AC SC Insulin Detemir 5 UNITS AT BEDTIME 10/25 2100 AC 10/25 SC 2156 Levothyroxine Sodium 0.15 MG DAILY AC 10/26 0700 AC PO Losartan Potassium 0 .STK-MED ONE 10/25 1346 DC PO Losartan Potassium 25 MG DAILY 10/25 1326 AC 10/25 PO 1341 Losartan Potassium 80 MG DAILY 10/25 1258 DC PO Metoprolol Tartrate 12.5 MG BID 10/25 2100 AC 10/25 PO 2152 Metoprolol Tartrate 12.5 MG BID 10/25 1257 DC 10/25 PO 1341 Morphine Sulfate 1 MG ONCE ONE 10/26 0900 DC IV 10/26 0901 Morphine Sulfate 1 MG ONCE ONE 10/26 0245 DC 10/26 IV 10/26 0246 0400 Morphine Sulfate 0 .STK-MED ONE 10/25 1707 DC .ROUTE Morphine Sulfate 2 MG ONCE ONE 10/25 1700 DC 10/25 IV 10/25 1701 1717 Morphine Sulfate 2 MG ONCE ONE 10/25 1245 DC 10/25 IV 10/25 1246 1239 Morphine Sulfate 0 .STK-MED ONE 10/25 1243 DC .ROUTE Nitroglycerin 0 .STK-MED ONE 10/25 1327 DC TOP Nitroglycerin 1 GM ONCE ONE 10/25 1300 DC 10/25 TOP 10/25 1301 1333 Oxycodone HCl 5 MG Q6P PRN 10/25 1630 AC 10/26 PO 0819 Sevelamer Carbonate 1,600 MG TIDAC 10/25 1700 AC 10/26 PO 0818 Tamsulosin HCl 0.4 MG DAILY 10/26 0900 AC PO Review of Systems Review of Systems: The review of systems is negative for chest pains, palpitations nor lightheadedness. Positive for dyspnea as above with stated orthopnea The remainder of the 14 point review of systems is noncontributory with the exception of above. 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 Home Services at Home: Nursing Smoking Status: Former Smoker Exam & Diagnostic Data Vital Signs and I&O Vital Signs Date Time Temp Pulse Resp B/P B/P Pulse O2 O2 Flow FiO2 Mean Ox Delivery Rate 10/26 0655 98.4 88 20 198/84 96 Nasal Cannula 10/26 0000 94 Nasal 3.0L Cannula 10/25 2153 92 158/100 10/25 2152 92 158/100 10/25 2152 92 158/100 10/25 1808 Nasal 3.0L Cannula 10/25 1738 98.3 78 18 178/80 95 Nasal 3.0L Cannula 10/25 1617 98.5 87 20 166/88 96 Nasal 2.0L Cannula 10/25 1247 98.3 83 20 188/84 97 Nasal 2.0L Cannula 10/25 1153 Nasal 2.0L Cannula Intake & Output 10/26 1600 10/26 0800 10/26 0000 10/25 1600 10/25 0800 10/25 0000 Intake Total 200 200 120 Output Total 0 Balance 200 200 120 Intake, Oral 200 200 120 Output, Urine 0 Patient 174 lb 167 lb Weight Weight Bed scale Reported by Patient Measurement Method Physical Exam: General: Nontoxic, no apparent distress. HEENT: Sclera and conjunctiva within normal limits, without xanthelasmas. Neck: Carotids 2+ without bruits. Respiratory: Diffuse rhonchi and rales, air movement is decreased at the bases, without accessory respiratory muscle use. Heart: Regular rate and rhythm, without murmurs, without JVD, approximately 2 mm of pitting edema in both lower extremities to the mid tibial region. Abdomen: Soft, nontender, no masses, normoactive bowel sounds. Extremities: Without clubbing, cyanosis, without edema. Neuro: Nonfocal exam, strength, 5 out of 5 Skin: Within normal limits without lesions. Psych: Mood and affect: Normal Labs/Sedrick Results: Laboratory Tests 10/26 10/25 0625 1426 Chemistry Sodium (137 - 145 mmol/L) 140 Potassium (3.5 - 5.1 mmol/L) 5.8 H Chloride (98 - 107 mmol/L) 94 L Carbon Dioxide (22 - 30 mmol/L) 29 Anion Gap (5 - 16) 16 BUN (9 - 20 mg/dL) 49 H Creatinine (0.7 - 1.2 mg/dL) 7.8 *H Estimated GFR (>60 ml/min) 7 L BUN/Creatinine Ratio (7 - 25 %) 6.3 L Lactic Acid Cancelled Hematology CBC w Diff NO MAN DIFF REQ WBC (4.8 - 10.8 /CUMM) 9.9 RBC (4.70 - 6.10 /CUMM) 3.31 L Hgb (14.0 - 18.0 G/DL) 9.9 L Hct (42 - 52 %) 30.0 L MCV (80.0 - 94.0 FL) 90.7 MCH (27.0 - 31.0 PG) 30.0 MCHC (33.0 - 37.0 G/DL) 33.1 RDW (11.5 - 14.5 %) 14.4 Plt Count (130 - 400 /CUMM) 526 H MPV (7.4 - 10.4 FL) 6.7 L Gran % (42.2 - 75.2 %) 65.2 Lymphocytes % (20.5 - 51.1 %) 20.4 L Monocytes % (1.7 - 9.3 %) 6.5 Eosinophils % (0 - 5 %) 6.8 H Basophils % (0.0 - 2.0 %) 1.1 Absolute Granulocytes (1.4 - 6.5 /CUMM) 6.5 Absolute Lymphocytes (1.2 - 3.4 /CUMM) 2.0 Absolute Monocytes (0.10 - 0.60 /CUMM) 0.6 Absolute Eosinophils (0.0 - 0.7 /CUMM) 0.7 Absolute Basophils (0.0 - 0.2 /CUMM) 0.1 10/25 10/25 1235 1215 Chemistry Sodium (137 - 145 mmol/L) 142 Potassium (3.5 - 5.1 mmol/L) 5.6 H Chloride (98 - 107 mmol/L) 94 L Carbon Dioxide (22 - 30 mmol/L) 31 H Anion Gap (5 - 16) 17 H BUN (9 - 20 mg/dL) 42 H Creatinine (0.7 - 1.2 mg/dL) 6.7 *H Estimated GFR (>60 ml/min) 8 L BUN/Creatinine Ratio (7 - 25 %) 6.3 L Glucose (65 - 99 mg/dL) 83 Lactic Acid (0.7 - 2.1 mmol/L) 0.9 Calcium (8.4 - 10.2 mg/dL) 8.5 Total Bilirubin (0.2 - 1.3 mg/dL) 0.4 AST (17 - 59 U/L) 33 ALT (21 - 72 U/L) 28 Alkaline Phosphatase (< 127 U/L) 124 Troponin I (<0.11 ng/ml) 0.03 Kae-S-Wnejyeboviu Pept (<125 pg/mL) 47294 H Total Protein (6.3 - 8.2 g/dL) 7.8 Albumin (3.5 - 5.0 g/dL) 4.3 Globulin (1.9 - 4.2 gm/dL) 3.5 Albumin/Globulin Ratio (1.1 - 2.2 %) 1.2 Hematology CBC w Diff NO MAN DIFF REQ WBC (4.8 - 10.8 /CUMM) 11.2 H RBC (4.70 - 6.10 /CUMM) 3.57 L Hgb (14.0 - 18.0 G/DL) 10.8 L Hct (42 - 52 %) 32.7 L MCV (80.0 - 94.0 FL) 91.5 MCH (27.0 - 31.0 PG) 30.3 MCHC (33.0 - 37.0 G/DL) 33.1 RDW (11.5 - 14.5 %) 14.3 Plt Count (130 - 400 /CUMM) 575 H MPV (7.4 - 10.4 FL) 6.6 L Gran % (42.2 - 75.2 %) 66.6 Lymphocytes % (20.5 - 51.1 %) 21.3 Monocytes % (1.7 - 9.3 %) 6.2 Eosinophils % (0 - 5 %) 5.3 H Basophils % (0.0 - 2.0 %) 0.6 Absolute Granulocytes (1.4 - 6.5 /CUMM) 7.5 H Absolute Lymphocytes (1.2 - 3.4 /CUMM) 2.4 Absolute Monocytes (0.10 - 0.60 /CUMM) 0.7 H Absolute Eosinophils (0.0 - 0.7 /CUMM) 0.6 Absolute Basophils (0.0 - 0.2 /CUMM) 0.1 Urines Urinalysis LIGHT H Urine Color (YEL,AMB,STR) YEL Urine Clarity (CLEAR) HAZY H Urine pH (5.0 - 8.0) 7.0 Ur Specific [place] (1.001 - 1.035) 1.020 Urine Protein (NEG,<30 MG/DL) 100 H Urine Ketones (NEG) NEG Urine Nitrite (NEG) NEG Urine Bilirubin (NEG) NEG Urine Urobilinogen (0.1 - 1.0 EU/dl) 0.2 Ur Leukocyte Esterase (NEG) SMALL H Ur Microscopic SEDIMENT EXAMINED Urine RBC (0 - 5 /HPF) 10-15 H Urine WBC (0 - 2 /HPF) 25-50 H Ur Epithelial Cells (NONE,FEW) FEW Urine Bacteria (NEG/NONE) FEW H Urine Hemoglobin (NEG) SMALL H Urine Glucose (N MG/DL) NEG Assessment/Plan Assessment/Plan 67-year-old gentleman with a past medical history of end-stage renal disease (on dialysis), hypertension, pulmonary hypertension, hyperlipidemia and pancreatitis. He presented to our emergency room with symptoms of dyspnea. Dyspnea: The patient presents with dyspnea and is noted to be approximately 4-1/2 kg above his baseline weight (implying questionable compliance with his renal diet) . His overall presentation is consistent with acute pulmonary edema likely secondary to volume overload. He does have a degree of diastolic dysfunction; however, I do not believe this is his primary etiology of presentation. The patient will undergo hemodialysis today. We may need to reconsider his dry weight. Further input will be undertaken by nephrology. Diastolic dysfunction: The patient has underlying pseudonormalization on the recent echocardiogram. His medical regimen of metoprolol should be adjusted, and as his hypertension is suboptimally controlled, we may change his regimen to an agent such as carvedilol, starting at 12.5 twice daily and increasing as tolerated. Back pain: The patient has lower back pain and has been on chronic use of opiates for this. Further consultation by pain management may be considered. Thank you for allowing us to participate in the care of your patient. Please do not hesitate to contact us further with any questions. Sincerely, Oscar Reyes MD FACC N[facility] Consult Acknowledgment - Thank you for your consult request.
--- NOTE | 2017-10-26 09:46 | Cons- Nephrology ---
General Information and HPI Consulting Request Date of Consult: 10/26/17 Requested By: Mariya ISSA,Rogers History of Present Illness: Mr. Hernandez is a 67 yo gentleman with HTN, DM, ESRD dialyzed out of the [facility]. He was just hospitalized in mid September with severe flank pain with an obstructing stone. Dr. Oreilly took him to the OR for stent placement. At the time of admission he was markedly fluid overloaded and I discussed with him fluid restriction and asked him to discuss extra treatments as needed with his home clinic. He was admitted yesterday with SOB and abdominal pain and was found to be in CHF with worsening effusions. He is on dialysis now. Allergies/Medications Allergies: Coded Allergies: No Known Allergies (09/28/17) Home Med List: Acetaminophen (Tylenol) 325 MG TABLET 2 TAB PO DAILY NEEDED PRN PAIN ( Reported) Amlodipine Besylate 10 MG TABLET 1 TAB PO DAILY HTN (Reported) Aspirin (Aspirin*) 81 MG TAB.CHEW 1 TAB PO DAILY CAD (Reported) Clonidine HCl 0.2 MG TABLET 1 TAB PO BID HTN (Reported) Darbepoetin Pardeep in Polysorbat (Aranesp) 10 MCG/0.4 ML SYRINGE 1 SYR IM QMON ANEMIA (Reported) Etelcalcetide Hydrochloride (Parsabiv) 5 MG/ML VIAL 5 MG IV Sunday ESRD (Reported) Fluticasone Propionate (Flonase Allergy Relief) 50 MCG/ACTUATION SPRAY.SUSP 1 SPRAY INH BID ALLERGY (Reported) Furosemide 80 MG TABLET 1 TAB PO DAILY CHF (Reported) Hydralazine HCl 50 MG TABLET 1 TAB PO TID HTN (Reported) Insulin Aspart, Recombinant (Novolog Flexpen) 100 UNIT/ML INSULN.PEN 0 SC TID Blood sugar (Reported) Please use 5 - 8 - 11 Units based on carb count Insulin Glargine,Hum.rec.anlog (Lantus Solostar) 100 UNIT/ML (3 ML) INSULN.PEN 10 UNIT SC QPM DAILY (Reported) Lactulose (Kristalose) 20 GRAM PACKET 1 PACKET PO DAILY CONSTIPATION ( Reported) Levothyroxine Sodium 150 MCG TABLET 1 TAB PO DAILY AC THYROID (Reported) Metoprolol Tartrate 25 MG TABLET 0.5 TAB PO BID CAD / HTN (Reported) Minoxidil 10 MG TABLET 2.5 MG PO DAILY ESRD (Reported) Nitroglycerin 0.4 MG TAB.SUBL 1 TAB SL AD CHEST PAIN (Reported) 1st sign of attack; may repeat every 5 minutes until relief; if pain persists after 3 tablets in 15 minutes, prompt medical att Olmesartan Medoxomil (Benicar) 40 MG TABLET 1 TAB PO DAILY HTN (Reported) Oxycodone HCl 5 MG TABLET 1 TAB PO Q4-6 PRN PAIN CONTROL (Reported) Pravastatin Sodium 40 MG TABLET 1 TAB PO QPM HLD (Reported) Sevelamer Carbonate (Renvela) 800 MG TABLET 1,600 MG PO TIDAC bone health Tamsulosin HCl (Flomax) 0.4 MG CAP.ER.24H 1 CAP PO DAILY BPH (Reported) Valsartan (Diovan) 80 MG TABLET 1 TAB PO DAILY HEART (Reported) Vitamin B Complex 1 EACH TABLET 1 TAB PO DAILY VITAMIN SUPPORT (Reported) Review of Systems Review of Systems: As in HPI SOB Back/flank pain No fevers, chills other systems negative. 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 Home Services at Home: Nursing Smoking Status: Former Smoker Exam & Diagnostic Data Vital Signs and I&O M on dialysis 198/84 88 98.4 Wt 174 bedscale (inaccurate) Skin neg rash ENT moist membranes Lungs basilar rales, dimished bases Cor RRR Abd soft flank tenderness Back lower back/CVA tenderness Ext 1+edema Results Pertinent Lab Results: 140 / 94 / 49 / 5.8 / 29 /7.8\ Hg 9.9 CXR increased pulmonary markings with hilar prominence and worsening bilateral pleural effusions (compared with XR in September) Assessment/Plan Assessment/Recommendations Assessment: 67 yo gentleman admitted with SOB/CHF, back/flank pain. CT abdomen from ER shows decompressed kidneys (no hydro). CXR shows significant CHF with effusions. Will plan 3.5L UF today and dialyze again tomorrow. Please have nutrition see patient about salt/fluid restriction. Pt tolerating dialysis well. Jacinto Edwards Recommendations: .
[2017-10-26 14:08] VITALS: BP 158/80
--- NOTE | 2017-10-26 14:27 | Patient Discharge Instructions ---
Discharge Instructions General Discharge Information You were seen/treated for: Fluid Overload Special Instructions: Please follow up with your PCP, lesson instructor and sheet layer within one week of discharge. Diet Continue normal diet: Yes Recommended Diet: Renal Dialysis Activity Full Activity/No Limits: Yes Acute Coronary Syndrome Inclusion Criteria At DC or during hospital stay patient has or had the following: ACS DIAGNOSIS No Discharge Core Measures Meds if any: Prescribed or Continued at Discharge Meds if any: NOT Prescribed or Continued at Discharge Congestive Heart Failure Inclusion Criteria At DC or during hospital stay patient has or had the following: CHF DIAGNOSIS No Discharge Core Measures Meds if any: Prescribed or Continued at Discharge Meds if any: NOT Prescribed or Continued at Discharge Cerebrovascular accident Inclusion Criteria At DC or during hospital stay patient has or had the following: CVA/TIA Diagnosis No Discharge Core Measures Meds if any: Prescribed or Continued at Discharge Meds if any: NOT Prescribed or Continued at Discharge Venous thromboembolism Inclusion Criteria VTE Diagnosis No VTE Type NONE VTE Confirmed by (Test) NONE Discharge Core Measures - Per Current guidelines, there needs to be overlap - treatment for the first 5 days of Warfarin therapy. - If discharged on Warfarin prior to 5 days of - overlap therapy, the patient will need to be - assessed for post discharge needs including - *Post discharge parental anticoagulation - *Warfarin and/or parental anticoagulation education - *Follow up date to check INR post discharge At least 5 days overlap therapy as Inpatient No Meds if any: Prescribed or Continued at Discharge Note: Overlap Therapy is Warfarin and Anticoagulant Meds if any: NOT Prescribed or Continued at Discharge
--- NOTE | 2017-10-26 15:09 | Discharge Summary ---
Visit Information Visit Dates Admission Date: 10/25/17 Discharge Date: 10/27/17 Hospital Course Course Attending Physician: Rogers Meraz MD Primary Care Physician: Kevin Brown MD Hospital Course: 67 yo M with PMH of hypertension, hyperlipidemia, diabetes, ESRD on dialysis M/W /F, BPH and pancreatitis presented to the ED with complaints of worsening abdominal pain/low back pain and shortness of breath for the past couple of days. Below is a list of conditions he was seen and treated for ESRD with Fluid Overload Hypertensive Urgency Patient presented with complains of dyspnea, increasing abdominal distention and lower extremiety swelling. Imaging of his chest showed bilateral pleural effusions. His presentation was consistent with fluid overload. Nephrology was consulted and patient was scheduled for dialysis for two consecutive days. Patient responded well to treatment with significant improve in his symptoms. He was discharged in stable disposition and recommended to continue his outpatient dialysis treatments. He had significantly elevated blood pressure on admission. He stated that he had not taken any of his blood pressure medications that morning. His home medications were restarted and his blood pressure improved slowly. His BP was within accpetable limits at the time of discharge. On presentation he had some complains of dysuria and flank pain. Urology was consulted as the patient recently had stent placed. He was started on IV Ceftriaxone initially with concerns of UTI. However, his urine culture was negative and antibiotics were discontinued. Allergies: Coded Allergies: No Known Allergies (09/28/17) Significant Procedures: SERVICE DATE: 10/25/17-1130 EXAM TYPE: CAT - CT ABD & PELVIS W/O IV CONTRAST FINDINGS: CONE TRUCKER: The heart remains enlarged and there bilateral moderate size pleural effusions. Increased burden of formed stool is seen throughout the entire colon from cecum to sigmoid. A right ureteral catheter is in place the proximal end of which is in the vicinity of the right renal pelvis and the distal in the bladder. There is a increased burden of formed stool throughout the colon but no overt impaction. LUNG BASES: The moderately large bilateral pleural effusions have increased. There is concomitant compression atelectasis of portions of both lower lobes. LIVER, GALLBLADDER, AND BILIARY TREE: The liver is normal in size, shape, and attenuation. No focal hepatic lesion or biliary ductal dilatation is present. Gallbladder is not readily apparent. PANCREAS: Unremarkable. SPLEEN: Unremarkable. ADRENAL GLANDS: A 1.5 cm hypodense nodular prominence involves the right adrenal area. The left adrenal gland is normal. Series 2, image 36. KIDNEYS AND URETERS: The kidneys are normal in size, shape, and attenuation. No hydronephrosis, hydroureter, or calculi seen. No perinephric stranding. The proximal end of the right ureteral stent is in the upper pole collecting system of the right kidney. BLADDER: Mild circumferential wall thickening. Distal end of right ureteral stent in the bladder. GASTROINTESTINAL TRACT: The small and large bowel are unremarkable. The appendix is unremarkable. ABDOMINAL WALL: Small fat-containing left inguinal hernia is seen. LYMPH NODES: Normal. VASCULAR: Unremarkable. PELVIC VISCERA: Unremarkable. OSSEOUS STRUCTURES: Unremarkable. IMPRESSION: Persistent bilateral moderate pleural effusions. The right ureteral stent is in the normally expected position. SERVICE DATE: 10/25/17 EXAM TYPE: RAD - XRY-CHEST XRAY, TWO VIEWS FINDINGS: There are bilateral moderate pleural effusions larger on the left than right that have increased significantly since 10/02/2017. The heart remains enlarged. Central pulmonary vasculature is engorged. No airspace edema is seen in the aerated portions of the upper lobes. IMPRESSION: CHF with moderate-sized pleural effusions which have increased in volume since 10/02/2017. Cardiomegaly. Disposition Summary Disposition Principal Diagnosis: ESRD with fluid overload. 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 Medications at Discharge Discharge Medications: Continue taking these medications: Tamsulosin HCl (Flomax) 0.4 MG CAP.ER.24H 1 Capsule ORAL DAILY Comments: Last Taken: 10/27/17 Time: 11:35 AM Acetaminophen (Tylenol) 325 MG TABLET 2 Tablet ORAL DAILY NEEDED as needed for PAIN Comments: NOT GIVEN IN HOSPITAL Amlodipine Besylate (Amlodipine Besylate) 10 MG TABLET 1 Tablet ORAL DAILY Comments: Last Taken: 10/27/17 Time: 11:24 AM Darbepoetin Pardeep in Polysorbat (Aranesp) 10 MCG/0.4 ML SYRINGE 1 Syringe INTRAMUSC EVERY SUNDAY Comments: NOT GIVEN IN HOSPITAL Aspirin (Aspirin*) 81 MG TAB.CHEW 1 Tablet ORAL DAILY Comments: NOT GIVEN IN HOSPITAL Clonidine HCl (Clonidine HCl) 0.2 MG TABLET 1 Tablet ORAL TWICE DAILY Comments: Last Taken: 10/27/17 Time: 11:35 AM Fluticasone Propionate (Flonase Allergy Relief) 50 MCG/ACTUATION SPRAY.SUSP 1 [place] Inhale through mouth TWICE DAILY Comments: Last Taken: 10/27/17 Time: 11:36 AM Furosemide (Furosemide) 80 MG TABLET 1 Tablet ORAL DAILY Comments: Last Taken: 10/27/17 Time: 11:37 AM Hydralazine HCl (Hydralazine HCl) 50 MG TABLET 1 Tablet ORAL THREE TIMES DAILY Comments: Last Taken: 10/27/17 Time: 14:32 PM Insulin Glargine,Hum.rec.anlog (Lantus Solostar) 100 UNIT/ML (3 ML) INSULN.PEN 10 Unit Inject into fatty tissue Every night Comments: NOT GIVEN IN HOSPITAL Levothyroxine Sodium (Levothyroxine Sodium) 150 MCG TABLET 1 Tablet ORAL DAILY BEFORE BREAKFAST Comments: Last Taken: 10/27/17 Time: 06:09 AM Metoprolol Tartrate (Metoprolol Tartrate) 25 MG TABLET 0.5 Tablet ORAL TWICE DAILY Comments: NOT GIVEN IN HOSPITAL Minoxidil (Minoxidil) 10 MG TABLET 2.5 Milligram ORAL DAILY Comments: NOT GIVEN IN HOSPITAL Nitroglycerin (Nitroglycerin) 0.4 MG TAB.SUBL 1 Tablet SUBLINGUAL As Directed Instructions: 1st sign of attack; may repeat every 5 minutes until relief; if pain persists after 3 tablets in 15 minutes, prompt medical att Comments: NOT GIVEN IN HOSPITAL Olmesartan Medoxomil (Benicar) 40 MG TABLET 1 Tablet ORAL DAILY Comments: NOT GIVEN IN HOSPITAL Etelcalcetide Hydrochloride (Parsabiv) 5 MG/ML VIAL 5 Milligram INTRAVEN SUNDAY, SUNDAY AND SUNDAY Comments: NOT GIVEN IN HOSPITAL Pravastatin Sodium (Pravastatin Sodium) 40 MG TABLET 1 Tablet ORAL Every night Comments: NOT GIVEN IN HOSPITAL Lactulose (Kristalose) 20 GRAM PACKET 1 PACKET ORAL DAILY Comments: NOT GIVEN IN HOSPITAL Oxycodone HCl (Oxycodone HCl) 5 MG TABLET 1 Tablet ORAL EVERY 4-6 HOURS NEEDED Qty = 60 Comments: Last Taken: 10/27/17 Time: 12:00 PM Insulin Aspart, Recombinant (Novolog Flexpen) 100 UNIT/ML INSULN.PEN 0 Inject into fatty tissue THREE TIMES DAILY Qty = 30 Instructions: Please use 5 - 8 - 11 Units based on carb count Comments: Last Taken: 10/27/17 Time: 12:48 PM Sevelamer Carbonate (Renvela) 800 MG TABLET 1,600 Milligram ORAL 3 TIMES DAILY BEFORE MEALS Qty = 30 Comments: Last Taken: 10/27/17 Time: 12:00 PM Vitamin B Complex (Vitamin B Complex) 1 EACH TABLET 1 Tablet ORAL DAILY Comments: NOT GIVEN IN HOSPITAL Valsartan (Diovan) 80 MG TABLET 1 Tablet ORAL DAILY Comments: NOT GIVEN IN HOSPITAL Start taking the following new medications: Tramadol HCl (Tramadol HCl) 50 MG TABLET 1 Tablet ORAL 2 x Daily as needed as needed for BACK PAIN Qty = 14 No Refills Copies To: Kevin ISSA,Alexandra Thrasher MD,Melvin Gomes Attending MD Review Statement Documenting Attending: Mariya ISSA,Rogers Other Findings: 67 o/m with pmh of ESRD on HD M// admitted here with fluid overlaod and interstitial edema and uncontrolled hypertension requiring hemodialysis. Patient is on iv lasix - will be changed to furosemide 80 mg OD on discharge. Urine cultures negative after 2 days. Patient received IV ceftriaxone as per urology. The plan is to leave the stent in for about couple of months and then remove with hope that the right ureter has dilated enough for spontaneous stone passage. Vitals stable at discharge. Seen by Binh Spaulding MD.
[2017-10-26] MEDS ORDERED: CARVEDILOL12.5 M1 PO (15:28)
[2017-10-26 22:40] VITALS: BP 158/70
[2017-10-27 07:00] VITALS: BP 154/67
[2017-10-27 08:05] LABS: ABSOLUTE BASOPHIL COUNT 0.1 /CUMM (0.0-0.2); ABSOLUTE EOSINOPHIL COUNT 0.7 /CUMM (0.0-0.7); ABSOLUTE GRANULOCYTE CT 4.9 /CUMM (1.4-6.5); ABSOLUTE LYMPH COUNT 1.2 /CUMM (1.2-3.4); ABSOLUTE MONOCYTE COUNT 0.5 /CUMM (0.10-0.60); BASOPHIL % 0.9 % (0.0-2.0); GRANULOCYTE % 65.8 % (42.2-75.2); MEAN CORPUSCULAR HGB CONC 32.7 G/DL (33.0-37.0); MEAN CORPUSCULAR VOLUME 91.8 FL (80.0-94.0); MEAN PLATELET VOLUME 6.9 FL (7.4-10.4); PLATELET COUNT 438 /CUMM (130-400); RBC DISTRIBUTION WIDTH 14.5 % (11.5-14.5); RED BLOOD CELL CT 2.95 /CUMM (4.70-6.10); WHITE BLOOD CELL COUNT 7.4 /CUMM (4.8-10.8)
--- NOTE | 2017-10-27 08:16 | PN- Nephrology ---
Assessment/Plan Nephrology Assessment: CHF better with sequential dialysis. Will plan 3.5 L UF with HD. Probably needs EDW adjusted as outpatient as we will bring below EDW today. Would do daily scale weights while in hospital (that will help his outpt manager aviation adjust weight -- bed weights are meaningless for dialysis and CHF as the accuracy is too low). Okay to discharge from my standpoint if okay from medicine. If here I will dialyze again Sunday. Jacinto Rodríguez MD Suggestion: . Subjective Subjective: Pt doing well. On dialysis now. SOB much better Objective Vital Signs and I&Os M NAD 154/67 66 98.6 Lungs diminshed bases Cor RRR Abd soft Ext 1+edema Results Pertinent Lab Results: 137 / 96 / 34 / 5.6 / 28 / 5.6
--- NOTE | 2017-10-27 14:00 | PN- Housestaff ---
Santiago ISSA,Cesar 10/27/17 1400: Subjective Follow-up For: Fluid Overload Hypertensive Urgency UTI Tele-Events Since Last Visit: Sinus rhythm HR 60s90s Subjective: Patient was seen and examined at bedside. He is resting comfortably. He had no acute events overnight. His only complaint is mild somnolence, he denies any dysuria, palpitations, nausea, vomiting, fever, chills. Review of Systems Constitutional: Reports: see HPI. Objective Last 24 Hrs of Vital Signs/I&O Vital Signs Date Time Temp Pulse Resp B/P B/P Pulse O2 O2 Flow FiO2 Mean Ox Delivery Rate 10/27 1432 98.6 66 18 154/67 10/27 1136 98.6 66 18 154/67 10/27 1135 98.6 66 18 154/67 10/27 1135 98.6 66 18 154/67 10/27 1135 98.6 66 18 154/67 10/27 1135 98.6 66 18 154/67 10/27 1134 98.6 66 18 154/67 10/27 0700 98.6 66 18 154/67 97 10/27 0000 Nasal 3.0L Cannula 10/26 2240 98.4 79 18 158/70 94 10/26 2206 82 172/70 10/26 2206 82 172/70 10/26 2206 83 172/70 Intake & Output 10/27 1600 10/27 0800 10/27 0000 Intake Total 680 100 400 Output Total 150 Balance 680 100 250 Intake, Oral 680 100 400 Number 0 Bowel Movements Output, Urine 150 Patient 170 lb Weight Weight Bed scale Measurement Method Physical Exam General Appearance: Oriented X3, Cooperative, No Acute Distress, drowzy, but easily arrousable Cardiovascular: Regular Rate, Normal S1, Normal S2 Lungs: Clear to Auscultation, Normal Air Movement Abdomen: Normal Bowel Sounds, Soft, No Tenderness Neurological: Normal Speech, Normal Tone, Sensation Intact Extremities: 1+ pitting edema of the distal lower extremities bilaterally Current Medications: Current Medications Sig/Hernandez Start time Last Medication Dose Route Stop Time Status Admin Amlodipine Besylate 10 MG DAILY 10/25 1256 DCD 10/27 PO 1134 Aspirin 81 MG DAILY 10/25 1458 DCD 10/27 PO 1135 Atorvastatin Calcium 40 MG 1700 10/25 1700 DCD 10/27 PO 1708 Carvedilol 12.5 MG BID 10/26 2100 DCD 10/27 PO 1135 Ceftriaxone Sodium 1,000 MG 1300 10/26 1300 DCD 10/27 IV 1252 Clonidine 0.2 MG BID 10/25 2100 DCD 10/27 PO 1135 Epoetin Pardeep 4,000 UNIT DAILY PRN 10/27 0930 CAN IV Epoetin Pardeep 4,000 UNIT DAILY PRN 10/27 0930 DCD IV Fluticasone 1 SPRAY DAILY 10/26 0900 DCD 10/27 Propionate NADYA 1136 Furosemide 40 MG 7:30 AM, & 4:30 PM 10/25 1630 DCD 10/27 IV 1708 Hydralazine HCl 50 MG TID 10/25 1400 DCD 10/27 PO 1432 Insulin Aspart 0 TIDAC 10/25 1700 DCD 10/27 SC 1710 Insulin Detemir 5 UNITS AT BEDTIME 10/25 2100 DCD 10/26 SC 2210 Levothyroxine Sodium 0.15 MG DAILY AC 10/26 0700 DCD 10/27 PO 0609 Losartan Potassium 25 MG DAILY 10/25 1326 DCD 10/27 PO 1135 Morphine Sulfate 1 MG ONCE ONE 10/26 2245 DC 10/26 IV 10/26 2246 2252 Oxycodone HCl 5 MG Q6P PRN 10/25 1630 DCD 10/27 PO 1710 Sevelamer Carbonate 1,600 MG TIDAC 10/25 1700 DCD 10/27 PO 1708 Tamsulosin HCl 0.4 MG DAILY 10/26 0900 DCD 10/27 PO 1136 Tramadol HCl 50 MG ONCE ONE 10/27 1315 DC 10/27 PO 10/27 1316 1321 Last 24 Hrs of Lab/S[place]rick Results Last 24 Hrs of Labs/Mics: Laboratory Tests 10/27/17 0730: Anion Gap 14, Estimated GFR 10 L, BUN/Creatinine Ratio 6.3 L, Calcium 8.2 L 10/27/17 0640: Anion Gap 14, Estimated GFR 10 L, BUN/Creatinine Ratio 6.1 L, CBC w Diff NO MAN DIFF REQ, RBC 2.95 L, MCV 91.8, MCH 30.0, MCHC 32.7 L, RDW 14.5, MPV 6.9 L, Gran % 65.8, Lymphocytes % 16.5 L, Monocytes % 6.8, Eosinophils % 10.0 H, Basophils % 0.9, Absolute Granulocytes 4.9, Absolute Lymphocytes 1.2, Absolute Monocytes 0.5, Absolute Eosinophils 0.7, Absolute Basophils 0.1 Assessment/Plan Assessment: 67 yo M with PMH of hypertension, hyperlipidemia, diabetes, ESRD on dialysis M/W /F, BPH and pancreatitis presented to the ED with complaints of worsening abdominal pain/low back pain and shortness of breath for the past couple of days. 1. ESRD with fluid overload. 2. UTI 3. Hypertensive Urgency 4. Bilateral Pleural Effusions 5. History of hypertension and diabetes Plan: * Patient was dialyzed again today, has been cleared by nephrology for discharge , will have on the Sunday. Patient is stable for discharge from a medical standpoint * Patient to follow-up at CHF clinic * Fluid overload improving, dyspnea has resolved * His blood pressure is improved this evening and within acceptable limits. * Urine culture so no growth and antibiotics will be discontinued * His metoprolol has been discontinued and switched to carvedilol 12.5mg BID. * Cardiology, nephrology recs appreciated. * Continue home medications: aspirin, levothyroxine, tamsulosin, amlodipine, clonidine, atorvastatin, losartan * Insulin SS with Accucheks. Levemir 5 units at bedtime. * Diet: Renal Dialysis * DVT Prophylaxis: SC Heparin * Code Status: Full Code Problem List: 1. Pleural effusion 2. UTI (urinary tract infection) 3. CHF exacerbation Pain Ratin Pain Location: none Pain Goal: Remain pain free Pain Plan: pain pathway Tomorrow's Labs & Rationales: none Binh Spaulding MD 10/27/17 1639: Attending MD Review Statement Attending Statement Attending MD Statement: examined this patient, discuss w/resident/PA/PLANT TECHNICIAN, agreed w/resident/PA/PLANT TECHNICIAN, discussed with family, discussed with nursing Attending Assessment/Plan: 67 o/m with pmh of ESRD on HD M/W/F admitted here with fluid overlaod and interstitial edema and uncontrolled hypertension requiring hemodialysis. Patient is on iv lasix - will be changed to furosemide 80 mg OD on discharge. On examination his blood pressure is 154/67, heart rate of 66, respiratory rate of 18, afebrile. Patient underwent hemodialysis today feeling a lot better. Symptoms of shortness of breath is better. Patient to be discharged today. Okay as per nephrology from their standpoint. Urine cultures negative after 2 days. Patient received IV ceftriaxone as per urology. The plan is to leave the stent in for about couple of months and then remove with hope that the right ureter has dilated enough for spontaneous stone passage.
[2017-10-27 14:32] VITALS: BP 154/67
[2017-10-27] MEDS ORDERED: CARVEDILOL6.25 M1 PO (15:04)
[2017-10-27] MEDS ORDERED: TRAMADOL HCL50 M1 PO (15:11)
== END 2017-10-27 17:42 | disposition home health service (06) | DRG 640 ==
LOC: ERH 09:27 → ERHI 13:39 → 1NO 13:39 → ENRESERV 15:39 → ENTRNSPT 16:54 → 1NO 17:14 → EDTRNSPT 17:15 → EDTRNSPTSTS 17:15 → CMPTRNSPT 17:26 → 1NO 18:51 → ENPENDDIS 10-27 17:03 → ENTRNSPT 10-27 17:03 → EDTRNSPTSTS 10-27 17:18 → EDTRNSPT 10-27 17:39 → 1NO 10-27 17:42 → CMPTRNSPT 10-27 18:07
PROVIDERS: Internal Medicine; Physician Assistant
PROC: 5A1D70Z Performance of Urinary Filtration, Intermittent, Less than 6 Hours Per Day (ICD-10-PCS; principal; 2017-10-26)
DX: E87.79 Other fluid overload (principal); N18.6 End stage renal disease; I13.2 Hypertensive heart and chronic kidney disease with heart failure and with stage 5 chronic kidney disease, or end stage renal disease; I27.20 Pulmonary hypertension, unspecified; E11.22 Type 2 diabetes mellitus with diabetic chronic kidney disease; I50.33 Acute on chronic diastolic (congestive) heart failure; N39.0 Urinary tract infection, site not specified; E03.9 Hypothyroidism, unspecified; E78.5 Hyperlipidemia, unspecified; Z99.2 Dependence on renal dialysis; N40.0 Benign prostatic hyperplasia without lower urinary tract symptoms; I35.0 Nonrheumatic aortic (valve) stenosis; I16.0 Hypertensive urgency; Z79.4 Long term (current) use of insulin; G89.29 Other chronic pain; M54.5 Low back pain
CPT/HCPCS: 1NSP; 36592; 71046; 74176; 81001; 82436; 87040; 87086; 93005; 93010; 96374; 96375; 99291; J0696; J0885; J1940; J2270; J3490

== ENCOUNTER 2017-12-22 10:14 | Inpatient (IN) | payer OTHER, MEDICARE ==
[~2017-12-22] VITALS: Ht 165.1 cm; Wt 71.2 kg
[~2017-12-22 10:14] MED LIST changes: +CARVEDILOL12.5 M1 PO; +CARVEDILOL6.25 M1 PO; +DIOVAN80 M1 PO; -FLONASE ALLERG9.9 ML INH; +FLONASE ALLERG9.9 ML NASB; +TRAMADOL HCL50 M1 PO; +VITAMIN B COMP1 EAC1 PO
[2017-12-22] MEDS ORDERED: OMEPRAZOLE40 M1 PO (12:00)
[2017-12-22] MEDS ORDERED: LACTULOSE10 GM/153 PO (12:01)
[2017-12-22] MEDS ORDERED: VOLTAREN100 GM TOP (12:02)
[2017-12-22] MEDS ORDERED: LEVEMIR100 UNIT/1 SC (12:06)
[2017-12-22] MEDS ORDERED: MOMETASONE FURO45 GM TOP (12:09)
[2017-12-22] MEDS ORDERED: LEVOTHYROXINE175 MCG PO (12:10)
[2017-12-22 12:13] LABS: ABSOLUTE BASOPHIL COUNT 0 /CUMM (0.0-0.2); ABSOLUTE EOSINOPHIL COUNT 0.1 /CUMM (0.0-0.7); ABSOLUTE LYMPH COUNT 1.7 /CUMM (1.2-3.4); ABSOLUTE MONOCYTE COUNT 0.6 /CUMM (0.10-0.60); BASOPHIL % 0.5 % (0.0-2.0); EOSINOPHIL % 1.1 % (0-5); GRANULOCYTE % 74.6 % (42.2-75.2); HEMATOCRIT 35.1 % (42-52); MEAN CORPUSCULAR HGB 29.2 PG (27.0-31.0); MEAN CORPUSCULAR HGB CONC 32.8 G/DL (33.0-37.0); MEAN CORPUSCULAR VOLUME 89.2 FL (80.0-94.0); MEAN PLATELET VOLUME 6.9 FL (7.4-10.4); PLATELET COUNT 403 /CUMM (130-400); RBC DISTRIBUTION WIDTH 15.2 % (11.5-14.5); RED BLOOD CELL CT 3.94 /CUMM (4.70-6.10); WHITE BLOOD CELL COUNT 9.4 /CUMM (4.8-10.8)
--- NOTE | 2017-12-22 12:25 | ED CARDIAC/CP/PALPITATIONS ---
History of Present Illness General Chief Complaint: Chest Pain Stated Complaint: CHEST PAIN Source: patient, family, old records, PCP Exam Limitations: no limitations Vital Signs & Intake/Output Vital Signs & Intake/Output Vital Signs Date Time Temp Pulse Resp B/P B/P Pulse O2 O2 Flow FiO2 Mean Ox Delivery Rate 12/22 1358 97.2 60 20 146/67 96 Room Air 12/22 1317 60 20 165/74 96 Room Air 12/22 1239 97.1 62 20 158/110 07 1238 62 20 158/110 96 Room Air 12/22 1206 97.1 76 20 186/85 95 Room Air 12/22 1200 96 Room Air 12/22 1026 97.0 72 20 186/66 96 Room Air Allergies Coded Allergies: No Known Allergies (09/28/17) Reconcile Medications Acetaminophen (Tylenol) 325 MG TABLET 2 TAB PO DAILY NEEDED PRN PAIN ( Reported) Amlodipine Besylate 10 MG TABLET 1 TAB PO DAILY HTN (Reported) Aspirin (Aspirin*) 81 MG TAB.CHEW 1 TAB PO DAILY CAD (Reported) Clonidine HCl 0.2 MG TABLET 1 TAB PO BID HTN (Reported) Darbepoetin Pardeep in Polysorbat (Aranesp) 10 MCG/0.4 ML SYRINGE 1 SYR IM QMON ANEMIA (Reported) Diclofenac Sodium (Voltaren) (Unknown Strength) GEL..GRAM. (Unknown Dose) TOP BID PAIN (Reported) apply to affected area(s) Etelcalcetide Hydrochloride (Parsabiv) 5 MG/ML VIAL 5 MG IV Sunday ESRD (Reported) Fluticasone Propionate (Flonase Allergy Relief) 50 MCG/ACTUATION SPRAY.SUSP 1 SPRAY NASB BID ALLERGY (Reported) Furosemide 80 MG TABLET 1 TAB PO DAILY CHF (Reported) Hydralazine HCl 50 MG TABLET 1 TAB PO TID HTN (Reported) Insulin Aspart, Recombinant (Novolog Flexpen) 100 UNIT/ML INSULN.PEN 0 SC TID Blood sugar (Reported) Please use 5 - 8 - 11 Units based on carb count Insulin Detemir (Levemir) 100 UNIT/ML VIAL 30 UNITS SC QPM DM (Reported) Lactulose 10 GRAM/15 ML SOLUTION 30 ML PO BID BM (Reported) Levothyroxine Sodium 175 MCG TABLET 1 TAB PO DAILY THYROID (Reported) Metoprolol Tartrate 25 MG TABLET 0.5 TAB PO BID CAD / HTN (Reported) Minoxidil 10 MG TABLET 2.5 MG PO DAILY ESRD (Reported) Mometasone Furoate 0.1 % CREAM..G. 1 SARA TOP DAILY SKIN (Reported) apply to affected area(s) Nitroglycerin 0.4 MG TAB.SUBL 1 TAB SL AD CHEST PAIN (Reported) 1st sign of attack; may repeat every 5 minutes until relief; if pain persists after 3 tablets in 15 minutes, prompt medical att Olmesartan Medoxomil (Benicar) 40 MG TABLET 1 TAB PO DAILY HTN (Reported) Omeprazole 40 MG CAPSULE.DR 1 CAP PO DAILY GI (Reported) Oxycodone HCl 5 MG TABLET 1 TAB PO Q4-6 PRN PAIN CONTROL (Reported) Pravastatin Sodium 40 MG TABLET 1 TAB PO QPM HLD (Reported) Sevelamer Carbonate (Renvela) 800 MG TABLET 1,600 MG PO TIDAC bone health Tamsulosin HCl (Flomax) 0.4 MG CAP.ER.24H 1 CAP PO DAILY BPH (Reported) Valsartan (Diovan) 80 MG TABLET 1 TAB PO DAILY HEART (Reported) Vitamin B Complex 1 EACH TABLET 1 TAB PO DAILY VITAMIN SUPPORT (Reported) Core Measure Meds Pre-Hospital aspirin Triage Note: PT C/O CP AND SOB SINCE MIDNIGHT. PT STATES HE WAS LAYING DOWN WHEN THE PAIN STARTED. STATES HE TOOK 2 NTG AND THE PAIN WAS BETTER. STATES HE IS FEELING A LITTLE PRESSURE IN CHEST NOW Triage Nurses Notes Reviewed? yes Onset: 2 days Duration: day(s):, constant, continues in ED Timing: recent history Quality/Severity: moderate, pressure Location: substernal Radiation: arms Activities at Onset: activity, rest Prior Chest Pain/Card Workup: cardiac cath, echocardiography, stress test Modifying Factors: Improves With: nitroglycerin, rest. Worsens With: movement. Nitro Today/Relief: 0.4 mg x 2, provided at home, complete relief Aspirin Today: 81 mg x 1, 81 mg x 4, provided at home, provided by ED Associated Symptoms: diaphoresis, shortness of breath, weakness HPI: 2 days prior to admission at bedtime patient reports having substernal chest discomfort described as pinching mild lasting several seconds and resolving with rest. 1 day prior to admission the patient reports episodic substernal chest pressure with exertion and shortness of breath resolving with rest. 8 hours prior to admission patient complains of heavy substernal chest pressure radiating to his left arm associated with diaphoresis and shortness of breath resolved with to simply O glycerin and oxygen. Currently he denies fever chills nausea vomiting diarrhea abdominal pain chest pain shortness of breath headache dysuria rash bleeding. Past History Travel History Traveled to [place] past 21 day No Medical History Any Pertinent Medical History? 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 No Review of Systems Review of Systems Constitutional: Reports: see HPI, diaphoresis, weakness. EENTM: Reports: no symptoms. Respiratory: Reports: see HPI, short of breath. Cardiovascular: Reports: see HPI, chest pain. GI: Reports: no symptoms. Genitourinary: Reports: no symptoms. Musculoskeletal: Reports: no symptoms. Skin: Reports: no symptoms. Neurological/Psychological: Reports: no symptoms. Hematologic/Endocrine: Reports: no symptoms. Immunologic/Allergic: Reports: no symptoms. All Other Systems: Reviewed and Negative Physical Exam Physical Exam General Appearance: well developed/nourished, alert, awake, anxious, mild distress Head: atraumatic, normal appearance Eyes: Bilateral: normal appearance, PERRL, EOMI. Ears, Nose, Throat: normal pharynx, normal ENT inspection, hearing grossly normal Neck: normal inspection, supple, full range of motion, no midline tenderness Respiratory: normal breath sounds, chest non-tender, no respiratory distress, quiet respiration, lungs clear Cardiovascular: regular rate/rhythm, normal peripheral pulses, norml femoral pulses equa Peripheral Pulses: 4+ carotid (R), 4+ carotid (L) Gastrointestinal: normal bowel sounds, soft, non-tender, no organomegaly Back: normal inspection, normal range of motion Extremities: normal inspection, normal capillary refill, normal range of motion, no edema Neurologic/Psych: no motor/sensory deficits, awake, alert, oriented x 3, normal gait, normal mood/affect, 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 Skin: intact, normal color, warm/dry Lymphatic: no anterior cervical radha Core Measures ACS in differential dx? Yes CVA/TIA Diagnosis No Sepsis Present: No Sepsis Focused Exam Completed? No Progress Differential Diagnosis: AMI, costochondritis, hyperkalemia, hypovolemia, hyperthyroid, pneumonia Plan of Care: Orders Procedure Date/time Status Renal Dialysis Diet 12/22 L Active Pathway - chart 12/22 1353 Active House Staff 12/22 1353 Active Patient Data 12/22 1353 Active Code Status 12/22 1353 Active Patient Data 12/22 1320 Active OXYGEN SETUP (GEN) 12/22 1259 Active Saline Lock 12/22 1259 Active Admit to inpatient 12/22 1259 Active Vital Signs 12/22 1259 Active Activity/Ambulation 12/22 1259 Active Code Status 12/22 1259 Complete Intake & Output 12/22 1238 Active TOTAL TRIODOTHYROXINE 12/22 1201 Complete FREE T4 12/22 1201 Complete TSH REFLEX 12/22 1144 Complete TROPONIN LEVEL 12/22 1144 Complete MAGNESIUM 12/22 1144 Complete COMPREHENSIVE METABOLIC PANEL 12/22 1144 Complete CBC WITHOUT DIFFERENTIAL 12/22 1144 Complete EKG 12/22 1016 Active VTE Mechanical Prophylaxis 12/22 UNK Active Telemetry/Director Systems 12/22 UNK Active Laboratory Tests 12/22/17 1201: Anion Gap 17 H, Estimated GFR 9 L, BUN/Creatinine Ratio 5.6 L, Glucose 140 H , Calcium 8.5, Magnesium 2.4 H, Total Bilirubin 0.5, AST 21, ALT 29, Alkaline Phosphatase 106, Troponin I 0.04, Total Protein 7.4, Albumin 4.1, Globulin 3.3, Albumin/Globulin Ratio 1.2, Free T4 1.78, Total T3 0.57 L, TSH &T3 &Free T4 Intrp 13.500 H, CBC w Diff NO MAN DIFF REQ, RBC 3.94 L, MCV 89.2, MCH 29.2, MCHC 32.8 L, RDW 15.2 H, MPV 6.9 L, Gran % 74.6, Lymphocytes % 17.6 L, Monocytes % 6.2, Eosinophils % 1.1, Basophils % 0.5, Absolute Granulocytes 7.0 H, Absolute Lymphocytes 1.7, Absolute Monocytes 0.6, Absolute Eosinophils 0.1, Absolute Basophils 0 Diagnostic Imaging: Viewed by Me: Radiology Read. Discussed w/RAD: Radiology Read. Initial ED EKG: normal p-waves, LVH, nonspecific ST T wave chg Prior EKG: changed (twave inversion V4) Rhythm Strip: normal sinus rhythm Departure Departure Time of Disposition: 130 Disposition: STILL A PATIENT Condition: Stable Clinical Impression Primary Impression: EKG abnormalities Secondary Impressions: Chest pain due to myocardial ischemia, ESRD (end stage renal disease) on dialysis Referrals: Kevin Brown MD (PCP/Family) Departure Forms: Customer Survey General Discharge Information Admission Note Spoke With: Johanne Alarcon MD Documentation of Exam: Documentation of any treatments & extenuating circumstances including Concerns Regarding Discharge (functional status, medication knowledge or non-compliance, living conditions, etc.) that warrant an admission rather than observation: Cardiac monitoring serial EKG serial lab exam supplemental oxygen medication adjustment physical therapy cardiology evaluation continuing care discharge planning Critical Care Note Critical Care Note Critical Care Time: 30-74 min (35)
--- NOTE | 2017-12-22 13:22 | RADIOLOGY REPORT ---
EXAMINATION: XR CHEST CLINICAL INFORMATION: Chest pain COMPARISON: October 25, 2017 and studies dating back to February 01, 2016 TECHNIQUE: 2 views of the chest were obtained. FINDINGS: There is again noted to be small bilateral pleural effusions with bibasilar atelectasis. No pneumothorax. Cardio-pericardial silhouette is enlarged. No evidence of airspace edema. IMPRESSION: Small bilateral pleural effusions improved from study of October 25, 2017. Cardiomegaly without pulmonary edema.
--- NOTE | 2017-12-22 13:38 | History & Physical ---
General Information and HPI MD Statement: I have seen and personally examined HORTENSIA DIXON I and documented this H& P. The patient is a 67 year old M who presented with a patient stated chief complaint of [chest pain]. Source of Information: patient, family, EMS Exam Limitations: no limitations History of Present Illness: 67 yo M with PMH of hypertension, hyperlipidemia, diabetes, hypothyroidism, ESRD on dialysis M/W/F, BPH and pancreatitis presented to the ED with complaints of chest pain. Patient was in usual state of health until a week ago, following which developed pinching type of chest pain 2 days ago with no radiation and relieved by rest. Last night around midnight patient had pressure type of pain of 7 x 10 in intensity radiating to the right hand. This was relieved by nasal oxygen and sublingual nitroglycerin 2 tablets. Patient felt shortness of breath during the same time. Patient did not feel palpitations, orthopnea, paroxysmal nocturnal dyspnea, syncope nausea, vomiting, dizziness, fall, loss of consciousness, abdominal pain, weakness, dizziness, numbness. Patient went to his primary care physician office today and informed about the chest pain and hence was advised to go to the emergency room for further evaluation. Patient was recently admitted in October 2017 for fluid overload secondary due to end-stage renal disease and got dialysis done. During the same time patient had elevated blood pressure and was treated for the same. Patient also got right renal stent placed. Patient had an echocardiogram done in October 2017 which showed stage II diastolic dysfunction with an ejection fraction of 55%. Patient did not follow-up with the sexer after the last discharge. Allergies/Medications Allergies: Coded Allergies: No Known Allergies (09/28/17) Home Med list Acetaminophen (Tylenol) 325 MG TABLET 2 TAB PO DAILY NEEDED PRN PAIN ( Reported) Amlodipine Besylate 10 MG TABLET 1 TAB PO DAILY HTN (Reported) Aspirin (Aspirin*) 81 MG TAB.CHEW 1 TAB PO DAILY CAD (Reported) Clonidine HCl 0.2 MG TABLET 1 TAB PO BID HTN (Reported) Darbepoetin Pardeep in Polysorbat (Aranesp) 10 MCG/0.4 ML SYRINGE 1 SYR IM QMON ANEMIA (Reported) Diclofenac Sodium (Voltaren) (Unknown Strength) GEL..GRAM. (Unknown Dose) TOP BID PAIN (Reported) apply to affected area(s) Etelcalcetide Hydrochloride (Parsabiv) 5 MG/ML VIAL 5 MG IV Sunday ESRD (Reported) Fluticasone Propionate (Flonase Allergy Relief) 50 MCG/ACTUATION SPRAY.SUSP 1 SPRAY NASB BID ALLERGY (Reported) Hydralazine HCl 50 MG TABLET 1 TAB PO TID HTN (Reported) Insulin Aspart, Recombinant (Novolog Flexpen) 100 UNIT/ML INSULN.PEN 0 SC TID Blood sugar (Reported) Please use 5 - 8 - 11 Units based on carb count Insulin Detemir (Levemir) 100 UNIT/ML VIAL 30 UNITS SC QPM DM (Reported) Lactulose 10 GRAM/15 ML SOLUTION 30 ML PO BID BM (Reported) Levothyroxine Sodium 175 MCG TABLET 1 TAB PO DAILY THYROID (Reported) Metoprolol Tartrate 25 MG TABLET 0.5 TAB PO BID CAD / HTN (Reported) Minoxidil 10 MG TABLET 2.5 MG PO DAILY ESRD (Reported) Mometasone Furoate 0.1 % CREAM..G. 1 SARA TOP DAILY SKIN (Reported) apply to affected area(s) Nitroglycerin 0.4 MG TAB.SUBL 1 TAB SL AD CHEST PAIN (Reported) 1st sign of attack; may repeat every 5 minutes until relief; if pain persists after 3 tablets in 15 minutes, prompt medical att Olmesartan Medoxomil (Benicar) 40 MG TABLET 1 TAB PO DAILY HTN (Reported) Omeprazole 40 MG CAPSULE.DR 1 CAP PO DAILY GI (Reported) Oxycodone HCl 5 MG TABLET 1 TAB PO Q4-6 PRN PAIN CONTROL (Reported) Pravastatin Sodium 40 MG TABLET 1 TAB PO QPM HLD (Reported) Sevelamer Carbonate (Renvela) 800 MG TABLET 1,600 MG PO TIDAC bone health Tamsulosin HCl (Flomax) 0.4 MG CAP.ER.24H 1 CAP PO DAILY BPH (Reported) Valsartan (Diovan) 80 MG TABLET 1 TAB PO DAILY HEART (Reported) Vitamin B Complex 1 EACH TABLET 1 TAB PO DAILY VITAMIN SUPPORT (Reported) Compliance With Home Meds: FAIR Past History Travel History Traveled to [place] past 21 day No Medical History Neurological: NONE EENT: NONE Cardiovascular: CHF, hypertension, hyperlipidemia, AORTIC STENOSIS FLUID OVERLOAD BRADYCARDIA Respiratory: NONE Gastrointestinal: colitis, PANCREATITIS Hepatic: NONE Renal: benign prost hyperplasia, ESRD ON DIALYSIS CYST ON KIDNEY RIGHT URETER STENT Musculoskeletal: FROZEN SHOULDER Psychiatric: NONE Endocrine: TYPE II DM HYPOTHYROIDISM Blood Disorders: NONE Cancer(s): NONE 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 Psychosocial History Services at Home: Nursing Primary Language: Occitan Smoking Status: Never Smoked ETOH Use: denies use Illicit Drug Use: denies illicit drug use Functional Ability ADLs Independent: dressing, eating, toileting, bathing. Ambulation: cane IADLs Independent: shopping, housework, finances, food prep, telephone, transportation , medication admin. Review of Systems Review of Systems Constitutional: Reports: no symptoms. Cardiovascular: Reports: chest pain. Respiratory: Reports: no symptoms. GI: Reports: no symptoms. Genitourinary: Reports: no symptoms. Musculoskeletal: Reports: no symptoms. Exam & Diagnostic Data Last 24 Hrs of Vital Signs/I&O Vital Signs Date Time Temp Pulse Resp B/P B/P Pulse O2 O2 Flow FiO2 Mean Ox Delivery Rate 12/22 1659 97.6 66 18 140/60 91 12/22 1602 67 18 158/72 99 Room Air 12/22 1445 97.0 70 20 180/80 96 Room Air 12/22 1358 97.2 60 20 146/67 96 Room Air 12/22 1317 60 20 165/74 96 Room Air 12/22 1239 97.1 62 20 158/110 12/22 1238 62 20 158/110 96 Room Air 12/22 1206 97.1 76 20 186/85 95 Room Air 12/22 1200 96 Room Air 12/22 1026 97.0 72 20 186/66 96 Room Air Intake & Output 12/22 1600 12/22 0800 12/22 0000 Intake Total Output Total Balance Patient 159 lb Weight Weight Reported by Patient Measurement Method Physical Exam General Appearance Alert, Oriented X3, Cooperative, No Acute Distress Cardiovascular Regular Rate, Normal S1, Normal S2, No Murmurs Lungs Clear to Auscultation Abdomen Normal Bowel Sounds, Soft, No Tenderness, No Hepatospenomegaly Neurological Normal Speech, Strength at 5/5 X4 Ext, Normal Tone, Sensation Intact, Cranial Nerves 3-12 NL Extremities No Cyanosis, No Edema, Normal Pulses Last 24 Hrs of Labs/[place]: Laboratory Tests 12/22/17 1805: Troponin I Pending 12/22/17 1201: Anion Gap 17 H, Estimated GFR 9 L, BUN/Creatinine Ratio 5.6 L, Glucose 140 H , Hemoglobin A1c Pending, Calcium 8.5, Magnesium 2.4 H, Total Bilirubin 0.5, Direct Bilirubin 0.4, AST 21, ALT 29, Alkaline Phosphatase 106, Troponin I 0.04, Total Protein 7.4, Albumin 4.1, Globulin 3.3, Albumin/Globulin Ratio 1.2, Free T4 1.78, Total T3 0.57 L, TSH &T3 &Free T4 Intrp 13.500 H, CBC w Diff NO MAN DIFF REQ, RBC 3.94 L, MCV 89.2, MCH 29.2, MCHC 32.8 L, RDW 15.2 H, MPV 6.9 L , Gran % 74.6, Lymphocytes % 17.6 L, Monocytes % 6.2, Eosinophils % 1.1, Basophils % 0.5, Absolute Granulocytes 7.0 H, Absolute Lymphocytes 1.7, Absolute Monocytes 0.6, Absolute Eosinophils 0.1, Absolute Basophils 0 Diagnostic Data EKG Results T wave inversion v4,v5,v6, LVH CXR Results Small bilateral pleural effusions improved from study of October 25, 2017. Cardiomegaly without pulmonary edema. Assessment/Plan Assessment: 67 yo M with PMH of hypertension, hyperlipidemia, diabetes, hypothyroidism, ESRD on dialysis M/W/, BPH and pancreatitis presented to the ED with complaints of chest pain Admission vitals Temperature 97.1, pulse rate 60, respiratory rate 20, blood pressure 165/74, saturating 96 at room air. Admission labs WBC 9.4, hemoglobin 11.5, platelet 403, sodium 140, potassium 5.5, CO2 29, anion gap 17, BUN 34, creatinine 6.1, magnesium 2.4, TSH-13.500, troponin 0.04 Home medications Amlodipine 10 daily Aspirin 81 daily Clonidine 0.2 mg twice daily EPO Diclofenac sodium twice daily ETELCALCETIDE M/W/ Furosemide 80 daily Hydralazine 50 3 times daily NovoLog insulin Levemir 30 every afternoon Metoprolol 0.5 mg twice daily Minoxidil 10 2.5 mg daily Olmesartan 40 mg daily Pravastatin 40 mg daily Omeprazole 40 daily Flomax daily Valsartan daily ED treatment Oxycodone 5 mg once, aspirin 324 once, nitroglycerin ointment ointment 1 g once, metoprolol IV 5 mg once, 1. Chest pain rule out ACS-we will admit him in telemetry, do serial troponin and EKG. First set of troponin negative. EKG shows new T-wave inversion in V4. Patient was seen by Dr. Tijerina in the ED was suggested to start him on IV heparin, loading dose of Plavix, aspirin, statin. If patient continues having chest pain then he might need cardiac cath. We will order echocardiogram to know his left ventricular function and rule out any regional wall motion abnormalities. Patient has stage II diastolic dysfunction with an ejection fraction of 55% done in October 2017. His guaiac was negative. We will start him on IV heparin-ACS protocol. Nitro-Bid ointment half an inch for as needed for pain. 2. End-stage renal disease-patient is undergoing dialysis at [facility] on Sunday, Sunday, Sunday. Has a left arm fistula. We will inform nephrology regarding his dialysis on Sunday. We will continue his EPO. 3. Systemic hypertension-patient blood pressure is 180/80. Patient took his amlodipine,aspirin, clonidine, metoprolol, minoxidil, hydralazine,OLMESARTAN today morning. We will recheck his blood pressure and start rest of his medication valsartan 80. 4. Diabetes-we will continue his home dose of Levemir and put him on NovoLog sliding scale insulin. Accu-Chek every shift. We will check HbA1c. 5. BPH-continue Flomax. 6. Right upper quadrant pain-patient complains of right upper quadrant pain a 5 x 10 in severity for the past 1 month. According to him this pain is on and off and not relieved by rest. Patient had right renal stent placed in October 2017. We will check an ultrasound to rule out any CBD stone/right hydroureteronephrosis. Diet-renal diet Code-full code DVT prophylaxis-on IV heparin As Ranked By This Provider Problem List: 1. Chest pain due to myocardial ischemia Core Measures/Misc (03/04) Acute Coronary Syndrome ACS Diagnosis: Yes Last Known EF % 55 Congestive Heart Failure Congestive Heart Failure Diagnosis No Cerebrovascular Accident CVA/TIA Diagnosis: No VTE (View Protocol) VTE Risk Factors Age>40 No Mechanical VTE Prophylaxis d/t Other No VTE Pharm Prophylaxis d/t Other Sepsis (View protocol) Sepsis Present: No If YES complete Sepsis Event Note If YES complete Sepsis Event Note
--- NOTE | 2017-12-22 16:17 | Cons- Cardiology ---
General Information and HPI Consulting Request Date of Consult: 12/22/17 Requested By: Johanne Alarcon MD History of Present Illness: This patient is a 67 year old male with history of hypertension, dyslipidemia, diabetes and end stage renal disease on dialysis. He also carries a history of pancreatitis. Over the past few days this patient has noted a mild chest discomfort radiating toward his left arm which has become more severe over the past couple days. It is an intermittent discomfort that is not appreciably worse with activity but is associated with nausea, diaphoresis and shortness of breath. He denies lightheadedness or palpitations. The patient has an elevated TSH consistent with hypothyroidism and his first troponin is in the normal range. Allergies/Medications Allergies: Coded Allergies: No Known Allergies (09/28/17) Home Med List: Acetaminophen (Tylenol) 325 MG TABLET 2 TAB PO DAILY NEEDED PRN PAIN ( Reported) Amlodipine Besylate 10 MG TABLET 1 TAB PO DAILY HTN (Reported) Aspirin (Aspirin*) 81 MG TAB.CHEW 1 TAB PO DAILY CAD (Reported) Clonidine HCl 0.2 MG TABLET 1 TAB PO BID HTN (Reported) Darbepoetin Pardeep in Polysorbat (Aranesp) 10 MCG/0.4 ML SYRINGE 1 SYR IM QMON ANEMIA (Reported) Diclofenac Sodium (Voltaren) (Unknown Strength) GEL..GRAM. (Unknown Dose) TOP BID PAIN (Reported) apply to affected area(s) Etelcalcetide Hydrochloride (Parsabiv) 5 MG/ML VIAL 5 MG IV Sunday ESRD (Reported) Fluticasone Propionate (Flonase Allergy Relief) 50 MCG/ACTUATION SPRAY.SUSP 1 SPRAY NASB BID ALLERGY (Reported) Hydralazine HCl 50 MG TABLET 1 TAB PO TID HTN (Reported) Insulin Aspart, Recombinant (Novolog Flexpen) 100 UNIT/ML INSULN.PEN 0 SC TID Blood sugar (Reported) Please use 5 - 8 - 11 Units based on carb count Insulin Detemir (Levemir) 100 UNIT/ML VIAL 30 UNITS SC QPM DM (Reported) Lactulose 10 GRAM/15 ML SOLUTION 30 ML PO BID BM (Reported) Levothyroxine Sodium 175 MCG TABLET 1 TAB PO DAILY THYROID (Reported) Metoprolol Tartrate 25 MG TABLET 0.5 TAB PO BID CAD / HTN (Reported) Minoxidil 10 MG TABLET 2.5 MG PO DAILY ESRD (Reported) Mometasone Furoate 0.1 % CREAM..G. 1 SARA TOP DAILY SKIN (Reported) apply to affected area(s) Nitroglycerin 0.4 MG TAB.SUBL 1 TAB SL AD CHEST PAIN (Reported) 1st sign of attack; may repeat every 5 minutes until relief; if pain persists after 3 tablets in 15 minutes, prompt medical att Olmesartan Medoxomil (Benicar) 40 MG TABLET 1 TAB PO DAILY HTN (Reported) Omeprazole 40 MG CAPSULE.DR 1 CAP PO DAILY GI (Reported) Oxycodone HCl 5 MG TABLET 1 TAB PO Q4-6 PRN PAIN CONTROL (Reported) Pravastatin Sodium 40 MG TABLET 1 TAB PO QPM HLD (Reported) Sevelamer Carbonate (Renvela) 800 MG TABLET 1,600 MG PO TIDAC bone health Tamsulosin HCl (Flomax) 0.4 MG CAP.ER.24H 1 CAP PO DAILY BPH (Reported) Valsartan (Diovan) 80 MG TABLET 1 TAB PO DAILY HEART (Reported) Vitamin B Complex 1 EACH TABLET 1 TAB PO DAILY VITAMIN SUPPORT (Reported) Review of Systems Review of Systems: Chronic abdominal discomfort. 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0 72 20 186/66 96 Room Air Intake & Output 12/22 1600 12/22 0800 12/22 0000 12/21 1600 12/21 0800 12/21 0000 Intake Total Output Total Balance Patient 159 lb Weight Weight Reported by Patient Measurement Method Physical Exam: General: WD/ WN male in NAD; alert and oriented x 3 HEENT: NC/AT, PERRL, EOMI Neck: no JVD, no carotid bruit Heart: RRR with 2/6 systolic murmur Lungs: clear bilaterally Abdomen: soft, tender with positive bowel sounds and large scar Extremities: no edema Assessment/Plan Assessment/Plan * This patient has intermittent chest discomfort that is very concerning for unstable angina. Admit the patient to telemetry and follow three sets of cardiac enzymes. * Obtain an echocardiogram. * Begin full anticoagulation with aspirin 325mg daily, Plavix 75mg daily after a 300mg loading dose and IV heparin. * Begin NTG paste 1/2 inch Q 6 hours. Continue Metoprolol at 25mg BID and begin Atorvastatin 40mg daily. * Continue Losartan at 40mg daily and follow his BUN, creatinine and potassium. * Continue clonidine patch. Consult Acknowledgment - Thank you for your consult request.
[2017-12-22 16:59] VITALS: BP 140/60
--- NOTE | 2017-12-22 18:20 | PN- Att Addend ---
Attending Addendum Attending Brief Note Patient seen and examined at bedside. Agree with resident assessment and plan as listed in history and physical. 67M PMH hypertension, dyslipidemia, diabetes and end stage renal disease on dialysis with 3 days of left sided chest pain radiating to left arm occuring at rest which has progressively worsened and is severe today. Was having active chest pain in ER which improved with Nitropaste, but did cause a headache. Pain is associated with SOB, but not with palpitations, diaphoresis, or lightheadedness. Troponin negative, EKG shows acute changes with TWI in inferoateral leads and ST elevations in V2/V3. 1. Unstable angina 2. ESRD on HD Plan - Admit to telemetryh - ASA 325mg, Plavix 300mg - Heparin drip - Atorvastatin 40mg - Metoprolol 25mg BID - Nitropaste - Serial EKG and troponin - Follow cardiology recommendations - Continue home medications - Nephrology consult to continue dialysis
[2017-12-22 22:08] VITALS: BP 146/68
[2017-12-23 00:47] LABS: PTT 50 SEC (25-37)
[2017-12-23 06:30] VITALS: BP 144/64
--- NOTE | 2017-12-23 08:09 | PN- Housestaff ---
Rajinder ISSA,[place] 12/23/17 0808: Subjective Follow-up For: Unstable angina Complaints: no complaints Tele-Events Since Last Visit: Normal sinus rhythm heart rate low was 56-74 Subjective: Patient seen and examined at bedside. No overnight events. patient complains of 5/10 back pain. Patient denies chest pain, palpitation, nausea, vomiting. Review of Systems Constitutional: Reports: no symptoms. Objective Last 24 Hrs of Vital Signs/I&O Vital Signs Date Time Temp Pulse Resp B/P B/P Pulse O2 O2 Flow FiO2 Mean Ox Delivery Rate 12/23 0839 71 150/78 / 0834 71 150/78 /08 0832 71 150/78 / 0830 71 150/78 / 0829 71 150/78 /08 0630 97.9 67 18 144/64 100 Room Air 07/07 2208 98.3 73 18 146/68 90 07/07 2050 87 146/68 07/07 2050 87 146/68 07/07 2050 87 146/68 07/07 1659 97.6 66 18 140/60 91 07/07 1602 67 18 158/72 99 Room Air 07/07 1445 97.0 70 20 180/80 96 Room Air 07/07 1358 97.2 60 20 146/67 96 Room Air 07/07 1317 60 20 165/74 96 Room Air 07/07 1239 97.1 62 20 158/110 07/07 1238 62 20 158/110 96 Room Air 07/07 1206 97.1 76 20 186/85 95 Room Air 07/07 1200 96 Room Air 07/07 1026 97.0 72 20 186/66 96 Room Air Intake & Output /08 1600 07/08 0800 07/08 0000 Intake Total 355 360 Output Total Balance 355 360 Intake, IV 155 Intake, Oral 200 360 Patient 164 lb Weight Physical Exam General Appearance: Alert, Oriented X3, Cooperative, No Acute Distress Cardiovascular: Regular Rate, Normal S1, Normal S2, No Murmurs Lungs: Clear to Auscultation Abdomen: Normal Bowel Sounds, Soft, No Tenderness, No Hepatospenomegaly Neurological: Normal Speech, Strength at 5/5 X4 Ext, Normal Tone, Sensation Intact Current Medications: Current Medications Sig/Hernandez Start time Last Medication Dose Route Stop Time Status Admin Acetaminophen 650 MG DAILY NEEDED PRN 12/22 1615 AC PO Amlodipine Besylate 10 MG DAILY 12/23 899 AC 12/23 PO 0839 Aspirin 81 MG DAILY 12/23 899 AC 12/23 PO 0829 Aspirin 0 .STK-MED ONE 12/22 1223 DC PO Aspirin 324 MG ONCE ONE 12/22 1200 DC 12/22 PO 12/22 1201 1239 Atorvastatin Calcium 40 MG 1700 12/22 1700 AC 12/22 PO 1804 Clonidine 0.2 MG BID 12/22 2100 AC 12/23 PO 0830 Clopidogrel Bisulfate 75 MG DAILY 12/23 899 AC 12/23 PO 0840 Clopidogrel Bisulfate 75 MG DAILY 12/22 1630 DC PO Clopidogrel Bisulfate 300 MG ONCE ONE 12/22 1630 DC 12/22 PO 12/22 1631 1804 Dextrose 25 GM ONCE ONE 12/23 0530 DC 12/23 IV 12/23 0631 0626 Dextrose/Sodium 1,000 ML ONCE ONE 12/23 0045 CAN Chloride IV 12/23 2044 Fluticasone 1 SPRAY BID 12/22 2100 AC 12/23 Propionate NADYA 0848 Heparin Sodium 2,232 UNIT BOLUS ONE 12/23 0115 DC 12/23 (Porcine) IV 12/23 0116 0230 Heparin Sodium 25,000 UNIT Q24H 12/22 1615 AC 12/22 (Porcine) IV 1759 Sodium Chloride 500 ML Hydralazine HCl 50 MG TID 12/22 2100 AC 12/23 PO 0829 Insulin Aspart 0 TIDAC 12/22 1700 AC SC Insulin Detemir 30 UNITS QPM 12/22 2100 AC 12/22 SC 2047 Levothyroxine Sodium 0.175 MG DAILY AC 12/23 07 AC 12/23 PO 0533 Losartan Potassium 25 MG DAILY 12/23 899 AC 12/23 PO 0832 Losartan Potassium 80 MG DAILY 12/23 0800 CAN PO Metoprolol Tartrate 12.5 MG BID 12/22 2100 DC PO Metoprolol Tartrate 25 MG BID 12/22 2100 AC 12/23 PO 0834 Metoprolol Tartrate 0 .STK-MED ONE 12/22 1223 DC IV Metoprolol Tartrate 5 MG ONCE ONE 12/22 1200 DC 12/22 IV 12/22 1201 1239 Minoxidil 2.5 MG DAILY 12/23 899 AC 12/23 PO 0839 Nitroglycerin 0.5 GM Q6 PRN 12/22 1630 AC TOP Nitroglycerin 0 .STK-MED ONE 12/22 1224 DC TOP Nitroglycerin 1 GM ONCE ONE 12/22 1200 DC 12/22 TOP 12/22 1201 1239 Omeprazole 40 MG DAILY AC 12/22 1615 AC 12/23 PO 0534 Oxycodone HCl 5 MG Q4-6 PRN PRN 12/22 1800 AC 12/23 PO 0854 Oxycodone HCl 5 MG ONCE ONE 12/22 1245 DC 12/22 PO 12/22 1246 1244 Oxycodone HCl 0 .STK-MED ONE 12/22 1243 DC PO Pravastatin Sodium 40 MG 1700 12/22 1700 CAN PO Sevelamer Carbonate 1,600 MG TIDAC 12/22 1700 AC 12/22 PO 1804 Tamsulosin HCl 0.4 MG DAILY 12/23 0900 AC PO Last 24 Hrs of Lab/S[place]rick Results Last 24 Hrs of Labs/Mics: Laboratory Tests 12/23/17 0620: Glucose Cancelled 12/23/17 0620: Anion Gap 16, Estimated GFR 8 L, BUN/Creatinine Ratio 5.6 L, Glucose 43 *L, Triglycerides 81, Cholesterol 93, LDL Cholesterol, Calc 43 L, HDL Cholesterol 34 L, Cholesterol/HDL Ratio 3, APTT 60 H 12/23/17 0025: Troponin I 0.04, APTT 50 H 12/22/17 1805: Troponin I 0.03 12/22/17 1201: Anion Gap 17 H, Estimated GFR 9 L, BUN/Creatinine Ratio 5.6 L, Glucose 140 H , Hemoglobin A1c Pending, Calcium 8.5, Magnesium 2.4 H, Total Bilirubin 0.5, Direct Bilirubin 0.4, AST 21, ALT 29, Alkaline Phosphatase 106, Troponin I 0.04, Total Protein 7.4, Albumin 4.1, Globulin 3.3, Albumin/Globulin Ratio 1.2, Free T4 1.78, Total T3 0.57 L, TSH &T3 &Free T4 Intrp 13.500 H, CBC w Diff NO MAN DIFF REQ, RBC 3.94 L, MCV 89.2, MCH 29.2, MCHC 32.8 L, RDW 15.2 H, MPV 6.9 L , Gran % 74.6, Lymphocytes % 17.6 L, Monocytes % 6.2, Eosinophils % 1.1, Basophils % 0.5, Absolute Granulocytes 7.0 H, Absolute Lymphocytes 1.7, Absolute Monocytes 0.6, Absolute Eosinophils 0.1, Absolute Basophils 0 Assessment/Plan Assessment: 67 yo M with PMH of hypertension, hyperlipidemia, diabetes, hypothyroidism, ESRD on dialysis M/W/F, BPH and pancreatitis presented to the ED with complaints of chest pain Assessment and plan 1. Unstable angina-continue telemetry. 3 sets of troponin was negative. EKG-T -wave inversion V4, V5, V6. Patient is on IV heparin. We will continue aspirin and statin. If patient continues having chest pain then we will plan cardiac cath. Awaiting cardiology follow-up. Awaiting echocardiogram results. Nitro- Bid Ointment for as needed pain 2. End-stage renal disease-patient is undergoing dialysis at [facility] on Sunday, Sunday, Sunday. Has a left arm fistula. Nephrology informed. We will continue his EPO. 3. Systemic hypertension-patient blood pressure is 150/78. We will continue valsartan, amlodipine, minoxidil, metoprolol. 4. Diabetes-we will continue his home dose of Levemir and put him on NovoLog sliding scale insulin. Accu-Chek every shift. HbA1c pending 5. BPH-continue Flomax. 6. Right upper quadrant pain-patient complains of right upper quadrant pain a 5 x 10 in severity for the past 1 month. According to him this pain is on and off and not relieved by rest. Patient had right renal stent placed in October 2017. Pending ultrasound to rule out CBD stone/right hydroureteronephrosis. 7. Hypothyroidism-patient is on 175 mcg of levothyroxine. Patient TSH is high 13.500. We will repeat TSH and T4 tomorrow. If is still high we will involve endocrinology. Diet-renal diet Code-full code DVT prophylaxis-on IV heparin Plan for today-cardiology, nephrology consult. Ultrasound, echo results. Problem List: 1. ESRD (end stage renal disease) on dialysis 2. Chest pain due to myocardial ischemia Pain Ratin Pain Location: back Pain Goal: Remain pain free Pain Plan: Oxycodone Tomorrow's Labs & Rationales: none Johanne Alarcon MD 12/23/17 1505: Attending MD Review Statement Attending Statement Attending MD Statement: examined this patient, discuss w/resident/PA/DIGITAL COLOR PRESS OPERATOR, agreed w/resident/PA/DIGITAL COLOR PRESS OPERATOR, reviewed EMR data (avail) Attending Assessment/Plan: 67M PMH hypertension, dyslipidemia, diabetes and end stage renal disease on dialysis with 3 days of left sided chest pain radiating to left arm occuring at rest which has progressively worsened and is severe today. Was having active chest pain in ER which improved with Nitropaste, but did cause a headache. Pain is associated with SOB, but not with palpitations, diaphoresis, or lightheadedness. Troponin negative, EKG shows acute changes with TWI in inferoateral leads and ST elevations in V2/V3. 1. Unstable angina 2. ESRD on HD Plan - Continue on telemetry - ASA 325mg, Plavix 75mg - Heparin drip - NPO after midnight - Atorvastatin 40mg - Metoprolol 25mg BID - Nitropaste - If further chest pain obtain stat EKG and troponin - Follow cardiology recommendations - Continue home medications - Nephrology consult to continue dialysis
[2017-12-23 08:15] LABS: PTT 60 SEC (25-37)
--- NOTE | 2017-12-23 12:43 | PN- Cardiology ---
Subjective Subjective: * Chest discomfort has resolved. No shortness of breath. * Normal cardiac enzymes. Objective Vital Signs and I&Os Vital Signs Date Time Temp Pulse Resp B/P B/P Pulse O2 O2 Flow FiO2 Mean Ox Delivery Rate 12/24 0739 71 150/78 /08 0834 71 150/78 /08 0832 71 150/78 /08 0830 71 150/78 /08 0829 71 150/78 /08 0800 Room Air Room Air / 0630 97.9 67 18 144/64 100 Room Air 07/ 2208 98.3 73 18 146/68 90 07/07 2050 87 146/68 07/07 2050 87 146/68 07/07 2050 87 146/68 /07 1659 97.6 66 18 140/60 91 07/07 1602 67 18 158/72 99 Room Air 07/ 1445 97.0 70 20 180/80 96 Room Air 07/07 1358 97.2 60 20 146/67 96 Room Air /07 1317 60 20 165/74 96 Room Air Intake & Output 12/23 1600 /08 0800 07/08 0000 /07 1600 /07 0800 / 0000 Intake Total 355 360 Output Total Balance 355 360 Intake, IV 155 Intake, Oral 200 360 Patient 164 lb 159 lb Weight Weight Reported by Patient Measurement Method Physical Exam: General: WD/ WN male in NAD; alert and oriented x 3 HEENT: NC/AT, PERRL, EOMI Neck: no JVD, no carotid bruit Heart: RRR with 2/6 systolic murmur Lungs: clear bilaterally Abdomen: soft, tender with positive bowel sounds and large scar Extremities: no edema Assessment/Plan Assessment/Plan * This patient has intermittent chest discomfort that is very concerning for unstable angina. he has ruled out for an [place] by cardiac enzymes. He will need to be risk stratified for ischemia with a pharmacologic stress test. * Obtain an echocardiogram. * Continue full anticoagulation with aspirin 325mg daily, Plavix 75mg daily and IV heparin. * Continue NTG paste 1/2 inch Q 6 hours. Continue Metoprolol at 25mg BID and begin Atorvastatin 40mg daily. * Continue Losartan at 40mg daily and follow his BUN, creatinine and potassium. * Continue clonidine patch. * This patient will need a renal evaluation for dialysis tomorrow. Continue telemetry? Yes
--- NOTE | 2017-12-23 14:42 | Cons- Nephrology ---
General Information and HPI Consulting Request Date of Consult: 12/23/17 Requested By: Johanne Alarcon MD Reason for Consult: eval/management of ESRD Source of Information: patient, family, old records Exam Limitations: no limitations History of Present Illness: The patient is a 67-year-old male with a history of CHFpEF, (mild on most recent echo), DM, HTN, end-stage renal disease for which she's on hemodialysis 3 times per week schedule at the [facility]. He was last dialyzed on Sunday. Since there is a he's been having intermittent episodes of chest pain associated with dyspnea and diaphoresis, and nausea. EKG revealed lateral T-wave inversion , and he's being treated for unstable angina with a variety of cardiac medications including Plavix and heparin drip. Troponins have been negative 3. Chest x-ray revealed no pulmonary edema however did reveal small bilateral pleural effusions. At this time the patient's more comfortable without chest pain and he denies shortness of breath. His potassium is within normal range. He does have right upper quadrant abdominal pain as well. Of note in October he had a similar pain of note in October he required a right ureteral stent placement by Dr. Razo given the finding of right-sided hydronephrosis, due to an obstructing kidney stone. He was also fluid overloaded during that admission and was dialyzed with ultrafiltration and was counseled about following a fluid restriction. Allergies/Medications Allergies: Coded Allergies: No Known Allergies (09/28/17) Home Med List: Acetaminophen (Tylenol) 325 MG TABLET 2 TAB PO DAILY NEEDED PRN PAIN ( Reported) Amlodipine Besylate 10 MG TABLET 1 TAB PO DAILY HTN (Reported) Aspirin (Aspirin*) 81 MG TAB.CHEW 1 TAB PO DAILY CAD (Reported) Clonidine HCl 0.2 MG TABLET 1 TAB PO BID HTN (Reported) Darbepoetin Pardeep in Polysorbat (Aranesp) 10 MCG/0.4 ML SYRINGE 1 SYR IM QMON ANEMIA (Reported) Diclofenac Sodium (Voltaren) (Unknown Strength) GEL..GRAM. (Unknown Dose) TOP BID PAIN (Reported) apply to affected area(s) Etelcalcetide Hydrochloride (Parsabiv) 5 MG/ML VIAL 5 MG IV Sunday ESRD (Reported) Fluticasone Propionate (Flonase Allergy Relief) 50 MCG/ACTUATION SPRAY.SUSP 1 SPRAY NASB BID ALLERGY (Reported) Hydralazine HCl 50 MG TABLET 1 TAB PO TID HTN (Reported) Insulin Aspart, Recombinant (Novolog Flexpen) 100 UNIT/ML INSULN.PEN 0 SC TID Blood sugar (Reported) Please use 5 - 8 - 11 Units based on carb count Insulin Detemir (Levemir) 100 UNIT/ML VIAL 30 UNITS SC QPM DM (Reported) Lactulose 10 GRAM/15 ML SOLUTION 30 ML PO BID BM (Reported) Levothyroxine Sodium 175 MCG TABLET 1 TAB PO DAILY THYROID (Reported) Metoprolol Tartrate 25 MG TABLET 0.5 TAB PO BID CAD / HTN (Reported) Minoxidil 10 MG TABLET 2.5 MG PO DAILY ESRD (Reported) Mometasone Furoate 0.1 % CREAM..G. 1 SARA TOP DAILY SKIN (Reported) apply to affected area(s) Nitroglycerin 0.4 MG TAB.SUBL 1 TAB SL AD CHEST PAIN (Reported) 1st sign of attack; may repeat every 5 minutes until relief; if pain persists after 3 tablets in 15 minutes, prompt medical att Olmesartan Medoxomil (Benicar) 40 MG TABLET 1 TAB PO DAILY HTN (Reported) Omeprazole 40 MG CAPSULE.DR 1 CAP PO DAILY GI (Reported) Oxycodone HCl 5 MG TABLET 1 TAB PO Q4-6 PRN PAIN CONTROL (Reported) Pravastatin Sodium 40 MG TABLET 1 TAB PO QPM HLD (Reported) Sevelamer Carbonate (Renvela) 800 MG TABLET 1,600 MG PO TIDAC bone health Tamsulosin HCl (Flomax) 0.4 MG CAP.ER.24H 1 CAP PO DAILY BPH (Reported) Valsartan (Diovan) 80 MG TABLET 1 TAB PO DAILY HEART (Reported) Vitamin B Complex 1 EACH TABLET 1 TAB PO DAILY VITAMIN SUPPORT (Reported) Current Medications: Current Medications Sig/Hernandez Start time Last Medication Dose Route Stop Time Status Admin Acetaminophen 650 MG DAILY NEEDED PRN 12/22 1615 AC PO Amlodipine Besylate 10 MG DAILY 12/23 0900 AC 12/23 PO 0839 Aspirin 81 MG DAILY 12/23 0800 AC 12/23 PO 0829 Atorvastatin Calcium 40 MG 1700 / 1700 AC 12/22 PO 1804 Clonidine 0.2 MG BID 12/22 2100 AC 12/23 PO 0830 Clopidogrel Bisulfate 75 MG DAILY 12/23 0900 AC 12/23 PO 0840 Clopidogrel Bisulfate 75 MG DAILY 12/22 1630 DC PO Clopidogrel Bisulfate 300 MG ONCE ONE 12/22 1630 DC 12/22 PO 12/22 1631 1804 Dextrose 25 GM ONCE ONE 12/23 0630 DC 12/23 IV 12/23 0631 0626 Dextrose/Sodium 1,000 ML ONCE ONE 12/23 0045 CAN Chloride IV 12/23 2044 Fluticasone 1 SPRAY BID 12/22 2100 AC 12/23 Propionate NADYA 0848 Heparin Sodium 2,232 UNIT ONE ONE 12/23 1030 DC (Porcine) IV 12/23 1031 Heparin Sodium 2,232 UNIT BOLUS ONE 12/23 0115 DC 12/23 (Porcine) IV 12/23 0116 0230 Heparin Sodium 25,000 UNIT Q24H 12/22 1615 AC 12/22 (Porcine) IV 1759 Sodium Chloride 500 ML Hydralazine HCl 50 MG TID 12/22 2100 AC 12/23 PO 1301 Insulin Aspart 0 TIDAC 12/23 1700 AC SC Insulin Aspart 0 TIDAC/HS 12/23 1200 DC SC Insulin Aspart 0 TIDAC 12/22 1700 DC SC Insulin Detemir 20 UNITS QPM 12/23 2100 AC SC Insulin Detemir 30 UNITS QPM 12/22 2100 DC 12/22 SC 2047 Levothyroxine Sodium 0.175 MG DAILY AC 12/23 0700 AC 12/23 PO 0533 Losartan Potassium 50 MG DAILY 12/24 0900 UNVr PO Losartan Potassium 25 MG DAILY 12/23 0900 DC 12/23 PO 0832 Losartan Potassium 80 MG DAILY 12/23 0900 CAN PO Metoprolol Tartrate 12.5 MG BID 12/22 2100 DC PO Metoprolol Tartrate 25 MG BID 12/22 2100 AC 12/23 PO 0834 Minoxidil 2.5 MG DAILY 12/23 0900 AC 12/23 PO 0839 Nitroglycerin 0.5 GM Q6 PRN 12/22 1630 AC TOP Omeprazole 40 MG DAILY AC 12/22 1615 AC 12/23 PO 0534 Oxycodone HCl 5 MG Q4-6 PRN PRN 12/22 1800 AC 12/23 PO 0854 Pravastatin Sodium 40 MG 1700 12/22 1700 CAN PO Sevelamer Carbonate 1,600 MG TIDAC 12/22 1700 AC 12/23 PO 1301 Tamsulosin HCl 0.4 MG DAILY 12/23 0900 AC 12/23 PO 1306 Review of Systems Review of Systems: Gen: neg fever, chills, nightsweats, wt loss Skin: neg rash, pruritus Eye: neg visual changes, diplopia ENT: neg hearing changes, rhinitus CV: CP/SOB improved Pulm: neg cough, sputum, hemoptysis GI: Nausea improved. no vomiting, diarrhea, hematemesis, BRBPR +RUQ abd pain : neg dysuria, frequency, urgency, hematuria, foamy urine, nocturia Musculoskeletal: neg myalgias, arthralgias Neuro: neg weakness, numbness Psych: neg depression, mental status changes Heme: neg bruising, easy bleeding, clots Past History Travel History Traveled to [place] past 21 day No Medical History Neurological: NONE EENT: NONE Cardiovascular: CHF, hypertension, hyperlipidemia, AORTIC STENOSIS FLUID OVERLOAD BRADYCARDIA Respiratory: NONE Gastrointestinal: colitis, PANCREATITIS Hepatic: NONE Renal: benign prost hyperplasia, ESRD ON DIALYSIS CYST ON KIDNEY RIGHT URETER STENT Musculoskeletal: FROZEN SHOULDER Psychiatric: NONE Endocrine: TYPE II DM HYPOTHYROIDISM Blood Disorders: NONE Cancer(s): NONE HEART SPECIALIST/Reproductive: NONE Surgical History Surgical History: unobtainable (gall bladder removal) Family History Relations & Conditions If Any: FATHER (heart disease). Psychosocial History Where Do You Live? Home Services at Home: Nursing Primary Language: Lithuanian Smoking Status: Never Smoked ETOH Use: denies use Illicit Drug Use: denies illicit drug use Functional Ability ADLs Independent: dressing, eating, toileting, bathing. Ambulation: cane IADLs Independent: shopping, housework, finances, food prep, telephone, transportation , medication admin. ECHO Results (as available) EF% 55 Exam & Diagnostic Data Vital Signs and I&O Vital Signs Date Time Temp Pulse Resp B/P B/P Pulse O2 O2 Flow FiO2 Mean Ox Delivery Rate 12/23 1306 62 160/70 12/23 1301 62 160/70 12/23 0839 71 150/78 12/23 0834 71 150/78 08 0832 71 150/78 08 0830 71 150/78 12/23 0829 71 150/78 12/23 0800 Room Air Room Air 12/23 0630 97.9 67 18 144/64 100 Room Air 12/22 2208 98.3 73 18 146/68 90 07/07 2050 87 146/68 12/22 2049 87 146/68 12/22 2049 87 146/68 12/22 1659 97.6 66 18 140/60 91 12/22 1602 67 18 158/72 99 Room Air 12/22 1445 97.0 70 20 180/80 96 Room Air Intake & Output 12/23 0400 12/22 0400 12/21 1600 12/21 0400 Intake Total 965 360 Output Total Balance 965 360 Intake, IV 265 Intake, Oral 700 360 Number 1 Bowel Movements Patient 164 lb 159 lb Weight Weight Reported by Patient Measurement Method Physical Exam: General: NAD, A+O x3. HEENT: NC/AT. No icterus. Moist mucosa Neck: negative for ALYSA, JVD CV: RRR, no m/r/g Pulm: CTAB, no rales Abd: soft, +RUQ tenderness/guarding Lower Ext: neg edema or chronic venous changes Upper Ext:LUE AVF+thrill/bruit Back: negative for CVA tenderness Neuro: neg tremor, asterixis Skin: no rash, jaundice : no nicholas catheter Results Pertinent Lab Results: Laboratory Tests 12/23 12/23 12/23 12/22 0620 0620 0025 1805 Chemistry Sodium (137 - 145 mmol/L) 138 Potassium (3.5 - 5.1 mmol/L) 4.5 Chloride (98 - 107 mmol/L) 95 L Carbon Dioxide (22 - 30 mmol/L) 27 Anion Gap (5 - 16) 16 BUN (9 - 20 mg/dL) 39 H Creatinine (0.7 - 1.2 mg/dL) 7.0 *H Estimated GFR (>60 ml/min) 8 L BUN/Creatinine Ratio (7 - 25 %) 5.6 L Glucose (65 - 99 mg/dL) Cancelled 43 *L Troponin I (<0.11 ng/ml) 0.04 0.03 Triglycerides (<150 mg/dL) 81 Cholesterol (< 200 MG/DL) 93 LDL Cholesterol, Calc (65 - 129 mg/dL) 43 L HDL Cholesterol (40 - 60 mg/dL) 34 L Cholesterol/HDL Ratio (0.00 - 4.88 %) 3 Coagulation APTT (25 - 37 SEC) 60 H 50 H 12/22 1201 Chemistry Sodium (137 - 145 mmol/L) 140 Potassium (3.5 - 5.1 mmol/L) 5.5 H Chloride (98 - 107 mmol/L) 94 L Carbon Dioxide (22 - 30 mmol/L) 29 Anion Gap (5 - 16) 17 H BUN (9 - 20 mg/dL) 34 H Creatinine (0.7 - 1.2 mg/dL) 6.1 *H Estimated GFR (>60 ml/min) 9 L BUN/Creatinine Ratio (7 - 25 %) 5.6 L Glucose (65 - 99 mg/dL) 140 H Hemoglobin A1c (4.2 - 5.8 %) 6.6 H Calcium (8.4 - 10.2 mg/dL) 8.5 Magnesium (1.6 - 2.3 mg/dL) 2.4 H Total Bilirubin (0.2 - 1.3 mg/dL) 0.5 Direct Bilirubin (< 0.4 mg/dL) 0.4 AST (17 - 59 U/L) 21 ALT (21 - 72 U/L) 29 Alkaline Phosphatase (< 127 U/L) 106 Troponin I (<0.11 ng/ml) 0.04 Total Protein (6.3 - 8.2 g/dL) 7.4 Albumin (3.5 - 5.0 g/dL) 4.1 Globulin (1.9 - 4.2 gm/dL) 3.3 Albumin/Globulin Ratio (1.1 - 2.2 %) 1.2 Free T4 (0.78 - 2.44 ng/dL) 1.78 Total T3 (0.97 - 1.69 ng/mL) 0.57 L TSH &T3 &Free T4 Intrp (0.27 - 4.20 uIU/mL) 13.500 H Hematology CBC w Diff NO MAN DIFF REQ WBC (4.8 - 10.8 /CUMM) 9.4 RBC (4.70 - 6.10 /CUMM) 3.94 L Hgb (14.0 - 18.0 G/DL) 11.5 L Hct (42 - 52 %) 35.1 L MCV (80.0 - 94.0 FL) 89.2 MCH (27.0 - 31.0 PG) 29.2 MCHC (33.0 - 37.0 G/DL) 32.8 L RDW (11.5 - 14.5 %) 15.2 H Plt Count (130 - 400 /CUMM) 403 H MPV (7.4 - 10.4 FL) 6.9 L Gran % (42.2 - 75.2 %) 74.6 Lymphocytes % (20.5 - 51.1 %) 17.6 L Monocytes % (1.7 - 9.3 %) 6.2 Eosinophils % (0 - 5 %) 1.1 Basophils % (0.0 - 2.0 %) 0.5 Absolute Granulocytes (1.4 - 6.5 /CUMM) 7.0 H Absolute Lymphocytes (1.2 - 3.4 /CUMM) 1.7 Absolute Monocytes (0.10 - 0.60 /CUMM) 0.6 Absolute Eosinophils (0.0 - 0.7 /CUMM) 0.1 Absolute Basophils (0.0 - 0.2 /CUMM) 0 Assessment/Plan Assessment/Recommendations Assessment: End-stage renal disease: He is stable from a renal standpoint with a reasonable volume status and lytes in a safe range including a potassium of 4.5 without metabolic acidosis. There is no acute need for dialysis today and I will schedule dialysis for tomorrow according to his Sunday schedule. His AV fistula will be cannulated for dialysis. His hemoglobin is 11.5 and given the unstable angina, we'll hold erythropoietin stimulating agents at this time. Right upper quadrant abdominal pain: Abdominal ultrasound is pending. LFTs are normal limits. Of note patient had a recent right ureteral stent placement for an obstructing kidney stone although the location of his abdominal pain is not typical for urolithiasis. Unstable angina: Management per cardiology. I discussed the case with Dr. Lilliana oneil and there are no plans for cardiac catheterization tomorrow so there is flexibilty with timing of dialysis tomorrow, instead, there is consideration of stress testing. Recommendations: Follow-up abdominal ultrasound Renal diet with 1200 mL per day fluid restriction I will schedule his routine dialysis for tomorrow in the hospital Continue sevelamer due to history of hyperphosphatemia Thank you for the consultation
[2017-12-23 15:17] VITALS: BP 140/74
[2017-12-23 15:41] LABS: ABSOLUTE BASOPHIL COUNT 0.1 /CUMM (0.0-0.2); ABSOLUTE EOSINOPHIL COUNT 0 /CUMM (0.0-0.7); ABSOLUTE GRANULOCYTE CT 9.3 /CUMM (1.4-6.5); ABSOLUTE LYMPH COUNT 1.3 /CUMM (1.2-3.4); ABSOLUTE MONOCYTE COUNT 0.4 /CUMM (0.10-0.60); EOSINOPHIL % 0.4 % (0-5); GRANULOCYTE % 82.9 % (42.2-75.2); HEMATOCRIT 33.4 % (42-52); MEAN CORPUSCULAR HGB 28.9 PG (27.0-31.0); MEAN CORPUSCULAR HGB CONC 32.6 G/DL (33.0-37.0); MEAN CORPUSCULAR VOLUME 88.6 FL (80.0-94.0); MEAN PLATELET VOLUME 7.3 FL (7.4-10.4); PLATELET COUNT 394 /CUMM (130-400); RED BLOOD CELL CT 3.78 /CUMM (4.70-6.10); WHITE BLOOD CELL COUNT 11.3 /CUMM (4.8-10.8)
[2017-12-23 15:52] LABS: PTT 54 SEC (25-37)
[2017-12-23 16:00] VITALS: BP 168/74
--- NOTE | 2017-12-23 16:11 | Event Note ---
Event Note Event Note: Around 3 PM patient complained about crushing chest pain. When I evaluated he was complaining chest pain 10 out of 10 crushing, radiating to left arm, 10 out of 10, associated with shortness of breath, nausea, an episode of vomiting and he was diaphoretic, he was sweating at that time. Patient received 3 tablets of sublingual nitroglycerin with no relief. Stat troponin, CBCs, BEP was sent. Stat EKG showed minor ST elevations in V2. Discussed with inspector heating and refrigeration who is at bedside. Given his continuous chest pain, EKG changes Dr. Tijerina recommended patient to be moved to ICU for IV nitro drip. Informed Dr. Alarcon attending physician, informed on-call ICU resident, discussed with patient and family at bedside
--- NOTE | 2017-12-23 16:35 | ULTRASOUND REPORT ---
EXAMINATION: US ABDOMEN LIMITED CLINICAL INFORMATION: Right upper quadrant pain. Right ureteral stent. COMPARISON: CT images of abdomen pelvis from 10/25/2017. TECHNIQUE: Real-time imaging of the right upper quadrant abdominal viscera. FINDINGS: PANCREAS: The pancreatic tail is obscured by bowel gas. The visualized portions the pancreas are normal. LIVER: Liver has normal size, contour and parenchymal echotexture. A punctate calcification/granuloma is present in the right hepatic lobe. No intrahepatic bile duct dilatation. GALLBLADDER: Surgically absent. COMMON BILE DUCT: Normal in caliber measuring 0.3 cm in diameter. RIGHT KIDNEY: The right kidney is approximately 9 cm in length. It has normal cortical thickness and cortical echotexture. Small, 0.9 cm cortical cyst is present in the upper pole. A cyst measuring up to 1.4 cm present in the interpolar region. No hydronephrosis. The right ureteral stent is not well seen. Small, 0.4 cm calculus of the lower pole of the right kidney was observed on 10/25/2017. There are no sonographically visible calculi on today's exam. FREE FLUID: No abdominal free fluid. Small pleural effusion is seen. IMPRESSION: 1. Status post cholecystectomy with normal sized (0.3 cm diameter) common bile duct. 2. No acute findings within the liver. 3. No right-sided hydronephrosis. 4. Small right pleural effusion.
[2017-12-23 23:18] LABS: PTT 58 SEC (25-37)
[2017-12-24] VITALS: BP 160/80
--- NOTE | 2017-12-24 07:44 | PN- Resident CRCU ---
Subjective HPI/CRCU Issues: Mr. Hernandez is a pleasant 67 y/o M with an extensive PMH of HLD, HTN, ESRD (M/ W/F), hypothyroidism, BPH that came to the ED c/o chest pain. He was admitted to the ICU for continous monitoring after nitro drop was started for recurrent chest pain with EKG changes. 24 Hour Events: Today, patient complains of diffuse abdominal pain and distension. more prominent on the L side. Objective Vital Signs & I&O Last 8 Hrs of Vitals and I&O: Vital Signs Date Time Temp Pulse Resp B/P B/P Pulse O2 O2 Flow FiO2 Mean Ox Delivery Rate 12/24 1139 66 193/69 12/24 1139 66 193/69 12/24 1139 66 193/69 12/24 1138 66 193/69 12/24 1138 66 196/69 12/24 1138 66 193/69 12/24 0800 97 Nasal 2.0L Cannula 12/24 0800 98.8 62 18 164/72 97 Nasal 2.0L Cannula 12/24 0400 95 Nasal 2.0L Cannula 12/24 0000 95 Nasal 2.0L Cannula 12/24 0000 98.4 70 26 160/80 95 Nasal 2.0L Cannula 12/23 2121 70 161/75 12/23 2120 70 161/75 08 2120 70 161/75 / 2000 97 Nasal 2.0L Cannula 12/23 1600 97.9 68 16 168/74 98 Nasal 2.0L Cannula 12/23 1600 98 Nasal 2.0L Cannula 12/23 1517 97.7 69 20 140/74 92 Room Air Intake & Output 12/24 1600 12/24 0800 12/24 0000 Intake Total 287 421 Output Total 150 150 Balance 137 271 Intake, IV 237 121 Intake, Oral 50 300 Number 1 0 Bowel Movements Output, Urine 150 150 Exam General Appearance: well developed/nourished, no apparent distress, alert, awake , comfortable Head: atraumatic, normal appearance Neck: normal inspection, supple Respiratory: normal breath sounds, chest non-tender, no respiratory distress Cardiovascular: regular rate/rhythm Gastrointestinal: normal bowel sounds, distention, tenderness Extremities: normal inspection, normal capillary refill Skin: intact, normal color Current Medications: Current Medications Sig/Hernandez Start time Last Medication Dose Route Stop Time Status Admin Acetaminophen 650 MG DAILY NEEDED PRN 12/22 1615 AC PO Amlodipine Besylate 10 MG DAILY 12/23 09 AC 12/24 PO 1138 Aspirin 81 MG DAILY 12/23 09 AC 12/24 PO 1139 Atorvastatin Calcium 40 MG 1700 12/22 1700 AC 12/23 PO 1829 Clonidine 0.2 MG BID 12/22 2100 AC 12/24 PO 1139 Clopidogrel Bisulfate 75 MG DAILY 12/23 899 AC 12/24 PO 1138 Fluticasone 1 SPRAY BID 12/22 2100 AC 12/24 Propionate NADYA 1139 Heparin Sodium 2,232 UNIT ONCE ONE 12/24 0100 DC 12/24 (Porcine) IV 12/24 0101 0100 Heparin Sodium 2,000 UNIT ONCE ONE 12/23 1630 DC 12/23 (Porcine) IV 12/23 1631 1635 Heparin Sodium 25,000 UNIT Q24H 12/22 1615 AC 12/23 (Porcine) IV 1636 Sodium Chloride 500 ML Hydralazine HCl 50 MG TID 12/22 2100 AC 12/24 PO 1139 Insulin Aspart 0 TIDAC 12/23 1700 DC SC 12/24 0000 Insulin Aspart 0 TIDAC/HS 12/23 1200 DC SC Insulin Detemir 20 UNITS QPM 12/23 2100 CAN SC Insulin Detemir 10 UNITS QPM / 2100 AC SC Insulin Human Regular 2 UNITS .STK-MED ONE 12/24 0007 DC IV 12/24 0008 Insulin Human Regular 0 Q6 12/23 2359 AC 12/24 SC 0009 Levothyroxine Sodium 0.175 MG DAILY AC 12/23 07 AC 12/24 PO 0613 Losartan Potassium 50 MG DAILY 12/24 899 AC 12/24 PO 1139 Losartan Potassium 25 MG DAILY 12/23 09 DC 12/23 PO 0832 Metoprolol Tartrate 25 MG BID 12/22 2100 AC 12/24 PO 1138 Minoxidil 2.5 MG DAILY 12/23 899 AC 12/24 PO 1138 Morphine Sulfate 2 MG Q4-6 PRN PRN 12/23 1630 AC 12/24 IV 1203 Nitroglycerin 0.4 MG ONCE ONE 12/23 1630 DC 12/23 SL 12/23 1631 1515 Nitroglycerin 0.4 MG ONCE ONE 12/23 1630 DC 12/23 SL 12/23 1631 1530 Nitroglycerin 25 MG Q24H 12/23 1545 DC 12/23 Dextrose/Water 250 ML IV 1614 Nitroglycerin 0.4 MG ONCE ONE 12/23 1515 DC 07 SL 12/23 1516 1500 Nitroglycerin 0.5 GM Q6 PRN 12/22 1630 AC 12/23 TOP 1658 Omeprazole 40 MG DAILY AC 12/22 1615 AC 12/24 PO 0613 Ondansetron HCl 4 MG ONCE ONE 12/23 1500 DC 12/23 IV 12/23 1501 1504 Oxycodone HCl 5 MG Q4-6 PRN PRN 12/22 1800 AC 12/24 PO 0910 Polyethylene Glycol 17 GM DAILY 12/24 1016 AC PO Senna/Docusate Sodium 1 TAB BID 12/24 1016 AC 12/24 PO 1138 Sevelamer Carbonate 1,600 MG TIDAC 12/22 1700 AC 12/23 PO 1830 Tamsulosin HCl 0.4 MG DAILY 12/23 0900 AC 12/24 PO 1138 CXR Findings: 12/23 COMPARISON: October 25, 2017 and studies dating back to February 01, 2016 IMPRESSION: Small bilateral pleural effusions improved from study of October 25, 2017. Cardiomegaly without pulmonary edema. ECHO Findings: CONCLUSIONS Normal LV chamber size with mild concentric LVH. The estimated LVEF is 65%. There are no focal wall motion abnormalities. There is mild mitral regurgitation. Moderately thickened and calcified aortic valve leaflets. The valve appears trileaflet; however, is suboptimally visualized there is mild to moderate aortic insufficiency. There is restricted leaflet opening with a mean gradient of 19 mmHg and a peak gradient of 33.9 mmHg. Calculated aortic valve area is 1.0 cm, suggestive of moderate to severe aortic stenosis. The estimated PA systolic pressure is 45 mmHg. US Findings: US ABDOMEN LIMITED TECHNIQUE: Real-time imaging of the right upper quadrant abdominal viscera IMPRESSION: 1. Status post cholecystectomy with normal sized (0.3 cm diameter) common bile duct. 2. No acute findings within the liver. 3. No right-sided hydronephrosis. 4. Small right pleural effusion. Impression/Plan Impression/Problem List Impression: Mr. Hernandez is a pleasant 67 y/o M with an extensive PMH of HLD, HTN, chronic diastolic CHF, moderate pulm HTN, ESRD (M/W/F), hypothyroidism, BPH that came to the ED c/o chest pain. As per the pt, pain started 12/20 as a sharp, crushing pain in the middle of the chest that radiated to his R shoulder. He states this pain was worsened by lying down, but not reproducible on palpation - he took 2 aspirin and nitroglycerin and that seemed to make it better. The pain however returned on sunday and upon nonresolution, saw his PCP (Dr. Brown), who directed the patient to the ED for admission. He also complains of epigastric pain (12/25), that worsens with meals. This epigastric pain is burning in quality with no radiation and no other associated symptoms; for this reason, pt had an outpt EGD+biopsy on 12/18, where duodenal ulcers and erosive gastritis were found (Dr. Barragan). Pt denies any recent diarrhea/constipation, dizziness, weakness, fatigue, URI, cough, N/V, changes in stool, vision changes. Of note, the patient was admitted last october with the diagnoses of fluid overload and hypertensive urgency secondary to his ESRD- during said admission, pt had a right renal stent placed for findings of hydronephrosis and urolithiasis on R ureter. He was admitted to the ICU for management and continous monitoring of his chest pain with persistent EKG changes and IV nitro drip. ASSESSMENT AND PLAN VS: T: 98.8 // BP:144/65 // HR: 66 // RR: 18, 97% O2 Sat on 2L Nasal Cannula Respiratory Pt does not look in acute respiratory distress. He has a 97% sat on 2L and a CXR (12/22) compared to a previous one in october with improving small bilateral efussions. His status as an ESRD patient with chronic diastolic dysfunction and moderate pulm HTN dictates a close following of I/O to prevent fluid overload. -Pt off fluids Infection Afebrile since admission, no evident foci of infection. While his WBC was 11.3 on 12/23, latest am lab, WBC was down to 7.9. This was likely reactive rather the sign of increasing inflammatory burden from underlying infection. Will continue to monitor. Cardiac His chief complaint on arrival to the ED was chest pain. Upon admit to the telemetry unit, his ongoing chest pain with EKG changes prompted his transfer to the ICU. His troponin have been normal (0.04->0.03->0.04->0.02), which r/o myocardial infarction as the cause for chest pain. He notes back pain in the setting of uncontrolled hypertension so an abdominal aortic u/s was ordered to explore other potential causes of chest pain. His BP remains uncontrolled with ranges from 140-190 SBP to 60-110 DBP while on home HTN medication. -off nitro drip -continue ASA/statin/Plavix -metoprolol 25mg BID -hydralazine 50 mg TID -Clonidine 0.2 mg BID Metabolic Pt with h/o ESRD on hemodialysis (M/W/F) with a typical ESRD chem profile: high BUN/Cr, high phosphorous and low calcium. Pt had an episode of hypoglycemia (43) that increased to 140 on latest am lab. He is currently on levemir 10U sc. Frequent bedside glucose monitoring is recommended to prevent further episodes of hypoglycemia. The patient was dialyzed today (12/24). Will continue to monitor his fluid status and metabolic abnormalities. -Continue bedside glucose monitoring -Sevelamer 1.6g Alimentary Pt was NPO overnight for stress test today which was pushed to tomorrow due to dialysis. NPO after midnight. In the meantime, renal dialysis diet restricted 1.2L fluids over 24h. Pt also c/o abdominal pain and distension diffusely, though more prominent on the L side. Plain abdomen Xray ordered to observe for abdominal pathology - bowel regimen started as pt has not had a BM yet, likely related to the administration of morphine for his shoulder pain. -NPO after midnight for stress test tomorrow -renal dialysis diet with max 1.2L over 24h -started senna and miralax Neurological Pt is alert, awake, oriented, talkative and cooperative. AAOx3. Nothing indicates acute neurological pathology at this time. Renal dialysis diet DVT PPX FULL CODE Problem List: 1. Chest pain due to myocardial ischemia 2. ESRD (end stage renal disease) on dialysis Pain Ratin Pain Location: abdomen Tomorrow's Labs & Rationales: plain abdomen film icu lab bundle Plan DVT/Prophylaxis: mechanical, pharmacological
[2017-12-24 08:00] VITALS: BP 164/72
[2017-12-24 08:47] LABS: ABSOLUTE BASOPHIL COUNT 0.1 /CUMM (0.0-0.2); ABSOLUTE EOSINOPHIL COUNT 0.1 /CUMM (0.0-0.7); ABSOLUTE GRANULOCYTE CT 5.8 /CUMM (1.4-6.5); ABSOLUTE LYMPH COUNT 1.4 /CUMM (1.2-3.4); ABSOLUTE MONOCYTE COUNT 0.5 /CUMM (0.10-0.60); BASOPHIL % 0.8 % (0.0-2.0); EOSINOPHIL % 1.5 % (0-5); GRANULOCYTE % 73.7 % (42.2-75.2); HEMATOCRIT 29.8 % (42-52); MEAN CORPUSCULAR HGB 29.2 PG (27.0-31.0); MEAN CORPUSCULAR HGB CONC 33.1 G/DL (33.0-37.0); MEAN CORPUSCULAR VOLUME 88.2 FL (80.0-94.0); MEAN PLATELET VOLUME 7.3 FL (7.4-10.4); PLATELET COUNT 354 /CUMM (130-400); RBC DISTRIBUTION WIDTH 14.7 % (11.5-14.5); RED BLOOD CELL CT 3.37 /CUMM (4.70-6.10); WHITE BLOOD CELL COUNT 7.9 /CUMM (4.8-10.8)
[2017-12-24 08:49] LABS: PTT 79 SEC (25-37)
--- NOTE | 2017-12-24 10:49 | PN- Nephrology ---
Assessment/Plan Nephrology Assessment: 1. ESRD 2. Abdominal and back pain with radiation to left arm -recurrent, with negative cardiac enzymes 3. Anemia Suggestion: 1. Hemodialysis today in progress with attempt to ultrafilter to his target weight which may be difficult as patient states that he cannot tolerate more than 2 L fluid removal 2. No mention of his abdominal aorta is noted in the ultrasound report. Would ask radiology to comment and if the aorta is not visualized now would repeat an imaging study to rule out aortic aneurysm 3. Further cardiac evaluation per Cardiology 4. Would check stools for occult blood Subjective Subjective: Recent event noted. Patient currently having no pain in his chest, abdomen or left arm. Seen with hemodialysis which is currently in progress. Troponin this morning remains within normal limits. Electrolytes okay. Hemoglobin has continued to drift down. Objective Vital Signs and I&Os Vital Signs Date Time Temp Pulse Resp B/P B/P Pulse O2 O2 Flow FiO2 Mean Ox Delivery Rate 12/25 799 97 Nasal 2.0L Cannula 12/24 08 98.8 62 18 164/72 97 Nasal 2.0L Cannula 12/24 0400 95 Nasal 2.0L Cannula 12/24 0000 95 Nasal 2.0L Cannula / 0000 98.4 70 26 160/80 95 Nasal 2.0L Cannula 12/23 2121 70 161/75 07/08 2120 70 161/75 07/08 2120 70 161/75 /08 2000 97 Nasal 2.0L Cannula 12/23 1600 97.9 68 16 168/74 98 Nasal 2.0L Cannula 12/23 1600 98 Nasal 2.0L Cannula 12/23 1517 97.7 69 20 140/74 92 Room Air /08 1306 62 160/70 07/08 1301 62 160/70 Intake & Output 12/24 1600 09 0400 12/23 1600 12/23 0400 12/22 1600 12/22 0400 Intake Total 287 421 965 360 Output Total 150 150 Balance 137 271 965 360 Intake, IV 237 121 265 Intake, Oral 50 300 700 360 Number 1 0 1 Bowel Movements Output, Urine 150 150 Patient 164 lb 159 lb Weight Weight Reported by Patient Measurement Method Physical Exam: General: Well-developed white male in NAD Skin: No rash or jaundice HEENT: Conjunctivae pink, sclerae anicteric, mucous membranes moist Neck: Without masses or thyromegaly, no supraclavicular or cervical adenopathy Chest: Clear to P&A Heart: Regular rate and rhythm without S3 or rub Abdomen: Soft and nontender without palpable masses or organomegaly Extremities: Without cyanosis or edema Neuro: Cognitively intact, no focal findings, no asterixis or myoclonus Results Pertinent Lab Results: Laboratory Tests 12/24 12/23 0800 2245 Chemistry Sodium (137 - 145 mmol/L) 135 L Potassium (3.5 - 5.1 mmol/L) 4.9 Chloride (98 - 107 mmol/L) 95 L Carbon Dioxide (22 - 30 mmol/L) 27 Anion Gap (5 - 16) 13 BUN (9 - 20 mg/dL) 45 H Creatinine (0.7 - 1.2 mg/dL) 7.8 *H Estimated GFR (>60 ml/min) 7 L Glucose (65 - 99 mg/dL) 140 H Calcium (8.4 - 10.2 mg/dL) 8.0 L Phosphorus (2.5 - 4.5 mg/dL) 5.3 H Magnesium (1.6 - 2.3 mg/dL) 2.3 Total Bilirubin (0.2 - 1.3 mg/dL) 0.3 AST (17 - 59 U/L) 15 L ALT (21 - 72 U/L) 19 L Albumin (3.5 - 5.0 g/dL) 3.0 L TSH (0.270 - 4.200 uIU/mL) Pending Free T4 (0.78 - 2.44 ng/dL) 1.73 Coagulation APTT (25 - 37 SEC) 79 H 58 H Hematology CBC w Diff NO MAN DIFF REQ WBC (4.8 - 10.8 /CUMM) 7.9 RBC (4.70 - 6.10 /CUMM) 3.37 L Hgb (14.0 - 18.0 G/DL) 9.8 L Hct (42 - 52 %) 29.8 L MCV (80.0 - 94.0 FL) 88.2 MCH (27.0 - 31.0 PG) 29.2 MCHC (33.0 - 37.0 G/DL) 33.1 RDW (11.5 - 14.5 %) 14.7 H Plt Count (130 - 400 /CUMM) 354 MPV (7.4 - 10.4 FL) 7.3 L Gran % (42.2 - 75.2 %) 73.7 Lymphocytes % (20.5 - 51.1 %) 17.7 L Monocytes % (1.7 - 9.3 %) 6.3 Eosinophils % (0 - 5 %) 1.5 Basophils % (0.0 - 2.0 %) 0.8 Absolute Granulocytes (1.4 - 6.5 /CUMM) 5.8 Absolute Lymphocytes (1.2 - 3.4 /CUMM) 1.4 Absolute Monocytes (0.10 - 0.60 /CUMM) 0.5 Absolute Eosinophils (0.0 - 0.7 /CUMM) 0.1 Absolute Basophils (0.0 - 0.2 /CUMM) 0.1 12/23 12/23 12/23 1534 0620 0620 Chemistry Sodium (137 - 145 mmol/L) 138 Potassium (3.5 - 5.1 mmol/L) 4.5 Chloride (98 - 107 mmol/L) 95 L Carbon Dioxide (22 - 30 mmol/L) 27 Anion Gap (5 - 16) 16 BUN (9 - 20 mg/dL) 39 H Creatinine (0.7 - 1.2 mg/dL) 7.0 *H Estimated GFR (>60 ml/min) 8 L BUN/Creatinine Ratio (7 - 25 %) 5.6 L Glucose (65 - 99 mg/dL) Cancelled 43 *L Troponin I (<0.11 ng/ml) 0.02 Triglycerides (<150 mg/dL) 81 Cholesterol (< 200 MG/DL) 93 LDL Cholesterol, Calc (65 - 129 mg/dL) 43 L HDL Cholesterol (40 - 60 mg/dL) 34 L Cholesterol/HDL Ratio (0.00 - 4.88 %) 3 Coagulation APTT (25 - 37 SEC) 54 H 60 H Hematology CBC w Diff NO MAN DIFF REQ WBC (4.8 - 10.8 /CUMM) 11.3 H RBC (4.70 - 6.10 /CUMM) 3.78 L Hgb (14.0 - 18.0 G/DL) 10.9 L Hct (42 - 52 %) 33.4 L MCV (80.0 - 94.0 FL) 88.6 MCH (27.0 - 31.0 PG) 28.9 MCHC (33.0 - 37.0 G/DL) 32.6 L RDW (11.5 - 14.5 %) 15.0 H Plt Count (130 - 400 /CUMM) 394 MPV (7.4 - 10.4 FL) 7.3 L Gran % (42.2 - 75.2 %) 82.9 H Lymphocytes % (20.5 - 51.1 %) 11.7 L Monocytes % (1.7 - 9.3 %) 4.0 Eosinophils % (0 - 5 %) 0.4 Basophils % (0.0 - 2.0 %) 1.0 Absolute Granulocytes (1.4 - 6.5 /CUMM) 9.3 H Absolute Lymphocytes (1.2 - 3.4 /CUMM) 1.3 Absolute Monocytes (0.10 - 0.60 /CUMM) 0.4 Absolute Eosinophils (0.0 - 0.7 /CUMM) 0 Absolute Basophils (0.0 - 0.2 /CUMM) 0.1 12/23 12/22 12/22 0025 1805 1201 Chemistry Sodium (137 - 145 mmol/L) 140 Potassium (3.5 - 5.1 mmol/L) 5.5 H Chloride (98 - 107 mmol/L) 94 L Carbon Dioxide (22 - 30 mmol/L) 29 Anion Gap (5 - 16) 17 H BUN (9 - 20 mg/dL) 34 H Creatinine (0.7 - 1.2 mg/dL) 6.1 *H Estimated GFR (>60 ml/min) 9 L BUN/Creatinine Ratio (7 - 25 %) 5.6 L Glucose (65 - 99 mg/dL) 140 H Hemoglobin A1c (4.2 - 5.8 %) 6.6 H Calcium (8.4 - 10.2 mg/dL) 8.5 Magnesium (1.6 - 2.3 mg/dL) 2.4 H Total Bilirubin (0.2 - 1.3 mg/dL) 0.5 Direct Bilirubin (< 0.4 mg/dL) 0.4 AST (17 - 59 U/L) 21 ALT (21 - 72 U/L) 29 Alkaline Phosphatase (< 127 U/L) 106 Troponin I (<0.11 ng/ml) 0.04 0.03 0.04 Total Protein (6.3 - 8.2 g/dL) 7.4 Albumin (3.5 - 5.0 g/dL) 4.1 Globulin (1.9 - 4.2 gm/dL) 3.3 Albumin/Globulin Ratio (1.1 - 2.2 %) 1.2 Free T4 (0.78 - 2.44 ng/dL) 1.78 Total T3 (0.97 - 1.69 ng/mL) 0.57 L TSH &T3 &Free T4 Intrp (0.27 - 4.20 uIU/mL) 13.500 H Coagulation APTT (25 - 37 SEC) 50 H Hematology CBC w Diff NO MAN DIFF REQ WBC (4.8 - 10.8 /CUMM) 9.4 RBC (4.70 - 6.10 /CUMM) 3.94 L Hgb (14.0 - 18.0 G/DL) 11.5 L Hct (42 - 52 %) 35.1 L MCV (80.0 - 94.0 FL) 89.2 MCH (27.0 - 31.0 PG) 29.2 MCHC (33.0 - 37.0 G/DL) 32.8 L RDW (11.5 - 14.5 %) 15.2 H Plt Count (130 - 400 /CUMM) 403 H MPV (7.4 - 10.4 FL) 6.9 L Gran % (42.2 - 75.2 %) 74.6 Lymphocytes % (20.5 - 51.1 %) 17.6 L Monocytes % (1.7 - 9.3 %) 6.2 Eosinophils % (0 - 5 %) 1.1 Basophils % (0.0 - 2.0 %) 0.5 Absolute Granulocytes (1.4 - 6.5 /CUMM) 7.0 H Absolute Lymphocytes (1.2 - 3.4 /CUMM) 1.7 Absolute Monocytes (0.10 - 0.60 /CUMM) 0.6 Absolute Eosinophils (0.0 - 0.7 /CUMM) 0.1 Absolute Basophils (0.0 - 0.2 /CUMM) 0
--- NOTE | 2017-12-24 11:14 | ECHOCARDIOGRAM REPORT ---
HORTENSIA DIXON I Age: 67 : 1950 Gender: M Exam Date: 12/23/2017 11:03 Exam Location: 1 [address] Ht (in): 61 Wt (lb): 159 BSA: 1.79 BP: 150 / 78 Ordering Physician: LIUDMILA ABRAMS MD Referring Physician: Marty Trevino M.D. Technologist: Karen Suggs [facility] Room Number: 180-01 Indications: CHEST PAIN Rhythm: Technical Quality: Good FINDINGS Left Ventricle Normal LV chamber size with mild concentric LVH. The estimated LVEF is 65%. There are no focal wall motion abnormalities. Right Ventricle Normal-appearing right ventricle Right Atrium Normal-appearing right atrium Left Atrium Normal-appearing left atrium Mitral Valve Moderately thickened and calcified mitral valvular leaflets and annulus. There is adequate leaflet excursion. There is mild mitral regurgitation. Aortic Valve Moderately thickened and calcified aortic valve leaflets. The valve appears trileaflet; however, is suboptimally visualized there is mild to moderate aortic insufficiency. There is restricted leaflet opening with a mean gradient of 19 mmHg and a peak gradient of 33.9 mmHg. Calculated aortic valve area is 1.0 cm, suggestive of moderate to severe aortic stenosis. Tricuspid Valve Normal-appearing tricuspid valve leaflet structure and function. There is mild to moderate tricuspid insufficiency. The estimated PA systolic pressure is 45 mmHg Pulmonic Valve Normal-appearing pulmonic valve leaflet structure and function Pericardium Normal pericardium Great Vessels Normal great vessels CONCLUSIONS Normal LV chamber size with mild concentric LVH. The estimated LVEF is 65%. There are no focal wall motion abnormalities. There is mild mitral regurgitation. Moderately thickened and calcified aortic valve leaflets. The valve appears trileaflet; however, is suboptimally visualized there is mild to moderate aortic insufficiency. There is restricted leaflet opening with a mean gradient of 19 mmHg and a peak gradient of 33.9 mmHg. Calculated aortic valve area is 1.0 cm, suggestive of moderate to severe aortic stenosis. The estimated PA systolic pressure is 45 mmHg. Oscar Reyes M.D. (Electronically Signed) Final Date: 24 December 2017 11:14 MEASUREMENTS (Male / Female) Normal Values 2D ECHO LV Diastolic Diameter PLAX 4.8 cm 4.2 - 5.9 / 3.9 - 5.3 cm LV Systolic Diameter PLAX 2.9 cm 2.1 - 4.0 cm LV Fractional Shortening PLAX 39.6 % 25 - 46 % LV Ejection Fraction 2D Teich 70.0 % IVS Diastolic Thickness 1.3 cm LVPW Diastolic Thickness 1.3 cm LV Relative Wall Thickness 0.5 RV Internal Dim ED PLAX 2.4 cm 1.9 - 3.8 cm LVOT Diameter 1.9 cm Aortic Root Diameter 2.7 cm LA Systolic Diameter LX 4.3 cm 3.0 - 4.0 / 2.7 - 3.8 cm LA Volume 65.0 cm 18 - 58 / 22 - 52 cm Ascending Aorta Diameter 3.2 cm DOPPLER AV Peak Velocity 291.0 cm/s AV Peak Gradient 33.9 mmHg AV Mean Velocity 205.0 cm/s AV Mean Gradient 19.0 mmHg AV Velocity Time Integral 89.9 cm LVOT Peak Velocity 107.0 cm/s LVOT Peak Gradient 4.6 mmHg LVOT Mean Velocity 72.3 cm/s LVOT Mean Gradient 2.0 mmHg LVOT Velocity Time Integral 30.3 cm LVOT Stroke Volume 85.9 cm AV Area Cont Eq vti 1.0 cm AV Area Cont Eq pk 1.0 cm MV Peak Velocity 143.0 cm/s MV Peak Gradient 8.2 mmHg MV Mean Velocity 68.9 cm/s MV Mean Gradient 2.0 mmHg Mitral E Point Velocity 125.0 cm/s Mitral A Point Velocity 88.8 cm/s Mitral E to A Ratio 1.4 MV PHT Velocity 153.0 cm/s MV Deceleration [place] 593.0 cm/s MV Pressure Half Time 77.4 ms MV Area PHT 2.8 cm MV Deceleration Time 232.0 ms TR Peak Velocity 311.0 cm/s TR Peak Gradient 38.7 mmHg Right Atrial Pressure 5.0 mmHg Pulmonary Artery Systolic Pressure 43.7 mmHg Right Ventricular Systolic Pressure 43.7 mmHg PV Peak Velocity 117.0 cm/s PV Peak Gradient 5.5 mmHg PV Mean Velocity 75.5 cm/s PV Mean Gradient 3.0 mmHg PV Velocity Time Integral 28.9 cm LV E' Lateral Velocity 5.8 cm/s Mitral E to LV E' Lateral Ratio 21.7 LV E' Septal Velocity 4.9 cm/s Mitral E to LV E' Septal Ratio 25.7
--- NOTE | 2017-12-24 11:19 | PN- Att Addend ---
Attending Addendum Attending Brief Note Patient seen and examined. Discussed with ICU residents. This is a 67-year-old male with a past medical history of diabetes, hypertension, chronic diastolic heart failure and moderate pulmonary hypertension and end-stage renal disease on hemodialysis. He was initially admitted to telemetry and then upgraded to the ICU with complaints of ongoing chest pain. There have been no EKG changes and he hasn't made positive troponins but given his risk factors and his escalating symptoms he is now on IV heparin and IV nitroglycerin in addition to maximal medical therapy. He is currently being dialyzed. 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 Reyes's group about further plans in terms of risk stratification.
--- NOTE | 2017-12-24 11:52 | PN- Cardiology ---
Subjective Subjective: The patient is awake, alert Patient has continued abdominal discomfort as well as lower back pain. This increases with movement and inspiration. The events of the last 24 hours as well as telemetry were reviewed. Review of Systems: The review of systems is negative for chest pains, palpitations nor lightheadedness. The patient has had chronic abdominal pain for a period of approximately 2 months as well as chronic lower back pain for a period of approximately 6 months. The remainder of the 14 point review of systems is noncontributory with the exception of above. Objective Vital Signs and I&Os Vital Signs Date Time Temp Pulse Resp B/P B/P Pulse O2 O2 Flow FiO2 Mean Ox Delivery Rate 12/24 1139 66 193/12/24 1139 66 193/12/24 1139 66 193/12/24 1138 66 193/12/24 1138 66 196/69 12/24 1138 66 193/69 12/24 0800 97 Nasal 2.0L Cannula 12/24 0800 98.8 62 18 164/72 97 Nasal 2.0L Cannula 12/24 0400 95 Nasal 2.0L Cannula 12/24 0000 95 Nasal 2.0L Cannula / 0000 98.4 70 26 160/80 95 Nasal 2.0L Cannula /08 2121 70 161/75 07/08 2120 70 161/75 07/08 2120 70 161/75 07/08 2000 97 Nasal 2.0L Cannula /08 1600 97.9 68 16 168/74 98 Nasal 2.0L Cannula / 1600 98 Nasal 2.0L Cannula / 1517 97.7 69 20 140/74 92 Room Air /08 1306 62 160/70 07/08 1301 62 160/70 Intake & Output / 1600 07/09 0800 07/09 0000 07/08 1600 /08 0800 07/ 0000 Intake Total 287 421 610 355 360 Output Total 150 150 Balance 137 271 610 355 360 Intake, IV 237 121 110 155 Intake, Oral 50 300 500 200 360 Number 1 0 1 Bowel Movements Output, Urine 150 150 Patient 164 lb Weight Physical Exam: General: Nontoxic, no apparent distress. HEENT: Sclera and conjunctiva within normal limits, without xanthelasmas. Neck: Carotids 2+ without bruits. Respiratory: Clear to auscultation, air movement is good, without accessory respiratory muscle use. Heart: Regular rate and rhythm, without murmurs, without JVD. Abdomen: Soft, nontender, no masses, normoactive bowel sounds. Extremities: Without clubbing, cyanosis, without edema. Neuro: Nonfocal exam, strength, 5 out of 5 Skin: Within normal limits without lesions. Psych: Mood and affect: Normal Current Medications: Current Medications Sig/Hernandez Start time Last Medication Dose Route Stop Time Status Admin Acetaminophen 650 MG DAILY NEEDED PRN 12/22 1615 AC PO Amlodipine Besylate 10 MG DAILY 12/23 09 AC 12/24 PO 1138 Aspirin 81 MG DAILY 12/23 899 AC 12/24 PO 1139 Atorvastatin Calcium 40 MG 1700 12/22 1700 AC 12/23 PO 1829 Clonidine 0.2 MG BID 12/22 2100 AC 12/24 PO 1139 Clopidogrel Bisulfate 75 MG DAILY 12/23 899 AC 12/24 PO 1138 Fluticasone 1 SPRAY BID 12/22 2100 AC 12/24 Propionate NADYA 1139 Heparin Sodium 2,232 UNIT ONCE ONE 12/24 0100 DC 12/24 (Porcine) IV 12/24 0101 0100 Heparin Sodium 2,000 UNIT ONCE ONE 12/23 1630 DC 12/23 (Porcine) IV 12/23 1631 1635 Heparin Sodium 25,000 UNIT Q24H 12/22 1615 AC 12/23 (Porcine) IV 1636 Sodium Chloride 500 ML Hydralazine HCl 50 MG TID 12/22 2100 AC 12/24 PO 1139 Insulin Aspart 0 TIDAC 12/23 1700 DC SC 12/24 0000 Insulin Aspart 0 TIDAC/HS 12/23 1200 DC SC Insulin Detemir 20 UNITS QPM 12/23 2100 CAN SC Insulin Detemir 10 UNITS QPM 12/23 2100 AC SC Insulin Human Regular 2 UNITS .STK-MED ONE 12/24 0007 DC IV 12/24 0008 Insulin Human Regular 0 Q6 12/23 2359 AC 12/24 SC 0009 Levothyroxine Sodium 0.175 MG DAILY AC 12/23 07 AC 12/24 PO 0613 Losartan Potassium 50 MG DAILY 12/24 899 AC 12/24 PO 1139 Losartan Potassium 25 MG DAILY 12/23 09 DC 12/23 PO 0832 Metoprolol Tartrate 25 MG BID 12/22 2100 AC 12/24 PO 1138 Minoxidil 2.5 MG DAILY 12/23 899 AC 12/24 PO 1138 Morphine Sulfate 2 MG Q4-6 PRN PRN 12/23 1630 AC 12/24 IV 0120 Nitroglycerin 0.4 MG ONCE ONE 12/23 1630 DC 12/23 SL 12/23 1631 1515 Nitroglycerin 0.4 MG ONCE ONE 12/23 1630 DC 12/23 SL 12/23 1631 1530 Nitroglycerin 25 MG Q24H 12/23 1545 AC 12/23 Dextrose/Water 250 ML IV 1614 Nitroglycerin 0.4 MG ONCE ONE 12/23 1515 DC 12/23 SL 12/23 1516 1500 Nitroglycerin 0.5 GM Q6 PRN 12/22 1630 AC 12/23 TOP 1658 Omeprazole 40 MG DAILY AC 12/22 1615 AC 12/24 PO 0613 Ondansetron HCl 4 MG ONCE ONE 12/23 1500 DC 12/23 IV 12/23 1501 1504 Oxycodone HCl 5 MG Q4-6 PRN PRN 12/22 1800 AC 12/24 PO 0910 Polyethylene Glycol 17 GM DAILY 12/24 1016 AC PO Senna/Docusate Sodium 1 TAB BID 12/24 1016 AC 12/24 PO 1138 Sevelamer Carbonate 1,600 MG TIDAC 12/22 1700 AC 12/23 PO 1830 Tamsulosin HCl 0.4 MG DAILY 12/23 0900 AC 12/24 PO 1138 Results Last 48 Hrs of Labs/Mics: Laboratory Tests 12/24/17 0800: Anion Gap 13, Estimated GFR 7 L, Glucose 140 H, Calcium 8.0 L, Phosphorus 5.3 H, Magnesium 2.3, Total Bilirubin 0.3, AST 15 L, ALT 19 L, Albumin 3.0 L, TSH 12.800 H, Free T4 1.73, APTT 79 H, CBC w Diff NO MAN DIFF REQ, RBC 3.37 L , MCV 88.2, MCH 29.2, MCHC 33.1, RDW 14.7 H, MPV 7.3 L, Gran % 73.7, Lymphocytes % 17.7 L, Monocytes % 6.3, Eosinophils % 1.5, Basophils % 0.8, Absolute Granulocytes 5.8, Absolute Lymphocytes 1.4, Absolute Monocytes 0.5, Absolute Eosinophils 0.1, Absolute Basophils 0.1 12/23/17 2245: APTT 58 H 12/23/17 1534: Troponin I 0.02, APTT 54 H, CBC w Diff NO MAN DIFF REQ, RBC 3.78 L, MCV 88.6, MCH 28.9, MCHC 32.6 L, RDW 15.0 H, MPV 7.3 L, Gran % 82.9 H, Lymphocytes % 11.7 L, Monocytes % 4.0, Eosinophils % 0.4, Basophils % 1.0, Absolute Granulocytes 9.3 H, Absolute Lymphocytes 1.3, Absolute Monocytes 0.4, Absolute Eosinophils 0, Absolute Basophils 0.1 12/23/17 0620: Glucose Cancelled 12/23/17 0620: Anion Gap 16, Estimated GFR 8 L, BUN/Creatinine Ratio 5.6 L, Glucose 43 *L, Triglycerides 81, Cholesterol 93, LDL Cholesterol, Calc 43 L, HDL Cholesterol 34 L, Cholesterol/HDL Ratio 3, APTT 60 H 12/23/17 0025: Troponin I 0.04, APTT 50 H 12/22/17 1805: Troponin I 0.03 12/22/17 1201: Anion Gap 17 H, Estimated GFR 9 L, BUN/Creatinine Ratio 5.6 L, Glucose 140 H , Hemoglobin A1c 6.6 H, Calcium 8.5, Magnesium 2.4 H, Total Bilirubin 0.5, Direct Bilirubin 0.4, AST 21, ALT 29, Alkaline Phosphatase 106, Troponin I 0.04, Total Protein 7.4, Albumin 4.1, Globulin 3.3, Albumin/Globulin Ratio 1.2, Free T4 1.78, Total T3 0.57 L, TSH &T3 &Free T4 Intrp 13.500 H, CBC w Diff NO MAN DIFF REQ, RBC 3.94 L, MCV 89.2, MCH 29.2, MCHC 32.8 L, RDW 15.2 H, MPV 6.9 L , Gran % 74.6, Lymphocytes % 17.6 L, Monocytes % 6.2, Eosinophils % 1.1, Basophils % 0.5, Absolute Granulocytes 7.0 H, Absolute Lymphocytes 1.7, Absolute Monocytes 0.6, Absolute Eosinophils 0.1, Absolute Basophils 0 Assessment/Plan Assessment/Plan The patient is a 67-year-old gentleman with a past medical history of diabetes mellitus, age renal disease on hemodialysis, pancreatitis and hypertension. He presents with atypical chest pain for an ischemic etiology, and has ruled out for myocardial infarction. He has well has severe uncontrolled hypertension. Abdomen/back pain: The patient's discomfort is atypical for an ischemic cardiac etiology. Given his severe back discomfort, with concurrent hypertension, further investigation of his abdominal aorta should be undertaken. This may be performed with a CAT scan or ultrasound. A further workup for an ischemic etiology may be performed as an outpatient after discharge. Hypertension: Suboptimally controlled. His regimen of metoprolol may be changed to an agent such as carvedilol for added Elavil for blood pressure lowering. Tinea to follow and titrate his regimen as an outpatient. Continue telemetry? Yes
[2017-12-24 12:00] VITALS: BP 200/78
--- NOTE | 2017-12-24 14:42 | RADIOLOGY REPORT ---
EXAMINATION: XR PORTABLE ABDOMEN CLINICAL INFORMATION: Abdominal distention. Evaluate for ileus. COMPARISON: CXR from 12/22/2017. TECHNIQUE: Abdominal radiograph was acquired with patient in supine position. Also, an additional view focused on the diaphragms acquired with patient in upright position. FINDINGS: Small pleural effusions and bibasilar opacities/atelectasis. The effusions appear decreased in size compared to 12/22/2017. No pneumoperitoneum. On the supine view, gas is seen within the nondilated colon and nondilated small bowel. [id number] amount of stool is present within the colon. A right ureteral stent is in its expected position. No radiographically visible renal calculi. Vascular calcifications are seen in the pelvis. There is a left iliac bone island. IMPRESSION: 1. Small bilateral pleural effusions and bibasilar atelectasis. The pleural effusions appear decreased compared to 12/22/2017. 2. No significant radiographic findings with regards to the gastrointestinal tract. Gas is seen within the nondilated small bowel and colon. No findings to suggest presence of ileus or bowel obstruction.
[2017-12-24 16:00] VITALS: BP 158/64
--- NOTE | 2017-12-24 17:31 | ULTRASOUND REPORT ---
EXAMINATION: US RETROPERITONEAL LIMITED (AORTA) CLINICAL INFORMATION: 67-year-old male patient with abdominal pain radiating to the shoulder. History of kidney stones. COMPARISON: Abdominal ultrasound of 12/23/2017. CT of the abdomen and pelvis dated 10/25/2017. CT the chest dated 10/04/2017. TECHNIQUE: Grayscale, color Doppler and spectral Doppler evaluation of the abdominal aorta. Study was limited by interfering bowel gas. FINDINGS: The measurements of the aorta in maximum AP and transverse dimensions respectively are as follows: Proximal: 2.2 x 2.2 cm. Mid: Unable to visualize. Distal: Unable to visualize. The measurements of the common iliac arteries in maximum AP dimension are as follows: Right Common Iliac Artery: Unable to visualize. Left Common Iliac Artery: Unable to visualize. IMPRESSION: Visualization of the mid and distal abdominal aorta was markedly limited by the presence of interfering bowel gas. The patient did not have an abdominal aortic aneurysm on the prior CT Oct, 2017. However, an acute aortic dissection cannot be excluded. If there is persistent symptoms suggesting an aortic dissection, a CTA is recommended for further evaluation.
[2017-12-25] VITALS: BP 150/70
--- NOTE | 2017-12-25 07:22 | PN- Resident CRCU ---
Spencer Quintanilla 12/25/17 0722: Subjective HPI/CRCU Issues: Mr. Hernandez is a pleasant 67 y/o M with an extensive PMH of HLD, HTN, ESRD (M/ W/F), hypothyroidism, BPH that came to the ED c/o chest pain. He was admitted to the ICU for continous monitoring after nitro drop was started for recurrent chest pain with EKG changes. 24 Hour Events: Pt states a good night sleep. Had a bowel movement like his usual - maybe a tad harder as per the pt. The diffuse abdominal pain is resolved, though his epigastric pain on palpation and with po intake remains. Objective Vital Signs & I&O Last 8 Hrs of Vitals and I&O: Intake & Output 12/25 1600 12/25 0800 12/25 0000 Intake Total 0 604 Output Total 0 150 Balance 0 454 Intake, IV 24 Intake, Oral 0 580 Output, Urine 0 150 Patient 161 lb Weight Weight Bed scale Measurement Method Laboratory Tests 12/25 12/24 0630 2000 Chemistry Sodium (137 - 145 mmol/L) 138 Potassium (3.5 - 5.1 mmol/L) 4.8 Chloride (98 - 107 mmol/L) 99 Carbon Dioxide (22 - 30 mmol/L) 27 Anion Gap (5 - 16) 12 BUN (9 - 20 mg/dL) 27 H Creatinine (0.7 - 1.2 mg/dL) 5.8 *H Estimated GFR (>60 ml/min) 10 L Glucose (65 - 99 mg/dL) 153 H Calcium (8.4 - 10.2 mg/dL) 8.0 L Phosphorus (2.5 - 4.5 mg/dL) 4.3 Magnesium (1.6 - 2.3 mg/dL) 2.3 Total Bilirubin (0.2 - 1.3 mg/dL) 0.3 AST (17 - 59 U/L) 13 L ALT (21 - 72 U/L) 26 Albumin (3.5 - 5.0 g/dL) 3.0 L Coagulation APTT Cancelled Hematology CBC w Diff NO MAN DIFF REQ WBC (4.8 - 10.8 /CUMM) 7.2 RBC (4.70 - 6.10 /CUMM) 3.29 L Hgb (14.0 - 18.0 G/DL) 9.5 L Hct (42 - 52 %) 29.1 L MCV (80.0 - 94.0 FL) 88.4 MCH (27.0 - 31.0 PG) 29.0 MCHC (33.0 - 37.0 G/DL) 32.8 L RDW (11.5 - 14.5 %) 14.6 H Plt Count (130 - 400 /CUMM) 328 MPV (7.4 - 10.4 FL) 7.4 Gran % (42.2 - 75.2 %) 75.5 H Lymphocytes % (20.5 - 51.1 %) 17.2 L Monocytes % (1.7 - 9.3 %) 5.4 Eosinophils % (0 - 5 %) 1.5 Basophils % (0.0 - 2.0 %) 0.4 Absolute Granulocytes (1.4 - 6.5 /CUMM) 5.4 Absolute Lymphocytes (1.2 - 3.4 /CUMM) 1.2 Absolute Monocytes (0.10 - 0.60 /CUMM) 0.4 Absolute Eosinophils (0.0 - 0.7 /CUMM) 0.1 Absolute Basophils (0.0 - 0.2 /CUMM) 0 Exam General Appearance: no apparent distress, alert, awake, comfortable Head: atraumatic, normal appearance Respiratory: normal breath sounds, chest non-tender, no respiratory distress, lungs clear Cardiovascular: regular rate/rhythm Gastrointestinal: normal bowel sounds, soft, tender to light and deep palpation of epigastric area Extremities: normal inspection, no edema Current Medications: Current Medications Sig/Hernandez Start time Last Medication Dose Route Stop Time Status Admin Acetaminophen 650 MG DAILY NEEDED PRN 12/22 1615 AC PO Amlodipine Besylate 10 MG DAILY 12/23 899 AC 12/24 PO 1138 Aspirin 81 MG DAILY 12/23 899 AC 12/24 PO 1139 Atorvastatin Calcium 40 MG 1700 12/22 1700 AC 12/24 PO 1637 Carvedilol 12.5 MG BID 12/24 2099 AC 12/24 PO 2035 Clonidine 0.2 MG BID 12/22 2099 AC 12/24 PO 203 Clopidogrel Bisulfate 75 MG DAILY 12/23 899 DC 12/24 PO 1138 Fluticasone 1 SPRAY BID 12/22 2099 AC 12/24 Propionate NADYA 2034 Heparin Sodium 25,000 UNIT Q24H 12/22 1615 DC 07/08 (Porcine) IV 1636 Sodium Chloride 500 ML Hydralazine HCl 50 MG TID 12/22 2100 AC 12/24 PO 2035 Insulin Aspart 0 TIDAC 12/24 1700 AC 12/24 SC 1638 Insulin Detemir 20 UNITS QPM / 2100 DC SC Insulin Detemir 10 UNITS QPM / 2100 DC SC Insulin Detemir 20 UNITS QPM 07/ 2100 AC 12/24 SC 2032 Insulin Detemir 10 UNITS QPM / 2100 DC SC Insulin Human Regular 0 Q6 12/24 2359 CAN SC Insulin Human Regular 0 Q6 / 2359 DC 12/24 SC 0009 Levothyroxine Sodium 0.175 MG DAILY AC 12/23 0700 AC 12/25 PO 0623 Losartan Potassium 50 MG DAILY 12/24 0900 AC 12/24 PO 1139 Metoprolol Tartrate 25 MG BID 12/22 2100 DC 12/24 PO 1138 Minoxidil 2.5 MG DAILY 12/23 0900 AC 12/24 PO 1138 Morphine Sulfate 2 MG Q4-6 PRN PRN 12/23 1630 AC 12/25 IV 0635 Nitroglycerin 25 MG Q24H 12/23 1545 DC 12/23 Dextrose/Water 250 ML IV 1614 Nitroglycerin 0.5 GM Q6 PRN 12/22 1630 AC 12/23 TOP 1658 Omeprazole 40 MG DAILY AC 12/22 1615 AC 12/25 PO 0623 Oxycodone HCl 5 MG Q4-6 PRN PRN 12/22 1800 AC 12/24 PO 1638 Polyethylene Glycol 17 GM DAILY 12/24 1016 AC PO Senna/Docusate Sodium 1 TAB BID 12/24 1016 AC 12/24 PO 2034 Sevelamer Carbonate 1,600 MG TIDAC 12/22 1700 AC 12/24 PO 1639 Tamsulosin HCl 0.4 MG DAILY 12/23 0900 AC 12/24 PO 1138 CXR Findings: CXR Findings: 12/23 COMPARISON: October 25, 2017 and studies dating back to February 01, 2016 IMPRESSION: Small bilateral pleural effusions improved from study of October 25, 2017. Cardiomegaly without pulmonary edema. EXAMINATION: XR PORTABLE ABDOMEN IMPRESSION: 1. Small bilateral pleural effusions and bibasilar atelectasis. The pleural effusions appear decreased compared to 12/22/2017. 2. No significant radiographic findings with regards to the gastrointestinal tract. Gas is seen within the nondilated small bowel and colon. No findings to suggest presence of ileus or bowel obstruction. ECHO Findings: ECHO Findings: 12/23 CONCLUSIONS Normal LV chamber size with mild concentric LVH. The estimated LVEF is 65%. There are no focal wall motion abnormalities. There is mild mitral regurgitation. Moderately thickened and calcified aortic valve leaflets. The valve appears trileaflet; however, is suboptimally visualized there is mild to moderate aortic insufficiency. There is restricted leaflet opening with a mean gradient of 19 mmHg and a peak gradient of 33.9 mmHg. Calculated aortic valve area is 1.0 cm, suggestive of moderate to severe aortic stenosis. The estimated PA systolic pressure is 45 mmHg. US Findings: 12/24 EXAMINATION: US RETROPERITONEAL LIMITED (AORTA) IMPRESSION: Visualization of the mid and distal abdominal aorta was markedly limited by the presence of interfering bowel gas. The patient did not have an abdominal aortic aneurysm on the prior CT Oct, 2017. However, an acute aortic dissection cannot be excluded. If there is persistent symptoms suggesting an aortic dissection, a CTA is recommended for further evaluation. 12/23 EXAMINATION: US ABDOMEN LIMITED IMPRESSION: 1. Status post cholecystectomy with normal sized (0.3 cm diameter) common bile duct. 2. No acute findings within the liver. 3. No right-sided hydronephrosis. 4. Small right pleural effusion. Impression/Plan Impression/Problem List Impression: Mr. Hernandez is a pleasant 67 y/o M with an extensive PMH of HLD, HTN, chronic diastolic CHF, moderate pulm HTN, ESRD (M/W/F), hypothyroidism, BPH that came to the ED c/o chest pain. As per the pt, pain started 12/20 as a sharp, crushing pain in the middle of the chest that radiated to his R shoulder. He states this pain was worsened by lying down, but not reproducible on palpation - he took 2 aspirin and nitroglycerin and that seemed to make it better. The pain however returned on sunday and upon nonresolution, saw his PCP (Dr. Brown), who directed the patient to the ED for admission. He also complains of epigastric pain (12/25), that worsens with meals. This epigastric pain is burning in quality with no radiation and no other associated symptoms; for this reason, pt had an outpt EGD+biopsy on 12/18, where duodenal ulcers and erosive gastritis were found (Dr. Barragan). Pt denies any recent diarrhea/constipation, dizziness, weakness, fatigue, URI, cough, N/V, changes in stool, vision changes. Of note, the patient was admitted last october with the diagnoses of fluid overload and hypertensive urgency secondary to his ESRD- during said admission, pt had a right renal stent placed for findings of hydronephrosis and urolithiasis on R ureter. He was admitted to the ICU for management and continous monitoring of his chest pain with persistent EKG changes and IV nitro drip. ASSESSMENT AND PLAN VS: T: 98.4 // BP:150/70 // HR: 68 // RR: 16, 95% O2 Sat on 2L Nasal Cannula Respiratory Pt does not look in acute respiratory distress. He has a 95% sat on 2L and a CXR (12/22) compared to a previous one in october with improving small bilateral efussions. His status as an ESRD patient with chronic diastolic dysfunction and moderate pulm HTN dictates a close following of I/O to prevent fluid overload. -Pt off fluids Infection Afebrile since admission, no evident foci of infection. While his WBC was 11.3 on 12/23, latest am lab, WBC was down to 7.2. This was likely reactive rather the sign of increasing inflammatory burden from underlying infection. Will continue to monitor. Cardiac His chief complaint on arrival to the ED was chest pain. Upon admit to the telemetry unit, his ongoing chest pain with EKG changes prompted his transfer to the ICU. His troponin have been normal (0.04->0.03->0.04->0.02), which r/o myocardial infarction as the cause for chest pain. He notes back pain in the setting of uncontrolled hypertension so an abdominal aortic u/s was ordered to explore other potential causes of chest pain, though no significant findings were found on this technically limited study. His BP remains uncontrolled with ranges from 140-190 SBP to 60-110 DBP while on home HTN medication. His cardiac complaints however do indeed need to be worked up and risk stratified - stress testing will be done as outpt. -off nitro drip -continue ASA/statin/Plavix -metoprolol 25mg BID -hydralazine 50 mg TID -Clonidine 0.2 mg BID Metabolic Pt with h/o ESRD on hemodialysis (M/W/F) with a typical ESRD chem profile: high BUN/Cr, high phosphorous and low calcium. Pt had an episode of hypoglycemia (43) that increased to 140 on latest am lab. He is currently on levemir 10U sc. Frequent bedside glucose monitoring is recommended to prevent further episodes of hypoglycemia. The patient was dialyzed (12/24). Will continue to monitor his fluid status and metabolic abnormalities. -Continue bedside glucose monitoring -Sevelamer 1.6g Alimentary Renal dialysis diet restricted 1.2L fluids over 24h. Pt also c/o abdominal pain and distension diffusely, though more prominent on the L side that has now resolved. His only complain is epigastric pain on palpation and with meal, likely related to his ulcers/gastritis as evidenced on his EGD dated 12/18. Brokerage Branch Manager saw the patient today to optimize diet in-hospital and post-hospital care. Plain abdomen Xray ordered to observe for abdominal pathology, though no findings of illeus or abdominal obstruction. Pt had a BM that as per pt was like his usual. -renal dialysis diet with max 1.2L over 24h -Pt on senna and miralax Neurological Pt is alert, awake, oriented, talkative and cooperative. AAOx3. Nothing indicates acute neurological pathology at this time. Renal dialysis diet DVT PPX FULL CODE Problem List: 1. ESRD (end stage renal disease) on dialysis Pain Ratin Pain Location: epigastric area Tomorrow's Labs & Rationales: . Plan DVT/Prophylaxis: mechanical, pharmacological Aruna ISSA,Lo 12/25/17 1501: Attending MD Review Statement Attending Sign Off Attending Cosign Statement: I have: examined this patient, reviewed [facility] EMR data, personally reviewd images, discussd w/resident/PA/CREDIT REVIEW OFFICER, discussed mgmt plan w/isis, agreed w/resident/ PA/CREDIT REVIEW OFFICER. Other Findings: Overall patient is doing better today. Yesterday he required 3 doses of IV morphine but today he took only 1 dose. I spoke to the veterinary technology instructor and we both agreed that given that he has no aortic aneurysm and his CT scan done in October, even with the limited study- the aorta looks fine with no evidence of an aneurysm so the chances of this being dissection are very unlikely. His pressure is better controlled on new regimen with Coreg instead of metoprolol. The veterinary technology instructor feels that if stable he can be discharged in a.m. with close outpatient follow-up and an outpatient stress test. Etiology of his pain appears to be musculoskeletal and he'll need outpatient PCP follow-up for the same.
[2017-12-25 08:00] VITALS: BP 164/62
[2017-12-25 08:07] LABS: ABSOLUTE BASOPHIL COUNT 0 /CUMM (0.0-0.2); ABSOLUTE EOSINOPHIL COUNT 0.1 /CUMM (0.0-0.7); ABSOLUTE GRANULOCYTE CT 5.4 /CUMM (1.4-6.5); ABSOLUTE LYMPH COUNT 1.2 /CUMM (1.2-3.4); ABSOLUTE MONOCYTE COUNT 0.4 /CUMM (0.10-0.60); BASOPHIL % 0.4 % (0.0-2.0); EOSINOPHIL % 1.5 % (0-5); GRANULOCYTE % 75.5 % (42.2-75.2); HEMATOCRIT 29.1 % (42-52); MEAN CORPUSCULAR HGB CONC 32.8 G/DL (33.0-37.0); MEAN CORPUSCULAR VOLUME 88.4 FL (80.0-94.0); MEAN PLATELET VOLUME 7.4 FL (7.4-10.4); PLATELET COUNT 328 /CUMM (130-400); RBC DISTRIBUTION WIDTH 14.6 % (11.5-14.5); RED BLOOD CELL CT 3.29 /CUMM (4.70-6.10); WHITE BLOOD CELL COUNT 7.2 /CUMM (4.8-10.8)
--- NOTE | 2017-12-25 09:18 | PN- Cardiology ---
Subjective Subjective: The patient is awake, alert Abdominal discomfort is improved; however, lower back pain continues especially with movement The events of the last 24 hours as well as telemetry were reviewed. Review of Systems: The review of systems is negative for chest pains, palpitations nor lightheadedness. The remainder of the 14 point review of systems is noncontributory with the exception of above. Objective Vital Signs and I&Os Vital Signs Date Time Temp Pulse Resp B/P B/P Pulse O2 O2 Flow FiO2 Mean Ox Delivery Rate 12/25 912 63 168/59 12/25 0813 63 169/59 12/25 912 63 169/59 12/26 911 63 169/59 12/25 0912 63 169/59 12/25 0812 63 169/59 12/25 0400 95 Nasal 2.0L Cannula 12/25 0000 95 Nasal 2.0L Cannula 12/25 0000 98.4 68 16 150/70 95 Nasal 2.0L Cannula 12/24 2034 68 174/60 12/24 2034 68 174/60 12/24 2034 68 174/60 12/25 1999 96 Nasal 2.0L Cannula 12/24 1600 95 Nasal 2.0L Cannula 12/24 1600 97.6 59 16 158/64 95 Nasal 2.0L Cannula 12/24 1200 97 Nasal 2.0L Cannula 12/24 1200 98.6 70 18 200/78 97 Nasal 2.0L Cannula 12/24 1139 66 193/69 07/09 1139 66 193/69 07/09 1139 66 193/69 07/09 1138 66 193/69 / 1138 66 196/69 /09 1138 66 193/69 Intake & Output 12/25 1600 12/25 0800 12/25 0000 12/24 1600 12/24 0800 / 0000 Intake Total 0 604 608 287 421 Output Total 0 150 1999 150 150 Balance 0 454 -1392 137 271 Intake, IV 24 248 237 121 Intake, Oral 0 580 360 50 300 Number 1 0 Bowel Movements Output, 1999 Dialysate Output, Urine 0 150 150 150 Patient 161 lb 162 lb Weight Weight Bed scale Bed scale Measurement Method Physical Exam: General: Nontoxic, no apparent distress. HEENT: Sclera and conjunctiva within normal limits, without xanthelasmas. Neck: Carotids 2+ without bruits. Respiratory: Clear to auscultation, air movement is good, without accessory respiratory muscle use. Heart: Regular rate and rhythm, without murmurs, without JVD. Abdomen: Soft, nontender, no masses, normoactive bowel sounds. Extremities: Without clubbing, cyanosis, without edema. Neuro: Nonfocal exam, strength, 5 out of 5 Skin: Within normal limits without lesions. Psych: Mood and affect: Normal Current Medications: Current Medications Sig/Hernandez Start time Last Medication Dose Route Stop Time Status Admin Acetaminophen 650 MG DAILY NEEDED PRN 12/22 1615 AC PO Amlodipine Besylate 10 MG DAILY 12/23 899 AC 12/25 PO 09 Aspirin 81 MG DAILY 12/23 899 AC 12/25 PO 09 Atorvastatin Calcium 40 MG 1700 12/22 1700 AC 12/24 PO 163 Carvedilol 12.5 MG BID 12/24 2100 AC 12/25 PO 09 Clonidine 0.2 MG BID 12/22 2100 AC 12/25 PO 09 Clopidogrel Bisulfate 75 MG DAILY 12/23 899 DC 12/24 PO 1138 Fluticasone 1 SPRAY BID 12/22 2100 AC 12/25 Propionate NADYA 0913 Heparin Sodium 25,000 UNIT Q24H 12/22 1615 DC 12/23 (Porcine) IV 1636 Sodium Chloride 500 ML Hydralazine HCl 50 MG TID 12/22 2100 AC 12/25 PO 0913 Insulin Aspart 0 TIDAC 12/24 1700 AC 12/24 SC 1638 Insulin Detemir 20 UNITS QPM 12/24 2100 DC SC Insulin Detemir 10 UNITS QPM / 2100 DC SC Insulin Detemir 20 UNITS QPM / 2100 AC 12/24 SC 2032 Insulin Detemir 10 UNITS QPM 12/23 2100 DC SC Insulin Human Regular 0 Q6 12/24 2359 CAN SC Insulin Human Regular 0 Q6 12/23 2359 DC 12/24 SC 0009 Levothyroxine Sodium 0.175 MG DAILY AC 12/23 699 AC 12/25 PO 0623 Losartan Potassium 50 MG DAILY 12/24 899 AC 12/25 PO 0912 Metoprolol Tartrate 25 MG BID 12/22 2100 DC 12/24 PO 1138 Minoxidil 2.5 MG DAILY 12/23 899 AC 12/25 PO 09 Morphine Sulfate 2 MG Q4-6 PRN PRN 07/08 1630 AC 12/25 IV 0635 Nitroglycerin 25 MG Q24H 12/23 1545 DC 12/23 Dextrose/Water 250 ML IV 1614 Nitroglycerin 0.5 GM Q6 PRN 12/22 1630 12/23 TOP 1658 Omeprazole 40 MG DAILY AC 12/22 1615 AC 12/25 PO 0623 Oxycodone HCl 5 MG Q4-6 PRN PRN 12/22 1800 AC 12/24 PO 1638 Polyethylene Glycol 17 GM DAILY 12/24 1016 AC 12/25 PO 09 Senna/Docusate Sodium 1 TAB BID 12/24 1016 12/25 PO 09 Sevelamer Carbonate 1,600 MG TIDAC 12/22 1700 AC 12/24 PO 163 Tamsulosin HCl 0.4 MG DAILY 12/23 0900 12/25 PO 911 Results Last 48 Hrs of Labs/Mics: Laboratory Tests 12/25/17 0630: Anion Gap 12, Estimated GFR 10 L, Glucose 153 H, Calcium 8.0 L, Phosphorus 4.3, Magnesium 2.3, Total Bilirubin 0.3, AST 13 L, ALT 26, Albumin 3.0 L, CBC w Diff NO MAN DIFF REQ, RBC 3.29 L, MCV 88.4, MCH 29.0, MCHC 32.8 L, RDW 14.6 H, MPV 7.4, Gran % 75.5 H, Lymphocytes % 17.2 L, Monocytes % 5.4, Eosinophils % 1.5, Basophils % 0.4, Absolute Granulocytes 5.4, Absolute Lymphocytes 1.2, Absolute Monocytes 0.4, Absolute Eosinophils 0.1, Absolute Basophils 0 12/24/17 2000: APTT Cancelled 12/24/17 0800: Anion Gap 13, Estimated GFR 7 L, Glucose 140 H, Calcium 8.0 L, Phosphorus 5.3 H, Magnesium 2.3, Total Bilirubin 0.3, AST 15 L, ALT 19 L, Albumin 3.0 L, TSH 12.800 H, Free T4 1.73, APTT 79 H, CBC w Diff NO MAN DIFF REQ, RBC 3.37 L , MCV 88.2, MCH 29.2, MCHC 33.1, RDW 14.7 H, MPV 7.3 L, Gran % 73.7, Lymphocytes % 17.7 L, Monocytes % 6.3, Eosinophils % 1.5, Basophils % 0.8, Absolute Granulocytes 5.8, Absolute Lymphocytes 1.4, Absolute Monocytes 0.5, Absolute Eosinophils 0.1, Absolute Basophils 0.1 12/23/17 2245: APTT 58 H 12/23/17 1534: Troponin I 0.02, APTT 54 H, CBC w Diff NO MAN DIFF REQ, RBC 3.78 L, MCV 88.6, MCH 28.9, MCHC 32.6 L, RDW 15.0 H, MPV 7.3 L, Gran % 82.9 H, Lymphocytes % 11.7 L, Monocytes % 4.0, Eosinophils % 0.4, Basophils % 1.0, Absolute Granulocytes 9.3 H, Absolute Lymphocytes 1.3, Absolute Monocytes 0.4, Absolute Eosinophils 0, Absolute Basophils 0.1 Assessment/Plan Assessment/Plan The patient is a 67-year-old gentleman with a past medical history of diabetes mellitus, age renal disease on hemodialysis, pancreatitis and hypertension. He presents with atypical chest pain for an ischemic etiology, and has ruled out for myocardial infarction. He has well has severe uncontrolled hypertension. Abdomen/back pain: The patient's discomfort is atypical for an ischemic cardiac etiology. He has ruled out for myocardial infarction via serial troponin isoenzymes. The abdominal ultrasound was reviewed, and the patient as well underwent a CT scan several months ago which was negative from an aortic abnormality standpoint. We will continue follow-up with his lower back pain and abdominal pain as an outpatient. Hypertension: Suboptimally controlled. His regimen of metoprolol may be changed to an agent such as carvedilol for added blood pressure lowering. We will continue to titrate this regimen as tolerated, and modify as needed as an outpatient. Continue telemetry? No
[2017-12-25 12:00] VITALS: BP 110/40
[2017-12-25 16:00] VITALS: BP 146/80
[2017-12-25] MEDS ORDERED: COREG12.5 M1 PO (17:17)
[2017-12-25] MEDS ORDERED: LOSARTAN POTASS50 M1 PO (17:17)
[2017-12-25] MEDS ORDERED: ATORVASTATIN CA40 M1 PO (17:17)
[2017-12-25] MEDS ORDERED: PRAVACHOL40 M1 PO (17:26)
[2017-12-25] MEDS ORDERED: VALSARTAN80 M1 PO (17:32)
[2017-12-25 22:05] VITALS: BP 140/72
[2017-12-26 06:25] VITALS: BP 140/58
--- NOTE | 2017-12-26 06:56 | PN- Housestaff ---
Xuan Goldberg 12/26/17 0656: Subjective Follow-up For: Chest Pain ESRD Complaints: no complaints Subjective: Patient seen and examined at bedside this morning. Patient speaks minimal bulgarian and further translation was provided by his daughter on the phone. Mr. Hernandez was in no acute distress this morning and eager to go home after dialysis. Patient to leave after dialysis today. Review of Systems Constitutional: Denies: see HPI. Objective Last 24 Hrs of Vital Signs/I&O Vital Signs Date Time Temp Pulse Resp B/P B/P Pulse O2 O2 Flow FiO2 Mean Ox Delivery Rate 12/26 813 68 110/70 12/26 0814 68 110/70 12/26 0814 68 110/70 12/26 0814 68 110/70 12/26 0814 68 110/70 12/26 0814 68 110/70 12/26 0811 110/70 12/26 0800 Room Air 12/26 0625 98.0 68 18 140/58 92 Room Air 12/25 2205 98.5 71 20 140/72 94 Room Air 12/25 2036 80 130/58 07/10 2036 80 130/58 07/10 2036 80 130/58 /10 1600 97.8 62 18 146/80 95 Room Air 12/25 1549 62 146/80 Intake & Output 12/26 1600 12/26 0800 12/26 0000 Intake Total 240 120 Output Total Balance 240 120 Intake, Oral 240 120 Patient 166 lb Weight Weight Bed scale Measurement Method Physical Exam General Appearance: Alert, Oriented X3, Cooperative, No Acute Distress HEENT: Atraumatic, PERRLA, EOMI, Mucous Membr. moist/pink Neck: Supple, No JVD Cardiovascular: Regular Rate, Normal S1, Normal S2, No Murmurs Lungs: Clear to Auscultation, Normal Air Movement Abdomen: Normal Bowel Sounds, Soft, No Tenderness, No Hepatospenomegaly, No Masses Neurological: Normal Gait, Normal Speech, Strength at 5/5 X4 Ext, Normal Tone, Reflexes 2+ Extremities: No Clubbing, No Cyanosis, No Edema, Normal Pulses, No Tenderness/ Swelling Vascular: Normal Pulses, Pulses Symmetrical Current Medications: Current Medications Sig/Hernandez Start time Last Medication Dose Route Stop Time Status Admin Acetaminophen 650 MG DAILY NEEDED PRN 12/22 1615 AC PO Amlodipine Besylate 10 MG DAILY 12/23 899 AC 12/26 PO 0814 Aspirin 81 MG DAILY 12/23 899 AC 12/26 PO 0814 Atorvastatin Calcium 40 MG 1700 12/22 1700 AC 12/25 PO 1649 Carvedilol 12.5 MG BID 12/24 2099 AC 12/26 PO 0814 Clonidine 0.2 MG BID 12/22 2100 AC 12/26 PO 0814 Fluticasone 1 SPRAY BID 12/22 2100 AC 12/26 Propionate NADYA 0814 Hydralazine HCl 50 MG TID 12/22 2100 AC 12/26 PO 0814 Insulin Aspart 6 UNITS .STK-MED ONE 12/25 1643 DC NE 12/25 164 Insulin Aspart 0 TIDAC 12/24 1700 AC 12/25 SC 1649 Insulin Detemir 10 UNITS ONCE ONE 12/25 2044 DC 12/25 NE 12/25 Insulin Detemir 20 UNITS QPM 12/24 2099 AC 12/24 SC 203 Levothyroxine Sodium 0.175 MG DAILY AC 12/23 07 AC 12/26 PO 0606 Losartan Potassium 50 MG DAILY 12/24 899 AC 12/26 PO 0814 Minoxidil 2.5 MG DAILY 12/23 899 AC 12/26 PO 0819 Morphine Sulfate 2 MG Q4-6 PRN PRN 12/23 1630 AC 12/26 IV 0304 Nitroglycerin 0.5 GM Q6 PRN 12/22 1630 AC 12/23 TOP 1658 Omeprazole 40 MG DAILY AC 12/22 1615 AC 12/26 PO 0606 Oxycodone HCl 5 MG Q4-6 PRN PRN 12/22 1800 AC 12/26 PO 1057 Polyethylene Glycol 17 GM DAILY 12/24 1016 AC 12/26 PO 0814 Senna/Docusate Sodium 1 TAB BID 12/24 1016 AC 12/26 PO 0814 Sevelamer Carbonate 1,600 MG TIDAC 12/22 1700 AC 12/26 PO 0814 Tamsulosin HCl 0.4 MG DAILY 12/23 899 AC 12/26 PO 0814 Last 24 Hrs of Lab/Sedrick Results Last 24 Hrs of Labs/Mics: Laboratory Tests 12/26/17 1310: Sodium Pending, Potassium Pending, Chloride Pending, Carbon Dioxide Pending, Anion Gap Pending, BUN Pending, Creatinine Pending, BUN/Creatinine Ratio Pending , Calcium Pending, Phosphorus Pending, Magnesium Pending, Albumin Pending, CBC w Diff NO MAN DIFF REQ, RBC 3.30 L, MCV 88.8, MCH 28.8, MCHC 32.4 L, RDW 15.0 H , MPV 7.4, Gran % 75.3 H, Lymphocytes % 16.2 L, Monocytes % 7.0, Eosinophils % 1.1, Basophils % 0.4, Absolute Granulocytes 6.1, Absolute Lymphocytes 1.3, Absolute Monocytes 0.6, Absolute Eosinophils 0.1, Absolute Basophils 0 Assessment/Plan Assessment: A/P: Patient is a 67 year old male with pmh of diabetes, ESRD on dialysis M/W/F, HTN, HLD, pancreatitis who presented to the ED with complaints of chest pain. Patient ruled out for ID via serial troponin isoenzymes. Patient initially admitted to telemetry and upgraded to ICU with complaints of chest pain. No EKG changes but was started on IV heparin and IV nitroglycerin. No evidence of aortic aneurysm and unlikely chance of aortic dissection given additional abdomnal pain. Patient now back in the telemetry unit prior to possible discharge today 12/26/17. Patient for discharge today after dialysis. Problem List: 1. Hypertension 2. Abdominal/Back Pain HYPERTENSION * Patient seen by Dr. Reyes; after transfer from ICU; ruled out ID via serial tropnin isoenzymes * continue blood pressure regimen and follow-up as outpatient; titrate regimen as necessary ABDOMINAL/BACK PAIN * denies signficiant pain today * atypical for ischemic cardiac etiology * ruled out for ID via serial troponin enzymes; negative abdominal US for aortic aneursym * previous CT scan months ago that was negative from any aortic abnormality; however patient to continue to follow up with his back and abdominal pain as an outpatient; likely of musculoskeletal etiology Code Status: Full Code DVT PPx: Diet: Renal Dialysis Problem List: 1. ESRD (end stage renal disease) on dialysis 2. Chest pain due to myocardial ischemia Pain Ratin Pain Location: No pain today Pain Goal: Remain pain free Pain Plan: As per pain pathway Tomorrow's Labs & Rationales: No labs needed patient to be discharged today after dialysis DVT/Prophylaxis: pharmacological Lo Valdovinos MD 12/26/17 1255: Attending MD Review Statement Attending Statement Attending MD Statement: examined this patient, discuss w/resident/PA/RANCH MANAGER, agreed w/resident/PA/RANCH MANAGER, reviewed EMR data (avail), discussed with nursing, discussed with case mgmt, reviewed images Attending Assessment/Plan: Patient is doing well. He is ambulating all over the floor and has no complaints of chest pain. He feels well and is eager to go home today after dialysis. Appreciate cardiology's recommendations and the plan is outpatient follow-up for cardiac risk stratification with a possible stress test and outpatient orthopedic follow-up for what is likely musculoskeletal pain. He will leave after dialysis today with changes in his blood pressure regimen as recommended by cardiology.
--- NOTE | 2017-12-26 07:22 | Patient Discharge Instructions ---
Discharge Instructions General Discharge Information You were seen/treated for: Chest Pain Hypertension: Watch for these problems: CHEST PAIN Special Instructions: Please follow up with your Primary Care Physician within 1 week. Please follow up with your multimedia author within 1 week to arrange for outpatient stress test. Please seek medical attention if you develop chest pain. Diet Continue normal diet: Yes Activity Full Activity/No Limits: Yes Acute Coronary Syndrome Inclusion Criteria At DC or during hospital stay patient has or had the following: ACS DIAGNOSIS No Discharge Core Measures Meds if any: Prescribed or Continued at Discharge Meds if any: NOT Prescribed or Continued at Discharge Congestive Heart Failure Inclusion Criteria At DC or during hospital stay patient has or had the following: CHF DIAGNOSIS No Discharge Core Measures Meds if any: Prescribed or Continued at Discharge SAMIRA/ARB for EF <40% No Meds if any: NOT Prescribed or Continued at Discharge Cerebrovascular accident Inclusion Criteria At DC or during hospital stay patient has or had the following: CVA/TIA Diagnosis No Discharge Core Measures Meds if any: Prescribed or Continued at Discharge Meds if any: NOT Prescribed or Continued at Discharge Venous thromboembolism Inclusion Criteria VTE Diagnosis No VTE Type NONE VTE Confirmed by (Test) NONE Discharge Core Measures - Per Current guidelines, there needs to be overlap - treatment for the first 5 days of Warfarin therapy. - If discharged on Warfarin prior to 5 days of - overlap therapy, the patient will need to be - assessed for post discharge needs including - *Post discharge parental anticoagulation - *Warfarin and/or parental anticoagulation education - *Follow up date to check INR post discharge At least 5 days overlap therapy as Inpatient No Meds if any: Prescribed or Continued at Discharge Note: Overlap Therapy is Warfarin and Anticoagulant Meds if any: NOT Prescribed or Continued at Discharge
[2017-12-26 08:11] VITALS: BP 110/70
--- NOTE | 2017-12-26 11:31 | PN- Cardiology ---
Subjective Subjective: The patient is awake, alert, complains of left shoulder pain with movement of the arm The events of the last 24 hours as well as telemetry were reviewed. Review of Systems: The review of systems is negative for chest pains, palpitations nor lightheadedness. The remainder of the 14 point review of systems is noncontributory with the exception of above. Objective Vital Signs and I&Os Vital Signs Date Time Temp Pulse Resp B/P B/P Pulse O2 O2 Flow FiO2 Mean Ox Delivery Rate 12/26 813 68 110/70 12/26 0814 68 110/70 12/26 0814 68 110/70 12/26 0814 68 110/70 12/26 0814 68 110/70 12/26 0814 68 110/70 12/26 0811 110/70 12/26 0800 Room Air 12/26 0625 98.0 68 18 140/58 92 Room Air / 2205 98.5 71 20 140/72 94 Room Air / 2036 80 130/58 / 2036 80 130/58 / 2036 80 130/58 / 1600 97.8 62 18 146/80 95 Room Air 07/10 1549 62 146/80 /10 1200 Room Air /10 1200 98.3 60 18 110/40 96 Room Air Intake & Output 12/26 1600 12/26 0800 12/26 0000 12/25 1600 12/25 0800 12/25 0000 Intake Total 240 120 600 0 604 Output Total 0 0 150 Balance 240 120 600 0 454 Intake, IV 0 24 Intake, Oral 240 120 600 0 580 Number 0 Bowel Movements Output, Urine 0 0 150 Patient 166 lb 161 lb 161 lb Weight Weight Bed scale Bed scale Measurement Method Physical Exam: General: Nontoxic, no apparent distress. HEENT: Sclera and conjunctiva within normal limits, without xanthelasmas. Neck: Carotids 2+ without bruits. Respiratory: Clear to auscultation, air movement is good, without accessory respiratory muscle use. Heart: Regular rate and rhythm, without murmurs, without JVD. Abdomen: Soft, nontender, no masses, normoactive bowel sounds. Extremities: Without clubbing, cyanosis, without edema. Neuro: Nonfocal exam, strength, 5 out of 5 Skin: Within normal limits without lesions. Psych: Mood and affect: Normal Current Medications: Current Medications Sig/Hernandez Start time Last Medication Dose Route Stop Time Status Admin Acetaminophen 650 MG DAILY NEEDED PRN 12/22 1615 AC PO Amlodipine Besylate 10 MG DAILY 12/23 899 AC 12/26 PO 0814 Aspirin 81 MG DAILY 12/23 899 AC 12/26 PO 0814 Atorvastatin Calcium 40 MG 1700 12/22 1700 AC 12/25 PO 1649 Carvedilol 12.5 MG BID 12/24 2100 AC 12/26 PO 0814 Clonidine 0.2 MG BID 12/22 2100 AC 12/26 PO 0814 Fluticasone 1 SPRAY BID 12/22 2100 AC 12/26 Propionate NADYA 0814 Hydralazine HCl 50 MG TID 12/22 2100 AC 12/26 PO 0814 Insulin Aspart 6 UNITS .STK-MED ONE 12/25 1643 [facility] 12/25 1644 Insulin Aspart 4 UNITS .STK-MED ONE 12/25 1154 [facility] 12/25 1155 Insulin Aspart 0 TIDAC 12/24 1700 12/25 [place] 1649 Insulin Detemir 10 UNITS ONCE ONE 12/25 2044 MS 12/25 KS 12/256 2037 Insulin Detemir 20 UNITS QPM 12/24 2100 AC 12/24 SC 203 Levothyroxine Sodium 0.175 MG DAILY AC 12/23 07 AC 12/26 PO 0606 Losartan Potassium 50 MG DAILY 12/24 899 AC 12/26 PO 0814 Minoxidil 2.5 MG DAILY 12/23 899 AC 12/26 PO 0819 Morphine Sulfate 2 MG Q4-6 PRN PRN 12/23 1630 AC 12/26 IV 0304 Nitroglycerin 0.5 GM Q6 PRN 12/22 1630 AC 12/23 TOP 1658 Omeprazole 40 MG DAILY AC 12/22 1615 AC 12/26 PO 0606 Oxycodone HCl 5 MG Q4-6 PRN PRN 12/22 1800 AC 12/26 PO 1057 Polyethylene Glycol 17 GM DAILY 12/24 1016 AC 12/26 PO 0814 Senna/Docusate Sodium 1 TAB BID 12/24 1016 AC 12/26 PO 0814 Sevelamer Carbonate 1,600 MG TIDAC 12/22 1700 AC 12/26 PO 0814 Tamsulosin HCl 0.4 MG DAILY 12/23 899 AC 12/26 PO 0814 Results Last 48 Hrs of Labs/Mics: Laboratory Tests 12/25/17 0630: Anion Gap 12, Estimated GFR 10 L, Glucose 153 H, Calcium 8.0 L, Phosphorus 4.3, Magnesium 2.3, Total Bilirubin 0.3, AST 13 L, ALT 26, Albumin 3.0 L, CBC w Diff NO MAN DIFF REQ, RBC 3.29 L, MCV 88.4, MCH 29.0, MCHC 32.8 L, RDW 14.6 H, MPV 7.4, Gran % 75.5 H, Lymphocytes % 17.2 L, Monocytes % 5.4, Eosinophils % 1.5, Basophils % 0.4, Absolute Granulocytes 5.4, Absolute Lymphocytes 1.2, Absolute Monocytes 0.4, Absolute Eosinophils 0.1, Absolute Basophils 0 12/24/171999: APTT Cancelled Assessment/Plan Assessment/Plan The patient is a 67-year-old gentleman with a past medical history of diabetes mellitus, age renal disease on hemodialysis, pancreatitis and hypertension. He presents with atypical chest pain for an ischemic etiology, and has ruled out for myocardial infarction. He as well has severe uncontrolled hypertension. Abdomen/back pain: The patient's discomfort is atypical for an ischemic cardiac etiology. He has ruled out for myocardial infarction via serial troponin isoenzymes. The abdominal ultrasound was reviewed, and the patient as well underwent a CT scan several months ago which was negative from an aortic abnormality standpoint. We will continue follow-up with his lower back pain and abdominal pain as an outpatient. Hypertension: Control is currently improved on his current medication regimen. We will continue the same and follow-up as an outpatient, further titrating as necessary. Musculoskeletal discomfort: Follow-up with orthopedics may be performed as an outpatient. Continue telemetry? No
[2017-12-26] MEDS ORDERED: COREG12.5 M1 PO (11:55)
--- NOTE | 2017-12-26 13:50 | PN- Nephrology ---
Assessment/Plan Nephrology Assessment: 1. ESRD 2. Recurrent back, shoulder and arm pain -does not appear to be cardiac in origin 3. Anemia Suggestion: 1. Hemodialysis today in progress with 2 L ultrafiltration as tolerated over 3 hours 2. Orthopedic follow-up as outpatient Subjective Subjective: Patient fairly comfortable today with only occasional, poorly described discomfort in shoulder and epigastric region. Seen with hemodialysis which is in progress and uneventful thus far. Today's labs pending. Objective Vital Signs and I&Os Vital Signs Date Time Temp Pulse Resp B/P B/P Pulse O2 O2 Flow FiO2 Mean Ox Delivery Rate 12/26 08 68 110/70 12/26 0814 68 110/70 12/26 0814 68 110/70 12/26 0814 68 110/70 12/26 0814 68 110/70 12/26 0814 68 110/70 12/26 0811 110/70 12/26 0800 Room Air 12/26 0625 98.0 68 18 140/58 92 Room Air 12/25 2205 98.5 71 20 140/72 94 Room Air 12/25 203 80 130/58 12/25 2036 80 130/58 12/25 2036 80 130/58 12/25 1600 97.8 62 18 146/80 95 Room Air 12/25 1549 62 146/80 Intake & Output 12/26 1600 12/26 0400 12/25 1600 12/25 0400 12/24 1600 12/24 0400 Intake Total 240 120 600 604 895 421 Output Total 0 150 2150 150 Balance 240 120 600 454 -1255 271 Intake, IV 0 24 485 121 Intake, Oral 240 120 600 580 410 300 Number 0 1 0 Bowel Movements Output, 2000 Dialysate Output, Urine 0 150 150 150 Patient 166 lb 161 lb 161 lb 162 lb Weight Weight Bed scale Bed scale Bed scale Measurement Method Physical Exam: General: Well-developed white male in NAD Skin: No rash or jaundice HEENT: Conjunctivae pink, sclerae anicteric, mucous membranes moist Neck: Without masses or thyromegaly, no supraclavicular or cervical adenopathy Chest: Clear to P&A Heart: Regular rate and rhythm without S3 or rub Abdomen: Soft and nontender without palpable masses or organomegaly Extremities: Without cyanosis or edema Neuro: Cognitively intact, no focal findings, no asterixis or myoclonus Results Pertinent Lab Results: Laboratory Tests 12/25 Chemistry Sodium (137 - 145 mmol/L) 138 Potassium (3.5 - 5.1 mmol/L) 4.8 Chloride (98 - 107 mmol/L) 99 Carbon Dioxide (22 - 30 mmol/L) 27 Anion Gap (5 - 16) 12 BUN (9 - 20 mg/dL) 27 H Creatinine (0.7 - 1.2 mg/dL) 5.8 *H Estimated GFR (>60 ml/min) 10 L Glucose (65 - 99 mg/dL) 153 H Calcium (8.4 - 10.2 mg/dL) 8.0 L Phosphorus (2.5 - 4.5 mg/dL) 4.3 Magnesium (1.6 - 2.3 mg/dL) 2.3 Total Bilirubin (0.2 - 1.3 mg/dL) 0.3 AST (17 - 59 U/L) 13 L ALT (21 - 72 U/L) 26 Albumin (3.5 - 5.0 g/dL) 3.0 L Coagulation APTT Cancelled Hematology CBC w Diff NO MAN DIFF REQ WBC (4.8 - 10.8 /CUMM) 7.2 RBC (4.70 - 6.10 /CUMM) 3.29 L Hgb (14.0 - 18.0 G/DL) 9.5 L Hct (42 - 52 %) 29.1 L MCV (80.0 - 94.0 FL) 88.4 MCH (27.0 - 31.0 PG) 29.0 MCHC (33.0 - 37.0 G/DL) 32.8 L RDW (11.5 - 14.5 %) 14.6 H Plt Count (130 - 400 /CUMM) 328 MPV (7.4 - 10.4 FL) 7.4 Gran % (42.2 - 75.2 %) 75.5 H Lymphocytes % (20.5 - 51.1 %) 17.2 L Monocytes % (1.7 - 9.3 %) 5.4 Eosinophils % (0 - 5 %) 1.5 Basophils % (0.0 - 2.0 %) 0.4 Absolute Granulocytes (1.4 - 6.5 /CUMM) 5.4 Absolute Lymphocytes (1.2 - 3.4 /CUMM) 1.2 Absolute Monocytes (0.10 - 0.60 /CUMM) 0.4 Absolute Eosinophils (0.0 - 0.7 /CUMM) 0.1 Absolute Basophils (0.0 - 0.2 /CUMM) 0 12/24 0708 0800 2245 Chemistry Sodium (137 - 145 mmol/L) 135 L Potassium (3.5 - 5.1 mmol/L) 4.9 Chloride (98 - 107 mmol/L) 95 L Carbon Dioxide (22 - 30 mmol/L) 27 Anion Gap (5 - 16) 13 BUN (9 - 20 mg/dL) 45 H Creatinine (0.7 - 1.2 mg/dL) 7.8 *H Estimated GFR (>60 ml/min) 7 L Glucose (65 - 99 mg/dL) 140 H Calcium (8.4 - 10.2 mg/dL) 8.0 L Phosphorus (2.5 - 4.5 mg/dL) 5.3 H Magnesium (1.6 - 2.3 mg/dL) 2.3 Total Bilirubin (0.2 - 1.3 mg/dL) 0.3 AST (17 - 59 U/L) 15 L ALT (21 - 72 U/L) 19 L Albumin (3.5 - 5.0 g/dL) 3.0 L TSH (0.270 - 4.200 uIU/mL) 12.800 H Free T4 (0.78 - 2.44 ng/dL) 1.73 Coagulation APTT (25 - 37 SEC) 79 H 58 H Hematology CBC w Diff NO MAN DIFF REQ WBC (4.8 - 10.8 /CUMM) 7.9 RBC (4.70 - 6.10 /CUMM) 3.37 L Hgb (14.0 - 18.0 G/DL) 9.8 L Hct (42 - 52 %) 29.8 L MCV (80.0 - 94.0 FL) 88.2 MCH (27.0 - 31.0 PG) 29.2 MCHC (33.0 - 37.0 G/DL) 33.1 RDW (11.5 - 14.5 %) 14.7 H Plt Count (130 - 400 /CUMM) 354 MPV (7.4 - 10.4 FL) 7.3 L Gran % (42.2 - 75.2 %) 73.7 Lymphocytes % (20.5 - 51.1 %) 17.7 L Monocytes % (1.7 - 9.3 %) 6.3 Eosinophils % (0 - 5 %) 1.5 Basophils % (0.0 - 2.0 %) 0.8 Absolute Granulocytes (1.4 - 6.5 /CUMM) 5.8 Absolute Lymphocytes (1.2 - 3.4 /CUMM) 1.4 Absolute Monocytes (0.10 - 0.60 /CUMM) 0.5 Absolute Eosinophils (0.0 - 0.7 /CUMM) 0.1 Absolute Basophils (0.0 - 0.2 /CUMM) 0.1 12/23 1534 Chemistry Troponin I (<0.11 ng/ml) 0.02 Coagulation APTT (25 - 37 SEC) 54 H Hematology CBC w Diff NO MAN DIFF REQ WBC (4.8 - 10.8 /CUMM) 11.3 H RBC (4.70 - 6.10 /CUMM) 3.78 L Hgb (14.0 - 18.0 G/DL) 10.9 L Hct (42 - 52 %) 33.4 L MCV (80.0 - 94.0 FL) 88.6 MCH (27.0 - 31.0 PG) 28.9 MCHC (33.0 - 37.0 G/DL) 32.6 L RDW (11.5 - 14.5 %) 15.0 H Plt Count (130 - 400 /CUMM) 394 MPV (7.4 - 10.4 FL) 7.3 L Gran % (42.2 - 75.2 %) 82.9 H Lymphocytes % (20.5 - 51.1 %) 11.7 L Monocytes % (1.7 - 9.3 %) 4.0 Eosinophils % (0 - 5 %) 0.4 Basophils % (0.0 - 2.0 %) 1.0 Absolute Granulocytes (1.4 - 6.5 /CUMM) 9.3 H Absolute Lymphocytes (1.2 - 3.4 /CUMM) 1.3 Absolute Monocytes (0.10 - 0.60 /CUMM) 0.4 Absolute Eosinophils (0.0 - 0.7 /CUMM) 0 Absolute Basophils (0.0 - 0.2 /CUMM) 0.1
[2017-12-26 14:03] LABS: ABSOLUTE BASOPHIL COUNT 0 /CUMM (0.0-0.2); ABSOLUTE EOSINOPHIL COUNT 0.1 /CUMM (0.0-0.7); ABSOLUTE GRANULOCYTE CT 6.1 /CUMM (1.4-6.5); ABSOLUTE LYMPH COUNT 1.3 /CUMM (1.2-3.4); ABSOLUTE MONOCYTE COUNT 0.6 /CUMM (0.10-0.60); BASOPHIL % 0.4 % (0.0-2.0); EOSINOPHIL % 1.1 % (0-5); GRANULOCYTE % 75.3 % (42.2-75.2); HEMATOCRIT 29.3 % (42-52); MEAN CORPUSCULAR HGB 28.8 PG (27.0-31.0); MEAN CORPUSCULAR HGB CONC 32.4 G/DL (33.0-37.0); MEAN CORPUSCULAR VOLUME 88.8 FL (80.0-94.0); MEAN PLATELET VOLUME 7.4 FL (7.4-10.4); PLATELET COUNT 327 /CUMM (130-400); WHITE BLOOD CELL COUNT 8.1 /CUMM (4.8-10.8)
--- NOTE | 2017-12-26 16:09 | Discharge Summary ---
Visit Information Visit Dates Admission Date: 12/22/17 Discharge Date: 12/27/17 Hospital Course Course Attending Physician: Brant Infante MD Primary Care Physician: Kevin Brown MD Consulting Request: Consulting Specialty: Cardiology Hospital Course: Mr. Hernandez is a pleasant 67 y/o M with an extensive PMH of HLD, HTN, chronic diastolic CHF, moderate pulm HTN, ESRD (M/W/F), hypothyroidism, BPH that came to the ED c/o chest pain. As per the pt, pain started 12/20 as a sharp, crushing pain in the middle of the chest that radiated to his R shoulder. He states this pain was worsened by lying down, but not reproducible on palpation - he took 2 aspirin and nitroglycerin and that seemed to make it better. The pain however returned on sunday and upon nonresolution, saw his PCP (Dr. Brown), who directed the patient to the ED for admission. He was admitted (12/22) for his chest pain to rule out ACS. Troponin and EKG were ordered - they were negative and EKG showed T-wave inversions on V4, V5, V6 ; he was started on IV heparin, plavix, aspirin and statin with resolution of chest pain. Chest pain recurred on 12/23 and per cardiology's recommendation, pt was started on nitro drip and transferred to the ICU for management. During his two day stay in the ICU, his next set of troponin were normal, no variation on his EKG were seen and chest pain resolved once again. On 12/24 the patient was dialyzed as per his usual schedule. He was taken off the nitro drip but started complaining of diffuse abdominal pain radiating to his back. Due to his complain of no BMs, he was started on a bowel regimen, and an abdominal xray was ordered to assess for possible obstruction/ileus but no significant findings were noted. An abdominal aortic ultrasound was ordered to evaluate for a possible aortic aneurysm given his complaints, but did not find any acute pathology. On 12/25, as per cardiology's recommendation his metoprolol 25 mg was changed to carvedilol 12.5mg BID for a more optimal control of his BP. The patient was then transfered to [facility] for continuing monitoring with the plan to discharge and risk stratify with a stress test as an outpatient. On 12/26, pt was dialyzed again as per his usual schedule with no acute complains during the day. The feeling was that his pain was more musculoskeletal. Of course given his ESRD and cardiac risk factors he will need outpatient risk stratification with a stress test. Given that his recent CT chest didn't show any aneurysm and given that the limited study of the ultrasound didn't show any anneurysmal dilatation there was no suspicion for aortic dissection. The patient did well, ambulated with no complaints, pressure was well controlled on the new regimen and he is being discharged after dialysis to have close outpatient follow-up. Allergies: Coded Allergies: No Known Allergies (09/28/17) Significant Procedures: SERVICE DATE: 12/24/17-1015 EXAM TYPE: RAD - XRY-PORTABLE ABDOMEN FINDINGS: Small pleural effusions and bibasilar opacities/atelectasis. The effusions appear decreased in size compared to 12/22/2017. No pneumoperitoneum. On the supine view, gas is seen within the nondilated colon and nondilated small bowel. Nqzxm-di-velnhebu amount of stool is present within the colon. A right ureteral stent is in its expected position. No radiographically visible renal calculi. Vascular calcifications are seen in the pelvis. There is a left iliac bone island. IMPRESSION: 1. Small bilateral pleural effusions and bibasilar atelectasis. The pleural effusions appear decreased compared to 12/22/2017. 2. No significant radiographic findings with regards to the gastrointestinal tract. Gas is seen within the nondilated small bowel and colon. No findings to suggest presence of ileus or bowel obstruction. SERVICE DATE: 12/24/17- EXAM TYPE: US - US-AORTA FINDINGS: The measurements of the aorta in maximum AP and transverse dimensions respectively are as follows: Proximal: 2.2 x 2.2 cm. Mid: Unable to visualize. Distal: Unable to visualize. The measurements of the common iliac arteries in maximum AP dimension are as follows: Right Common Iliac Artery: Unable to visualize. Left Common Iliac Artery: Unable to visualize. IMPRESSION: Visualization of the mid and distal abdominal aorta was markedly limited by the presence of interfering bowel gas. The patient did not have an abdominal aortic aneurysm on the prior CT Oct, 2017. However, an acute aortic dissection cannot be excluded. If there is persistent symptoms suggesting an aortic dissection, a CTA is recommended for further evaluation. SERVICE DATE: 12/23/17 EXAM TYPE: CARD - ECHOCARDIOGRAM FINDINGS Left Ventricle Normal LV chamber size with mild concentric LVH. The estimated LVEF is 65%. There are no focal wall motion abnormalities. Right Ventricle Normal-appearing right ventricle Right Atrium Normal-appearing right atrium Left Atrium Normal-appearing left atrium Mitral Valve Moderately thickened and calcified mitral valvular leaflets and annulus. There is adequate leaflet excursion. There is mild mitral regurgitation. Aortic Valve Moderately thickened and calcified aortic valve leaflets. The valve appears trileaflet; however, is suboptimally visualized there is mild to moderate aortic insufficiency. There is restricted leaflet opening with a mean gradient of 19 mmHg and a peak gradient of 33.9 mmHg. Calculated aortic valve area is 1.0 cm, suggestive of moderate to severe aortic stenosis. Tricuspid Valve Normal-appearing tricuspid valve leaflet structure and function. There is mild to moderate tricuspid insufficiency. The estimated PA systolic pressure is 45 mmHg Pulmonic Valve Normal-appearing pulmonic valve leaflet structure and function Pericardium Normal pericardium Great Vessels Normal great vessels CONCLUSIONS Normal LV chamber size with mild concentric LVH. The estimated LVEF is 65%. There are no focal wall motion abnormalities. There is mild mitral regurgitation. Moderately thickened and calcified aortic valve leaflets. The valve appears trileaflet; however, is suboptimally visualized there is mild to moderate aortic insufficiency. There is restricted leaflet opening with a mean gradient of 19 mmHg and a peak gradient of 33.9 mmHg. Calculated aortic valve area is 1.0 cm, suggestive of moderate to severe aortic stenosis. The estimated PA systolic pressure is 45 mmHg. SERVICE DATE: 12/23/17- EXAM TYPE: US - US-LIMITED ABDOMEN FINDINGS: PANCREAS: The pancreatic tail is obscured by bowel gas. The visualized portions the pancreas are normal. LIVER: Liver has normal size, contour and parenchymal echotexture. A punctate calcification/granuloma is present in the right hepatic lobe. No intrahepatic bile duct dilatation. GALLBLADDER: Surgically absent. COMMON BILE DUCT: Normal in caliber measuring 0.3 cm in diameter. RIGHT KIDNEY: The right kidney is approximately 9 cm in length. It has normal cortical thickness and cortical echotexture. Small, 0.9 cm cortical cyst is present in the upper pole. A cyst measuring up to 1.4 cm present in the interpolar region. No hydronephrosis. The right ureteral stent is not well seen. Small, 0.4 cm calculus of the lower pole of the right kidney was observed on 10/25/2017. There are no sonographically visible calculi on today's exam. FREE FLUID: No abdominal free fluid. Small pleural effusion is seen. IMPRESSION: 1. Status post cholecystectomy with normal sized (0.3 cm diameter) common bile duct. 2. No acute findings within the liver. 3. No right-sided hydronephrosis. 4. Small right pleural effusion. SERVICE DATE: 12/22/17 EXAM TYPE: RAD - XRY-CHEST XRAY, TWO VIEWS FINDINGS: There is again noted to be small bilateral pleural effusions with bibasilar atelectasis. No pneumothorax. Cardio-pericardial silhouette is enlarged. No evidence of airspace edema. IMPRESSION: Small bilateral pleural effusions improved from study of October 25, 2017. Cardiomegaly without pulmonary edema. Disposition Summary Disposition Principal Diagnosis: Chest pain Hypertensive urgency Additional Diagnosis: ESRD HTN Discharge Disposition: home health services Discharge Instructions General Discharge Information Code Status: Full Code Patient's Diet: Renal Dialysis Diet Patient's Activity: as tolerated Follow-Up Instructions/Appts: Please follow up with your Primary Care Physician within 1 week. Please follow up with your house mover helper within 1 week to arrange for outpatient stress test. Please seek medical attention if you develop chest pain. Medications at Discharge Discharge Medications: Stop taking the following medications: Metoprolol Tartrate (Metoprolol Tartrate) 25 MG TABLET ORAL TWICE DAILY Continue taking these medications: Tamsulosin HCl (Flomax) 0.4 MG CAP.ER.24H 1 Capsule ORAL DAILY Comments: Last Taken: 12/26/17 Time: 8 AM Acetaminophen (Tylenol) 325 MG TABLET 2 Tablet ORAL DAILY NEEDED as needed for PAIN Comments: NOT GIVEN IN HOSPITAL Amlodipine Besylate (Amlodipine Besylate) 10 MG TABLET 1 Tablet ORAL DAILY Comments: Last Taken: 12/26/17 Time: 8 AM Darbepoetin Pardeep in Polysorbat (Aranesp) 10 MCG/0.4 ML SYRINGE 1 Syringe INTRAMUSC EVERY SUNDAY Comments: NOT GIVEN IN HOSPITAL Aspirin (Aspirin*) 81 MG TAB.CHEW 1 Tablet ORAL DAILY Comments: Last Taken: 12/26/17 Time: 8 AM Clonidine HCl (Clonidine HCl) 0.2 MG TABLET 1 Tablet ORAL TWICE DAILY Comments: Last Taken: 12/26/17 Time: 8 AM Fluticasone Propionate (Flonase Allergy Relief) 50 MCG/ACTUATION SPRAY.SUSP 1 [place] Both sides of nose TWICE DAILY Comments: Last Taken: 12/26/17 Time: 8 AM Hydralazine HCl (Hydralazine HCl) 50 MG TABLET 1 Tablet ORAL THREE TIMES DAILY Comments: Last Taken: 12/26/17 Time: 5 PM Minoxidil (Minoxidil) 10 MG TABLET 2.5 Milligram ORAL DAILY Comments: Last Taken: 12/26/17 Time: 8 AM Nitroglycerin (Nitroglycerin) 0.4 MG TAB.SUBL 1 Tablet SUBLINGUAL As Directed Instructions: 1st sign of attack; may repeat every 5 minutes until relief; if pain persists after 3 tablets in 15 minutes, prompt medical att Comments: Last Taken: 12/23/17 Time: 3 PM Etelcalcetide Hydrochloride (Parsabiv) 5 MG/ML VIAL 5 Milligram INTRAVEN SUNDAY, SUNDAY AND SUNDAY Comments: NOT GIVEN IN HOSPITAL Oxycodone HCl (Oxycodone HCl) 5 MG TABLET 1 Tablet ORAL EVERY 4-6 HOURS NEEDED Qty = 60 Comments: Last Taken: 12/26/17 Time: 3 PM Insulin Aspart, Recombinant (Novolog Flexpen) 100 UNIT/ML INSULN.PEN 0 Inject into fatty tissue THREE TIMES DAILY Qty = 30 Instructions: Please use 5 - 8 - 11 Units based on carb count Comments: NOT GIVEN IN HOSPITAL Sevelamer Carbonate (Renvela) 800 MG TABLET 1,600 Milligram ORAL 3 TIMES DAILY BEFORE MEALS Qty = 30 Comments: Last Taken: 12/26/17 Time: 5 PM Vitamin B Complex (Vitamin B Complex) 1 EACH TABLET 1 Tablet ORAL DAILY Comments: NOT GIVEN IN HOSPITAL Omeprazole (Omeprazole) 40 MG CAPSULE.DR 1 Capsule ORAL DAILY Qty = 60 Comments: Last Taken: 12/26/17 Time: 6 AM Lactulose (Lactulose) 10 GRAM/15 ML SOLUTION 30 Milliliters ORAL TWICE DAILY Qty = 473 Comments: NOT GIVEN IN HOSPITAL Diclofenac Sodium (Voltaren) (Unknown Strength) GEL..GRAM. Unknown Dose On the skin TWICE DAILY Qty = 100 Instructions: apply to affected area(s) Comments: NOT GIVEN IN HOSPITAL Insulin Detemir (Levemir) 100 UNIT/ML VIAL 30 Units Inject into fatty tissue Every night Comments: Last Taken: 12/24/17 Time: 9PM Mometasone Furoate (Mometasone Furoate) 0.1 % CREAM..G. 1 Application On the skin DAILY Qty = 45 Instructions: apply to affected area(s) Comments: NOT GIVEN IN HOSPITAL Levothyroxine Sodium (Levothyroxine Sodium) 175 MCG TABLET 1 Tablet ORAL DAILY Qty = 30 Comments: Last Taken: 12/26/17 Time: 6 AM Pravastatin Sodium (Pravachol) 40 MG TABLET 1 Tablet ORAL DAILY Qty = 30 Comments: Last Taken: 12/26/17 Time: 5 PM PT GIVEN ATORVASTATIN Valsartan (Valsartan) 80 MG TABLET 1 Tablet ORAL DAILY Qty = 30 Comments: Last Taken: 12/26/17 Time: 8 AM Start taking the following new medications: Carvedilol (Coreg) 12.5 MG TABLET 12.5 Milligram ORAL TWICE DAILY Qty = 30 No Refills Instructions: . Comments: Last Taken: 12/26/17 Time: 8 AM Copies To: Kevin ISSA,Alexandra Reyes MD,Oscar
[2017-12-26 16:48] VITALS: BP 172/60
[2017-12-26 17:07] VITALS: BP 172/60
== END 2017-12-26 17:33 | disposition home health service (06) | DRG 311 ==
LOC: ERH 10:14 → 1NO 12:59 → CRI 12:59 → ERHI 12:59 → ENRESERV 14:27 → ENTRNSPT 16:06 → EDTRNSPTSTS 16:19 → EDTRNSPT 16:19 → 1NO 16:27 → CMPTRNSPT 16:57 → CRI 12-23 15:48 → 1NO 12-25 21:13 → ENPENDDIS 12-26 15:36 → ENTRNSPT 12-26 17:18 → EDTRNSPT 12-26 17:26 → EDTRNSPTSTS 12-26 17:26 → 1NO 12-26 17:33 → CMPTRNSPT 12-26 17:39
PROVIDERS: Emergency Medicine; Internal Medicine; Internal Medicine Endocrinology, Diabetes & Metabolism; Internal Medicine Nephrology; Student in an Organized Health Care Education/Training Program
PROC: 5A1D70Z Performance of Urinary Filtration, Intermittent, Less than 6 Hours Per Day (ICD-10-PCS; principal; 2017-12-24)
DX: I20.0 Unstable angina (principal); N18.6 End stage renal disease; I13.2 Hypertensive heart and chronic kidney disease with heart failure and with stage 5 chronic kidney disease, or end stage renal disease; I50.32 Chronic diastolic (congestive) heart failure; E03.9 Hypothyroidism, unspecified; E11.22 Type 2 diabetes mellitus with diabetic chronic kidney disease; Z99.2 Dependence on renal dialysis; Z79.4 Long term (current) use of insulin; E78.5 Hyperlipidemia, unspecified; N40.0 Benign prostatic hyperplasia without lower urinary tract symptoms; Z96.0 Presence of urogenital implants; R94.31 Abnormal electrocardiogram [ECG] [EKG]; D63.1 Anemia in chronic kidney disease; R10.11 Right upper quadrant pain; I27.20 Pulmonary hypertension, unspecified
CPT/HCPCS: 1NSP; CCU; 36415; 36592; 71046; 74018; 76770; 82436; 93005; 93010; 93306; 96374; 99291; J1644; J1815; J2405; J3490; J7060